=== PATIENT | male | born 1955 | race Two or more races ===

== ENCOUNTER 2022-11-01 14:21 | Inpatient (IN) | payer MEDICARE, MEDICAID ==
[~2022-11-01] VITALS: Ht 172.7 cm; Wt 54.5 kg
[2022-11-02 00:37] LABS: Basophils # (auto) 0.1 10 ^3/uL (0-0.2); Basophils % (auto) 0.5 % (0.0-2.0); Eosinophils # (auto) 0.1 10 ^3/uL (0-0.8); Hematocrit 38.7 % (41.0-53.0); Hemoglobin 13.3 g/dL (13.5-17.5); Lymphocytes # (auto) 3.8 10 ^3/uL (0.4-5.4); Mean Corpuscular Hgb Conc. 34.3 g/dL (32.0-36.0); Mean Corpuscular Volume 87.6 fL (80.0-100.0); Monocytes # (auto) 0.9 10 ^3/uL (0-1.3); Monocytes % (auto) 7.9 % (0.0-12.0); Neutrophils # (auto) 6.6 10 ^3/uL (1.6-8.6); Neutrophils % (auto) 57.6 % (37.0-80.0); Red Blood Cells 4.41 10^6/uL (4.5-5.90); Red Cell Distribution Width 14.1 % (11.8-14.3); White Blood Cell 11.5 10^3/uL (4.4-10.8)
[2022-11-02 00:44] LABS: Calcium 8.7 mg/dL (8.5-10.1); Potassium 3.9 mmol/L (3.5-5.1)
[2022-11-02 00:47] LABS: Bilirubin, Total 0.3 mg/dL (0.2-1.0); Total Protein 7.2 g/dL (6.4-8.2)
[2022-11-02 01:23] LABS: CRP High Sensitivity 14.1 mg/dL (< 0.3)
[2022-11-02] MEDS ORDERED: PIPERACILLIN-TAZOB 3.375GM 100 ML IV ONE (05:00)
[2022-11-02] MEDS ORDERED: ACETAMINOPHEN 325 MG TAB PO PRN (06:30)
[2022-11-02] MEDS ORDERED: HYDROcodone-ACET 5/325MG TAB PO PRN (06:30)
[2022-11-02] MEDS ORDERED: DEXTROSE (50%) 50ML SYRG IV PRN (06:30)
[2022-11-02] MEDS ORDERED: ONDANSETRON HCL 4 MG/2 ML VIAL IV PRN (06:30)
[2022-11-02 07:14] LABS: INR 1.07 (0.9-1.15); Partial Thromboplastin Time 31.6 sec (24.6-33.4)
[2022-11-02] MEDS: cefTRIAXone 1GM/50ML D5W 50 ML IV SCH (09:38)
[2022-11-02] MEDS: LISINOPRIL 10 MG TAB PO SCH (10:05)
[2022-11-02] MEDS: PANTOPRAZOLE 40 MG TAB PO SCH (10:06)
[2022-11-02] MEDS: ACCU-CHEK COMFORT CURVE STRIP VI SCH ×2 (12:17→17:56)
[2022-11-02] MEDS: InsuLIN REG 1unit/0.01ml Soln (100units/ml) SC SCH ×2 (12:17→17:56)
[2022-11-02] MEDS ORDERED: metroNIDAZOLE 500MG/100ML 100 ML IV ONE (14:00)
[2022-11-02] MEDS ORDERED: CLINDAMYCIN 600MG IV 50 ML IV SCH (14:00)
[2022-11-02] MEDS ORDERED: IOHEXOL 350 MG/ML 100ML IJ ONE ×2 (14:10→15:26)
[2022-11-02] MEDS: metroNIDAZOLE 500MG/100ML 100 ML IV SCH ×2 (16:25→22:19)
[2022-11-02 22:00] VITALS: BP 118/54
[2022-11-02] MEDS ORDERED: INSULIN LANTUS (GLARGINE) 1 /0.01ml (100units/ml) SC SCH (22:00)
[2022-11-02 22:34] VITALS: BP 118/54
[2022-11-03] MEDS: ACCU-CHEK COMFORT CURVE STRIP VI SCH ×5 (00:26→22:49)
[2022-11-03] MEDS: InsuLIN REG 1unit/0.01ml Soln (100units/ml) SC SCH ×5 (01:12→22:39)
[2022-11-03 05:00] VITALS: BP 107/50
[2022-11-03] MEDS: metroNIDAZOLE 500MG/100ML 100 ML IV SCH ×3 (06:26→22:48)
[2022-11-03 06:36] LABS: Basophils # (auto) 0.1 10 ^3/uL (0-0.2); Basophils % (auto) 0.7 % (0.0-2.0); Eosinophils # (auto) 0.1 10 ^3/uL (0-0.8); Eosinophils % (auto) 1.1 % (0.0-7.0); Hemoglobin 12.1 g/dL (13.5-17.5); Lymphocytes # (auto) 3.1 10 ^3/uL (0.4-5.4); Lymphocytes % (auto) 35.1 % (10.0-50.0); Mean Corpuscular Hemoglobin 30.1 pg (28.0-32.0); Mean Corpuscular Hgb Conc. 34.4 g/dL (32.0-36.0); Mean Corpuscular Volume 87.4 fL (80.0-100.0); Monocytes # (auto) 0.8 10 ^3/uL (0-1.3); Monocytes % (auto) 9.6 % (0.0-12.0); Neutrophils # (auto) 4.7 10 ^3/uL (1.6-8.6); Neutrophils % (auto) 53.5 % (37.0-80.0); Nucleated Red Blood Cells % 0.1 %; Red Blood Cells 4.01 10^6/uL (4.5-5.90); Red Cell Distribution Width 13.9 % (11.8-14.3); White Blood Cell 8.8 10^3/uL (4.4-10.8)
[2022-11-03 07:00] LABS: Potassium 4.3 mmol/L (3.5-5.1)
[2022-11-03 07:05] LABS: Albumin 2.4 g/dL (3.4-5.0); BUN/Creatinine Ratio 16.9; Calcium 8.4 mg/dL (8.5-10.1)
[2022-11-03 07:08] LABS: Bilirubin, Total 0.4 mg/dL (0.2-1.0); Total Protein 5.9 g/dL (6.4-8.2)
[2022-11-03] MEDS: LISINOPRIL 10 MG TAB PO SCH (08:51)
[2022-11-03] MEDS: PANTOPRAZOLE 40 MG TAB PO SCH (08:52)
[2022-11-03] MEDS: cefTRIAXone 1GM/50ML D5W 50 ML IV SCH (08:52)
[2022-11-03 09:00] VITALS: BP 98/48
[2022-11-03 13:00] VITALS: BP 123/57
[2022-11-03 16:57] VITALS: BP 135/69
[2022-11-03] MEDS: INSULIN LANTUS (GLARGINE) 1 /0.01ml (100units/ml) SC SCH ×2 (18:56→22:39)
[2022-11-03 22:00] VITALS: BP 116/54
[2022-11-04 04:51] VITALS: BP 132/69
[2022-11-04 05:47] LABS: Basophils # (auto) 0.1 10 ^3/uL (0-0.2); Basophils % (auto) 0.7 % (0.0-2.0); Eosinophils # (auto) 0.1 10 ^3/uL (0-0.8); Eosinophils % (auto) 1.4 % (0.0-7.0); Hematocrit 33.2 % (41.0-53.0); Hemoglobin 11.3 g/dL (13.5-17.5); Lymphocytes # (auto) 3.5 10 ^3/uL (0.4-5.4); Lymphocytes % (auto) 37.9 % (10.0-50.0); Mean Corpuscular Hemoglobin 29.8 pg (28.0-32.0); Mean Corpuscular Hgb Conc. 33.9 g/dL (32.0-36.0); Mean Corpuscular Volume 87.8 fL (80.0-100.0); Monocytes # (auto) 0.8 10 ^3/uL (0-1.3); Monocytes % (auto) 8.9 % (0.0-12.0); Neutrophils # (auto) 4.7 10 ^3/uL (1.6-8.6); Neutrophils % (auto) 51.1 % (37.0-80.0); Red Blood Cells 3.78 10^6/uL (4.5-5.90); Red Cell Distribution Width 13.7 % (11.8-14.3); White Blood Cell 9.1 10^3/uL (4.4-10.8)
[2022-11-04] MEDS: ACCU-CHEK COMFORT CURVE STRIP VI SCH ×3 (06:00→18:11)
[2022-11-04] MEDS: InsuLIN REG 1unit/0.01ml Soln (100units/ml) SC SCH ×3 (06:00→18:14)
[2022-11-04 06:06] LABS: Potassium 4.1 mmol/L (3.5-5.1)
[2022-11-04 06:13] LABS: Albumin 2.4 g/dL (3.4-5.0); Calcium 8.4 mg/dL (8.5-10.1)
[2022-11-04 06:16] LABS: Bilirubin, Total 0.3 mg/dL (0.2-1.0); Total Protein 5.7 g/dL (6.4-8.2)
[2022-11-04] MEDS: metroNIDAZOLE 500MG/100ML 100 ML IV SCH ×3 (06:55→21:20)
[2022-11-04 09:00] VITALS: BP 126/62
[2022-11-04] MEDS: cefTRIAXone 1GM/50ML D5W 50 ML IV SCH (09:11)
[2022-11-04] MEDS: PANTOPRAZOLE 40 MG TAB PO SCH (09:12)
[2022-11-04] MEDS: LISINOPRIL 10 MG TAB PO SCH ×2 (09:12→17:00)
[2022-11-04 13:00] VITALS: BP 134/63
[2022-11-04] MEDS ORDERED: POLYETHYLENE GLYCOL 17 GM PWDR PO ONE (13:15)
[2022-11-04] MEDS ORDERED: POLYETHYLENE GLYCOL 17 GM PWDR PO PRN (13:15)
[2022-11-04 16:44] VITALS: BP 151/84
[2022-11-04] MEDS: Glucerna Carbsteady SHAKE Vanilla 8oz PO SCH (18:11)
[2022-11-04] MEDS: MELATONIN 5 MG TAB PO SCH (21:20)
[2022-11-04] MEDS: TEMAZEPAM 15 MG CAP PO PRN (21:20)
[2022-11-04 22:00] VITALS: BP 115/52
[2022-11-05] MEDS: INSULIN LANTUS (GLARGINE) 1 /0.01ml (100units/ml) SC SCH ×2 (00:13→22:15)
[2022-11-05 05:20] VITALS: BP 122/60
[2022-11-05 05:33] LABS: Basophils # (auto) 0.1 10 ^3/uL (0-0.2); Basophils % (auto) 0.7 % (0.0-2.0); Eosinophils # (auto) 0.2 10 ^3/uL (0-0.8); Hematocrit 33.3 % (41.0-53.0); Lymphocytes % (auto) 36.8 % (10.0-50.0); Mean Corpuscular Hemoglobin 28.8 pg (28.0-32.0); Mean Corpuscular Hgb Conc. 32.9 g/dL (32.0-36.0); Mean Corpuscular Volume 87.5 fL (80.0-100.0); Monocytes # (auto) 0.8 10 ^3/uL (0-1.3); Monocytes % (auto) 9.5 % (0.0-12.0); Nucleated Red Blood Cells % 0.1 %; Red Blood Cells 3.81 10^6/uL (4.5-5.90); Red Cell Distribution Width 14.5 % (11.8-14.3); White Blood Cell 8.1 10^3/uL (4.4-10.8)
[2022-11-05] MEDS: metroNIDAZOLE 500MG/100ML 100 ML IV SCH ×3 (05:39→22:28)
[2022-11-05] MEDS: InsuLIN REG 1unit/0.01ml Soln (100units/ml) SC SCH ×5 (05:41→22:13)
[2022-11-05] MEDS: ACCU-CHEK COMFORT CURVE STRIP VI SCH ×4 (05:41→18:28)
[2022-11-05 05:47] LABS: Albumin 2.4 g/dL (3.4-5.0); Anion Gap 4 (5-15); Carbon Dioxide 28 mmol/L (21-32); Chloride 110 mmol/L (98-107); Potassium 3.9 mmol/L (3.5-5.1); Sodium 142 mmol/L (136-145)
[2022-11-05 05:51] LABS: Alanine Aminotransferase < 6 U/L (16-61); Alkaline Phosphatase 113 U/L (45-117); Aspartate Aminotransferase 5 U/L (15-37); Bilirubin, Total 0.3 mg/dL (0.2-1.0); Blood Urea Nitrogen 10 mg/dL (7-18); GFR African American 215 mL/min; GFR Non-African American 177 mL/min; Total Protein 5.4 g/dL (6.4-8.2)
[2022-11-05 06:46] LABS: Glucose 78 mg/dL (74-106)
[2022-11-05 08:00] VITALS: BP 112/57
[2022-11-05] MEDS: Glucerna Carbsteady SHAKE Vanilla 8oz PO SCH ×2 (09:02→18:28)
[2022-11-05] MEDS: cefTRIAXone 1GM/50ML D5W 50 ML IV SCH (09:02)
[2022-11-05] MEDS: PANTOPRAZOLE 40 MG TAB PO SCH (09:02)
[2022-11-05] MEDS: LISINOPRIL 10 MG TAB PO SCH (10:00)
[2022-11-05 13:00] VITALS: BP 114/50
[2022-11-05] MEDS ORDERED: PANT40TA2 PO (16:19)
[2022-11-05] MEDS ORDERED: METF-370 PO (16:19)
[2022-11-05] MEDS ORDERED: INSU1INJ19 SC (16:19)
[2022-11-05] MEDS ORDERED: ATOR40TA52 PO (16:19)
[2022-11-05] MEDS ORDERED: INSU100I4 SC (16:19)
[2022-11-05 16:43] VITALS: BP 114/63
[2022-11-05 21:49] VITALS: BP 133/59
[2022-11-05 22:12] LABS: Urine Bacteria NONE SEEN /hpf (None Seen); Urine Blood Negative /uL (Negative); Urine Mucus FEW (None Seen); Urine Specific Gravity 1.023 (1.001-1.035); Urine WBC 7 /hpf (0 - 3)
[2022-11-05] MEDS: MELATONIN 5 MG TAB PO SCH (22:25)
[2022-11-05] MEDS: TEMAZEPAM 15 MG CAP PO PRN (22:25)
[2022-11-05] MEDS: ATORVASTATIN 20 MG TAB PO SCH (22:25)
[2022-11-05] MEDS: ASPirin-EC 81 mg tab PO SCH (22:26)
[2022-11-06 04:46] VITALS: BP 151/70
[2022-11-06] MEDS: metroNIDAZOLE 500MG/100ML 100 ML IV SCH ×3 (05:16→22:24)
[2022-11-06] MEDS: ACCU-CHEK COMFORT CURVE STRIP VI SCH ×4 (05:22→17:49)
[2022-11-06] MEDS: InsuLIN REG 1unit/0.01ml Soln (100units/ml) SC SCH ×3 (05:22→17:49)
[2022-11-06 07:29] LABS: Basophils # (auto) 0 10 ^3/uL (0-0.2); Basophils % (auto) 0.6 % (0.0-2.0); Eosinophils # (auto) 0.2 10 ^3/uL (0-0.8); Eosinophils % (auto) 2.7 % (0.0-7.0); Hemoglobin 11.3 g/dL (13.5-17.5); Lymphocytes # (auto) 2.7 10 ^3/uL (0.4-5.4); Lymphocytes % (auto) 36.1 % (10.0-50.0); Mean Corpuscular Hemoglobin 28.7 pg (28.0-32.0); Mean Corpuscular Hgb Conc. 32.5 g/dL (32.0-36.0); Mean Corpuscular Volume 88.3 fL (80.0-100.0); Monocytes # (auto) 0.7 10 ^3/uL (0-1.3); Neutrophils # (auto) 3.9 10 ^3/uL (1.6-8.6); Neutrophils % (auto) 51.6 % (37.0-80.0); Nucleated Red Blood Cells % 0.1 %; Red Blood Cells 3.96 10^6/uL (4.5-5.90); Red Cell Distribution Width 14.4 % (11.8-14.3); White Blood Cell 7.5 10^3/uL (4.4-10.8)
[2022-11-06 07:43] LABS: INR 1.28 (0.9-1.15); Partial Thromboplastin Time 33.8 sec (24.6-33.4)
[2022-11-06 07:44] LABS: Potassium 3.8 mmol/L (3.5-5.1)
[2022-11-06 07:48] LABS: Albumin 2.2 g/dL (3.4-5.0); BUN/Creatinine Ratio 18.3; Calcium 8.4 mg/dL (8.5-10.1)
[2022-11-06 07:50] LABS: Bilirubin, Total 0.2 mg/dL (0.2-1.0); Total Protein 6.1 g/dL (6.4-8.2)
[2022-11-06] MEDS: Glucerna Carbsteady SHAKE Vanilla 8oz PO SCH ×2 (08:00→19:10)
[2022-11-06 08:05] VITALS: BP 156/72
[2022-11-06 08:25] VITALS: BP 156/72
[2022-11-06] MEDS: cefTRIAXone 1GM/50ML D5W 50 ML IV SCH (09:15)
[2022-11-06] MEDS: PANTOPRAZOLE 40 MG TAB PO SCH (09:50)
[2022-11-06] MEDS: ASPirin-EC 81 mg tab PO SCH (09:50)
[2022-11-06] MEDS: LISINOPRIL 10 MG TAB PO SCH (09:51)
[2022-11-06] MEDS ORDERED: MIDAZOLAM HCL 2MG/2ML 2ml VIAL (1mg/ml) ONE (12:33)
[2022-11-06] MEDS ORDERED: ANGIOMAX 250 MG VIAL IV ONE (12:33)
[2022-11-06] MEDS ORDERED: fentaNYL CITRATE 100 MCG/2 ML VL ONE (12:33)
[2022-11-06] MEDS ORDERED: SODIUM CHL 0.9% 0 ML ONE (12:33)
[2022-11-06] MEDS ORDERED: IODIXANOL 320MG/ML 100ML BTL IV ONE (12:33)
[2022-11-06] MEDS ORDERED: LIDOCAINE 2%HCL (LOCAL ANESTH.) INJ 10ml MDV ONE (12:34)
[2022-11-06 16:55] VITALS: BP 145/70
[2022-11-06] MEDS: ATORVASTATIN 20 MG TAB PO SCH (17:50)
[2022-11-06 20:05] VITALS: BP 134/79
[2022-11-06 21:42] VITALS: BP 134/79
[2022-11-06] MEDS: INSULIN LANTUS (GLARGINE) 1 /0.01ml (100units/ml) SC SCH (22:24)
[2022-11-06] MEDS: MELATONIN 5 MG TAB PO SCH (22:24)
[2022-11-07] MEDS: ACCU-CHEK COMFORT CURVE STRIP VI SCH ×4 (00:11→17:56)
[2022-11-07] MEDS: InsuLIN REG 1unit/0.01ml Soln (100units/ml) SC SCH ×4 (00:12→17:57)
[2022-11-07 05:00] VITALS: BP 138/65
[2022-11-07 05:11] LABS: Basophils # (auto) 0.1 10 ^3/uL (0-0.2); Basophils % (auto) 0.7 % (0.0-2.0); Eosinophils # (auto) 0.2 10 ^3/uL (0-0.8); Eosinophils % (auto) 2.7 % (0.0-7.0); Hematocrit 33.6 % (41.0-53.0); Hemoglobin 11.2 g/dL (13.5-17.5); Lymphocytes # (auto) 3.1 10 ^3/uL (0.4-5.4); Lymphocytes % (auto) 37.7 % (10.0-50.0); Mean Corpuscular Hemoglobin 29.2 pg (28.0-32.0); Mean Corpuscular Hgb Conc. 33.3 g/dL (32.0-36.0); Mean Corpuscular Volume 87.7 fL (80.0-100.0); Monocytes # (auto) 0.8 10 ^3/uL (0-1.3); Monocytes % (auto) 9.4 % (0.0-12.0); Neutrophils # (auto) 4.1 10 ^3/uL (1.6-8.6); Neutrophils % (auto) 49.5 % (37.0-80.0); Red Blood Cells 3.83 10^6/uL (4.5-5.90); Red Cell Distribution Width 14.5 % (11.8-14.3); White Blood Cell 8.2 10^3/uL (4.4-10.8)
[2022-11-07] MEDS: metroNIDAZOLE 500MG/100ML 100 ML IV SCH ×3 (05:25→22:47)
[2022-11-07 05:31] LABS: Albumin 2.2 g/dL (3.4-5.0); Potassium 3.9 mmol/L (3.5-5.1)
[2022-11-07 05:33] LABS: BUN/Creatinine Ratio 20.8
[2022-11-07 05:36] LABS: Bilirubin, Total 0.2 mg/dL (0.2-1.0); Total Protein 5.4 g/dL (6.4-8.2)
[2022-11-07] MEDS: cefTRIAXone 1GM/50ML D5W 50 ML IV SCH (08:49)
[2022-11-07] MEDS: ASPirin-EC 81 mg tab PO SCH (08:49)
[2022-11-07] MEDS: Glucerna Carbsteady SHAKE Vanilla 8oz PO SCH ×2 (08:49→17:58)
[2022-11-07] MEDS: PANTOPRAZOLE 40 MG TAB PO SCH (08:50)
[2022-11-07] MEDS: LISINOPRIL 10 MG TAB PO SCH (08:51)
[2022-11-07 09:09] VITALS: BP 133/67
[2022-11-07 12:56] VITALS: BP 140/56
[2022-11-07 17:09] VITALS: BP 146/65
[2022-11-07] MEDS: ATORVASTATIN 20 MG TAB PO SCH (17:57)
[2022-11-07 22:00] VITALS: BP 149/67
[2022-11-07] MEDS: MELATONIN 5 MG TAB PO SCH (22:47)
[2022-11-07] MEDS: INSULIN LANTUS (GLARGINE) 1 /0.01ml (100units/ml) SC SCH (22:47)
[2022-11-08] VITALS (10 sets, daily range): BP systolic 96–141; BP diastolic 54–92
[2022-11-08] MEDS: ACCU-CHEK COMFORT CURVE STRIP VI SCH ×5 (00:12→23:49)
[2022-11-08] MEDS: InsuLIN REG 1unit/0.01ml Soln (100units/ml) SC SCH ×5 (00:14→23:56)
[2022-11-08] MEDS: metroNIDAZOLE 500MG/100ML 100 ML IV SCH ×3 (06:22→21:34)
[2022-11-08 06:27] LABS: INR 1.34 (0.9-1.15); Partial Thromboplastin Time 34.3 sec (24.6-33.4)
[2022-11-08 06:33] LABS: Potassium 4.3 mmol/L (3.5-5.1)
[2022-11-08 06:38] LABS: Albumin 2.3 g/dL (3.4-5.0); BUN/Creatinine Ratio 13.2; Calcium 8.2 mg/dL (8.5-10.1)
[2022-11-08 06:40] LABS: Bilirubin, Total 0.2 mg/dL (0.2-1.0); Total Protein 5.6 g/dL (6.4-8.2)
[2022-11-08 07:44] LABS: Basophils # (auto) 0.1 10 ^3/uL (0-0.2); Basophils % (auto) 0.8 % (0.0-2.0); Eosinophils # (auto) 0.2 10 ^3/uL (0-0.8); Eosinophils % (auto) 2.4 % (0.0-7.0); Hematocrit 34.4 % (41.0-53.0); Hemoglobin 11.2 g/dL (13.5-17.5); Lymphocytes # (auto) 2.9 10 ^3/uL (0.4-5.4); Lymphocytes % (auto) 32.4 % (10.0-50.0); Mean Corpuscular Hemoglobin 28.6 pg (28.0-32.0); Mean Corpuscular Hgb Conc. 32.6 g/dL (32.0-36.0); Mean Corpuscular Volume 87.8 fL (80.0-100.0); Monocytes # (auto) 0.8 10 ^3/uL (0-1.3); Monocytes % (auto) 9.1 % (0.0-12.0); Neutrophils # (auto) 4.9 10 ^3/uL (1.6-8.6); Neutrophils % (auto) 55.3 % (37.0-80.0); Nucleated Red Blood Cells % 0.1 %; Red Blood Cells 3.92 10^6/uL (4.5-5.90); Red Cell Distribution Width 14.3 % (11.8-14.3); White Blood Cell 8.8 10^3/uL (4.4-10.8)
[2022-11-08] MEDS: Glucerna Carbsteady SHAKE Vanilla 8oz PO SCH ×2 (08:00→18:15)
[2022-11-08] MEDS: ASPirin-EC 81 mg tab PO SCH (09:03)
[2022-11-08] MEDS: cefTRIAXone 1GM/50ML D5W 50 ML IV SCH (09:03)
[2022-11-08] MEDS: PANTOPRAZOLE 40 MG TAB PO SCH (09:04)
[2022-11-08] MEDS: LISINOPRIL 10 MG TAB PO SCH (09:04)
[2022-11-08] MEDS ORDERED: ANGIOMAX 250 MG VIAL IV ONE (15:07)
[2022-11-08] MEDS ORDERED: fentaNYL CITRATE 100 MCG/2 ML VL ONE (15:07)
[2022-11-08] MEDS ORDERED: MIDAZOLAM HCL 2MG/2ML 2ml VIAL (1mg/ml) ONE (15:07)
[2022-11-08] MEDS ORDERED: SODIUM CHL 0.9% 50 ML ONE (15:08)
[2022-11-08] MEDS ORDERED: IOHEXOL 350 MG/ML 100ML IJ ONE (15:08)
[2022-11-08] MEDS ORDERED: LIDOCAINE 2%HCL (LOCAL ANESTH.) INJ 20ML MDV ONE (15:08)
[2022-11-08] MEDS ORDERED: IODIXANOL 320MG/ML 100ML BTL IV ONE (15:50)
[2022-11-08] MEDS ORDERED: CLOPIDOGREL 300 MG TAB ONE (16:15)
[2022-11-08] MEDS ORDERED: hydrALAZINE HCL 20 MG/ML VL ONE (16:37)
[2022-11-08] MEDS: ATORVASTATIN 20 MG TAB PO SCH (18:15)
[2022-11-08] MEDS: MELATONIN 5 MG TAB PO SCH (21:34)
[2022-11-08] MEDS: INSULIN LANTUS (GLARGINE) 1 /0.01ml (100units/ml) SC SCH (21:35)
[2022-11-09 05:00] VITALS: BP 96/54
[2022-11-09 05:26] LABS: Basophils # (auto) 0.1 10 ^3/uL (0-0.2); Basophils % (auto) 0.8 % (0.0-2.0); Eosinophils # (auto) 0.1 10 ^3/uL (0-0.8); Eosinophils % (auto) 1.8 % (0.0-7.0); Hemoglobin 11.3 g/dL (13.5-17.5); Lymphocytes # (auto) 2.6 10 ^3/uL (0.4-5.4); Mean Corpuscular Hemoglobin 29.4 pg (28.0-32.0); Mean Corpuscular Hgb Conc. 33.2 g/dL (32.0-36.0); Mean Corpuscular Volume 88.8 fL (80.0-100.0); Monocytes # (auto) 0.9 10 ^3/uL (0-1.3); Monocytes % (auto) 11.4 % (0.0-12.0); Nucleated Red Blood Cells % 0.1 %; Red Blood Cells 3.84 10^6/uL (4.5-5.90); Red Cell Distribution Width 14.6 % (11.8-14.3); White Blood Cell 7.6 10^3/uL (4.4-10.8)
[2022-11-09 05:45] LABS: Albumin 2.2 g/dL (3.4-5.0); BUN/Creatinine Ratio 17.2; Calcium 8.1 mg/dL (8.5-10.1)
[2022-11-09 05:48] LABS: Bilirubin, Total 0.2 mg/dL (0.2-1.0); Total Protein 5.5 g/dL (6.4-8.2)
[2022-11-09] MEDS: metroNIDAZOLE 500MG/100ML 100 ML IV SCH ×3 (05:51→21:58)
[2022-11-09] MEDS: InsuLIN REG 1unit/0.01ml Soln (100units/ml) SC SCH ×3 (06:00→17:38)
[2022-11-09] MEDS: ACCU-CHEK COMFORT CURVE STRIP VI SCH ×3 (06:06→17:37)
[2022-11-09 08:00] VITALS: BP 111/69
[2022-11-09 08:15] VITALS: BP 111/69
[2022-11-09] MEDS: Glucerna Carbsteady SHAKE Vanilla 8oz PO SCH ×2 (10:12→17:37)
[2022-11-09] MEDS: CLOPIDOGREL BISULFATE 75 MG TAB PO SCH (10:13)
[2022-11-09] MEDS: cefTRIAXone 1GM/50ML D5W 50 ML IV SCH (10:13)
[2022-11-09] MEDS: PANTOPRAZOLE 40 MG TAB PO SCH (10:13)
[2022-11-09] MEDS: ASPirin-EC 81 mg tab PO SCH (10:13)
[2022-11-09] MEDS: LISINOPRIL 10 MG TAB PO SCH (10:14)
[2022-11-09 12:10] VITALS: BP 144/68
[2022-11-09 16:10] VITALS: BP 145/67
[2022-11-09 17:29] LABS: Cholesterol 86 mg/dL (< 200); HDL Cholesterol 22 mg/dL (40-59); LDL Cholesterol 48 mg/dL (< 100); Triglycerides 83 mg/dL (< 150)
[2022-11-09] MEDS: ATORVASTATIN 20 MG TAB PO SCH (17:37)
[2022-11-09] MEDS: MELATONIN 5 MG TAB PO SCH (21:59)
[2022-11-09 22:00] VITALS: BP 115/59
[2022-11-09] MEDS: INSULIN LANTUS (GLARGINE) 1 /0.01ml (100units/ml) SC SCH (22:33)
[2022-11-10] MEDS: ACCU-CHEK COMFORT CURVE STRIP VI SCH ×4 (00:02→17:43)
[2022-11-10] MEDS: InsuLIN REG 1unit/0.01ml Soln (100units/ml) SC SCH ×4 (00:03→18:15)
[2022-11-10 05:00] VITALS: BP 143/77
[2022-11-10] MEDS: metroNIDAZOLE 500MG/100ML 100 ML IV SCH ×3 (05:29→21:51)
[2022-11-10] MEDS: Glucerna Carbsteady SHAKE Vanilla 8oz PO SCH ×2 (08:00→18:09)
[2022-11-10 08:54] VITALS: BP 143/71
[2022-11-10] MEDS: cefTRIAXone 1GM/50ML D5W 50 ML IV SCH (09:09)
[2022-11-10] MEDS: LISINOPRIL 10 MG TAB PO SCH (09:09)
[2022-11-10] MEDS: PANTOPRAZOLE 40 MG TAB PO SCH (09:09)
[2022-11-10] MEDS: CLOPIDOGREL BISULFATE 75 MG TAB PO SCH (09:10)
[2022-11-10] MEDS: ASPirin-EC 81 mg tab PO SCH (09:13)
[2022-11-10 12:49] VITALS: BP 143/71
[2022-11-10 17:00] VITALS: BP 142/67
[2022-11-10] MEDS: ATORVASTATIN 20 MG TAB PO SCH (18:09)
[2022-11-10] MEDS: MELATONIN 5 MG TAB PO SCH (21:50)
[2022-11-10 22:00] VITALS: BP 134/64
[2022-11-10] MEDS: INSULIN LANTUS (GLARGINE) 1 /0.01ml (100units/ml) SC SCH (22:05)
[2022-11-11] MEDS: ACCU-CHEK COMFORT CURVE STRIP VI SCH ×5 (00:04→23:56)
[2022-11-11] MEDS: InsuLIN REG 1unit/0.01ml Soln (100units/ml) SC SCH ×5 (00:05→23:57)
[2022-11-11 05:00] VITALS: BP 150/53
[2022-11-11] MEDS: metroNIDAZOLE 500MG/100ML 100 ML IV SCH ×3 (05:19→22:25)
[2022-11-11] MEDS: Glucerna Carbsteady SHAKE Vanilla 8oz PO SCH ×2 (08:00→18:18)
[2022-11-11 08:51] VITALS: BP 136/71
[2022-11-11] MEDS: PANTOPRAZOLE 40 MG TAB PO SCH (09:35)
[2022-11-11] MEDS: ASPirin-EC 81 mg tab PO SCH (09:35)
[2022-11-11] MEDS: CLOPIDOGREL BISULFATE 75 MG TAB PO SCH (09:35)
[2022-11-11] MEDS: cefTRIAXone 1GM/50ML D5W 50 ML IV SCH ×2 (09:35→10:16)
[2022-11-11] MEDS: LISINOPRIL 10 MG TAB PO SCH (09:36)
[2022-11-11 12:59] VITALS: BP 142/61
[2022-11-11 16:49] VITALS: BP 109/50
[2022-11-11] MEDS: ATORVASTATIN 20 MG TAB PO SCH (18:27)
[2022-11-11 22:00] VITALS: BP 146/75
[2022-11-11] MEDS: MELATONIN 5 MG TAB PO SCH (22:27)
[2022-11-11] MEDS: INSULIN LANTUS (GLARGINE) 1 /0.01ml (100units/ml) SC SCH (22:36)
[2022-11-12 04:46] VITALS: BP 104/68
[2022-11-12] MEDS: InsuLIN REG 1unit/0.01ml Soln (100units/ml) SC SCH ×3 (06:00→17:58)
[2022-11-12] MEDS: ACCU-CHEK COMFORT CURVE STRIP VI SCH ×3 (06:00→17:58)
[2022-11-12] MEDS: metroNIDAZOLE 500MG/100ML 100 ML IV SCH ×3 (06:28→22:32)
[2022-11-12] MEDS: Glucerna Carbsteady SHAKE Vanilla 8oz PO SCH ×2 (08:00→17:50)
[2022-11-12 09:00] VITALS: BP 119/60
[2022-11-12] MEDS: LISINOPRIL 10 MG TAB PO SCH (09:22)
[2022-11-12] MEDS: CLOPIDOGREL BISULFATE 75 MG TAB PO SCH (09:22)
[2022-11-12] MEDS: PANTOPRAZOLE 40 MG TAB PO SCH (09:22)
[2022-11-12] MEDS: ASPirin-EC 81 mg tab PO SCH (09:22)
[2022-11-12] MEDS: cefTRIAXone 1GM/50ML D5W 50 ML IV SCH (09:22)
[2022-11-12 12:51] VITALS: BP 142/68
[2022-11-12 17:00] VITALS: BP 134/63
[2022-11-12] MEDS: ATORVASTATIN 20 MG TAB PO SCH (17:54)
[2022-11-12 22:00] VITALS: BP 112/64
[2022-11-12] MEDS: INSULIN LANTUS (GLARGINE) 1 /0.01ml (100units/ml) SC SCH (22:00)
[2022-11-12] MEDS: MELATONIN 5 MG TAB PO SCH (22:00)
[2022-11-13] MEDS: ACCU-CHEK COMFORT CURVE STRIP VI SCH ×4 (00:08→18:00)
[2022-11-13] MEDS: InsuLIN REG 1unit/0.01ml Soln (100units/ml) SC SCH ×4 (00:12→18:00)
[2022-11-13 05:00] VITALS: BP 121/60
[2022-11-13] MEDS: metroNIDAZOLE 500MG/100ML 100 ML IV SCH (05:52)
[2022-11-13] MEDS: Glucerna Carbsteady SHAKE Vanilla 8oz PO SCH ×2 (08:00→18:00)
[2022-11-13 08:41] VITALS: BP_SYST 108; BP_SYST 18; BP_DIAS 55
[2022-11-13] MEDS: cefTRIAXone 1GM/50ML D5W 50 ML IV SCH (09:59)
[2022-11-13] MEDS: ASPirin-EC 81 mg tab PO SCH (09:59)
[2022-11-13] MEDS: CLOPIDOGREL BISULFATE 75 MG TAB PO SCH (09:59)
[2022-11-13] MEDS: PANTOPRAZOLE 40 MG TAB PO SCH (09:59)
[2022-11-13] MEDS: LISINOPRIL 10 MG TAB PO SCH (09:59)
[2022-11-13 13:00] VITALS: BP 142/73
[2022-11-13 16:59] VITALS: BP 139/57
[2022-11-13] MEDS: ATORVASTATIN 20 MG TAB PO SCH (18:00)
== END 2022-11-13 18:38 | disposition home health service (06) | DRG 182 ==
LOC: EDBD 14:21 → ER 14:21 → OVERFLOW 11-02 06:28 → EAST 11-02 19:45
PROVIDERS: ADMIT Nurse Practitioner; ATTEND Student in an Organized Health Care Education/Training Program
PROC: 047K3DZ Dilation of Right Femoral Artery with Intraluminal Device, Percutaneous Approach (ICD-10-PCS; principal; 2022-11-08)
PROC: 047M3ZZ Dilation of Right Popliteal Artery, Percutaneous Approach (ICD-10-PCS; 2022-11-08)
PROC: 047C3ZZ Dilation of Right Common Iliac Artery, Percutaneous Approach (ICD-10-PCS; 2022-11-08)
PROC: B41FYZZ Fluoroscopy of Right Lower Extremity Arteries using Other Contrast (ICD-10-PCS; 2022-11-08)
DX: E11.52 Type 2 diabetes mellitus with diabetic peripheral angiopathy with gangrene (principal); I96 Gangrene, not elsewhere classified; E44.1 Mild protein-calorie malnutrition; E11.621 Type 2 diabetes mellitus with foot ulcer; D63.8 Anemia in other chronic diseases classified elsewhere; L97.509 Non-pressure chronic ulcer of other part of unspecified foot with unspecified severity; L03.031 Cellulitis of right toe; E11.628 Type 2 diabetes mellitus with other skin complications; K59.00 Constipation, unspecified; E78.5 Hyperlipidemia, unspecified; Z20.822 Contact with and (suspected) exposure to COVID-19; I10 Essential (primary) hypertension; Z89.512 Acquired absence of left leg below knee; Z98.61 Coronary angioplasty status; Z99.3 Dependence on wheelchair; Z68.1 Body mass index [BMI] 19.9 or less, adult
CPT/HCPCS: 36415; 37226; 71045; 73630; 73700; 73706; 75710; 80053; 80061; 81001; 82962; 83036; 83605; 85025; 85610; 85652; 85730; 86141; 86850; 86900; 86901; 87040; 87426; 93005; 93306; 96365; 99152; 99153; G0378; J0696; J1815; J2001; J2250; J2543; J3490; Q9967

== ENCOUNTER → 2023-01-01 | Outpatient (CLI) | payer MEDICARE, MEDICAID ==
[~2023-01-01] MED LIST: ATOR40TA52 PO; INSU100I4 SC; INSU1INJ19 SC; METF-370 PO; PANT40TA2 PO
== END | disposition home or self-care (01) ==
LOC: LAB 14:31
PROVIDERS: ATTEND Internal Medicine
DX: E11.52 Type 2 diabetes mellitus with diabetic peripheral angiopathy with gangrene (principal)
CPT/HCPCS: 36415; 83036

== ENCOUNTER → 2023-04-30 | Outpatient (CLI) | payer MEDICARE, MEDICAID ==
[~2023-04-30] MED LIST changes: +AUG875T PO; +GABA-1250 PO; +HYDR-4902 PO; -INSU100I4 SC; -INSU1INJ19 SC; +MELA3TAB27 PO; +RIVA10TA PO
[2023-04-30 10:21] LABS: Basophils # (auto) 0.1 10 ^3/uL (0-0.2); Basophils % (auto) 0.6 % (0.0-2.0); Eosinophils # (auto) 0.2 10 ^3/uL (0-0.8); Eosinophils % (auto) 2.5 % (0.0-7.0); Hematocrit 33.5 % (41.0-53.0); Hemoglobin 11.2 g/dL (13.5-17.5); Lymphocytes # (auto) 3.1 10 ^3/uL (0.4-5.4); Lymphocytes % (auto) 34.3 % (10.0-50.0); Mean Corpuscular Hemoglobin 29.9 pg (28.0-32.0); Mean Corpuscular Hgb Conc. 33.5 g/dL (32.0-36.0); Mean Corpuscular Volume 89.2 fL (80.0-100.0); Monocytes # (auto) 0.5 10 ^3/uL (0-1.3); Monocytes % (auto) 5.9 % (0.0-12.0); Neutrophils # (auto) 5.2 10 ^3/uL (1.6-8.6); Neutrophils % (auto) 56.7 % (37.0-80.0); Red Blood Cells 3.75 10^6/uL (4.5-5.90); Red Cell Distribution Width 14.9 % (11.8-14.3); White Blood Cell 9.1 10^3/uL (4.4-10.8)
[2023-04-30 10:49] LABS: Urine Bacteria NONE SEEN /hpf (None Seen); Urine Blood Negative /uL (Negative); Urine Mucus FEW (None Seen); Urine Specific Gravity 1.013 (1.001-1.035); Urine WBC 1 /hpf (0 - 3)
[2023-04-30 11:16] LABS: Potassium 4.3 mmol/L (3.5-5.1)
[2023-04-30 11:26] LABS: Albumin 2.7 g/dL (3.4-5.0); BUN/Creatinine Ratio 17.5 (10.0-20.0); Bilirubin, Total 0.2 mg/dL (0.2-1.0); Calcium 9.2 mg/dL (8.5-10.1); Total Protein 7.2 g/dL (6.4-8.2)
== END | disposition home or self-care (01) ==
LOC: LAB 09:57
PROVIDERS: ATTEND Internal Medicine
DX: I10 Essential (primary) hypertension (principal); E11.9 Type 2 diabetes mellitus without complications; E78.00 Pure hypercholesterolemia, unspecified; Z00.01 Encounter for general adult medical examination with abnormal findings
CPT/HCPCS: 36415; 80053; 80061; 81001; 82043; 82570; 83036; 84439; 84443; 85025

== ENCOUNTER → 2023-10-08 | Outpatient (CLI) | payer MEDICARE, MEDICAID ==
[2023-10-08 12:10] LABS: Chloride 106 mmol/L (98-107); Potassium 4.3 mmol/L (3.5-5.1); Sodium 138 mmol/L (136-145)
[2023-10-08 12:11] LABS: Anion Gap 4 (5-15); Calcium 9.2 mg/dL (8.5-10.1); Carbon Dioxide 28 mmol/L (20-30)
[2023-10-08 12:16] LABS: BUN/Creatinine Ratio 16.7 (10.0-20.0); Blood Urea Nitrogen 11 mg/dL (9-23); Glucose 234 mg/dL (74-106); Triglycerides 83 mg/dL (< 150)
[2023-10-08 12:17] LABS: LDL Cholesterol 104 mg/dL (< 100)
[2023-10-08 12:18] LABS: % Iron Saturation 12.2 % (20-55)
[2023-10-08 12:19] LABS: Cholesterol 140 mg/dL (< 200); HDL Cholesterol 28 mg/dL (40-59)
[2023-10-08 12:38] LABS: Ferritin 167.3 ng/mL (22-322)
[2023-10-08 13:17] LABS: Folate (Folic Acid) 8.96 ng/mL (>5.38)
[2023-10-08 13:51] LABS: Prostate Specific Antigen 1.56 ng/mL (0.0-4.0)
== END | disposition home or self-care (01) ==
LOC: LAB 11:01
PROVIDERS: ATTEND Internal Medicine
DX: Z12.5 Encounter for screening for malignant neoplasm of prostate (principal); E11.29 Type 2 diabetes mellitus with other diabetic kidney complication; E78.5 Hyperlipidemia, unspecified; E11.69 Type 2 diabetes mellitus with other specified complication; E11.8 Type 2 diabetes mellitus with unspecified complications; I10 Essential (primary) hypertension; D50.9 Iron deficiency anemia, unspecified
CPT/HCPCS: 36415; 80048; 80061; 82607; 82728; 82746; 83036; 83540; 83550; 83615; 84153

== ENCOUNTER 2023-11-08 18:44 | Inpatient (IN) | payer MEDICARE, MEDICAID ==
[~2023-11-08] VITALS: Ht 170.2 cm; Wt 55.2 kg
[2023-11-08 19:30] VITALS: PULSE 88; RESP 29; O2SAT 91
[2023-11-08] MEDS ORDERED: ONDANSETRON HCL 4 MG/2 ML VIAL IV ONE (19:45)
[2023-11-08] MEDS ORDERED: LORazepam 2MG/ML-1ML VIAL IV ONE ×2 (19:45→23:30)
[2023-11-08] MEDS ORDERED: SODIUM CHLORIDE 0.9% 1,550 ML IV ONE (19:45)
[2023-11-08] MEDS ORDERED: ACETAMINOPHEN 325 MG TAB PO PRN (19:45)
[2023-11-08 20:07] LABS: Base Excess 1.9 mmol/L (-2.0-2.0)
[2023-11-08 20:12] LABS: Eosinophils # (auto) 0 10 ^3/uL (0-0.8); Lymphocytes # (auto) 1.1 10 ^3/uL (0.4-5.4); Monocytes # (auto) 0.8 10 ^3/uL (0-1.3); Neutrophils # (auto) 11.9 10 ^3/uL (1.6-8.6); Red Cell Distribution Width 16.9 % (11.8-14.3)
[2023-11-08 20:14] LABS: Basophils # (auto) 0 10 ^3/uL (0-0.2); Basophils % (auto) 0.3 % (0.0-2.0); Eosinophils % (auto) 0.1 % (0.0-7.0); Hematocrit 25.7 % (41.0-53.0); Hemoglobin 8.1 g/dL (13.5-17.5); Lymphocytes % (auto) 7.7 % (10.0-50.0); Mean Corpuscular Hemoglobin 25.3 pg (28.0-32.0); Mean Corpuscular Hgb Conc. 31.6 g/dL (32.0-36.0); Mean Corpuscular Volume 79.9 fL (80.0-100.0); Monocytes % (auto) 6.1 % (0.0-12.0); Neutrophils % (auto) 85.8 % (37.0-80.0); Red Blood Cells 3.22 10^6/uL (4.5-5.90); White Blood Cell 13.8 10^3/uL (4.4-10.8)
[2023-11-08 20:26] LABS: Alkaline Phosphatase 190 U/L (46-116); Anion Gap 6 (5-15); Aspartate Aminotransferase 19 U/L (13-40); BUN/Creatinine Ratio 13.6 (10.0-20.0); Blood Urea Nitrogen 12 mg/dL (9-23); Calcium 8.5 mg/dL (8.5-10.1); Carbon Dioxide 26 mmol/L (20-30); Chloride 104 mmol/L (98-107); Glucose 181 mg/dL (74-106); Potassium 3.7 mmol/L (3.5-5.1); Sodium 136 mmol/L (136-145)
[2023-11-08 20:27] LABS: Bilirubin, Total 0.9 mg/dL (0.2-1.0); Total Protein 6.6 g/dL (5.7-8.2)
[2023-11-08 20:34] LABS: INR 1.39 (0.9-1.15); Partial Thromboplastin Time 34.2 SEC (24.5-34.5); Prothrombin Time 14.3 sec (9.3-11.8)
[2023-11-08 20:43] LABS: Alanine Aminotransferase < 9 U/L (7-40)
[2023-11-08 21:13] LABS: Blood Alcohol < 3.0 mg/dL (<10)
[2023-11-08 21:27] LABS: Magnesium 1.7 mg/dL (1.6-2.6)
[2023-11-09] MEDS ORDERED: ASPirin 81 mg TAB PO ONE (02:00)
[2023-11-09] MEDS: cefTRIAXone 1GM/50ML D5W 50 ML IV SCH ×2 (02:52→21:16)
[2023-11-09] MEDS ORDERED: IOHEXOL 350 MG/ML 100ML IJ ONE (02:52)
[2023-11-09] MEDS ORDERED: ACETAMINOPHEN 325 MG TAB PO PRN (03:30)
[2023-11-09] MEDS ORDERED: DOCUSATE SOD 100 MG CAP PO PRN (03:30)
[2023-11-09] MEDS ORDERED: ONDANSETRON HCL 4 MG/2 ML VIAL IV PRN (03:30)
[2023-11-09] MEDS ORDERED: LACTATED RINGER'S 1,000 ML IV ONE (03:45)
[2023-11-09] MEDS: AZITHROMYCIN 500MG/ 250ML 250 ML IV SCH ×2 (04:19→21:33)
[2023-11-09] MEDS: SODIUM CHLOR 0.9% PF (SALINE LOCK) 10ML VIAL/SYR IV SCH ×3 (05:49→21:47)
[2023-11-09 08:02] VITALS: PULSE 74; RESP 14; O2SAT 99
[2023-11-09] MEDS: ENOXAPARIN SOD 40 MG/0.4 ML SYRINGE SC SCH (11:11)
[2023-11-09] MEDS: PANTOPRAZOLE 40 MG TAB PO SCH (11:11)
[2023-11-09 11:54] LABS: Rapid Influenza A Negative (Negative); Rapid Influenza B Negative (Negative)
[2023-11-09 11:55] LABS: COVID19 ANTIGEN SOFIA FIA NEGATIVE (NEGATIVE)
[2023-11-09 16:54] LABS: Urine Epithelial Cast None Seen /hpf (<5)
[2023-11-09 17:13] LABS: Urine Bacteria NONE SEEN /hpf (None Seen); Urine Blood 2+ /uL (Negative); Urine Clarity Clear (Clear); Urine Color PINK (Yellow); Urine Mucus FEW (None Seen); Urine Protein, UAD 3+ (Negative); Urine WBC 7 /hpf (0 - 3)
[2023-11-09 17:20] LABS: Amphetamine Screen, Urine Neg (NEGATIVE); Barbiturate Scree,Urine Neg (NEGATIVE); Benzodiazephine Screen, Urine Neg (NEGATIVE); Cocaine Screen, Urine Neg (NEGATIVE)
[2023-11-09 17:21] LABS: Cannabinoid Screen, Urine Neg (NEGATIVE); Opiate Scree,Urine Neg (NEGATIVE); Phencyclidine Screen, Urine Neg (NEGATIVE)
[2023-11-09] MEDS: ATORVASTATIN 20 MG TAB PO SCH (17:36)
[2023-11-09 18:19] LABS: Urine Specific Gravity > 1.050 (1.001-1.035)
[2023-11-09 19:30] VITALS: PULSE 81; RESP 14; O2SAT 100
[2023-11-09] MEDS: MELATONIN 5 MG TAB PO SCH (21:33)
[2023-11-09] MEDS: GABAPENTIN 300 MG CAP PO SCH (21:33)
[2023-11-10] MEDS: SODIUM CHLOR 0.9% PF (SALINE LOCK) 10ML VIAL/SYR IV SCH ×3 (06:25→22:28)
[2023-11-10 08:27] VITALS: PULSE 78; RESP 17; O2SAT 97
[2023-11-10] MEDS: PANTOPRAZOLE 40 MG TAB PO SCH (10:00)
[2023-11-10] MEDS: ENOXAPARIN SOD 40 MG/0.4 ML SYRINGE SC SCH (10:00)
[2023-11-10] MEDS: IRON SUCROSE COMPLEX 100 ML IV SCH (12:55)
[2023-11-10] MEDS: ATORVASTATIN 20 MG TAB PO SCH (18:05)
[2023-11-10 20:00] VITALS: PULSE 73; RESP 23; O2SAT 95
[2023-11-10] MEDS: cefTRIAXone 1GM/50ML D5W 50 ML IV SCH (21:12)
[2023-11-10] MEDS: MELATONIN 5 MG TAB PO SCH (22:29)
[2023-11-10] MEDS: AZITHROMYCIN 500MG/ 250ML 250 ML IV SCH (22:29)
[2023-11-10] MEDS: GABAPENTIN 300 MG CAP PO SCH (22:29)
[2023-11-10] MEDS: HYDROcodone-ACET 5/325MG TAB PO PRN (23:02)
[2023-11-11] VITALS (7 sets, daily range): BP systolic 140–175; BP diastolic 65–79; PULSE 70–85; RESP 13–94; TEMP 37; O2SAT 94–97
[2023-11-11] MEDS: SODIUM CHLOR 0.9% PF (SALINE LOCK) 10ML VIAL/SYR IV SCH ×3 (05:23→22:00)
[2023-11-11 05:36] LABS: Basophils # (auto) 0 10 ^3/uL (0-0.2); Eosinophils # (auto) 0.2 10 ^3/uL (0-0.8); Lymphocytes # (auto) 1.9 10 ^3/uL (0.4-5.4); Monocytes # (auto) 0.6 10 ^3/uL (0-1.3); Neutrophils # (auto) 3.8 10 ^3/uL (1.6-8.6); Red Blood Cells 2.74 10^6/uL (4.5-5.90)
[2023-11-11 05:39] LABS: Basophils % (auto) 0.6 % (0.0-2.0); Eosinophils % (auto) 2.8 % (0.0-7.0); Hematocrit 21.7 % (41.0-53.0); Lymphocytes % (auto) 29.5 % (10.0-50.0); Mean Corpuscular Hemoglobin 25.3 pg (28.0-32.0); Mean Corpuscular Hgb Conc. 31.9 g/dL (32.0-36.0); Mean Corpuscular Volume 79.3 fL (80.0-100.0); Neutrophils % (auto) 58.1 % (37.0-80.0); Nucleated Red Blood Cells % 0.1 %; Red Cell Distribution Width 16.9 % (11.8-14.3); White Blood Cell 6.5 10^3/uL (4.4-10.8)
[2023-11-11 05:42] LABS: Anion Gap 5 (5-15); Carbon Dioxide 27 mmol/L (20-30); Chloride 109 mmol/L (98-107); Potassium 3.9 mmol/L (3.5-5.1); Sodium 141 mmol/L (136-145)
[2023-11-11 05:43] LABS: Hemoglobin 6.9 g/dL (13.5-17.5)
[2023-11-11 05:48] LABS: BUN/Creatinine Ratio 14.5 (10.0-20.0); Blood Urea Nitrogen 10 mg/dL (9-23); Glucose 145 mg/dL (74-106)
[2023-11-11] MEDS: PANTOPRAZOLE 40 MG TAB PO SCH (10:38)
[2023-11-11] MEDS: IRON SUCROSE COMPLEX 100 ML IV SCH (13:03)
[2023-11-11] MEDS: ATORVASTATIN 20 MG TAB PO SCH (18:18)
[2023-11-11] MEDS: cefTRIAXone 1GM/50ML D5W 50 ML IV SCH (21:18)
[2023-11-11] MEDS: GABAPENTIN 300 MG CAP PO SCH (22:17)
[2023-11-11] MEDS: MELATONIN 5 MG TAB PO SCH (22:17)
[2023-11-11] MEDS: AZITHROMYCIN 500MG/ 250ML 250 ML IV SCH (22:17)
[2023-11-11 23:01] LABS: Hematocrit 26.8 % (41.0-53.0); Hemoglobin 8.4 g/dL (13.5-17.5)
[2023-11-12] VITALS (8 sets, daily range): BP systolic 139–187; BP diastolic 60–76; PULSE 65–78; RESP 16–19; TEMP 97.8–98.2; O2SAT 98
[2023-11-12] MEDS: SODIUM CHLOR 0.9% PF (SALINE LOCK) 10ML VIAL/SYR IV SCH ×3 (06:00→20:32)
[2023-11-12 06:29] LABS: Basophils # (auto) 0 10 ^3/uL (0-0.2); Eosinophils # (auto) 0.2 10 ^3/uL (0-0.8); Hemoglobin 8.7 g/dL (13.5-17.5); Monocytes # (auto) 0.7 10 ^3/uL (0-1.3); Monocytes % (auto) 9.6 % (0.0-12.0)
[2023-11-12 06:31] LABS: Basophils % (auto) 0.5 % (0.0-2.0); Hematocrit 26.7 % (41.0-53.0); Lymphocytes # (auto) 2.4 10 ^3/uL (0.4-5.4); Lymphocytes % (auto) 34.5 % (10.0-50.0); Mean Corpuscular Hemoglobin 26.8 pg (28.0-32.0); Mean Corpuscular Hgb Conc. 32.5 g/dL (32.0-36.0); Mean Corpuscular Volume 82.5 fL (80.0-100.0); Neutrophils # (auto) 3.7 10 ^3/uL (1.6-8.6); Neutrophils % (auto) 52.4 % (37.0-80.0); Nucleated Red Blood Cells % 0.1 %; Red Blood Cells 3.24 10^6/uL (4.5-5.90)
[2023-11-12 06:41] LABS: Calcium 8.2 mg/dL (8.5-10.1); Chloride 110 mmol/L (98-107); Potassium 3.9 mmol/L (3.5-5.1); Sodium 141 mmol/L (136-145)
[2023-11-12 06:42] LABS: Anion Gap 4 (5-15); Carbon Dioxide 27 mmol/L (20-30)
[2023-11-12 06:47] LABS: BUN/Creatinine Ratio 11.8 (10.0-20.0); Blood Urea Nitrogen 8 mg/dL (9-23); Glucose 167 mg/dL (74-106)
[2023-11-12] MEDS: PANTOPRAZOLE 40 MG TAB PO SCH (09:32)
[2023-11-12] MEDS: AZITHROMYCIN 250 MG TAB PO SCH (09:32)
[2023-11-12] MEDS: HYDROcodone-ACET 5/325MG TAB PO PRN (09:48)
[2023-11-12] MEDS: IRON SUCROSE COMPLEX 100 ML IV SCH (12:41)
[2023-11-12] MEDS ORDERED: LISI20TA56 PO (13:37)
[2023-11-12] MEDS: cloNIDine HCL 0.1 MG TAB PO PRN (13:40)
[2023-11-12] MEDS: ATORVASTATIN 20 MG TAB PO SCH (17:12)
[2023-11-12] MEDS: GABAPENTIN 300 MG CAP PO SCH (20:31)
[2023-11-12] MEDS: cefTRIAXone 1GM/50ML D5W 50 ML IV SCH (20:32)
[2023-11-12] MEDS: MELATONIN 5 MG TAB PO SCH (20:32)
[2023-11-13 04:52] VITALS: BP 150/74; PULSE 66; RESP 19; TEMP 98; O2SAT 99
[2023-11-13] MEDS: SODIUM CHLOR 0.9% PF (SALINE LOCK) 10ML VIAL/SYR IV SCH ×3 (05:59→21:12)
[2023-11-13 06:51] LABS: Anion Gap 3 (5-15); Carbon Dioxide 28 mmol/L (20-30); Chloride 109 mmol/L (98-107); Sodium 140 mmol/L (136-145)
[2023-11-13 06:53] LABS: Calcium 8.3 mg/dL (8.5-10.1)
[2023-11-13 06:57] LABS: Glucose 221 mg/dL (74-106)
[2023-11-13 06:58] LABS: BUN/Creatinine Ratio 8.5 (10.0-20.0); Blood Urea Nitrogen 6 mg/dL (9-23)
[2023-11-13 07:05] LABS: Basophils # (auto) 0 10 ^3/uL (0-0.2); Basophils % (auto) 0.4 % (0.0-2.0); Eosinophils # (auto) 0.2 10 ^3/uL (0-0.8); Eosinophils % (auto) 3.1 % (0.0-7.0); Hematocrit 26.6 % (41.0-53.0); Hemoglobin 8.6 g/dL (13.5-17.5); Lymphocytes # (auto) 2.3 10 ^3/uL (0.4-5.4); Lymphocytes % (auto) 32.9 % (10.0-50.0); Mean Corpuscular Hemoglobin 27.3 pg (28.0-32.0); Mean Corpuscular Hgb Conc. 32.3 g/dL (32.0-36.0); Mean Corpuscular Volume 84.5 fL (80.0-100.0); Monocytes # (auto) 0.7 10 ^3/uL (0-1.3); Monocytes % (auto) 10.4 % (0.0-12.0); Neutrophils # (auto) 3.8 10 ^3/uL (1.6-8.6); Neutrophils % (auto) 53.2 % (37.0-80.0); Nucleated Red Blood Cells % 0.1 %; Red Blood Cells 3.15 10^6/uL (4.5-5.90); Red Cell Distribution Width 18.2 % (11.8-14.3); White Blood Cell 7.1 10^3/uL (4.4-10.8)
[2023-11-13 08:36] VITALS: BP 143/70; PULSE 64; RESP 18; TEMP 96.9; O2SAT 96
[2023-11-13] MEDS ORDERED: SODIUM CHLORIDE LOCK 10 ML ONE (09:16)
[2023-11-13] MEDS ORDERED: MIDAZOLAM HCL 5 MG/ML-1ML VIAL ONE (09:16)
[2023-11-13] MEDS ORDERED: LIDOCAINE VISCOUS 2% 15ML UD ONE (09:16)
[2023-11-13] MEDS ORDERED: fentaNYL CITRATE 100 MCG/2 ML VL ONE (09:17)
[2023-11-13] MEDS ORDERED: diphenhdrAMINE HCL 50 MG/1 ML VL ONE (09:17)
[2023-11-13] MEDS: AZITHROMYCIN 250 MG TAB PO SCH (09:50)
[2023-11-13] MEDS: PANTOPRAZOLE 40 MG TAB PO SCH (09:50)
[2023-11-13 12:52] VITALS: BP 157/68; PULSE 68; RESP 18; O2SAT 98
[2023-11-13] MEDS: IRON SUCROSE COMPLEX 100 ML IV SCH (14:15)
[2023-11-13 16:01] VITALS: BP 148/65; PULSE 72; O2SAT 96
[2023-11-13] MEDS: ATORVASTATIN 20 MG TAB PO SCH (17:30)
[2023-11-13] MEDS: MELATONIN 5 MG TAB PO SCH (21:11)
[2023-11-13] MEDS: GABAPENTIN 300 MG CAP PO SCH (21:11)
[2023-11-13] MEDS: cefTRIAXone 1GM/50ML D5W 50 ML IV SCH (21:12)
[2023-11-13] MEDS: cloNIDine HCL 0.1 MG TAB PO PRN (21:18)
[2023-11-13 22:00] VITALS: BP 169/65; PULSE 79; RESP 20; TEMP 97.9; O2SAT 98
[2023-11-14 04:52] VITALS: BP 157/72; PULSE 65; RESP 18; TEMP 98; O2SAT 98
[2023-11-14] MEDS: SODIUM CHLOR 0.9% PF (SALINE LOCK) 10ML VIAL/SYR IV SCH ×3 (05:10→22:04)
[2023-11-14 05:20] LABS: Basophils # (auto) 0.1 10 ^3/uL (0-0.2); Basophils % (auto) 0.9 % (0.0-2.0); Eosinophils # (auto) 0.3 10 ^3/uL (0-0.8); Eosinophils % (auto) 3.4 % (0.0-7.0); Hematocrit 27.8 % (41.0-53.0); Lymphocytes # (auto) 2.4 10 ^3/uL (0.4-5.4); Lymphocytes % (auto) 29.8 % (10.0-50.0); Mean Corpuscular Hgb Conc. 32.4 g/dL (32.0-36.0); Mean Corpuscular Volume 83.4 fL (80.0-100.0); Monocytes # (auto) 0.9 10 ^3/uL (0-1.3); Monocytes % (auto) 10.6 % (0.0-12.0); Neutrophils # (auto) 4.5 10 ^3/uL (1.6-8.6); Neutrophils % (auto) 55.3 % (37.0-80.0); Red Blood Cells 3.33 10^6/uL (4.5-5.90); Red Cell Distribution Width 18.8 % (11.8-14.3); White Blood Cell 8.1 10^3/uL (4.4-10.8)
[2023-11-14 05:32] LABS: Alanine Aminotransferase < 9 U/L (7-40); Albumin 2.5 g/dL (3.2-4.8); Alkaline Phosphatase 147 U/L (46-116); Anion Gap 2 (5-15); Aspartate Aminotransferase 19 U/L (13-40); BUN/Creatinine Ratio 7.2 (10.0-20.0); Bilirubin, Total 0.3 mg/dL (0.2-1.0); Blood Urea Nitrogen 5 mg/dL (9-23); Calcium 8.2 mg/dL (8.5-10.1); Carbon Dioxide 29 mmol/L (20-30); Chloride 109 mmol/L (98-107); Glucose 222 mg/dL (74-106); Sodium 140 mmol/L (136-145); Total Protein 5.7 g/dL (5.7-8.2)
[2023-11-14 09:00] VITALS: BP 150/71; PULSE 61; RESP 20; TEMP 97.9; O2SAT 96
[2023-11-14] MEDS: AZITHROMYCIN 250 MG TAB PO SCH (09:07)
[2023-11-14] MEDS: PANTOPRAZOLE 40 MG TAB PO SCH (09:08)
[2023-11-14] MEDS ORDERED: ASPirin 81 mg TAB PO SCH (10:00)
[2023-11-14 12:22] LABS: Basophils # (auto) 0.1 10 ^3/uL (0-0.2); Eosinophils # (auto) 0.2 10 ^3/uL (0-0.8); Monocytes # (auto) 0.7 10 ^3/uL (0-1.3); Red Cell Distribution Width 18.1 % (11.8-14.3); White Blood Cell 8.3 10^3/uL (4.4-10.8)
[2023-11-14 12:24] LABS: Basophils % (auto) 0.8 % (0.0-2.0); Eosinophils % (auto) 2.3 % (0.0-7.0); Hematocrit 28.7 % (41.0-53.0); Lymphocytes # (auto) 2.2 10 ^3/uL (0.4-5.4); Lymphocytes % (auto) 26.4 % (10.0-50.0); Mean Corpuscular Hemoglobin 26.5 pg (28.0-32.0); Mean Corpuscular Hgb Conc. 31.4 g/dL (32.0-36.0); Mean Corpuscular Volume 84.2 fL (80.0-100.0); Monocytes % (auto) 8.2 % (0.0-12.0); Neutrophils # (auto) 5.2 10 ^3/uL (1.6-8.6); Neutrophils % (auto) 62.3 % (37.0-80.0); Red Blood Cells 3.41 10^6/uL (4.5-5.90)
[2023-11-14 13:00] VITALS: BP 149/70; PULSE 68; RESP 18; TEMP 98; O2SAT 96
[2023-11-14] MEDS: IRON SUCROSE COMPLEX 100 ML IV SCH (15:35)
[2023-11-14 17:00] VITALS: BP 158/75; PULSE 64; RESP 18; TEMP 98.1; O2SAT 96
[2023-11-14] MEDS: ATORVASTATIN 20 MG TAB PO SCH (18:56)
[2023-11-14 20:00] VITALS: BP 162/74; PULSE 68; RESP 18; TEMP 98.7; O2SAT 94
[2023-11-14] MEDS: cefTRIAXone 1GM/50ML D5W 50 ML IV SCH (21:00)
[2023-11-14] MEDS: MELATONIN 5 MG TAB PO SCH (22:03)
[2023-11-14] MEDS: GABAPENTIN 300 MG CAP PO SCH (22:04)
[2023-11-14] MEDS: cloNIDine HCL 0.1 MG TAB PO PRN (22:06)
[2023-11-14 22:15] VITALS: BP 162/71; PULSE 68; RESP 18; TEMP 98; O2SAT 94
[2023-11-15] MEDS ORDERED: hydrALAZINE HCL 20 MG/ML VL IV ONE (00:45)
[2023-11-15 04:51] VITALS: BP 120/60; PULSE 64; RESP 20; TEMP 98; O2SAT 94
[2023-11-15 05:28] LABS: Basophils # (auto) 0.1 10 ^3/uL (0-0.2); Basophils % (auto) 0.9 % (0.0-2.0); Eosinophils # (auto) 0.3 10 ^3/uL (0-0.8); Eosinophils % (auto) 3.6 % (0.0-7.0); Hematocrit 28.5 % (41.0-53.0); Hemoglobin 9.2 g/dL (13.5-17.5); Lymphocytes # (auto) 2.3 10 ^3/uL (0.4-5.4); Lymphocytes % (auto) 26.3 % (10.0-50.0); Mean Corpuscular Hemoglobin 27.2 pg (28.0-32.0); Mean Corpuscular Hgb Conc. 32.4 g/dL (32.0-36.0); Mean Corpuscular Volume 83.8 fL (80.0-100.0); Monocytes # (auto) 0.8 10 ^3/uL (0-1.3); Monocytes % (auto) 9.4 % (0.0-12.0); Neutrophils # (auto) 5.2 10 ^3/uL (1.6-8.6); Neutrophils % (auto) 59.8 % (37.0-80.0); Nucleated Red Blood Cells % 0.2 %; Red Cell Distribution Width 18.2 % (11.8-14.3); White Blood Cell 8.8 10^3/uL (4.4-10.8)
[2023-11-15 05:49] LABS: Albumin 2.5 g/dL (3.2-4.8); Alkaline Phosphatase 138 U/L (46-116); Anion Gap 3 (5-15); Aspartate Aminotransferase 16 U/L (13-40); BUN/Creatinine Ratio 8.1 (10.0-20.0); Bilirubin, Total 0.3 mg/dL (0.2-1.0); Blood Urea Nitrogen 5 mg/dL (9-23); Calcium 8.4 mg/dL (8.5-10.1); Carbon Dioxide 28 mmol/L (20-30); Chloride 108 mmol/L (98-107); Glucose 198 mg/dL (74-106); Potassium 4.1 mmol/L (3.5-5.1); Sodium 139 mmol/L (136-145); Total Protein 5.6 g/dL (5.7-8.2)
[2023-11-15] MEDS: SODIUM CHLOR 0.9% PF (SALINE LOCK) 10ML VIAL/SYR IV SCH ×3 (06:00→21:59)
[2023-11-15 06:02] LABS: Alanine Aminotransferase < 9 U/L (7-40)
[2023-11-15 08:00] VITALS: PULSE 62; RESP 18
[2023-11-15 09:20] VITALS: BP 136/66; PULSE 62; RESP 18; TEMP 96.9; O2SAT 95
[2023-11-15] MEDS: PANTOPRAZOLE 40 MG TAB PO SCH (10:14)
[2023-11-15] MEDS: AZITHROMYCIN 250 MG TAB PO SCH (10:15)
[2023-11-15] MEDS: HYDROcodone-ACET 5/325MG TAB PO PRN (11:31)
[2023-11-15] MEDS: IRON SUCROSE COMPLEX 100 ML IV SCH (11:32)
[2023-11-15 12:38] VITALS: BP 148/72; PULSE 74; PULSE 84; RESP 18; TEMP 97.1; TEMP 97.4
[2023-11-15] MEDS ORDERED: CEFTRIAXONE SODIUM 2 GM in D5W 5% 100 ML IV ONE (14:30)
[2023-11-15 15:53] VITALS: BP 149/74; PULSE 61; RESP 19; TEMP 96.9; O2SAT 95
[2023-11-15] MEDS: ATORVASTATIN 20 MG TAB PO SCH (18:00)
[2023-11-15] MEDS: GABAPENTIN 300 MG CAP PO SCH (21:59)
[2023-11-15] MEDS: MELATONIN 5 MG TAB PO SCH (21:59)
[2023-11-15 22:00] VITALS: BP 152/74; PULSE 62; RESP 16; TEMP 97.4; O2SAT 98
[2023-11-16] VITALS (7 sets, daily range): BP systolic 132–191; BP diastolic 64–80; PULSE 63–80; RESP 14–17; TEMP 97.4–98.4; O2SAT 95–100
[2023-11-16] MEDS: SODIUM CHLOR 0.9% PF (SALINE LOCK) 10ML VIAL/SYR IV SCH ×3 (05:30→20:57)
[2023-11-16 06:10] LABS: Basophils # (auto) 0.1 10 ^3/uL (0-0.2); Basophils % (auto) 0.9 % (0.0-2.0); Eosinophils # (auto) 0.3 10 ^3/uL (0-0.8); Eosinophils % (auto) 3.7 % (0.0-7.0); Hematocrit 27.9 % (41.0-53.0); Lymphocytes # (auto) 2.6 10 ^3/uL (0.4-5.4); Lymphocytes % (auto) 30.9 % (10.0-50.0); Mean Corpuscular Hemoglobin 27.5 pg (28.0-32.0); Mean Corpuscular Hgb Conc. 32.4 g/dL (32.0-36.0); Monocytes # (auto) 0.7 10 ^3/uL (0-1.3); Monocytes % (auto) 8.4 % (0.0-12.0); Neutrophils # (auto) 4.7 10 ^3/uL (1.6-8.6); Neutrophils % (auto) 56.1 % (37.0-80.0); Red Blood Cells 3.28 10^6/uL (4.5-5.90); Red Cell Distribution Width 18.5 % (11.8-14.3); White Blood Cell 8.4 10^3/uL (4.4-10.8)
[2023-11-16 06:22] LABS: Albumin 2.5 g/dL (3.2-4.8); Alkaline Phosphatase 131 U/L (46-116); Anion Gap 4 (5-15); Aspartate Aminotransferase 14 U/L (13-40); BUN/Creatinine Ratio 8.2 (10.0-20.0); Bilirubin, Total 0.3 mg/dL (0.2-1.0); Blood Urea Nitrogen 5 mg/dL (9-23); Calcium 8.3 mg/dL (8.5-10.1); Carbon Dioxide 27 mmol/L (20-30); Chloride 109 mmol/L (98-107); Glucose 147 mg/dL (74-106); Sodium 140 mmol/L (136-145); Total Protein 5.6 g/dL (5.7-8.2)
[2023-11-16 06:40] LABS: Alanine Aminotransferase < 9 U/L (7-40)
[2023-11-16] MEDS: PANTOPRAZOLE 40 MG TAB PO SCH (09:24)
[2023-11-16] MEDS: CEFTRIAXONE SODIUM 2 GM in D5W 5% 100 ML IV SCH (09:25)
[2023-11-16] MEDS: IRON SUCROSE COMPLEX 100 ML IV SCH (12:01)
[2023-11-16] MEDS: ATORVASTATIN 20 MG TAB PO SCH (17:28)
[2023-11-16] MEDS: cloNIDine HCL 0.1 MG TAB PO PRN (17:29)
[2023-11-16] MEDS: GABAPENTIN 300 MG CAP PO SCH (20:57)
[2023-11-16] MEDS: MELATONIN 5 MG TAB PO SCH (20:57)
[2023-11-17] MEDS: SODIUM CHLOR 0.9% PF (SALINE LOCK) 10ML VIAL/SYR IV SCH ×3 (05:49→21:02)
[2023-11-17 08:51] VITALS: BP 149/62; PULSE 66; RESP 18; TEMP 97.8; O2SAT 98
[2023-11-17] MEDS: CEFTRIAXONE SODIUM 2 GM in D5W 5% 100 ML IV SCH (09:09)
[2023-11-17] MEDS: PANTOPRAZOLE 40 MG TAB PO SCH (09:09)
[2023-11-17] MEDS: IRON SUCROSE COMPLEX 100 ML IV SCH (12:03)
[2023-11-17] MEDS: Ensure HIGH Protein Chocolate 8oz Bottle PO SCH ×2 (12:03→18:12)
[2023-11-17] MEDS: HYDROcodone-ACET 5/325MG TAB PO PRN (12:05)
[2023-11-17 13:21] VITALS: BP 132/67; PULSE 74; RESP 18; TEMP 98.4; O2SAT 98
[2023-11-17 17:00] VITALS: BP 183/88; PULSE 65; RESP 22; TEMP 97.7; O2SAT 95
[2023-11-17] MEDS: cloNIDine HCL 0.1 MG TAB PO PRN (17:27)
[2023-11-17] MEDS: ATORVASTATIN 20 MG TAB PO SCH (17:27)
[2023-11-17 19:30] VITALS: PULSE 81; RESP 19; O2SAT 96
[2023-11-17] MEDS: GABAPENTIN 300 MG CAP PO SCH (21:03)
[2023-11-17] MEDS: MELATONIN 5 MG TAB PO SCH (21:03)
[2023-11-17 22:00] VITALS: BP 142/62; PULSE 63; RESP 18; TEMP 98; O2SAT 97
[2023-11-18] VITALS (7 sets, daily range): BP systolic 122–183; BP diastolic 62–91; PULSE 62–71; RESP 14–18; TEMP 97.1–98.2; O2SAT 96–100
[2023-11-18] MEDS: SODIUM CHLOR 0.9% PF (SALINE LOCK) 10ML VIAL/SYR IV SCH ×3 (05:52→20:52)
[2023-11-18] MEDS ORDERED: SIMETHICONE 40 MG/0.6 ML ORAL DROP ONE (07:41)
[2023-11-18] MEDS ORDERED: MIDAZOLAM HCL 2MG/2ML 2ml VIAL (1mg/ml) ONE (07:58)
[2023-11-18] MEDS ORDERED: KETAMINE 50mg/ML 1ml syringe ONE (07:58)
[2023-11-18] MEDS ORDERED: SODIUM CHLORIDE LOCK 10 ML ONE (07:58)
[2023-11-18] MEDS ORDERED: ONDANSETRON HCL 4 MG/2 ML VIAL ONE (07:58)
[2023-11-18] MEDS ORDERED: PROPOFOL 10 MG/ML 20 ML IV ONE (07:58)
[2023-11-18] MEDS ORDERED: fentaNYL CITRATE 100 MCG/2 ML VL ONE (07:58)
[2023-11-18] MEDS: Ensure HIGH Protein Chocolate 8oz Bottle PO SCH ×3 (08:00→17:52)
[2023-11-18] MEDS: PANTOPRAZOLE 40 MG TAB PO SCH (09:50)
[2023-11-18] MEDS: CEFTRIAXONE SODIUM 2 GM in D5W 5% 100 ML IV SCH (09:50)
[2023-11-18] MEDS: IRON SUCROSE COMPLEX 100 ML IV SCH (12:05)
[2023-11-18] MEDS: cloNIDine HCL 0.1 MG TAB PO PRN ×2 (15:07→23:11)
[2023-11-18] MEDS: ATORVASTATIN 20 MG TAB PO SCH (17:51)
[2023-11-18] MEDS: MELATONIN 5 MG TAB PO SCH (20:51)
[2023-11-18] MEDS: GABAPENTIN 300 MG CAP PO SCH (20:51)
[2023-11-19 05:00] VITALS: BP 134/79; PULSE 62; RESP 16; TEMP 97.8; O2SAT 97
[2023-11-19] MEDS: SODIUM CHLOR 0.9% PF (SALINE LOCK) 10ML VIAL/SYR IV SCH ×2 (06:00→14:36)
[2023-11-19] MEDS: Ensure HIGH Protein Chocolate 8oz Bottle PO SCH ×3 (08:29→17:58)
[2023-11-19 08:36] VITALS: BP 158/76; PULSE 68; RESP 16; TEMP 97.8; O2SAT 97
[2023-11-19] MEDS: PANTOPRAZOLE 40 MG TAB PO SCH (10:11)
[2023-11-19] MEDS ORDERED: LORazepam 2MG/ML-1ML VIAL IV PRN (10:30)
[2023-11-19] MEDS: CEFTRIAXONE SODIUM 2 GM in D5W 5% 100 ML IV SCH (11:01)
[2023-11-19 13:00] VITALS: BP 145/68; PULSE 65; RESP 16; TEMP 98.6; O2SAT 98
[2023-11-19] MEDS: IRON SUCROSE COMPLEX 100 ML IV SCH (14:32)
[2023-11-19 15:46] LABS: COVID19 ANTIGEN SOFIA FIA NEGATIVE (NEGATIVE)
[2023-11-19 17:20] VITALS: BP 175/87; PULSE 67; RESP 16; TEMP 97; O2SAT 95
[2023-11-19] MEDS: ATORVASTATIN 20 MG TAB PO SCH (17:58)
[2023-11-19] MEDS: cloNIDine HCL 0.1 MG TAB PO PRN (18:05)
[2023-11-19 18:45] VITALS: BP 152/78; PULSE 88; RESP 18; TEMP 98.1; O2SAT 96
== END 2023-11-19 19:10 | DRG 871 ==
LOC: ER 18:44 → OVERFLOW 11-09 03:29 → WEST WING 11-09 03:31
PROVIDERS: ADMIT Internal Medicine; ATTEND Family Medicine
PROC: 0NB Head and Facial Bones, Excision (ICD-10-PCS; 2023-11-15)
PROC: 30233N1 Transfusion of Nonautologous Red Blood Cells into Peripheral Vein, Percutaneous Approach (ICD-10-PCS; 2023-11-15)
PROC: 0DB78ZX Excision of Stomach, Pylorus, Via Natural or Artificial Opening Endoscopic, Diagnostic (ICD-10-PCS; principal; 2023-11-18 08:12)
DX: A41.9 Sepsis, unspecified organism (principal); E43 Unspecified severe protein-calorie malnutrition; G93.41 Metabolic encephalopathy; J18.9 Pneumonia, unspecified organism; N39.0 Urinary tract infection, site not specified; Z68.1 Body mass index [BMI] 19.9 or less, adult; D50.9 Iron deficiency anemia, unspecified; E11.51 Type 2 diabetes mellitus with diabetic peripheral angiopathy without gangrene; I10 Essential (primary) hypertension; E11.65 Type 2 diabetes mellitus with hyperglycemia; E86.0 Dehydration; E11.40 Type 2 diabetes mellitus with diabetic neuropathy, unspecified; E11.21 Type 2 diabetes mellitus with diabetic nephropathy; I48.91 Unspecified atrial fibrillation; E88.09 Other disorders of plasma-protein metabolism, not elsewhere classified; Z20.822 Contact with and (suspected) exposure to COVID-19; E11.628 Type 2 diabetes mellitus with other skin complications; L03.039 Cellulitis of unspecified toe; R09.89 Other specified symptoms and signs involving the circulatory and respiratory systems; Z89.421 Acquired absence of other right toe(s); Z89.512 Acquired absence of left leg below knee; Z86.73 Personal history of transient ischemic attack (TIA), and cerebral infarction without residual deficits; Z83.3 Family history of diabetes mellitus; Z79.82 Long term (current) use of aspirin; Z79.899 Other long term (current) drug therapy; Z79.891 Long term (current) use of opiate analgesic
CPT/HCPCS: 36415; 36600; 43239; 70450; 70486; 70496; 70551; 71045; 76536; 76942; 80048; 80053; 80307; 80320; 81001; 82010; 82140; 82550; 82728; 82805; 82962; 83540; 83550; 83605; 83735; 83880; 84443; 84484; 85014; 85018; 85025; 85610; 85730; 86850; 86900; 86901; 86920; 87040; 87077; 87086; 87186; 87426; 87804; 93005; 93306; 95819; 96361; 96374; 97110; 97116; 97163; 97530; G0378; J0696; J1756; J2250; J2405; J2704; J7042; J7060

== ENCOUNTER → 2024-01-11 | Outpatient (CLI) | payer MEDICARE, MEDICAID ==
[~2024-01-11] MED LIST changes: -AUG875T PO; +CLOP75TA70 PO; -GABA-1250 PO; +GABA-339 PO; +LISI20TA56 PO
[2024-01-11 13:50] LABS: Albumin 2.6 g/dL (3.2-4.8); Alkaline Phosphatase 152 U/L (46-116); Anion Gap 5 (5-15); Aspartate Aminotransferase 10 U/L (13-40); BUN/Creatinine Ratio 10.4 (10.0-20.0); Bilirubin, Total 0.5 mg/dL (0.2-1.0); Blood Urea Nitrogen 8 mg/dL (9-23); Calcium 8.5 mg/dL (8.5-10.1); Carbon Dioxide 27 mmol/L (20-30); Chloride 105 mmol/L (98-107); Glucose 264 mg/dL (74-106); Potassium 3.5 mmol/L (3.5-5.1); Sodium 137 mmol/L (136-145)
[2024-01-11 13:52] LABS: Alanine Aminotransferase < 9 U/L (7-40)
[2024-01-11 13:53] LABS: Basophils # (auto) 0 10 ^3/uL (0-0.2); Basophils % (auto) 0.5 % (0.0-2.0); Eosinophils # (auto) 0.1 10 ^3/uL (0-0.8); Eosinophils % (auto) 1.2 % (0.0-7.0); Hemoglobin 8.6 g/dL (13.5-17.5); Lymphocytes # (auto) 2.4 10 ^3/uL (0.4-5.4); Lymphocytes % (auto) 26.9 % (10.0-50.0); Mean Corpuscular Hemoglobin 30.4 pg (28.0-32.0); Mean Corpuscular Hgb Conc. 32.9 g/dL (32.0-36.0); Mean Corpuscular Volume 92.3 fL (80.0-100.0); Monocytes # (auto) 0.8 10 ^3/uL (0-1.3); Monocytes % (auto) 9.4 % (0.0-12.0); Neutrophils # (auto) 5.4 10 ^3/uL (1.6-8.6); Red Blood Cells 2.82 10^6/uL (4.5-5.90); Red Cell Distribution Width 15.5 % (11.8-14.3); White Blood Cell 8.7 10^3/uL (4.4-10.8)
[2024-01-11 14:01] LABS: % Iron Saturation 14.2 % (20-55)
[2024-01-11 14:04] LABS: Ferritin > 1650.0 ng/mL (22-322)
[2024-01-11 14:05] LABS: Folate (Folic Acid) 8.71 ng/mL (>5.38)
== END | disposition home or self-care (01) ==
LOC: LAB 13:19
PROVIDERS: ATTEND Internal Medicine
DX: C31.9 Malignant neoplasm of accessory sinus, unspecified (principal); D64.9 Anemia, unspecified
CPT/HCPCS: 36415; 80053; 82607; 82728; 82746; 83540; 83550; 83615; 85025

== ENCOUNTER → 2024-02-22 | Outpatient (CLI) | payer MEDICARE, MEDICAID ==
[2024-02-22 12:26] LABS: Basophils # (auto) 0.1 10 ^3/uL (0-0.2); Basophils % (auto) 1.8 % (0.0-2.0); Eosinophils # (auto) 0.1 10 ^3/uL (0-0.8); Eosinophils % (auto) 1.9 % (0.0-7.0); Hematocrit 25.7 % (41.0-53.0); Hemoglobin 8.4 g/dL (13.5-17.5); Lymphocytes # (auto) 1.1 10 ^3/uL (0.4-5.4); Lymphocytes % (auto) 34.7 % (10.0-50.0); Mean Corpuscular Hemoglobin 30.2 pg (28.0-32.0); Mean Corpuscular Hgb Conc. 32.6 g/dL (32.0-36.0); Mean Corpuscular Volume 92.7 fL (80.0-100.0); Monocytes # (auto) 0.3 10 ^3/uL (0-1.3); Monocytes % (auto) 8.6 % (0.0-12.0); Neutrophils # (auto) 1.7 10 ^3/uL (1.6-8.6); Nucleated Red Blood Cells % 0.1 %; Red Blood Cells 2.77 10^6/uL (4.5-5.90); Red Cell Distribution Width 17.3 % (11.8-14.3); White Blood Cell 3.3 10^3/uL (4.4-10.8)
[2024-02-22 13:22] LABS: Albumin 2.8 g/dL (3.2-4.8); Alkaline Phosphatase 146 U/L (46-116); Anion Gap 5 (5-15); Aspartate Aminotransferase 11 U/L (13-40); BUN/Creatinine Ratio 21.3 (10.0-20.0); Blood Urea Nitrogen 19 mg/dL (9-23); Calcium 7.9 mg/dL (8.7-10.4); Carbon Dioxide 28 mmol/L (20-30); Chloride 110 mmol/L (98-107); Glucose 177 mg/dL (74-106); Potassium 3.2 mmol/L (3.5-5.1); Sodium 143 mmol/L (136-145)
[2024-02-22 13:23] LABS: Alanine Aminotransferase < 9 U/L (7-40); Bilirubin, Total 0.3 mg/dL (0.2-1.0); Total Protein 5.5 g/dL (5.7-8.2)
== END | disposition home or self-care (01) ==
LOC: LAB 12:08
PROVIDERS: ATTEND Internal Medicine
DX: C31.9 Malignant neoplasm of accessory sinus, unspecified (principal); D64.9 Anemia, unspecified
CPT/HCPCS: 36415; 80053; 83615; 85025

== ENCOUNTER → 2024-03-03 | Outpatient (CLI) | payer MEDICARE, MEDICAID ==
[2024-03-03 15:27] LABS: Basophils # (auto) 0 10 ^3/uL (0-0.2); Basophils % (auto) 1.3 % (0.0-2.0); Eosinophils # (auto) 0.1 10 ^3/uL (0-0.8); Eosinophils % (auto) 3.8 % (0.0-7.0); Hematocrit 25.7 % (41.0-53.0); Hemoglobin 8.5 g/dL (13.5-17.5); Lymphocytes # (auto) 1.1 10 ^3/uL (0.4-5.4); Lymphocytes % (auto) 39.9 % (10.0-50.0); Mean Corpuscular Hemoglobin 30.7 pg (28.0-32.0); Mean Corpuscular Hgb Conc. 33.1 g/dL (32.0-36.0); Mean Corpuscular Volume 92.8 fL (80.0-100.0); Monocytes # (auto) 0.3 10 ^3/uL (0-1.3); Monocytes % (auto) 12.1 % (0.0-12.0); Neutrophils # (auto) 1.2 10 ^3/uL (1.6-8.6); Neutrophils % (auto) 42.9 % (37.0-80.0); Nucleated Red Blood Cells % 0.3 %; Red Blood Cells 2.77 10^6/uL (4.5-5.90); Red Cell Distribution Width 19.9 % (11.8-14.3); White Blood Cell 2.8 10^3/uL (4.4-10.8)
[2024-03-03 16:45] LABS: Albumin 2.9 g/dL (3.2-4.8); Alkaline Phosphatase 116 U/L (46-116); Anion Gap 3 (5-15); Aspartate Aminotransferase < 8 U/L (13-40); BUN/Creatinine Ratio 12.2 (10.0-20.0); Bilirubin, Total 0.4 mg/dL (0.2-1.0); Blood Urea Nitrogen 11 mg/dL (9-23); Calcium 8.3 mg/dL (8.5-10.1); Carbon Dioxide 33 mmol/L (20-30); Chloride 107 mmol/L (98-107); Glucose 123 mg/dL (74-106); Potassium 3.4 mmol/L (3.5-5.1); Sodium 143 mmol/L (136-145); Total Protein 5.4 g/dL (5.7-8.2)
[2024-03-03 17:03] LABS: Alanine Aminotransferase < 9 U/L (7-40)
== END | disposition home or self-care (01) ==
LOC: LAB 15:03
PROVIDERS: ATTEND Student in an Organized Health Care Education/Training Program
DX: C31.9 Malignant neoplasm of accessory sinus, unspecified (principal); D64.9 Anemia, unspecified
CPT/HCPCS: 36415; 80053; 83615; 85025

== ENCOUNTER 2024-03-05 12:14 | Emergency (ER) | payer MEDICARE, MEDICAID ==
[~2024-03-05] VITALS: Ht 165.1 cm; Wt 55.0 kg
[2024-03-05 13:50] VITALS: PULSE 89; RESP 16; O2SAT 97
[2024-03-05] MEDS: cloNIDine HCL 0.1 MG TAB PO ONE ×2 (13:53→15:49)
[2024-03-05 14:00] VITALS: TEMP 98.2
[2024-03-05 16:58] VITALS: BP 148/73; PULSE 68; RESP 12; O2SAT 97
== END 2024-03-05 17:11 | disposition home or self-care (01) ==
LOC: EDBD 12:14 → ER 12:14
DX: I16.0 Hypertensive urgency (principal); E11.9 Type 2 diabetes mellitus without complications; E78.5 Hyperlipidemia, unspecified; K21.9 Gastro-esophageal reflux disease without esophagitis; Z86.2 Personal history of diseases of the blood and blood-forming organs and certain disorders involving the immune mechanism; Z85.9 Personal history of malignant neoplasm, unspecified; Z98.890 Other specified postprocedural states; Z79.899 Other long term (current) drug therapy
CPT/HCPCS: 93005

== ENCOUNTER → 2024-03-11 | Outpatient (CLI) | payer MEDICARE, MEDICAID ==
[2024-03-11 15:13] LABS: Basophils # (auto) 0 10 ^3/uL (0-0.2); Basophils % (auto) 1.3 % (0.0-2.0); Eosinophils # (auto) 0.2 10 ^3/uL (0-0.8); Eosinophils % (auto) 4.9 % (0.0-7.0); Hemoglobin 9.1 g/dL (13.5-17.5); Lymphocytes # (auto) 0.8 10 ^3/uL (0.4-5.4); Lymphocytes % (auto) 23.4 % (10.0-50.0); Mean Corpuscular Hemoglobin 31.8 pg (28.0-32.0); Mean Corpuscular Hgb Conc. 33.6 g/dL (32.0-36.0); Mean Corpuscular Volume 94.6 fL (80.0-100.0); Monocytes # (auto) 0.3 10 ^3/uL (0-1.3); Neutrophils # (auto) 2.1 10 ^3/uL (1.6-8.6); Neutrophils % (auto) 60.4 % (37.0-80.0); Nucleated Red Blood Cells % 0.1 %; Red Blood Cells 2.86 10^6/uL (4.5-5.90); Red Cell Distribution Width 19.6 % (11.8-14.3); White Blood Cell 3.4 10^3/uL (4.4-10.8)
[2024-03-11 15:58] LABS: Albumin 3.3 g/dL (3.2-4.8); Alkaline Phosphatase 111 U/L (46-116); Anion Gap 3 (5-15); Aspartate Aminotransferase 13 U/L (13-40); BUN/Creatinine Ratio 19.6 (10.0-20.0); Bilirubin, Total 0.6 mg/dL (0.2-1.0); Blood Urea Nitrogen 19 mg/dL (9-23); Calcium 8.6 mg/dL (8.5-10.1); Carbon Dioxide 31 mmol/L (20-30); Chloride 107 mmol/L (98-107); Glucose 145 mg/dL (74-106); Potassium 3.2 mmol/L (3.5-5.1); Sodium 141 mmol/L (136-145); Total Protein 5.8 g/dL (5.7-8.2)
[2024-03-11 15:59] LABS: Alanine Aminotransferase < 9 U/L (7-40)
== END | disposition home or self-care (01) ==
LOC: LAB 14:54
PROVIDERS: ATTEND Student in an Organized Health Care Education/Training Program
DX: C31.9 Malignant neoplasm of accessory sinus, unspecified (principal); D64.9 Anemia, unspecified
CPT/HCPCS: 36415; 80053; 83615; 85025

== ENCOUNTER → 2025-01-01 | Outpatient (CLI) | payer MEDICARE, MEDICAID ==
[2025-01-01 12:30] LABS: Basophils # (auto) 0 10 ^3/uL (0-0.2); Basophils % (auto) 0.4 % (0.0-2.0); Eosinophils # (auto) 0.1 10 ^3/uL (0-0.8); Eosinophils % (auto) 1.9 % (0.0-7.0); Hematocrit 25.9 % (41.0-53.0); Hemoglobin 8.6 g/dL (13.5-17.5); Lymphocytes # (auto) 1.3 10 ^3/uL (0.4-5.4); Lymphocytes % (auto) 17.4 % (10.0-50.0); Mean Corpuscular Hemoglobin 30.9 pg (28.0-32.0); Mean Corpuscular Hgb Conc. 33.2 g/dL (32.0-36.0); Mean Corpuscular Volume 93.3 fL (80.0-100.0); Monocytes # (auto) 0.5 10 ^3/uL (0-1.3); Monocytes % (auto) 6.5 % (0.0-12.0); Neutrophils # (auto) 5.4 10 ^3/uL (1.6-8.6); Neutrophils % (auto) 73.8 % (37.0-80.0); Platelet Count (auto) 353 10^3/uL (140-450); Red Blood Cells 2.78 10^6/uL (4.5-5.90); Red Cell Distribution Width 16.3 % (11.8-14.3); White Blood Cell 7.3 10^3/uL (4.4-10.8)
[2025-01-01 13:47] LABS: Sodium 139 mmol/L (136-145)
[2025-01-01 13:48] LABS: Anion Gap 9 (5-15); Carbon Dioxide 20 mmol/L (20-31)
[2025-01-01 13:49] LABS: Calcium 9.4 mg/dL (8.7-10.4)
[2025-01-01 13:53] LABS: BUN/Creatinine Ratio 16.8 (10.0-20.0); Chloride 110 mmol/L (98-107); Glucose 100 mg/dL (74-106); Potassium 5.3 mmol/L (3.5-5.1); Triglycerides 99 mg/dL (< 150)
[2025-01-01 13:54] LABS: Blood Urea Nitrogen 31 mg/dL (9-23)
[2025-01-01 13:55] LABS: Cholesterol 172 mg/dL (< 200); HDL Cholesterol 48 mg/dL (40-59); LDL Cholesterol 106 mg/dL (< 100)
== END | disposition home or self-care (01) ==
LOC: LAB 12:06
PROVIDERS: ATTEND Internal Medicine
DX: E11.21 Type 2 diabetes mellitus with diabetic nephropathy (principal); E11.22 Type 2 diabetes mellitus with diabetic chronic kidney disease; D64.9 Anemia, unspecified; N18.9 Chronic kidney disease, unspecified
CPT/HCPCS: 36415; 80048; 80061; 83036; 84439; 84443; 85025

== ENCOUNTER 2025-01-05 14:04 | Inpatient (IN) | payer MEDICARE, MEDICAID ==
[~2025-01-05] VITALS: Ht 170.2 cm; Wt 52.5 kg
--- NOTE | 2025-01-05 14:52 | ED.PDOC ---
History of Present Illness HPI Comments 69 y.o male accompanied by daughter, presents to the ED for an evaluation of abnormal labs. Daughter reports taking patient to a general PCP appointment today and was told to bring patient in to the ED d/t elevated potassium levels at 5.3. Patient is asymptomatic a this time and states he has had routine blood work with no history of Kidney disease. Patient has a medical history of anemia, blood transfusions, HTN, hyperlipidemia, DM, cancer in [facility] (in remission). Chief Complaint: Abdominal Pain Time Seen by MD: 14:41 Primary Care Provider: ? Reviewed Notes: Nurses Notes, Medications, Allergies Allergies: Coded Allergies: NO KNOWN ALLERGIES (Unverified , 11/02/22) Home Meds Active Scripts Hydrocodone-Acetaminophen (Hydrocodone Bitartrate/AC 5-325 mg) 1 Tab Tab, 1 TAB PO Q8HR for 7 Days, #21 TAB Prov:VALERIE RODRIGES Lizet DPM 01/12/23 Reported Medications Clopidogrel Bisulfate (CLOPIDOGREL) 75 Mg Tab, PO 12/21/23 Gabapentin (Gabapentin) 600 Mg Tab, 1 TAB PO 12/21/23 Lisinopril (Lisinopril) 20 Mg Tab, 20 MG PO DAILY for 30 Days, MG 11/12/23 Melatonin (KP MELATONIN) 3 Mg Tab, 10 MG PO HS, TAB 01/09/23 Rivaroxaban (XARELTO) 10 Mg Tab, 2.5 MG PO BID, TAB 01/09/23 Atorvastatin Calcium (ATORVASTATIN CALCIUM) 40 Mg Tab, 1 TAB PO QPM, #90 TAB 3 Refills 11/05/22 Metformin Hydrochloride (Metformin Hcl) 500 Mg Tab, 1000 MG PO IBID for 30 Days, MG 11/05/22 Pantoprazole Sodium Sesquihydr (Protonix) 40 Mg Tab, 40 MG PO DAILY, #30 TAB 11/05/22 Information Source: Patient, Relative (Daughter ) Mode of Arrival: Wheelchair Severity: None Timing: Hours Duration: Since onset Past Medical History PAST MEDICAL HISTORY: Anemia, Cancer, DM, GERD, High Lipids, HTN Past Medical History (Other): Blood transfusions Surgical History: BKA (left side ) Surgical History (Other): right greater toe amputation Family History Family History: Reviewed,noncontributory to illness Social History Smoker: Cigarettes Alcohol: Denies ETOH Use Drugs: Denies Drug Use Lives In: Assisted Care Constitutional: denies: chills, diaphoresis, fatigue, fever, malaise, sweats, weakness, others EENTM: denies: blurred vision, double vision, ear bleeding, ear discharge, ear drainage, ear pain, ear ringing, eye pain, eye redness, hearing loss, mouth pain, mouth swelling, nasal discharge, nose bleeding, nose congestion, nose p ain, photophobia, tearing, throat pain, throat swelling, voice changes, others Respiratory: denies: cough, hemoptysis, orthopnea, SOB at rest, shortness of breath, SOB with excertion, stridor, wheezing, others Cardiovascular: denies: chest pain, dizzy spells, diaphoresis, Dyspnea on exertion, edema, irregular heart beat, left arm pain, lightheadedness, palpitations, PND, syncope, others Gastrointestinal: denies: abdomen distended, abdominal pain, blood streaked bowels, constipated, diarrhea, dysphagia, difficulty swallowing, hematemesis, melena, nausea, poor appetite, poor fluid intake, rectal bleeding, rectal pain, vomiting, others Genitourinary: denies: burning, dysuria, flank pain, frequency, hematuria, incontinence, penile discharge, penile sore, pain, testicle pain, testicle swelling, urgency, others Neurological: denies: dizziness, fainting, headache, left sided numbness, left sided weakness, numbness, paresthesia, pre-existing deficit, right sided numbness, right sided weakness, seizure, speech problems, tingling, tremors, weakness, others Musculoskeletal: denies: back pain, gout, joint pain, joint swelling, muscle pain, muscle stiffness, neck pain, others Integumetry: denies: bruises, change in color, change in hair/nails, dryness, laceration, lesions, lumps, rash, wounds, others Allergic/Immunocompromised: denies: Difficulty Healing, Frequent Infections, Hives, Itching, others Hematologic/Lymphatic: denies: anemia, blood clots, easy bleeding, easy bruising, swollen glands, others Endocrine: denies: excessive hunger, excessive sweating, excessive thirst, excessive urination, flushing, intolerance to cold, intolerance to heat, unexplained weight gain, unexplained weight loss, others Psychiatric: denies: anxiety, bipolar disorder, depression, hopeless, panic disorder, schizophrenia, sleepless, suicidal, others All Other Systems: Reviewed and Negative Physical Exam General Appearance: Moderate Distress HEENT: Pale Conjuntivae (L), Pale Conjuntivae (R), Pharynx Normal, TMs Normal Neck: Full Range of Motion, Non-Tender, Normal, Normal Inspection Respiratory: Chest Non-Tender, Lungs Clear, No Accessory Muscle Use, No Respiratory Distress, Normal Breath Sounds Cardiovascular: No Edema, No JVD, No Murmur, No Gallop, Normal Peripheral Pulses, Regular Rate/Rhythm Breast Exam: Deferred Gastrointestinal: No Organomegaly, Non Tender, No Pulsatile Mass, Normal Bowel Sounds, Soft Genitalia: Deferred Pelvic: Deferred Rectal: Deferred Extremities: No calf tenderness, Normal capillary refill, No pedal edema, Other (The patient has a left BKA and right foot has a great toe amputation) Musculoskeletal : Apperance: Normal 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 Was a procedure done?: No Differential Dx Considerations may include: Hyperkalemia, Renal failure, Anemia X-Ray, Labs, Meds, VS Vital Signs Date Time Temp Pulse Resp B/P (MAP) Pulse Ox O2 Delivery O2 Flow Rate FiO2 01/05/25 14:23 97.8 82 17 164/71 (102) 98 97.8 Lab Test 01/05/25 15:15 Range/Units White Blood Count 8.0 4.4-10.8 10^3/uL Red Blood Count 2.36 L 4.5-5.90 10^6/uL Hemoglobin 7.4 L 13.5-17.5 g/dL Hematocrit 21.9 #L 41.0-53.0 % Mean Corpuscular Volume 92.7 80.0-100.0 fL Mean Corpuscular Hemoglobin 31.3 28.0-32.0 pg Mean Corpuscular Hemoglobin Concent 33.8 32.0-36.0 g/dL Red Cell Distribution Width 16.2 H 11.8-14.3 % Platelet Count 311 140-450 10^3/uL Mean Platelet Volume 7.5 6.9-10.8 fL Neutrophils (%) (Auto) 81.5 H 37.0-80.0 % Lymphocytes (%) (Auto) 11.2 10.0-50.0 % Monocytes (%) (Auto) 5.5 0.0-12.0 % Eosinophils (%) (Auto) 1.4 0.0-7.0 % Basophils (%) (Auto) 0.4 0.0-2.0 % Neutrophils # (Auto) 6.5 1.6-8.6 10 ^3/uL Lymphocytes # (Auto) 0.9 0.4-5.4 10 ^3/uL Monocytes # (Auto) 0.4 0-1.3 10 ^3/uL Eosinophils # (Auto) 0.1 0-0.8 10 ^3/uL Basophils # (Auto) 0 0-0.2 10 ^3/uL Nucleated Red Blood Cells 0.0 % Sodium Level 145 # 136-145 mmol/L Potassium Level 5.1 3.5-5.1 mmol/L Chloride Level 116 H 98-107 mmol/L Carbon Dioxide Level 22 20-31 mmol/L Anion Gap 7 5-15 Blood Urea Nitrogen 45 H 9-23 mg/dL Creatinine 1.79 H 0.700-1.30 mg/dL Glomerular Filtration Rate Calc 41 >90 mL/min BUN/Creatinine Ratio 25.1 H 10.0-20.0 Serum Glucose 150 H 74-106 mg/dL Calcium Level 8.9 8.7-10.4 mg/dL IV Hep-Lock was established The patient was typed and screened. The patient's CBC shows significant anemia with a hemoglobin of 7.4 and hematocrit of 21.9 The patient's chemistry panel shows a BUN of 45 and a creatinine of 1.79 At this time, the patient was being admitted to the hospitalist The patient understands and agrees with the management. We spoke to the patient's primary care doctor and we are concerned about failure to thrive Time of 1ST Reevaluation: 14:48 Reevaluation 1ST: Unchanged Patient Education/Counseling: Diagnosis, Treatment, Prognosis Family Education/Counseling: Diagnosis, Treatment, Prognosis Departure 1 Departure Time of Disposition: 16:18 Impression: Primary Impression: Failure to thrive Qualified Codes: R62.7 - Adult failure to thrive Additional Impressions: Generalized weakness Severe anemia Disposition: ADMITTED INPATIENT Admit to: [facility] Condition: Fair Critical Care Note Critical Care Time?: Yes (35 min-critical care time only) Stability Stability form required: Yes Unstable for transfer: Telemetry monitoring (Telemetry monitoring required), ED Physician Assesment (Clinical assesment) I personally scribed for ZAIRE MEDINA MD ([email or web address]) on 01/05/25 at 14:52. Electronically submitted by Annmarie Hercules ([facility]). ZAIRE MEDINA MD Jan 05, 2025 14:52
[2025-01-05 15:45] LABS: Basophils # (auto) 0 10 ^3/uL (0-0.2); Basophils % (auto) 0.4 % (0.0-2.0); Eosinophils # (auto) 0.1 10 ^3/uL (0-0.8); Eosinophils % (auto) 1.4 % (0.0-7.0); Hematocrit 21.9 % (41.0-53.0); Hemoglobin 7.4 g/dL (13.5-17.5); Lymphocytes # (auto) 0.9 10 ^3/uL (0.4-5.4); Lymphocytes % (auto) 11.2 % (10.0-50.0); Mean Corpuscular Hemoglobin 31.3 pg (28.0-32.0); Mean Corpuscular Hgb Conc. 33.8 g/dL (32.0-36.0); Mean Corpuscular Volume 92.7 fL (80.0-100.0); Monocytes # (auto) 0.4 10 ^3/uL (0-1.3); Monocytes % (auto) 5.5 % (0.0-12.0); Neutrophils # (auto) 6.5 10 ^3/uL (1.6-8.6); Neutrophils % (auto) 81.5 % (37.0-80.0); Platelet Count (auto) 311 10^3/uL (140-450); Red Blood Cells 2.36 10^6/uL (4.5-5.90); Red Cell Distribution Width 16.2 % (11.8-14.3)
[2025-01-05 15:54] LABS: Potassium 5.1 mmol/L (3.5-5.1); Sodium 145 mmol/L (136-145)
[2025-01-05 15:55] LABS: Anion Gap 7 (5-15); Calcium 8.9 mg/dL (8.7-10.4); Carbon Dioxide 22 mmol/L (20-31)
[2025-01-05 15:59] LABS: Chloride 116 mmol/L (98-107)
[2025-01-05 16:00] LABS: BUN/Creatinine Ratio 25.1 (10.0-20.0)
[2025-01-05 16:03] LABS: Blood Urea Nitrogen 45 mg/dL (9-23); Glucose 150 mg/dL (74-106)
[2025-01-05] MEDS ORDERED: ONDANSETRON HCL 4 MG/2 ML VIAL IV PRN (21:00)
[2025-01-05] MEDS ORDERED: DOCUSATE SOD 100 MG CAP PO PRN (21:00)
[2025-01-05] MEDS: SOD CHL 0.45% 1,000 ML IV ONE (21:00)
[2025-01-05] MEDS ORDERED: HYDROcodone-ACET 5/325MG TAB PO PRN (21:00)
[2025-01-05] MEDS ORDERED: ACETAMINOPHEN 325 MG TAB PO PRN (21:00)
--- NOTE | 2025-01-05 21:39 | DVHHP2 ---
Admitting Diagnosis: abdominal pain History of Present Illness 69 y.o male accompanied by daughter, presents to the ED for an evaluation of abnormal labs. Daughter reports taking patient to a general PCP appointment today and was told to bring patient in to the ED d/t elevated potassium levels at 5.3. Patient is asymptomatic a this time and states he has had routine blood work with no history of Kidney disease. 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 PAST MEDICAL HISTORY: Anemia, Cancer, DM, GERD, High Lipids, HTN Past Medical History (Other): Blood transfusions Surgical History: BKA (left side ) Surgical History (Other): right greater toe amputation Family History: Reviewed,noncontributory to illness Social History Smoker: Cigarettes Alcohol: Denies ETOH Use Drugs: Denies Drug Use Lives In: Assisted Care Patient Family History: Diabetes mellitus G8 MOTHER G8 FATHER Allergies: Coded Allergies: NO KNOWN ALLERGIES (Unverified , 11/02/22) Home Meds Active Scripts Hydrocodone-Acetaminophen (Hydrocodone Bitartrate/AC 5-325 mg) 1 Tab Tab, 1 TAB PO Q8HR for 7 Days, #21 TAB Prov:VALERIE RODRIGES Lizet DPM 01/12/23 Reported Medications Clopidogrel Bisulfate (CLOPIDOGREL) 75 Mg Tab, PO 12/21/23 Gabapentin (Gabapentin) 600 Mg Tab, 1 TAB PO 12/21/23 Lisinopril (Lisinopril) 20 Mg Tab, 20 MG PO DAILY for 30 Days, MG 11/12/23 Melatonin (KP MELATONIN) 3 Mg Tab, 10 MG PO HS, TAB 01/09/23 Rivaroxaban (XARELTO) 10 Mg Tab, 2.5 MG PO BID, TAB 01/09/23 Atorvastatin Calcium (ATORVASTATIN CALCIUM) 40 Mg Tab, 1 TAB PO QPM, #90 TAB 3 Refills 11/05/22 Metformin Hydrochloride (Metformin Hcl) 500 Mg Tab, 1000 MG PO IBID for 30 Days, MG 11/05/22 Pantoprazole Sodium Sesquihydr (Protonix) 40 Mg Tab, 40 MG PO DAILY, #30 TAB 11/05/22 Current Medications Current Medications Medications (Trade) Dose Ordered Sig/Donaldo Route PRN Reason Start Time Stop Time Status Last Admin Sodium Chloride (Saline Lock Ns) 10 ml Q8HR IV 01/05/25 22:00 Docusate Sodium (Colace Capsule) 100 mg BIDPRN PRN PO FOR CONSTIPATION 01/05/25 21:00 Acetaminophen (Tylenol Tablet) 650 mg Q6HP PRN PO PAIN SCALE 1-3 OR TEMP>100.4 01/05/25 21:00 Acetaminophen/ Hydrocodone Bitart ([place] 5/325MG Tab) 1 tab Q4HP PRN PO MODERATE PAIN (4-6 PAIN SCALE) 01/05/25 21:00 Ondansetron HCl (Zofran) 4 mg Q4HP PRN IV NAUSEA / VOMITING 01/05/25 21:00 Clopidogrel Bisulfate (Plavix) 75 mg DAILY PO 01/06/25 10:00 UNV Pantoprazole Sodium (Protonix Tablet) 40 mg DAILY PO 01/06/25 10:00 UNV Rivaroxaban (Xarelto Tablet) 2.5 mg BID PO 01/05/25 22:00 UNV Patient Own Medication 1 tab QPM PO 01/06/25 18:00 UNV Patient Own Medication 10 mg HS PO 01/05/25 22:00 UNV Vital Signs Vital Signs Date Time Temp Pulse Resp B/P (MAP) Pulse Ox O2 Delivery O2 Flow Rate FiO2 01/05/25 14:23 97.8 82 17 164/71 (102) 98 97.8 Physical Exam Gen: 69 y.o. man, lying in bed. NAD. HEENT: AT/NC Heart: RRR Lung: CTA b/l Abd: soft, non-tender, non-distended Msk: + edema on right, left leg amputate Neuro: AO x3, no focal deficit Results Labs Test 01/05/25 15:15 Range/Units White Blood Count 8.0 4.4-10.8 10^3/uL Red Blood Count 2.36 L 4.5-5.90 10^6/uL Hemoglobin 7.4 L 13.5-17.5 g/dL Hematocrit 21.9 #L 41.0-53.0 % Mean Corpuscular Volume 92.7 80.0-100.0 fL Mean Corpuscular Hemoglobin 31.3 28.0-32.0 pg Mean Corpuscular Hemoglobin Concent 33.8 32.0-36.0 g/dL Red Cell Distribution Width 16.2 H 11.8-14.3 % Platelet Count 311 140-450 10^3/uL Mean Platelet Volume 7.5 6.9-10.8 fL Neutrophils (%) (Auto) 81.5 H 37.0-80.0 % Lymphocytes (%) (Auto) 11.2 10.0-50.0 % Monocytes (%) (Auto) 5.5 0.0-12.0 % Eosinophils (%) (Auto) 1.4 0.0-7.0 % Basophils (%) (Auto) 0.4 0.0-2.0 % Neutrophils # (Auto) 6.5 1.6-8.6 10 ^3/uL Lymphocytes # (Auto) 0.9 0.4-5.4 10 ^3/uL Monocytes # (Auto) 0.4 0-1.3 10 ^3/uL Eosinophils # (Auto) 0.1 0-0.8 10 ^3/uL Basophils # (Auto) 0 0-0.2 10 ^3/uL Nucleated Red Blood Cells 0.0 % Sodium Level 145 # 136-145 mmol/L Potassium Level 5.1 3.5-5.1 mmol/L Chloride Level 116 H 98-107 mmol/L Carbon Dioxide Level 22 20-31 mmol/L Anion Gap 7 5-15 Blood Urea Nitrogen 45 H 9-23 mg/dL Creatinine 1.79 H 0.700-1.30 mg/dL Glomerular Filtration Rate Calc 41 >90 mL/min BUN/Creatinine Ratio 25.1 H 10.0-20.0 Serum Glucose 150 H 74-106 mg/dL Calcium Level 8.9 8.7-10.4 mg/dL Primary Diagnosis JEWELS failure to thrive Plan check UA elevated cr check urine sodium, urine creatine kidney us ivf monitor hgb for bleeding monitor renal function full code renal diet ppi for gi ppx heparin for dvt ppx Plan discussed with: Patient Problems List: (1) JEWELS (acute kidney injury) (2) Severe anemia Status: Acute Date of Service: Jan 05, 2025 Billing Provider: JAYLIN LINN MD Common Visit Codes: [id number] INP/OBS CARE (MOD) JAYLIN LINN MD Jan 05, 2025 21:39
[2025-01-05] MEDS: MELATONIN 5 MG TAB PO SCH (22:00)
[2025-01-05] MEDS: SODIUM CHLOR 0.9% PF (SALINE LOCK) 10ML VIAL/SYR IV SCH (22:00)
--- NOTE | 2025-01-05 22:57 | DVH ---
INDICATION: JEWELS TECHNIQUE: Multiple real-time sonographic images of the kidneys and bladder were obtained. COMPARISON: None FINDINGS: The right kidney measures 11.4 cm in length. The right renal echogenicity, contour and cortical thick ness are within normal limits. No hydronephrosis or large masses/calculi are seen. The left kidney measures left 11.2 cm in length. The left renal echogenicity, contour, and cortical t hickness are within normal limits. No hydronephrosis or large masses/calculi are seen. No large intraluminal masses are seen in the bladder. Bladder is contracted. IMPRESSION: 1. No hydronephrosis. No acute findings identified.
[2025-01-05 23:12] VITALS: RESP 14; O2SAT 96
[2025-01-06] VITALS (7 sets, daily range): BP systolic 98–220; BP diastolic 56–95; PULSE 76–85; RESP 14–18; TEMP 98–98.6; O2SAT 93–100
[2025-01-06] MEDS: hydrALAZINE HCL 20 MG/ML VL IV PRN (05:08)
[2025-01-06 06:32] LABS: Alkaline Phosphatase 102 U/L (46-116); Anion Gap 9 (5-15); Aspartate Aminotransferase 14 U/L (13-40); BUN/Creatinine Ratio 26.3 (10.0-20.0); Sodium 143 mmol/L (136-145)
[2025-01-06 06:33] LABS: Alanine Aminotransferase < 9 U/L (7-40); Bilirubin, Total < 0.2 mg/dL (0.2-1.0); Blood Urea Nitrogen 45 mg/dL (9-23); Calcium 8.3 mg/dL (8.7-10.4); Carbon Dioxide 19 mmol/L (20-31); Chloride 115 mmol/L (98-107); Eosinophils # (auto) 0.2 10 ^3/uL (0-0.8); Glucose 118 mg/dL (74-106); Lymphocytes # (auto) 1.1 10 ^3/uL (0.4-5.4); Neutrophils # (auto) 5.7 10 ^3/uL (1.6-8.6); Potassium 5.2 mmol/L (3.5-5.1); Total Protein 5.1 g/dL (5.7-8.2); White Blood Cell 7.6 10^3/uL (4.4-10.8)
[2025-01-06 06:36] LABS: Basophils # (auto) 0 10 ^3/uL (0-0.2); Basophils % (auto) 0.6 % (0.0-2.0); Eosinophils % (auto) 2.2 % (0.0-7.0); Hematocrit 21.8 % (41.0-53.0); Hemoglobin 7.4 g/dL (13.5-17.5); Lymphocytes % (auto) 14.7 % (10.0-50.0); Mean Corpuscular Hemoglobin 31.2 pg (28.0-32.0); Mean Corpuscular Hgb Conc. 33.8 g/dL (32.0-36.0); Mean Corpuscular Volume 92.5 fL (80.0-100.0); Monocytes # (auto) 0.6 10 ^3/uL (0-1.3); Monocytes % (auto) 8.1 % (0.0-12.0); Neutrophils % (auto) 74.4 % (37.0-80.0); Platelet Count (auto) 274 10^3/uL (140-450); Red Blood Cells 2.35 10^6/uL (4.5-5.90); Red Cell Distribution Width 16.1 % (11.8-14.3)
[2025-01-06] MEDS ORDERED: RIVAROXABAN 2.5 MG TAB PO SCH (10:00)
[2025-01-06 10:11] LABS: Urine Bacteria None Seen /hpf (None Seen)
[2025-01-06 10:25] LABS: Sodium Urine 55 mmol/L (40-220)
[2025-01-06 10:33] LABS: Creatinine, Urine 92.66 mg/dL (30.0-125.0)
[2025-01-06 10:41] LABS: Urine Blood Negative /uL (Negative); Urine Clarity Turbid (Clear); Urine Color Yellow (Yellow); Urine Hyaline Cast FEW /lpf (0 - 2); Urine Protein, UAD 3+ (Negative); Urine Specific Gravity 1.019 (1.001-1.035); Urine Squamous Epithelial Cell FEW /hpf (<5); Urine Urobilinogen Normal (Negative); Urine WBC 1 /HPF (0-3)
[2025-01-06 10:56] LABS: Protein, Urine 678.4 mg/dL (1-14)
[2025-01-06 10:57] LABS: Amphetamine Screen, Urine Neg (NEGATIVE); Barbiturate Scree,Urine Neg (NEGATIVE); Benzodiazephine Screen, Urine Neg (NEGATIVE); Cannabinoid Screen, Urine Neg (NEGATIVE); Cocaine Screen, Urine Neg (NEGATIVE); Opiate Scree,Urine Neg (NEGATIVE); Phencyclidine Screen, Urine Neg (NEGATIVE)
[2025-01-06] MEDS: CLOPIDOGREL BISULFATE 75 MG TAB PO SCH (11:17)
[2025-01-06] MEDS: ATORVASTATIN 20 MG TAB PO SCH (11:17)
[2025-01-06] MEDS: PANTOPRAZOLE 40 MG TAB PO SCH (11:18)
[2025-01-06] MEDS: NIFEdipine ER 30 MG TAB PO SCH (11:18)
[2025-01-06] MEDS: SODIUM CHLORIDE 0.9% 500 ML IV ONE (11:19)
--- NOTE | 2025-01-06 13:07 | DVHPNRES ---
Progress Note Date Seen: Jan 06, 2025 Resident Creating Document: MICHELLE GALLEGO RESIDENT Medical Necessity Reason Pt with a Central, PICC or Fol: No Subjective Review of Systems This is a 69 y.o male who presents to the ED for an evaluation of abnormal labs. PAST MEDICAL HISTORY: Anemia, Cancer, DM, GERD, High Lipids, HTN, Blood transfusions Surgical History: BKA (left side), right greater toe amputation Family History: Reviewed,noncontributory to illness Social history: Smoker: Cigarettes Alcohol: Denies ETOH Use Drugs: Denies Drug Use Daughter reports taking patient to a general PCP appointment today and was told to bring patient in to the ED d/t elevated potassium levels at 5.3. Patient is asymptomatic a this time and states he has had routine blood work with no history of Kidney disease. Patient has a medical history of anemia, blood transfusions, HTN, hyperlipidemia, DM, cancer in [facility] (in remission). Patient's blood work also revealed acute kidney injury, previous creatinine levels were within normal limits and now it has rising to 1.8. Patient has had a renal ultrasound which was unremarkable. A chest x-ray continued demonstrated transplant [id number] vascular congestion. Patient's vital signs were unremarkable, he was on room air, he denied any shortness of breath, chest pain, dizziness, lightheadedness, abdominal pain, nausea, vomiting. He is currently tolerating diet, ambulatory. Patient's hemoglobin was also low at 7.2, presently is currently taking Plavix and Xarelto due to stents in on his legs due to peripheral arterial disease. Patient is a poor historian, with the most of this history from daughter. Patient currently denies any melena, hematochezia. Patient has had an upper endoscopy in 2023, it is just show gastritis, however he did not get a colonoscopy, and has never had one. Objective vital signs Vital Sign Date Time Temp Pulse Resp B/P (MAP) Pulse Ox O2 Delivery O2 Flow Rate FiO2 01/06/25 12:57 98.0 85 17 148/86 (106) 96 98.0 01/06/25 08:00 Room Air* 0 21 Total Intake and Output 01/05/25 01/05/25 01/06/25 15:00 23:00 07:00 Intake Total 0 ml Balance 0 ml medications Current Medications Medications Dose Ordered Sig/Donaldo Route Start Time Stop Time Status Last Admin Dose Admin Sodium Chloride 10 ml Q8HR IV 01/05/25 22:00 01/06/25 06:00 10 ML Docusate Sodium 100 mg BIDPRN PRN PO 01/05/25 21:00 Acetaminophen 650 mg Q6HP PRN PO 01/05/25 21:00 Acetaminophen/ Hydrocodone Bitart 1 tab Q4HP PRN PO 01/05/25 21:00 Ondansetron HCl 4 mg Q4HP PRN IV 01/05/25 21:00 Clopidogrel Bisulfate 75 mg DAILY PO 01/06/25 10:00 01/06/25 11:17 75 MG Pantoprazole Sodium 40 mg DAILY PO 01/06/25 10:00 01/06/25 11:18 40 MG Rivaroxaban 2.5 mg BID PO 01/06/25 10:00 Atorvastatin Calcium 40 mg DAILY PO 01/06/25 10:00 01/06/25 11:17 40 MG Melatonin 10 mg HS PO 01/05/25 22:00 Hydralazine HCl 10 mg Q6H PRN IV 01/05/25 21:30 01/06/25 05:08 10 MG Nifedipine 60 mg DAILY PO 01/06/25 10:00 01/06/25 11:18 60 MG Examination General: Awake, alert, comfortable appearing, in no acute distress. HEENT: Head is normocephalic and atraumatic. Pupils are equal, round, and reactive to light. Extraocular muscles are intact. No nasal discharge. No facial trauma. Intraoral exam shows moist mucous membranes with no tonsillar enlargement or exudate. Neck: Supple with no cervical lymphadenopathy No meningismus. No goiter. Heart: Regular rate without murmur, rub, or gallop. Lungs: Scattered crackles Abdomen: No external sign of injury. Bowel sounds are present. Abdomen is soft, nontender. No rebound, no guarding, no rigidity. There are no palpable masses. There is no flank pain on exam. Extremities: Faint peripheral pulses. There is no clubbing, no cyanosis, and no edema. Below-knee amputation of left side Skin: No rash. Neurologic: Cranial nerves II-XII intact without motor, sensory, or cerebellar deficit, no asterixis. laboratory and microbiology Laboratory Tests 01/06/25 05:57 Test 01/06/25 05:57 Range/Units Serum Glucose 118 H 74-106 mg/dL Labs and/or images reviewed: Labs reviewed by me, Image(s) reviewed by me Problem List/Assessment/Plan Problem List/Assessment/Plan JEWELS, likely prerenal Lower GI bleeding Hyperkalemia Metabolic acidosis Pulmonary Edema, mild-mod Anemia normocytic, severe T2DM GERD Dyslipidemia Hypertension, uncontrolled Plan: IV NS 500ml once pending echo ordered urine studies Lokelma p.o. once Renal ultrasound was unremarkable Monitor potassium Consulted GI for possible colonoscopy Hold Xarelto Order bladder scan At nifedipine 60 mg p.o. q.d. Goals of care were discussed for over 30 mins. FULL CODE Case was discussed with Dr. Aguayo Plan discussed with: Patient, Other (RN) My Orders My Orders Orders - MICHELLE GALLEGO RESIDENT Procedure Category Date Status Time Iron Panel LAB 01/06/25 Logged 08:16 Ferritin LAB 01/06/25 Logged 08:16 Vitamin B12 LAB 01/06/25 Logged 08:16 Folate (Folic Acid) LAB 01/06/25 Logged 08:16 Stool Occult Blood LAB 01/06/25 Logged 08:16 Nifedipine Er PHA 01/06/25 In Process (Procardia Xl 10:00 Chest Portable XY 01/06/25 Logged 10:14 Date of Service: Jan 06, 2025 Billing Provider: ARIANNE AGUAYO MD Common Visit Codes: [id number] INP/OBS CARE(HIGH) Secondary Visit Codes: [id number] CARE PLAN 30 MINUTES MICHELLE GALLEGO RESIDENT Jan 06, 2025 13:07 ARIANNE AGUAYO MD Jan 06, 2025 17:48
[2025-01-06 13:56] LABS: % Iron Saturation 23.4 % (20-55)
[2025-01-06 14:13] LABS: Ferritin 620.1 ng/mL (22-322)
[2025-01-06 14:19] LABS: Folate (Folic Acid) 10.81 ng/mL (>5.38)
--- NOTE | 2025-01-06 14:40 | DVH ---
CHEST RADIOGRAPH Indication: sob Technique: Single frontal view of the chest was obtained COMPARISON: XY CHEST PORTABLE on DOS: 11/09/23, CXR1 on DOS: 11/06/22, CHEST XRAY 1 VIEW on DOS: 3 FINDINGS: Lines and Tubes: None Lungs: Multifocal airspace disease. Pleura: No effusion. No pneumothorax. Cardiomediastinal contours: Cardiomegaly Bones: Unremarkable IMPRESSION: Multifocal airspace disease and/or pulmonary vascular congestion
--- NOTE | 2025-01-06 14:58 | DVHCONRES ---
Date Seen: Jan 06, 2025 Resident Creating Document: ROGERIO RIOS RESIDENT Referring Physician Dr. Wilkinson Reason for Consultation Lower GI bleed History of Present Illness 68-year-old male with primary medical history of HTN, DM2, Nasopharyngeal mass, iron deficiency anemia who presents to the ED with chief complaint of abnormal labs.Patient's hemoglobin was low at 7.2, presently is currently taking Plavix and Xarelto due to stents in on his legs due to peripheral arterial disease. Patient is a poor historian, with the most of this history from daughter. Patient currently denies any melena, hematochezia. Patient has had an upper endoscopy in 2023, it is just show gastritis, however he did not get a colonoscopy, and has never had done. The patient remains asymptomatic and denies feeling weak, short of breath, no dizziness, or other associated symptoms. Patient was hospitalized in October with similar symptoms and underwent an endoscopy by Dr. Kathy Kelley which had shown mild antral gastritis. Patient seen and examined at bedside, denies abdominal pain, any blood in his stool. Patient is scheduled for colonoscopy tomorrow. Past Medical History HTN, DM2, Nasopharyngeal mass, iron deficiency anemia. Family History: Diabetes mellitus G8 MOTHER G8 FATHER Allergies: Coded Allergies: NO KNOWN ALLERGIES (Unverified , 11/02/22) Home Meds Active Scripts Hydrocodone-Acetaminophen (Hydrocodone Bitartrate/AC 5-325 mg) 1 Tab Tab, 1 TAB PO Q8HR for 7 Days, #21 TAB Prov:VALERIE RODRIGES DPM 01/12/23 Reported Medications Clopidogrel Bisulfate (CLOPIDOGREL) 75 Mg Tab, PO 12/21/23 Gabapentin (Gabapentin) 600 Mg Tab, 1 TAB PO 12/21/23 Lisinopril (Lisinopril) 20 Mg Tab, 20 MG PO DAILY for 30 Days, MG 11/12/23 Melatonin (KP MELATONIN) 3 Mg Tab, 10 MG PO HS, TAB 01/09/23 Rivaroxaban (XARELTO) 10 Mg Tab, 2.5 MG PO BID, TAB 01/09/23 Atorvastatin Calcium (ATORVASTATIN CALCIUM) 40 Mg Tab, 1 TAB PO QPM, #90 TAB 3 Refills 11/05/22 Metformin Hydrochloride (Metformin Hcl) 500 Mg Tab, 1000 MG PO IBID for 30 Days, MG 11/05/22 Pantoprazole Sodium Sesquihydr (Protonix) 40 Mg Tab, 40 MG PO DAILY, #30 TAB 11/05/22 Current Medications Current Medications Medications (Trade) Dose Ordered Sig/Donaldo Route PRN Reason Start Time Stop Time Status Last Admin Sodium Chloride (Saline Lock Ns) 10 ml Q8HR IV 01/05/25 22:00 01/06/25 06:00 Docusate Sodium (Colace Capsule) 100 mg BIDPRN PRN PO FOR CONSTIPATION 01/05/25 21:00 Acetaminophen (Tylenol Tablet) 650 mg Q6HP PRN PO PAIN SCALE 1-3 OR TEMP>100.4 01/05/25 21:00 Acetaminophen/ Hydrocodone Bitart ([place] 5/325MG Tab) 1 tab Q4HP PRN PO MODERATE PAIN (4-6 PAIN SCALE) 01/05/25 21:00 Ondansetron HCl (Zofran) 4 mg Q4HP PRN IV NAUSEA / VOMITING 01/05/25 21:00 Clopidogrel Bisulfate (Plavix) 75 mg DAILY PO 01/06/25 10:00 01/06/25 11:17 Pantoprazole Sodium (Protonix Tablet) 40 mg DAILY PO 01/06/25 10:00 01/06/25 11:18 Rivaroxaban (Xarelto) 2.5 mg BID PO 01/06/25 10:00 01/06/25 13:04 DC Atorvastatin Calcium (Lipitor) 40 mg DAILY PO 01/06/25 10:00 01/06/25 11:17 Melatonin (Melatonin) 10 mg HS PO 01/05/25 22:00 Hydralazine HCl (Apresoline Injection) 10 mg Q6H PRN IV SBP > 165 01/05/25 21:30 01/06/25 05:08 Nifedipine (Procardia Xl (Time-Release)) 60 mg DAILY PO 01/06/25 10:00 01/06/25 11:18 Review of Systems CONSTITUTIONAL: Denies weight loss, fever and chills. HEENT: Denies changes in vision and hearing. RESPIRATORY: Denies SOB and cough. CV: Denies palpitations and chest pain. GI: Denies abdominal pain, nausea, vomiting and diarrhea. : Denies dysuria and urinary frequency. MSK: Denies myalgia and joint pain. SKIN: Denies rash and pruritus. NEUROLOGICAL: Denies headache Vital Signs Vital Signs Date Time Temp Pulse Resp B/P (MAP) Pulse Ox O2 Delivery O2 Flow Rate FiO2 01/06/25 12:57 98.0 85 17 148/86 (106) 96 98.0 01/06/25 08:00 Room Air* 0 21 Physical Exam General: Alert and Oriented x3. No acute distress. Eyes: EOMI, PERRLA. Anicteric. Eyelids are normal in appearance without swelling or lesions. HENT: The head is normocephalic and atraumatic without tenderness, swelling on the right side of the face Lungs: Clear to auscultation bilaterally. No accessory muscle use. The chest wall is symmetric and without deformity. No signs of trauma. Chest wall is non-tender. Cardiovascular: Regular rate and rhythm. No murmur. No JVD. Abdomen: Soft, non-tender and non-distended. Bowel sounds are present and normoactive in all four quadrants. Extremities: Left BKA. No edema. Pulses palpable. Skin: Skin is warm, dry and intact. Neurologic: No focal neurological deficits. CN II-XII grossly intact, but not individually tested. Labs/Diagnostic Data Labs Test 01/06/25 13:20 01/06/25 11:52 01/06/25 10:00 01/06/25 05:57 Range/Units Iron Level 40 L 65-175 ug/dL Total Iron Binding Capacity 171 L 250-425 ug/dL Percent Iron Saturation 23.4 20-55 % Ferritin 620.1 H 22-322 ng/mL Vitamin B12 Level 542 211-911 pg/mL Folic Acid 10.81 >5.38 ng/mL POC Glucose 97 70-106 mg/dl Urine Color Yellow Yellow Urine Clarity Turbid H Clear Urine pH 6.0 5.0-9.0 Urine Specific [place] 1.019 1.001-1.035 Urine Protein 3+ H Negative Urine Ketones Negative Negative Urine Blood Negative Negative /uL Urine Nitrite Negative Negative Urine Bilirubin Negative Negative Urine Urobilinogen Normal Negative mg/dL Urine Leukocyte Esterase Negative Negative /uL Urine RBC 5 0 - 3 /hpf Urine Microscopic WBC 1 0-3 /HPF Urine Squamous Epithelial Cells Few <5 /hpf Urine Bacteria None seen None Seen /hpf Urine Hyaline Casts Few 0 - 2 /lpf Urine Osmolality 489 mOsm/kg Urine Creatinine 92.66 30.0-125.0 mg/dL Urine Sodium 55 40-220 mmol/L Urine Glucose 2+ H Normal mg/dL Urine Total Protein 678.4 H 1-14 mg/dL Urine Opiates Screen Neg NEGATIVE Urine Fentanyl Screen Neg NEGATIVE Urine Barbiturates Screen Neg NEGATIVE Urine Phencyclidine Screen Neg NEGATIVE Urine Amphetamines Screen Neg NEGATIVE Urine Benzodiazepines Screen Neg NEGATIVE Urine Cocaine Screen Neg NEGATIVE Urine Cannabinoids Screen Neg NEGATIVE White Blood Count 7.6 4.4-10.8 10^3/uL Red Blood Count 2.35 L 4.5-5.90 10^6/uL Hemoglobin 7.4 L 13.5-17.5 g/dL Hematocrit 21.8 L 41.0-53.0 % Mean Corpuscular Volume 92.5 80.0-100.0 fL Mean Corpuscular Hemoglobin 31.2 28.0-32.0 pg Mean Corpuscular Hemoglobin Concent 33.8 32.0-36.0 g/dL Red Cell Distribution Width 16.1 H 11.8-14.3 % Platelet Count 274 140-450 10^3/uL Mean Platelet Volume 7.8 6.9-10.8 fL Neutrophils (%) (Auto) 74.4 37.0-80.0 % Lymphocytes (%) (Auto) 14.7 10.0-50.0 % Monocytes (%) (Auto) 8.1 0.0-12.0 % Eosinophils (%) (Auto) 2.2 0.0-7.0 % Basophils (%) (Auto) 0.6 0.0-2.0 % Neutrophils # (Auto) 5.7 1.6-8.6 10 ^3/uL Lymphocytes # (Auto) 1.1 0.4-5.4 10 ^3/uL Monocytes # (Auto) 0.6 0-1.3 10 ^3/uL Eosinophils # (Auto) 0.2 0-0.8 10 ^3/uL Basophils # (Auto) 0 0-0.2 10 ^3/uL Nucleated Red Blood Cells 0.0 % Sodium Level 143 136-145 mmol/L Potassium Level 5.2 H 3.5-5.1 mmol/L Chloride Level 115 H 98-107 mmol/L Carbon Dioxide Level 19 L 20-31 mmol/L Anion Gap 9 5-15 Blood Urea Nitrogen 45 H 9-23 mg/dL Creatinine 1.71 H 0.700-1.30 mg/dL Glomerular Filtration Rate Calc 43 >90 mL/min BUN/Creatinine Ratio 26.3 H 10.0-20.0 Serum Glucose 118 H 74-106 mg/dL Calcium Level 8.3 L 8.7-10.4 mg/dL Total Bilirubin < 0.2 L 0.2-1.0 mg/dL Aspartate Amino Transferase (AST) 14 13-40 U/L Alanine Aminotransferase (ALT) < 9 7-40 U/L Alkaline Phosphatase 102 46-116 U/L Creatine Kinase 74 46-171 U/L Total Protein 5.1 L 5.7-8.2 g/dL Albumin 3.0 L 3.2-4.8 g/dL Thyroid Stimulating Hormone (TSH) 1.04 0.55-4.78 uIU/mL Assessment # Microcytic anemia # History of anticoagulant use # Right sinonasal mass Plan/Recommendation Hemoglobin is stable, today hemoglobin is 7.4 -- possible colonoscopy tomorrow to rule out lower GI bleed - bowel preparation - hold anticoagulation - NPO after midnight - avoid NSAIDs - ordered CT abdomen without contrast Thank you so much for the opportunity to consult on your patient. GI team will follow the patient. In case of any questions or concerns please feel free to reach out. Case discussed with Dr. Jose Angel Shankar. The patient and caregiver team agreed to the plan. Plan discussed with: Patient, Daughter ROGERIO RIOS RESIDENT Jan 06, 2025 14:58
[2025-01-06] MEDS: SODIUM ZIRCONIUM CYCL 10 GM PAK PO ONE (16:18)
--- NOTE | 2025-01-06 18:20 | DVH ---
INDICATION: urinary straining TECHNIQUE: Multiple real-time grayscale transabdominal sonographic images along with color and duplex Doppler of the uterus and ovaries were obtained. COMPARISON: None FINDINGS: Bladder volume 192.61 ML Post void bladder volume is 50.61 mL. Prostate measures 5.6 x 3.85 x 4.5 cm. Prostate volume 50.91 mL IMPRESSION: 1. Postvoid bladder volume 54.16 mL 2. Prostate volume 50.91 mL
[2025-01-06] MEDS: GOLYTELY 4L KIT PO ONE (19:54)
[2025-01-07] VITALS (10 sets, daily range): BP systolic 99–162; BP diastolic 49–70; PULSE 61–93; RESP 16–18; TEMP 97.4–98.2; O2SAT 97–99
[2025-01-07] MEDS: MAGNESIUM CITRATE SOLUTION 300 ML BTL PO ONE (05:52)
[2025-01-07] MEDS: GOLYTELY 4L KIT PO ONE (05:52)
[2025-01-07 06:24] LABS: Basophils # (auto) 0 10 ^3/uL (0-0.2); Eosinophils # (auto) 0.1 10 ^3/uL (0-0.8); Lymphocytes # (auto) 1.1 10 ^3/uL (0.4-5.4); Monocytes # (auto) 0.4 10 ^3/uL (0-1.3)
[2025-01-07 06:26] LABS: Basophils % (auto) 0.4 % (0.0-2.0); Eosinophils % (auto) 1.5 % (0.0-7.0); Hematocrit 20.5 % (41.0-53.0); Lymphocytes % (auto) 14.7 % (10.0-50.0); Mean Corpuscular Hemoglobin 31.7 pg (28.0-32.0); Mean Corpuscular Hgb Conc. 34.3 g/dL (32.0-36.0); Mean Corpuscular Volume 92.6 fL (80.0-100.0); Monocytes % (auto) 5.7 % (0.0-12.0); Neutrophils % (auto) 77.7 % (37.0-80.0); Platelet Count (auto) 265 10^3/uL (140-450); Red Blood Cells 2.21 10^6/uL (4.5-5.90); Red Cell Distribution Width 15.9 % (11.8-14.3); White Blood Cell 7.7 10^3/uL (4.4-10.8)
[2025-01-07 06:44] LABS: Albumin 3.2 g/dL (3.2-4.8); Alkaline Phosphatase 88 U/L (46-116); Anion Gap 9 (5-15); BUN/Creatinine Ratio 24.7 (10.0-20.0); Glucose 105 mg/dL (74-106); Sodium 144 mmol/L (136-145); Total Protein 5.7 g/dL (5.7-8.2)
[2025-01-07 06:49] LABS: Alanine Aminotransferase < 9 U/L (7-40); Aspartate Aminotransferase 11 U/L (13-40); Bilirubin, Total 0.3 mg/dL (0.2-1.0); Blood Urea Nitrogen 45 mg/dL (9-23); Carbon Dioxide 18 mmol/L (20-31); Chloride 117 mmol/L (98-107)
[2025-01-07] MEDS: FUROSEMIDE 100 MG/10ML VIAL IV ONE (09:37)
--- NOTE | 2025-01-07 11:07 | DVH ---
EXAM: CT HEAD WITHOUT CONTRAST INDICATION: ALOC TECHNIQUE: CT of the head without intravenous contrast. Coronal and sagittal reformatted images are s ubmitted. Radiation Dose : 1. Head: CT Dose: CTDI volume is 54.12 mGy. Dose-length product is 958.45 mGy*cm The dose indicators for CT are the volume Computed Tomography (CT) Dose Index (CTDIvol) and the Dose Length Product (DLP), and are measured in units of mGy and mGy-cm, respectively. These indicators are not patient dose, but values generated from the CT scanner acquisition factors. The report includes radiation exposure data for exposures received during this examination. All CT scans at this medical facility are performed using dose modulation techniques as appropriate to a performed exam including the following: Automated exposure control was utilized; adjustment of the MA and/or KV according to patient size; and use of iterative reconstruction technique. COMPARISON: CT HEAD WITHOUT CONTRAST on DOS: 11/08/23 FINDINGS: There is no evidence of acute intracranial hemorrhage, extra-axial collection, mass effect, midline s hift, herniation or hydrocephalus. There are periventricular and subcortical hypodensities, nonspecific, but likely reflecting sequelae of chronic microvascular ischemic changes. Scattered calcifications for example in the right frontal lobe and left occipital lobe. The ventricles, sulci and cisterns are age appropriate. The gutierrez-white differentiation is intact. Infiltrative right sinonasal mass again noted. No depressed calvarial fracture. The surrounding soft tissues are unremarkable. IMPRESSION: 1. No evidence of acute intracranial abnormality.
--- NOTE | 2025-01-07 11:36 | DVHPNRES ---
Progress Note Date Seen: Jan 07, 2025 Resident Creating Document: MICHELLE GALLEGO RESIDENT Medical Necessity Reason Pt with a Central, PICC or Fol: No Subjective Review of Systems On my assessment, patient states feeling well, denies any symptoms such as shortness of breath, chest pain, dizziness, lightheadedness, abdominal pain, nausea, vomiting. Patient refused obtaining CT of the abdomen, blood work in the morning, he did not drink the laxatives for his colonoscopy. We counseled the patient on medical compliance, he verbalized understanding and agree to be more compliant. Objective vital signs Vital Sign Date Time Temp Pulse Resp B/P (MAP) Pulse Ox O2 Delivery O2 Flow Rate FiO2 01/07/25 09:37 124/49 01/07/25 09:34 97.9 86 18 99 97.9 01/07/25 08:10 Room Air* 0 21 Total Intake and Output 01/06/25 01/06/25 01/07/25 15:00 23:00 07:00 Intake Total 1480 ml 400 ml Balance 1480 ml 400 ml medications Current Medications Medications Dose Ordered Sig/Donaldo Route Start Time Stop Time Status Last Admin Dose Admin Sodium Chloride 10 ml Q8HR IV 01/05/25 22:00 01/07/25 05:52 10 ML Docusate Sodium 100 mg BIDPRN PRN PO 01/05/25 21:00 Acetaminophen 650 mg Q6HP PRN PO 01/05/25 21:00 Acetaminophen/ Hydrocodone Bitart 1 tab Q4HP PRN PO 01/05/25 21:00 Ondansetron HCl 4 mg Q4HP PRN IV 01/05/25 21:00 Clopidogrel Bisulfate 75 mg DAILY PO 01/06/25 10:00 01/07/25 09:36 75 MG Pantoprazole Sodium 40 mg DAILY PO 01/06/25 10:00 01/07/25 09:36 40 MG Atorvastatin Calcium 40 mg DAILY PO 01/06/25 10:00 01/07/25 09:36 40 MG Melatonin 10 mg HS PO 01/05/25 22:00 Hydralazine HCl 10 mg Q6H PRN IV 01/05/25 21:30 01/06/25 16:21 10 MG Nifedipine 60 mg DAILY PO 01/06/25 10:00 01/07/25 09:36 60 MG Examination General: Awake, alert, comfortable appearing, in no acute distress. HEENT: Head is normocephalic and atraumatic. Pupils are equal, round, and reactive to light. Extraocular muscles are intact. No nasal discharge. No facial trauma. Intraoral exam shows moist mucous membranes with no tonsillar enlargement or exudate. Neck: Supple with no cervical lymphadenopathy No meningismus. No goiter. Heart: Regular rate without murmur, rub, or gallop. Lungs: Scattered crackles Abdomen: No external sign of injury. Bowel sounds are present. Abdomen is soft, nontender. No rebound, no guarding, no rigidity. There are no palpable masses. There is no flank pain on exam. Extremities: Faint peripheral pulses. There is no clubbing, no cyanosis, and no edema. Below-knee amputation of left side Skin: No rash. Neurologic: Cranial nerves II-XII intact without motor, sensory, or cerebellar deficit, no asterixis. laboratory and microbiology Laboratory Tests 01/07/25 06:00 Test 01/07/25 06:00 Range/Units Serum Glucose 105 74-106 mg/dL Labs and/or images reviewed: Labs reviewed by me, Image(s) reviewed by me Problem List/Assessment/Plan Problem List/Assessment/Plan JEWELS, likely prerenal Proteinuria Lower GI bleeding Hyperkalemia Metabolic acidosis Pulmonary Edema, mild-mod Anemia normocytic, severe T2DM GERD Dyslipidemia Hypertension, uncontrolled Plan: Lasix 60 mg IV once Strict I&Os pending echo ordered urine studies, shows significant proteinuria, and likely prerenal JEWELS Lokelma p.o. once Renal ultrasound was unremarkable Monitor potassium Consulted GI for possible colonoscopy, patient refused drinking laxatives, counseled on medical compliance Hold Xarelto Head CT was unremarkable CT of the abdomen is pending Order bladder scan, came back unremarkable Continue nifedipine 60 mg p.o. q.d. Ordered one pack of RBC due to hemoglobin 7.0 Patient was refusing care this morning, we counseled again extensively on medical compliance, he agreed to be compliant. Goals of care were discussed for over 30 mins. FULL CODE Case was discussed with Dr. Aguayo Plan discussed with: Patient, Other (RN) My Orders My Orders Orders - MICHELLE GALLEGO RESIDENT Procedure Category Date Status Time * Gi [facility] [employer] Technician CONS 01/06/25 Transmitted 13:55 Clear Liq Diet DIET 01/06/25 Transmitted Dinner Bladder US 01/06/25 Resulted 15:[address] 01/07/25 Resulted 10:16 Ct Ab Pel Wo Con-No CT 01/07/25 Logged Oral Or Iv 11:16 Dietary Evaluation Review Comments: 1. Recommend timely diet advancement to Regular diet as tolerated; may consider 2 gm K restriction if needed though hyperkalemia is improving 2. Recommend Ensure Clear TID in the interim until diet advances (provides 240 kcal, 8 gm pro per carton) 3. Will obtain more detailed nutrition history on follow-up Expected Outcomes/Goals: Improved PO intake, weight maintenance. Date of Service: Jan 07, 2025 Billing Provider: ARIANNE AGUAYO MD Common Visit Codes: [id number] INP/OBS CARE(HIGH) MICHELLE GALLEGO RESIDENT Jan 07, 2025 11:36 ARIANNE AGUAYO MD Jan 07, 2025 17:30
[2025-01-07] MEDS: DEXTROSE (50%) 50ML SYRG IV ONE (12:20)
[2025-01-07] MEDS: InsuLIN REG 1unit/0.01ml Soln (100units/ml) IV ONE (12:25)
--- NOTE | 2025-01-07 13:19 | DVHPN2 ---
Progress Note Date Seen: Jan 07, 2025 Resident Creating Document: ROGERIO RIOS RESIDENT Medical Necessity Reason Pt with a Central, PICC or Fol: No Subjective Review of Systems 68-year-old male with primary medical history of HTN, DM2, Nasopharyngeal mass, iron deficiency anemia who presents to the ED with chief complaint of abnormal labs.Patient's hemoglobin was low at 7.2, presently is currently taking Plavix and Xarelto due to stents in on his legs due to peripheral arterial disease. Patient is a poor historian, with the most of this history from daughter. Patient currently denies any melena, hematochezia. Patient has had an upper endoscopy in 2023, it is just show gastritis, however he did not get a colonoscopy, and has never had done. The patient remains asymptomatic and denies feeling weak, short of breath, no dizziness, or other associated symptoms. Patient was hospitalized in October with similar symptoms and underwent an endoscopy by Dr. Kathy Kelley which had shown mild antral gastritis. Patient seen and examined at bedside, denies abdominal pain, any blood in his stool. Patient refused bowel preparation for colonoscopy which was scheduled for today. Discussed with to patient and his daughter, they want colonoscopy as outpatient. Objective vital signs Vital Sign Date Time Temp Pulse Resp B/P (MAP) Pulse Ox O2 Delivery O2 Flow Rate FiO2 01/07/25 09:37 124/49 01/07/25 09:34 97.9 86 18 99 97.9 01/07/25 08:10 Room Air* 0 21 Total Intake and Output 01/06/25 01/06/25 01/07/25 15:00 23:00 07:00 Intake Total 1480 ml 400 ml Balance 1480 ml 400 ml medications Current Medications Medications Dose Ordered Sig/Donaldo Route Start Time Stop Time Status Last Admin Dose Admin Sodium Chloride 10 ml Q8HR IV 01/05/25 22:00 01/07/25 05:52 10 ML Docusate Sodium 100 mg BIDPRN PRN PO 01/05/25 21:00 Acetaminophen 650 mg Q6HP PRN PO 01/05/25 21:00 Acetaminophen/ Hydrocodone Bitart 1 tab Q4HP PRN PO 01/05/25 21:00 Ondansetron HCl 4 mg Q4HP PRN IV 01/05/25 21:00 Clopidogrel Bisulfate 75 mg DAILY PO 01/06/25 10:00 01/07/25 09:36 75 MG Pantoprazole Sodium 40 mg DAILY PO 01/06/25 10:00 01/07/25 09:36 40 MG Atorvastatin Calcium 40 mg DAILY PO 01/06/25 10:00 01/07/25 09:36 40 MG Melatonin 10 mg HS PO 01/05/25 22:00 Hydralazine HCl 10 mg Q6H PRN IV 01/05/25 21:30 01/06/25 16:21 10 MG Nifedipine 60 mg DAILY PO 01/06/25 10:00 01/07/25 09:36 60 MG Examination General: Alert and Oriented x3. No acute distress. Eyes: EOMI, PERRLA. Anicteric. Eyelids are normal in appearance without swelling or lesions. HENT: The head is normocephalic and atraumatic without tenderness, swelling on the right side of the face Lungs: Clear to auscultation bilaterally. No accessory muscle use. The chest wall is symmetric and without deformity. No signs of trauma. Chest wall is non- tender. Cardiovascular: Regular rate and rhythm. No murmur. No JVD. Abdomen: Soft, non-tender and non-distended. Bowel sounds are present and normoactive in all four quadrants. Extremities: Left BKA. No edema. Pulses palpable. Skin: Skin is warm, dry and intact. Neurologic: No focal neurological deficits. CN II-XII grossly intact, but not individually tested. laboratory and microbiology Laboratory Tests 01/07/25 06:00 Test 01/07/25 06:00 Range/Units Serum Glucose 105 74-106 mg/dL Problem List/Assessment/Plan Problem List/Assessment/Plan # Microcytic anemia # History of anticoagulant use # Right sinonasal mass Plan/Recommendation Hemoglobin is decreased, today hemoglobin is 7.0 -Ordered 1 unit PRBC -Patient refused bowel preparation for colonoscopy which was scheduled for today. Discussed with to patient and his daughter, they want colonoscopy as outpatient. - bowel preparation - hold anticoagulation - NPO after midnight - avoid NSAIDs - ordered CT abdomen without contrast -Patient refused obtaining CT of the abdomen Thank you so much for the opportunity to consult on your patient. GI team will follow the patient. In case of any questions or concerns please feel free to reach out. Case discussed with Dr. Jose Angel Shankar. The patient and caregiver team agreed to the plan. Plan discussed with: Patient, Daughter Dietary Evaluation Review Comments: 1. Recommend timely diet advancement to Regular diet as tolerated; may consider 2 gm K restriction if needed though hyperkalemia is improving 2. Recommend Ensure Clear TID in the interim until diet advances (provides 240 kcal, 8 gm pro per carton) 3. Will obtain more detailed nutrition history on follow-up Expected Outcomes/Goals: Improved PO intake, weight maintenance. ROGERIO RIOS RESIDENT Jan 07, 2025 13:19
--- NOTE | 2025-01-07 13:22 | DVH ---
CT abdomen and pelvis without contrast INDICATION: abdominal pain TECHNIQUE: Serial axial images were performed through the abdomen and pelvis and then reformatted in the sagittal and coronal plane. All CT scans at this medical facility are performed using dose modula tion techniques as appropriate to a performed exam including the following: Automated exposure contro l was utilized; adjustment of the MA and/or KvP according to patient size; and use of iterative recon struction technique. FINDINGS: Left pleural effusion. Liver and spleen are normal in size without focal mass. No renal masses, stones or hydronephrosis. No masses or enlargement of the adrenal glands or pancreas. No biliary dilatation. No gallstones. No di stention of bowel loops to suggest mechanical obstruction of bowel. The appendix is normal in appeara nce. No free fluid. Within the pelvis, the prostate gland is enlarged. Mild circumferential thickenin g of the arita of the urinary bladder. There is dense calcification of the arita of the iliac arteries. IMPRESSION: 1. No acute pathology in the abdomen or pelvis. 2. Small left pleural effusion. 3. Enlarged prostate gland. Mild thickening of the bladder arita may be due to bladder outlet obstru ction Computed Tomographic Radiation Dosimetry Report: Total CTDI vol = 5.07mGy Total DLP = 285.06mGy-cm Lo w dose protocols were performed.
[2025-01-07 15:33] LABS: INR 1.15 (0.9-1.15); Partial Thromboplastin Time 31.3 SEC (24.5-34.5)
[2025-01-07] MEDS: TAMSULOSIN HYDROCHLORIDE 0.4 MG CAP PO SCH (17:29)
[2025-01-07 19:20] LABS: Basophils # (auto) 0 10 ^3/uL (0-0.2); Basophils % (auto) 0.4 % (0.0-2.0); Eosinophils # (auto) 0.1 10 ^3/uL (0-0.8); Eosinophils % (auto) 0.8 % (0.0-7.0); Hematocrit 27.2 % (41.0-53.0); Hemoglobin 9.1 g/dL (13.5-17.5); Lymphocytes # (auto) 0.7 10 ^3/uL (0.4-5.4); Mean Corpuscular Hemoglobin 30.4 pg (28.0-32.0); Mean Corpuscular Hgb Conc. 33.6 g/dL (32.0-36.0); Mean Corpuscular Volume 90.6 fL (80.0-100.0); Monocytes # (auto) 0.5 10 ^3/uL (0-1.3); Monocytes % (auto) 6.3 % (0.0-12.0); Neutrophils # (auto) 6.2 10 ^3/uL (1.6-8.6); Neutrophils % (auto) 83.5 % (37.0-80.0); Nucleated Red Blood Cells % 0.1 %; Platelet Count (auto) 250 10^3/uL (140-450); Red Cell Distribution Width 16.9 % (11.8-14.3); White Blood Cell 7.4 10^3/uL (4.4-10.8)
[2025-01-08 05:00] VITALS: BP 103/71; PULSE 82; RESP 18; TEMP 98.7; O2SAT 99
[2025-01-08 06:48] LABS: Basophils # (auto) 0 10 ^3/uL (0-0.2); Eosinophils # (auto) 0.1 10 ^3/uL (0-0.8); Lymphocytes # (auto) 0.9 10 ^3/uL (0.4-5.4); Monocytes # (auto) 0.5 10 ^3/uL (0-1.3); Neutrophils % (auto) 74.8 % (37.0-80.0); Nucleated Red Blood Cells % 0.1 %
[2025-01-08 06:51] LABS: Basophils % (auto) 0.5 % (0.0-2.0); Eosinophils % (auto) 2.1 % (0.0-7.0); Hematocrit 22.7 % (41.0-53.0); Lymphocytes % (auto) 14.5 % (10.0-50.0); Mean Corpuscular Hemoglobin 31.8 pg (28.0-32.0); Mean Corpuscular Hgb Conc. 35.1 g/dL (32.0-36.0); Mean Corpuscular Volume 90.6 fL (80.0-100.0); Monocytes % (auto) 8.1 % (0.0-12.0); Neutrophils # (auto) 4.5 10 ^3/uL (1.6-8.6); Platelet Count (auto) 227 10^3/uL (140-450); Red Cell Distribution Width 16.4 % (11.8-14.3)
[2025-01-08 07:11] LABS: Anion Gap 7 (5-15); Carbon Dioxide 21 mmol/L (20-31); Potassium 4.8 mmol/L (3.5-5.1); Sodium 144 mmol/L (136-145)
[2025-01-08 07:17] LABS: BUN/Creatinine Ratio 23.9 (10.0-20.0); Glucose 98 mg/dL (74-106)
[2025-01-08 07:22] LABS: Blood Urea Nitrogen 43 mg/dL (9-23); Calcium 8.5 mg/dL (8.7-10.4); Chloride 116 mmol/L (98-107)
[2025-01-08] MEDS: FUROSEMIDE 40 MG/4 ML VIAL IV ONE (07:30)
[2025-01-08 10:07] LABS: PSA Free 0.45 ng/mL; Prostate Specific Antigen 1.3 ng/mL (0.0-4.0)
--- NOTE | 2025-01-08 10:49 | DVHPN2 ---
Progress Note Date Seen: Jan 08, 2025 Resident Creating Document: DESIRE STEWART RESIDENT Medical Necessity Reason Pt with a Central, PICC or Fol: No Subjective Review of Systems 68-year-old male with past medical history of HTN, DM2, Nasopharyngeal mass, iron deficiency anemia who presents to the ED with chief complaint of abnormal labs.Patient's hemoglobin was low at 7.2, presently is taking Plavix and Xarelto due to stents in his legs secondary to peripheral arterial disease. Patient is a poor historian, with the most of this history obtained from daughter. Patient currently denies any melena, hematochezia. Patient has had an upper endoscopy in 2023, it is just show gastritis, however he did not get a colonoscopy, and has never had done. The patient remains asymptomatic and denies feeling weak, short of breath, no dizziness, or other associated symptoms. Patient was hospitalized in October with similar symptoms and underwent an endoscopy by Dr. Kathy Kelley which had shown mild antral gastritis. Patient seen and examined at bedside, denies abdominal pain, any blood in his stool. Patient refused bowel preparation for colonoscopy. Discussed with patient and his daughter, they want colonoscopy as outpatient. At the time of my assessment, patient denies any active ongoing abdominal pain, nausea or vomiting. Last bowel movement was last night, no diarrhea no blood. Reports good appetite. Per patient he has never had a colonoscopy, recommended to have outpatient elective colonoscopy at his earliest convenience. Objective vital signs Vital Sign Date Time Temp Pulse Resp B/P (MAP) Pulse Ox O2 Delivery O2 Flow Rate FiO2 01/08/25 08:00 Room Air* 0 21 01/08/25 05:00 98.7 82 18 103/71 (82) 99 98.7 Total Intake and Output 01/07/25 01/07/25 01/08/25 15:00 23:00 07:00 Intake Total 500 ml 520 ml Output Total 400 ml Balance 500 ml 120 ml medications Current Medications Medications Dose Ordered Sig/Donaldo Route Start Time Stop Time Status Last Admin Dose Admin Sodium Chloride 10 ml Q8HR IV 01/05/25 22:00 01/08/25 05:38 10 ML Docusate Sodium 100 mg BIDPRN PRN PO 01/05/25 21:00 Acetaminophen 650 mg Q6HP PRN PO 01/05/25 21:00 Acetaminophen/ Hydrocodone Bitart 1 tab Q4HP PRN PO 01/05/25 21:00 Ondansetron HCl 4 mg Q4HP PRN IV 01/05/25 21:00 Clopidogrel Bisulfate 75 mg DAILY PO 01/06/25 10:00 01/07/25 09:36 75 MG Pantoprazole Sodium 40 mg DAILY PO 01/06/25 10:00 01/07/25 09:36 40 MG Atorvastatin Calcium 40 mg DAILY PO 01/06/25 10:00 01/07/25 09:36 40 MG Melatonin 10 mg HS PO 01/05/25 22:00 01/07/25 22:09 10 MG Hydralazine HCl 10 mg Q6H PRN IV 01/05/25 21:30 01/06/25 16:21 10 MG Nifedipine 60 mg DAILY PO 01/06/25 10:00 01/07/25 09:36 60 MG Iron Sucrose 110 ml @ 110 mls/hr DAILY@1200 IV 01/08/25 12:00 01/12/25 12:59 Tamsulosin HCl 0.4 mg QPM PO 01/07/25 18:00 01/07/25 17:29 0.4 MG Examination General: Alert and Oriented x3. No acute distress. Eyes: EOMI, PERRLA. Anicteric. Eyelids are normal in appearance without swelling or lesions. HENT: The head is normocephalic and atraumatic without tenderness, swelling on the right side of the face Lungs: Clear to auscultation bilaterally. No accessory muscle use. The chest wall is symmetric and without deformity. No signs of trauma. Chest wall is non- tender. Cardiovascular: Regular rate and rhythm. No murmur. No JVD. Abdomen: Soft, non-tender and non-distended. Bowel sounds are present and normoactive in all four quadrants. Extremities: Left BKA. No edema. Pulses palpable. Skin: Skin is warm, dry and intact. Neurologic: No focal neurological deficits. CN II-XII grossly intact, but not individually tested. laboratory and microbiology Laboratory Tests 01/08/25 06:02 Test 01/08/25 06:02 Range/Units Serum Glucose 98 74-106 mg/dL Problem List/Assessment/Plan Problem List/Assessment/Plan Microcytic anemia On anticoagulant Right sinonasal mass Plan/Recommendation Hemoglobin is decreased, today hemoglobin is 8 (9.1 yesterday) - s/p pRBC transfusion -Patient refused bowel preparation for colonoscopy. Discussed with to patient and his daughter, they want colonoscopy as outpatient. - bowel preparation - hold anticoagulation - avoid NSAIDs - ordered CT abdomen without contrast -Patient refused obtaining CT of the abdomen Thank you so much for the opportunity to consult on your patient. GI team will follow the patient. In case of any questions or concerns please feel free to reach out. Plan discussed with Dr. Jose Angel Shankar Plan discussed with: Patient, Other (RN) Dietary Evaluation Review Comments: 1. Recommend timely diet advancement to Regular diet as tolerated; may consider 2 gm K restriction if needed though hyperkalemia is improving 2. Recommend Ensure Clear TID in the interim until diet advances (provides 240 kcal, 8 gm pro per carton) 3. Will obtain more detailed nutrition history on follow-up Expected Outcomes/Goals: Improved PO intake, weight maintenance. DESIRE STEWART RESIDENT Jan 08, 2025 10:49
[2025-01-08] MEDS ORDERED: TAMS-35 PO (11:16)
[2025-01-08] MEDS ORDERED: NIFE1TAB31 PO (11:16)
--- NOTE | 2025-01-08 11:19 | DVHDSRES ---
Discharge Summary Date of Admission Resident Creating Document: DESIRE STEWART RESIDENT Jan 05, 2025 at 20:48 Date of Discharge: Jan 08, 2025 Admitting Diagnosis Severe anemia Labs/Diagnostic Data: Laboratory Results Test 01/08/25 06:02 01/07/25 14:26 01/07/25 12:19 01/07/25 06:00 White Blood Count 6.0 10^3/uL (4.4-10.8) Red Blood Count 2.50 10^6/uL (4.5-5.90) Hemoglobin 8.0 g/dL (13.5-17.5) Hematocrit 22.7 % (41.0-53.0) Mean Corpuscular Volume 90.6 fL (80.0-100.0) Mean Corpuscular Hemoglobin 31.8 pg (28.0-32.0) Mean Corpuscular Hemoglobin Concent 35.1 g/dL (32.0-36.0) Red Cell Distribution Width 16.4 % (11.8-14.3) Platelet Count 227 10^3/uL (140-450) Mean Platelet Volume 7.5 fL (6.9-10.8) Neutrophils (%) (Auto) 74.8 % (37.0-80.0) Lymphocytes (%) (Auto) 14.5 % (10.0-50.0) Monocytes (%) (Auto) 8.1 % (0.0-12.0) Eosinophils (%) (Auto) 2.1 % (0.0-7.0) Basophils (%) (Auto) 0.5 % (0.0-2.0) Neutrophils # (Auto) 4.5 10 ^3/uL (1.6-8.6) Lymphocytes # (Auto) 0.9 10 ^3/uL (0.4-5.4) Monocytes # (Auto) 0.5 10 ^3/uL (0-1.3) Eosinophils # (Auto) 0.1 10 ^3/uL (0-0.8) Basophils # (Auto) 0 10 ^3/uL (0-0.2) Nucleated Red Blood Cells 0.1 % Sodium Level 144 mmol/L (136-145) Potassium Level 4.8 mmol/L (3.5-5.1) Chloride Level 116 mmol/L (98-107) Carbon Dioxide Level 21 mmol/L (20-31) Anion Gap 7 (5-15) Blood Urea Nitrogen 43 mg/dL (9-23) Creatinine 1.80 mg/dL (0.700-1.30) Glomerular Filtration Rate Calc 40 mL/min (>90) BUN/Creatinine Ratio 23.9 (10.0-20.0) Serum Glucose 98 mg/dL (74-106) Calcium Level 8.5 mg/dL (8.7-10.4) Prothrombin Time 12.0 sec (9.3-11.8) Prothrombin Time INR 1.15 (0.9-1.15) Activated Partial Thromboplast Time 31.3 SEC (24.5-34.5) Fibrinogen 682 mg/dL (177-375) Carcinoembryonic Antigen 3.45 ng/mL (<=5.0) Free Prostate Specific Antigen 0.45 ng/mL (N/A) Percent Free Prostate Specific Ag 34.6 % (.) Prostate Specific Antigen Total 1.3 ng/mL (0.0-4.0) Vitamin D 25-Hydroxy 8.3 ng/mL (30.0-100) POC Glucose 93 mg/dl (70-106) Total Bilirubin 0.3 mg/dL (0.2-1.0) Aspartate Amino Transferase (AST) 11 U/L (13-40) Alanine Aminotransferase (ALT) < 9 U/L (7-40) Alkaline Phosphatase 88 U/L (46-116) Total Protein 5.7 g/dL (5.7-8.2) Albumin 3.2 g/dL (3.2-4.8) Test 01/06/25 13:20 01/06/25 10:00 01/06/25 05:57 Iron Level 40 ug/dL (65-175) Total Iron Binding Capacity 171 ug/dL (250-425) Percent Iron Saturation 23.4 % (20-55) Ferritin 620.1 ng/mL (22-322) Vitamin B12 Level 542 pg/mL (211-911) Folic Acid 10.81 ng/mL (>5.38) Urine Color Yellow (Yellow) Urine Clarity Turbid (Clear) Urine pH 6.0 (5.0-9.0) Urine Specific [place] 1.019 (1.001-1.035) Urine Protein 3+ (Negative) Urine Ketones Negative (Negative) Urine Blood Negative /uL (Negative) Urine Nitrite Negative (Negative) Urine Bilirubin Negative (Negative) Urine Urobilinogen Normal mg/dL (Negative) Urine Leukocyte Esterase Negative /uL (Negative) Urine RBC 5 /hpf (0 - 3) Urine Microscopic WBC 1 /HPF (0-3) Urine Squamous Epithelial Cells Few /hpf (<5) Urine Bacteria None seen /hpf (None Seen) Urine Hyaline Casts Few /lpf (0 - 2) Urine Osmolality 489 mOsm/kg Urine Creatinine 92.66 mg/dL (30.0-125.0) Urine Sodium 55 mmol/L (40-220) Urine Glucose 2+ mg/dL (Normal) Urine Total Protein 678.4 mg/dL (1-14) Urine Opiates Screen Neg (NEGATIVE) Urine Fentanyl Screen Neg (NEGATIVE) Urine Barbiturates Screen Neg (NEGATIVE) Urine Phencyclidine Screen Neg (NEGATIVE) Urine Amphetamines Screen Neg (NEGATIVE) Urine Benzodiazepines Screen Neg (NEGATIVE) Urine Cocaine Screen Neg (NEGATIVE) Urine Cannabinoids Screen Neg (NEGATIVE) Creatine Kinase 74 U/L (46-171) C-Reactive Protein High Sensitivity 6.14 mg/dL (<1.0) B-Type Natriuretic Peptide 783.59 pg/mL (0-100) Thyroid Stimulating Hormone (TSH) 1.04 uIU/mL (0.55-4.78) Other Laboratory Tests 01/08/25 06:02 Brief Hx & Hospital Course: This is a 69 y.o male who presents to the ED for an evaluation of abnormal labs. PAST MEDICAL HISTORY: Anemia, Cancer, DM, GERD, High Lipids, HTN, Blood transfusions Surgical History: BKA (left side), right greater toe amputation Family History: Reviewed,noncontributory to illness Social history: Smoker: Cigarettes Alcohol: Denies ETOH Use Drugs: Denies Drug Use Daughter reports taking patient to a general PCP appointment today and was told to bring patient in to the ED d/t elevated potassium levels at 5.3. Patient is asymptomatic a this time and states he has had routine blood work with no history of Kidney disease. 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 Patient's blood work also revealed acute kidney injury, previous creatinine levels were within normal limits and now it has rising to 1.8. Patient has had a renal ultrasound which was unremarkable. A chest x-ray continued demonstrated transplant [id number] vascular congestion. Patient's vital signs were unremarkable, he was on room air, he denied any shortness of breath, chest pain, dizziness, lightheadedness, abdominal pain, nausea, vomiting. He is currently tolerating diet, ambulatory. Patient's hemoglobin was also low at 7.2, he was taking Plavix and Xarelto due to stents in on his legs due to peripheral arterial disease. Patient is a poor historian, with the most of this history from daughter. Patient currently denies any melena, hematochezia. Patient has had an upper endoscopy in 2023, it is just show gastritis, however he did not get a colonoscopy, and has never had one. Patient was initially given a fluid challenge without improvement in his kidney function, flow with chest x-ray demonstrating with mild pulmonary medical history, patient was on room air, we provided Lasix afterwards. it was also noted on the patient was straining when urinating, we started him on Flomax. Primary map between the He also has a history of GI bleeding, he denied any signs of active bleeding however he had severe anemia, he was transfused 1 unit of RBC pack, and we will also consulted GI doctor for possible colonoscopy, however, patient still refused to undergo colonoscopy, we spoke this with the family members we will also try to convince the patient however he still refused. He also refused care in many instances throughout his hospitalization. Patient states feeling better than on admission, denied any symptoms such as chest pain, lightheadedness, dizziness, shortness for breath, he was tolerating diet. Physical examination as below: General: Awake, alert, comfortable appearing, in no acute distress. HEENT: Head is normocephalic and atraumatic. Pupils are equal, round, and reactive to light. Extraocular muscles are intact. No nasal discharge. No facial trauma. Intraoral exam shows moist mucous membranes with no tonsillar enlargement or exudate. Neck: Supple with no cervical lymphadenopathy No meningismus. No goiter. Heart: Regular rate without murmur, rub, or gallop. Lungs: Scattered crackles Abdomen: No external sign of injury. Bowel sounds are present. Abdomen is soft, nontender. No rebound, no guarding, no rigidity. There are no palpable masses. There is no flank pain on exam. Extremities: Faint peripheral pulses. There is no clubbing, no cyanosis, and no edema. Below-knee amputation of left side Skin: No rash. Neurologic: Cranial nerves II-XII intact without motor, sensory, or cerebellar deficit, no asterixis. Patient will be discharged home on continue medications as prescribed, we will recommended to hold Xarelto, patient will be follow up in the adhesions clinic next Sunday afternoon with Dr. Wilkinson. We explained extensively the current patient's situation to the family members, he needs a colonoscopy however he keeps a refusing care. Both patient and family members verbalized understanding and decided to pursue colonoscopy in the outpatient setting. We spoke to the family members about possible signs of alarm such as bright red blood in his stools, dark stools, severe fatigue, fevers, chills. We spent over 30 minute explaining the plan. Case was discussed with Dr. Aguayo Consults/Reason for consult Enterprise Application Architect was consulted due to GI bleeding Operations or Procedures [place] [id number] Ph: [phone] DIAGNOSTIC IMAGING Diagnostic Imaging Report : [id number] Signed PATIENT: DAMARI WADSWORTH ACCT: [id number] UNIT: [id number] : 1955 LOC: OVERFLOW ROOM / BED: [address] [place] [address] / AGE / SEX: 69 / M ADM STATUS: ADM IN SERVICE 47 ORDERING PHYSICIAN: JAYLIN LINN MD PROCEDURE(s): KIDUS - KIDNEY REASON: JEWELS ORDER NUMBER(s): [id number], ACCESSION NUMBER(s): [id number] INDICATION: JEWELS TECHNIQUE: Multiple real-time sonographic images of the kidneys and bladder were obtained. COMPARISON: None FINDINGS: The right kidney measures 11.4 cm in length. The right renal echogenicity, contour and cortical thickness are within normal limits. No hydronephrosis or large masses/calculi are seen. The left kidney measures left 11.2 cm in length. The left renal echogenicity, contour, and cortical thickness are within normal limits. No hydronephrosis or large masses/calculi are seen. No large intraluminal masses are seen in the bladder. Bladder is contracted. IMPRESSION: 1. No hydronephrosis. No acute findings identified. ATED BY: JANELL STRAUSS MD DICTATED DATE/TIME: 01/05/252253 SIGNED BY: JANELL STRAUSS MD SIGNED DATE/TIME: 01/05/252253 CC: [place] [id number] Ph: [phone] DIAGNOSTIC IMAGING Diagnostic Imaging Report : [id number] Signed PATIENT: DAMARI WADSWORTH ACCT: [id number] UNIT: [id number] : 1955 LOC: EAST ROOM / BED: [address] [place] [address] AGE / SEX: 69 / M ADM STATUS: ADM IN SERVICE 1014 ORDERING PHYSICIAN: MICHELLE GALLEGO PROCEDURE(s): CXRP - CHEST PORTABLE REASON: sob ORDER NUMBER(s): [id number], ACCESSION NUMBER(s): [id number] CHEST RADIOGRAPH Indication: sob Technique: Single frontal view of the chest was obtained COMPARISON: XY CHEST PORTABLE on DOS: 11/09/23, CXR1 on DOS: 11/06/22, CHEST XRAY 1 VIEW on DOS: 11/06/22 FINDINGS: Lines and Tubes: None Lungs: Multifocal airspace disease. Pleura: No effusion. No pneumothorax. Cardiomediastinal contours: Cardiomegaly Bones: Unremarkable IMPRESSION: Multifocal airspace disease and/or pulmonary vascular congestion ATED BY: LONNIE BROOKS MD DICTATED DATE/TIME: 01/06/251436 SIGNED BY: LONNIE BROOKS MD SIGNED DATE/TIME: 01/06/251436 CC: [place] [id number] Ph: [phone] DIAGNOSTIC IMAGING Diagnostic Imaging Report : [id number] Signed PATIENT: DAMARI WADSWORTH ACCT: [id number] UNIT: [id number] : 1955 LOC: [facility] ROOM / BED: [address] [place] [address] AGE / SEX: 69 / M ADM STATUS: ADM IN SERVICE 1505 ORDERING PHYSICIAN: MICHELLE GALLEGO PROCEDURE(s): BLDR - BLADDER REASON: urinary straining ORDER NUMBER(s): [id number], ACCESSION NUMBER(s): [id number] INDICATION: urinary straining TECHNIQUE: Multiple real-time grayscale transabdominal sonographic images along with color and duplex Doppler of the uterus and ovaries were obtained. COMPARISON: None FINDINGS: Bladder volume 192.61 ML Post void bladder volume is 50.61 mL. Prostate measures 5.6 x 3.85 x 4.5 cm. Prostate volume 50.91 mL IMPRESSION: 1. Postvoid bladder volume 54.16 mL 2. Prostate volume 50.91 mL ATED BY: MELISSA DELGADO Jr., DO DICTATED DATE/TIME: 01/06/251816 SIGNED BY: MELISSA DELGADO Jr., SIGNED DATE/TIME: 01/06/251816 CC: [place] [id number] Ph: [phone] DIAGNOSTIC IMAGING Diagnostic Imaging Report : [id number] Signed PATIENT: DAMARI WADSWORTH ACCT: [id number] UNIT: [id number] : 1955 LOC: [facility] ROOM / BED: [address] [place] [address] AGE / SEX: 69 / M ADM STATUS: ADM IN SERVICE 1016 ORDERING PHYSICIAN: MICHELLE GALLEGO PROCEDURE(s): HWOCT - HEAD WITHOUT CONTRAST REASON: ALOC ORDER NUMBER(s): [id number], ACCESSION NUMBER(s): [id number] EXAM: CT HEAD WITHOUT CONTRAST INDICATION: ALOC TECHNIQUE: CT of the head without intravenous contrast. Coronal and sagittal reformatted images are submitted. Radiation Dose : 1. Head: CT Dose: CTDI volume is 54.12 mGy. Dose-length product is 958.45 mGy*cm The dose indicators for CT are the volume Computed Tomography (CT) Dose Index (CTDIvol) and the Dose Length Product (DLP), and are measured in units of mGy and mGy-cm, respectively. These indicators are not patient dose, but values generated from the CT scanner acquisition factors. The report includes radiation exposure data for exposures received during this examination. All CT scans at this medical facility are performed using dose modulation techniques as appropriate to a performed exam including the following: Automated exposure control was utilized; adjustment of the MA and/or KV according to patient size; and use of iterative reconstruction technique. COMPARISON: CT HEAD WITHOUT CONTRAST on DOS: 11/08/23 FINDINGS: There is no evidence of acute intracranial hemorrhage, extra-axial collection, mass effect, midline shift, herniation or hydrocephalus. There are periventricular and subcortical hypodensities, nonspecific, but likely reflecting sequelae of chronic microvascular ischemic changes. Scattered calcifications for example in the right frontal lobe and left occipital lobe. The ventricles, sulci and cisterns are age appropriate. The gutierrez-white differentiation is intact. Infiltrative right sinonasal mass again noted. No depressed calvarial fracture. The surrounding soft tissues are unremarkable. IMPRESSION: 1. No evidence of acute intracranial abnormality. ATED BY: GRICELDA COSBY MD DICTATED DATE/TIME: 01/07/25 110 SIGNED BY: GRICELDA COSBY MD SIGNED DATE/TIME: 01/07/25 110 CC: [place] [id number] Ph: [phone] DIAGNOSTIC IMAGING Diagnostic Imaging Report : [id number] Signed PATIENT: DAMARI WADSWORTH ACCT: [id number] UNIT: [id number] : 1955 LOC: [facility] ROOM / BED: [facility] / B AGE / SEX: 69 / M ADM STATUS: ADM IN SERVICE 1116 ORDERING PHYSICIAN: MICHELLE GALLEGO RESIDENT PROCEDURE(s): ABPL - CT AB PEL WO CON-NO ORAL OR IV REASON: abdominal pain ORDER NUMBER(s): [id number], ACCESSION NUMBER(s): [id number] CT abdomen and pelvis without contrast INDICATION: abdominal pain TECHNIQUE: Serial axial images were performed through the abdomen and pelvis and then reformatted in the sagittal and coronal plane. All CT scans at this medical facility are performed using dose modulation techniques as appropriate to a performed exam including the following: Automated exposure control was utilized; adjustment of the MA and/or KvP according to patient size; and use of iterative reconstruction technique. FINDINGS: Left pleural effusion. Liver and spleen are normal in size without focal mass. No renal masses, stones or hydronephrosis. No masses or enlargement of the adrenal glands or pancreas. No biliary dilatation. No gallstones. No distention of bowel loops to suggest mechanical obstruction of bowel. The appendix is normal in appearance. No free fluid. Within the pelvis, the prostate gland is enlarged. Mild circumferential thickening of the arita of the urinary bladder. There is dense calcification of the arita of the iliac arteries. IMPRESSION: 1. No acute pathology in the abdomen or pelvis. 2. Small left pleural effusion. 3. Enlarged prostate gland. Mild thickening of the bladder arita may be due to bladder outlet obstruction Computed Tomographic Radiation Dosimetry Report: Total CTDI vol = 5.07mGy Total DLP = 285.06mGy-cm Low dose protocols were performed. ATED BY: MELISSA SANCHEZ MD DICTATED DATE/TIME: 01/07/25 1320 SIGNED BY: MELISSA SANCHEZ MD SIGNED DATE/TIME: 01/07/25 1320 CC: Condition at Discharge: Guarded Final Diagnosis/Problems List Lower GI bleeding Hyperkalemia Metabolic acidosis Pulmonary Edema JEWELS on CKD Proteinuria Anemia normocytic, severe T2DM GERD Dyslipidemia Hypertension, uncontrolled Discharge Disposition: Home Discharge Instruct/Medications Diet: Renal Activity: No Restrictions, As Tolerated Follow Up/Referral: FU with dr. wilkinson in [place] clinic next sunday afternoon Medications: continie meds as prescribed Discharge Statement: "Patient was advised to return to the ER or call 911 if any headaches, dizziness, shortness of breath, chest pain, abdominal pain, bleeding, fevers, or worsening of medical condition. Patient was counseled about treatment plan, medications, possible side effects, patientverbalized understanding. All questions were answered to the best of my ability. This discharge took greater then 30 minutes in planning, reviewing documentation, counseling the patient, and discussing with other team members." ASSESSMENT ASSESSMENT Assessment GI bleed Date of Service: Jan 08, 2025 Billing Provider: ARIANNE AGUAYO MD Common Visit Codes: 73387-OPF/OBS DISCH DAY >30min MICHELLE GALLEGO RESIDENT Jan 08, 2025 11:19 ARIANNE AGUAYO MD Jan 09, 2025 12:41
[2025-01-08] MEDS: IRON SUCROSE COMPLEX 110 ML IV SCH (12:00)
[2025-01-08] MEDS ORDERED: ERGO1CAP23 PO (12:12)
[2025-01-08] MEDS: ERGOCALCIFEROL 50,000 UNIT(1.25MG) CAP PO SCH (12:15)
[2025-01-08 13:00] VITALS: BP 162/78; PULSE 80; RESP 19; TEMP 98.8; O2SAT 99
== END 2025-01-08 15:35 | disposition home or self-care (01) | DRG 377 ==
LOC: ER 14:04 → OVERFLOW 20:48 → EAST 01-06 04:40
PROVIDERS: ADMIT Internal Medicine; ATTEND Emergency Medicine
PROC: 30233N1 Transfusion of Nonautologous Red Blood Cells into Peripheral Vein, Percutaneous Approach (ICD-10-PCS; principal; 2025-01-07)
DX: K55.21 Angiodysplasia of colon with hemorrhage (principal); I50.31 Acute diastolic (congestive) heart failure; R53.2 Functional quadriplegia; N13.8 Other obstructive and reflux uropathy; I13.0 Hypertensive heart and chronic kidney disease with heart failure and stage 1 through stage 4 chronic kidney disease, or unspecified chronic kidney disease; E44.0 Moderate protein-calorie malnutrition; N17.9 Acute kidney failure, unspecified; E87.20 Acidosis, unspecified; J81.1 Chronic pulmonary edema; Z68.1 Body mass index [BMI] 19.9 or less, adult; E11.22 Type 2 diabetes mellitus with diabetic chronic kidney disease; N18.9 Chronic kidney disease, unspecified; D63.1 Anemia in chronic kidney disease; K57.90 Diverticulosis of intestine, part unspecified, without perforation or abscess without bleeding; K63.5 Polyp of colon; N40.1 Benign prostatic hyperplasia with lower urinary tract symptoms; D50.9 Iron deficiency anemia, unspecified; R62.7 Adult failure to thrive; E11.51 Type 2 diabetes mellitus with diabetic peripheral angiopathy without gangrene; E78.5 Hyperlipidemia, unspecified; K21.9 Gastro-esophageal reflux disease without esophagitis; E87.5 Hyperkalemia; F17.210 Nicotine dependence, cigarettes, uncomplicated; Z83.3 Family history of diabetes mellitus; Z89.512 Acquired absence of left leg below knee
CPT/HCPCS: 36415; 70450; 71045; 74176; 76775; 76857; 80048; 80053; 80307; 81001; 82306; 82378; 82550; 82570; 82607; 82728; 82746; 82962; 83540; 83550; 83880; 83935; 84132; 84154; 84156; 84300; 84443; 85025; 85384; 85610; 85730; 86141; 86850; 86900; 86901; 86920; 99291; G0378; J1815

== ENCOUNTER → 2025-03-17 | Outpatient (CLI) | payer MEDICARE, MEDICAID ==
[~2025-03-17] MED LIST changes: +ERGO1CAP23 PO; -LISI20TA56 PO; +NIFE1TAB31 PO; -RIVA10TA PO; +TAMS-35 PO
[2025-03-17 13:17] LABS: Basophils # (auto) 0.1 10 ^3/uL (0-0.2); Eosinophils # (auto) 0.1 10 ^3/uL (0-0.8); Lymphocytes # (auto) 0.9 10 ^3/uL (0.4-5.4); Monocytes # (auto) 0.4 10 ^3/uL (0-1.3)
[2025-03-17 13:20] LABS: Basophils % (auto) 0.9 % (0.0-2.0); Eosinophils % (auto) 1.1 % (0.0-7.0); Hematocrit 22.8 % (41.0-53.0); Hemoglobin 7.9 g/dL (13.5-17.5); Lymphocytes % (auto) 14.1 % (10.0-50.0); Mean Corpuscular Hemoglobin 31.1 pg (28.0-32.0); Mean Corpuscular Hgb Conc. 34.6 g/dL (32.0-36.0); Mean Corpuscular Volume 89.9 fL (80.0-100.0); Monocytes % (auto) 6.6 % (0.0-12.0); Neutrophils # (auto) 4.9 10 ^3/uL (1.6-8.6); Neutrophils % (auto) 77.3 % (37.0-80.0); Nucleated Red Blood Cells % 0.1 %; Platelet Count (auto) 288 10^3/uL (140-450); Red Blood Cells 2.54 10^6/uL (4.5-5.90); Red Cell Distribution Width 18.1 % (11.8-14.3); White Blood Cell 6.4 10^3/uL (4.4-10.8)
[2025-03-17 13:38] LABS: Anion Gap 7 (5-15); Bilirubin, Total 0.4 mg/dL (0.2-1.0); Calcium 9.1 mg/dL (8.7-10.4); Carbon Dioxide 26 mmol/L (20-31); Chloride 106 mmol/L (98-107); Potassium 4.5 mmol/L (3.5-5.1); Sodium 139 mmol/L (136-145)
[2025-03-17 13:40] LABS: Alkaline Phosphatase 118 U/L (46-116); Blood Urea Nitrogen 25 mg/dL (9-23); Glucose 120 mg/dL (74-106)
[2025-03-17 13:41] LABS: Alanine Aminotransferase < 9 U/L (7-40); Albumin 3.1 g/dL (3.2-4.8); Aspartate Aminotransferase < 8 U/L (13-40); Cholesterol 229 mg/dL (< 200); HDL Cholesterol 31 mg/dL (40-59); LDL Cholesterol 162 mg/dL (< 100); Total Protein 5.6 g/dL (5.7-8.2); Triglycerides 160 mg/dL (< 150)
== END | disposition home or self-care (01) ==
LOC: LAB 12:56
PROVIDERS: ATTEND Internal Medicine
DX: I12.9 Hypertensive chronic kidney disease with stage 1 through stage 4 chronic kidney disease, or unspecified chronic kidney disease (principal); E11.22 Type 2 diabetes mellitus with diabetic chronic kidney disease; N18.2 Chronic kidney disease, stage 2 (mild); I16.0 Hypertensive urgency; E87.5 Hyperkalemia; N17.9 Acute kidney failure, unspecified; D72.819 Decreased white blood cell count, unspecified; D63.1 Anemia in chronic kidney disease
CPT/HCPCS: 36415; 80053; 80061; 83036; 84439; 84443; 85025

== ENCOUNTER 2025-06-12 18:58 | Inpatient (IN) | payer MEDICARE, MEDICAID ==
[~2025-06-12] VITALS: Ht 177.8 cm; Wt 46.7 kg
--- NOTE | 2025-06-12 19:29 | ED.PDOC ---
History of Present Illness HPI Comments HPI: 69-year-old male brought in by his daughter for evaluation of generalized weakness for the last two days and decreased p.o. intake and no urination for the last two days. Patient has not been have any bowel movements. Patient denies any actual pain. No other acute complaints. Denies any nausea or vom iting or diarrhea Initial Vitals BP: 103/52 HR: 80 RR: 18 O2: 99% Temp: 98.1 Past Medical History: Diabetes, prostate enlargement, wheelchair-bound Past Surgical History: Left BKA Social History: Denies ETOH, smoking, and drug use. Medications: Allergies: Flomax WADSWORTH: GEN WEAK. HPI: Poor Historian. 69-year-old male brought in by his daughter for evaluation of generalized weakness for the last two days and decreased p.o. intake and no urination for the last two days. Patient has not been have any bowel movements. Patient denies any actual pain. No other acute complaints. Denies any nausea or vomiting or diarrhea. REVIEW OF SYSTEMS: CONSTITUTIONAL: Denies acute: fever, diaphoresis, chills, HEAD: Denies acute: headache, photophobia Eyes: Denies acute: Double vision, vision loss, eye pain, eye discharge. EARS: Denies acute: tinnitus, hearing loss, ear discharge, ear pain, THROAT: Denies acute: sore throat, swelling, difficulty swallowing , pain with swallowing, change in voice. NECK: Denies acute: neck pain, neck swelling, stiff neck. HEART: Denies acute : chest pain, palpitations, LUNGS: Denies acute: SOB, wheezing, cough, hemoptysis ABDOMEN: Denies acute: abdominal pain, Nausea, Vomiting, diarrhea, melena , hematemesis, hematochezia SKIN: Denies acute: rash, redness, lesions, itchiness. EXTREMITIES: Denies acute: calf pain, numbness, tingling, weakness, denies pain in extremity. Denies acute: Low back pain. Neuro: Denies acute: focal neurological deficit, motor or sensory focal neurological deficit, tremors, seizure like activity, confusion, dizziness, change in mental status, loss of bowel or bladder function, cauda equina like symptoms. : Denies acute: dysuria, hematuria, flank pain, increase in urinary frequency. PSYCH: Denies acute: hallucination, suicidal ideation, homicidal ideation. PHYSICAL EXAM: General: -----[id number]---acute distress, awake and alert. Head: normocephalic, atraumatic. Neck: supple, trachea is midline, no swelling. Throat: Normal phonation. Eyes:, no erythema, no purulent discharge, no proptosis, no icterus. Heart: regular rate, regular rhythm, no significant murmur appreciated. Lungs: no apparent respiratory distress, No wheezing, no rhonchi, no crackles. No stridors Clear to auscultation bilaterally. Abdomen: Lower generalized tender to palpation, non distended, soft, no guarding, no rebound, + bowel sounds. Neuro: Awake, Alert, oriented to name, self, situation, follows commands GCS=15. Skin: no petechia, no purpura, no cyanosis, non-pale, not jaundice. Lower extremities: --no - Pitting edema no deformity, no focal swelling, no calf TTP. Left [id number] amputation Makes eye contact. moves all four extremities. Face: no apparent facial droop. ED COURSE: DISCLAIMER: This medical document was created using an electronic medical record system with voice recognition software and computerized dictation system. Although this document has been carefully reviewed, there might still be some phonetic and typographical errors. Occasional wrong-word or "sound-alike" substitutions may have occurred due to the inherent limitations of voice recognition software. These areas are purely typographical due to imperfections of the software programs and do not reflect any compromise in the patient's medical care. Please read the chart carefully and recognize, using context, where these substitutions have occurred. Chief Complaint: General Weakness Time Seen by MD: 19:08 Primary Care Provider: ? Reviewed Notes: Allergies Allergies: Coded Allergies: NO KNOWN ALLERGIES (Unverified , 11/02/22) Home Meds Active Scripts Ergocalciferol (VITAMIN D 05687 UNIT) 50,[address] [place], [address] UNIT PO QWEEKLY for 90 Days, #12 CAP Prov:MICHELLE GALLEGO RESIDENT 01/08/25 Tamsulosin Hcl (Flomax) 0.4 Mg Cap, 0.4 MG PO QPM for 30 Days, #30 CAP 2 Refills Prov:MICHELLE GALLEGO RESIDENT 01/08/25 Nifedipine (Nifedipine Er) 30 Mg Tab, 60 MG PO DAILY for 30 Days, #60 TAB 2 Refills Prov:MICHELLE GALLEGO RESIDENT 01/08/25 Hydrocodone-Acetaminophen (Hydrocodone Bitartrate/AC 5-325 mg) 1 Tab Tab, 1 TAB PO Q8HR for 7 Days, #21 TAB Prov:VALERIE RODRIGES Lizet DPM 01/12/23 Reported Medications Clopidogrel Bisulfate (CLOPIDOGREL) 75 Mg Tab, PO 12/21/23 Gabapentin (Gabapentin) 600 Mg Tab, 1 TAB PO 12/21/23 Melatonin (KP MELATONIN) 3 Mg Tab, 10 MG PO HS, TAB 01/09/23 Atorvastatin Calcium (ATORVASTATIN CALCIUM) 40 Mg Tab, 1 TAB PO QPM, #90 TAB 3 Refills 11/05/22 Metformin Hydrochloride (Metformin Hcl) 500 Mg Tab, 1000 MG PO IBID for 30 Days, MG 11/05/22 Pantoprazole Sodium Sesquihydr (Protonix) 40 Mg Tab, 40 MG PO DAILY, #30 TAB 11/05/22 Information Source: Relative Mode of Arrival: Wheelchair Past Medical History PAST MEDICAL HISTORY: Anemia, Cancer, DM Past Medical History (Other): Prostate enlargement Surgical History: BKA Family History Family History: Reviewed,noncontributory to illness Social History Smoker: Cigarettes Alcohol: Denies ETOH Use Drugs: Denies Drug Use Lives In: Home Was a procedure done? Was a procedure done?: No Differential Dx Considerations may include: Includes but not limited to thyroid disease, encephalopathy, electrolyte abnormality, sepsis, infection, intracranial pathology, drug adverse effects, arrhythmia, kidney insufficiency, ACS, CVA, malignancy, anemia X-Ray, Labs, Meds, VS Vital Signs Date Time Temp Pulse Resp B/P (MAP) Pulse Ox O2 Delivery O2 Flow Rate FiO2 06/12/25 21:30 16 96 Room Air* 0 21 06/12/25 19:04 98.1 80 18 103/52 99 98.1 Lab Test 06/12/25 20:01 Range/Units White Blood Count 9.6 4.4-10.8 10^3/uL Red Blood Count 3.17 L 4.5-5.90 10^6/uL Hemoglobin 9.7 L 13.5-17.5 g/dL Hematocrit 29.7 L 41.0-53.0 % Mean Corpuscular Volume 93.6 80.0-100.0 fL Mean Corpuscular Hemoglobin 30.5 28.0-32.0 pg Mean Corpuscular Hemoglobin Concent 32.7 32.0-36.0 g/dL Red Cell Distribution Width 15.5 H 11.8-14.3 % Platelet Count 261 140-450 10^3/uL Mean Platelet Volume 8.0 6.9-10.8 fL Neutrophils (%) (Auto) 72.5 37.0-80.0 % Lymphocytes (%) (Auto) 22.0 10.0-50.0 % Monocytes (%) (Auto) 4.9 0.0-12.0 % Eosinophils (%) (Auto) 0.1 0.0-7.0 % Basophils (%) (Auto) 0.5 0.0-2.0 % Neutrophils # (Auto) 7.0 1.6-8.6 10 ^3/uL Lymphocytes # (Auto) 2.1 0.4-5.4 10 ^3/uL Monocytes # (Auto) 0.5 0-1.3 10 ^3/uL Eosinophils # (Auto) 0 0-0.8 10 ^3/uL Basophils # (Auto) 0.1 0-0.2 10 ^3/uL Nucleated Red Blood Cells 0.0 % Sodium Level 144 136-145 mmol/L Potassium Level 5.7 *H 3.5-5.1 mmol/L Chloride Level 113 H 98-107 mmol/L Carbon Dioxide Level 24 20-31 mmol/L Anion Gap 7 5-15 Blood Urea Nitrogen 43 H 9-23 mg/dL Creatinine 2.22 H 0.700-1.30 mg/dL Glomerular Filtration Rate Calc 31 >90 mL/min BUN/Creatinine Ratio 19.4 10.0-20.0 Serum Glucose 87 74-106 mg/dL Lactic Acid Level 1.6 0.4-2.0 mmol/L Calcium Level 8.2 L 8.7-10.4 mg/dL Magnesium Level 2.2 1.6-2.6 mg/dL Total Bilirubin 0.2 0.2-1.0 mg/dL Aspartate Amino Transferase (AST) 13 13-40 U/L Alanine Aminotransferase (ALT) < 9 7-40 U/L Alkaline Phosphatase 106 46-116 U/L Troponin I High Sensitivity 79 *H </=54 ng/L Total Protein 5.4 L 5.7-8.2 g/dL Albumin 2.6 L 3.2-4.8 g/dL Lipase 13 12-53 U/L Microbiology Date/Time Source Procedure Growth Status 06/12/25 20:00 Blood Blood Culture - Preliminary NO GROWTH AFTER 72 HOURS OF INCUBATION. Resulted 06/12/25 20:00 Blood Blood Culture - Preliminary NO GROWTH AFTER 72 HOURS OF INCUBATION. Resulted [facility] [id number] [address] Ph: [phone] DIAGNOSTIC IMAGING Diagnostic Imaging Report : [id number] Signed PATIENT: DAMARI WADSWORTH ACCT: [id number] UNIT: [id number] : 1955 LOC: ER ROOM / BED: / AGE / SEX: 69 / M ADM STATUS: REG ER SERVICE 22 ORDERING PHYSICIAN: ALFA COONEY DO PROCEDURE(s): ABPL - CT AB PEL WO CON-NO ORAL OR IV REASON: gen weak, dec urine output ORDER NUMBER(s): [id number], ACCESSION NUMBER(s): [id number] Exam: CT CT AB PEL WO CON-NO ORAL OR IV History: gen weak, dec urine output Comparison Study: CT CT AB PEL WO CON-NO ORAL OR IV on DOS: 01/07/25, CT HEAD WITHOUT CONTRAST on DOS: 01/07/25, US BLADDER on DOS: 01/06/25, US KIDNEY on DOS: 01/05/25, CT HEAD WITHOUT CONTRAST on DOS: 11/08/23 TECHNIQUE: Multidetector CT of the abdomen and pelvis was performed from lung bases to pubic symphysis. Imaging was performed without IV contrast. Axial, coronal, and sagittal multiplanar reformats were obtained from the axial data set by the technologist. RADIATION DOSE: CTDI vol 5.07 mGy. DLP 257.18 mGy.cm Findings: Limited evaluation of the solid organs in the absence of IV contrast. Evaluation is also degraded by motion artifact. Liver: Unremarkable. Spleen: Unremarkable. Pancreas: Unremarkable. Gallbladder: Cholelithiasis versus biliary sludge. Adrenals: Unremarkable Kidneys: Punctate nonobstructing right renal calculus versus renal vascular calcification. No hydronephrosis. Bilateral perinephric stranding, possibly senescent in etiology. Pelvic Viscera: Prostatomegaly. Circumferential wall thickening about the urinary bladder. Vasculature: Moderate aortoiliac atherosclerosis. Bilateral iliac stents are seen. Retroperitoneum: Hazy appearance throughout the mesentery. Bowel: No bowel obstruction. Musculoskeletal: Unremarkable. Soft tissues: Diffuse subcutaneous edema. Lungs: Incompletely assessed ground-glass opacities within the left lower lobe. Impression: 1. Findings as above raising the possibility of cystitis in the appropriate clinical setting. 2. Incompletely assessed ground-glass opacities within the left lower lobe, infectious/ inflammatory process cannot be excluded in the appropriate clinical setting. 3. Additional findings as detailed. ATED BY: MADAI RIDLEY MD DICTATED DATE/TIME: 06/12/252005 SIGNED BY: MADAI RIDLEY MD SIGNED DATE/TIME: 06/12/252005 CC: [place] [address] Ph: [phone] DIAGNOSTIC IMAGING Diagnostic Imaging Report : [id number] Signed PATIENT: DAMARI WADSWORTH ACCT: [id number] UNIT: [id number] : 1955 LOC: ER ROOM / BED: / AGE / SEX: 69 / M ADM STATUS: REG ER SERVICE 22 ORDERING PHYSICIAN: ALFA COONEY DO PROCEDURE(s): CXRP - CHEST PORTABLE REASON: gen weak, dec urine output ORDER NUMBER(s): [id number], ACCESSION NUMBER(s): [id number] CHEST RADIOGRAPH Indication: gen weak, dec urine output Technique: Single frontal view of the chest was obtained Comparison: XY CHEST PORTABLE on DOS: 01/06/25, XY CHEST PORTABLE on DOS: 11/09/23, CXR1 on DOS: 11/06/22 FINDINGS: Lines and Tubes: None Lungs: No focal consolidation. Pleura: No effusion. No pneumothorax. Cardiomediastinal contours: Unremarkable Bones: No acute osseous abnormality. IMPRESSION: 1. No acute cardiopulmonary disease. ATED BY: MELISSA DELGADO Jr., DO DICTATED DATE/TIME: 06/12/251952 SIGNED BY: MELISSA DELGADO Jr., SIGNED DATE/TIME: 06/12/251952 CC: Time of 1ST Reevaluation: 19:32 Reevaluation 1ST: Unchanged Patient Education/Counseling: Diagnosis, Treatment Family Education/Counseling: Diagnosis, Treatment Comments MDM: patient presented with the above HPI.--generalized weakness---workup was initiated. patient was found with the above mentioned diagnosis. the following medications were ordered: please refer to order lists of meds and tests obtained by myself Dr. Cooney. Patient ED course and VS have been stabilized. Patient has been reassessed in the ED and remained in a stable condition. Pertinent incidental findings were discussed with the patient and/or family. Patient/family voices understanding and is agreeable with plan. Patient has been observed in the ED adequate length of time to insure improvement/stability. Escalation of care considered: Consideration of escalation to observation or admission Patient was ADMITTED to the medicine team for further evaluation and treatment of their presentation. All the reports of any imaging studies that were ordered by myself were reviewed by myself. SEPSIS Sepsis Screen Date sepsis recognized/suspect: Jun 12, 2025 Time Sepsis recognized/suspect: 1907 Recent Procedure: No On Antibiotic Therapy: No Respiratory Rate >20: No Heart Rate >90: No Temp<36 C (96.8 F) or >38.3 C: No SBP <90 or MAP <65 mmHG: No New Acute Mental Status Change: No Is the patient on CPAP, BIPAP,: No Physician Orders Pattern Ruler (06/12/25 ) Electrocardigram (06/12/25 19:23) Ct Ab Pel Wo Con-No Oral Or Iv (06/12/25 19:23) Blood Culture (06/12/25 19:23) Chest Portable (06/12/25 19:23) Vital Signs Date Time Temp Pulse Resp B/P (MAP) Pulse Ox O2 Delivery O2 Flow Rate FiO2 06/12/25 21:30 16 96 Room Air* 0 21 06/12/25 19:04 98.1 80 18 103/52 99 98.1 Laboratory Tests Test 06/12/25 20:01 Lactic Acid Level 1.6 mmol/L (0.4-2.0) White Blood Count 9.6 10^3/uL (4.4-10.8) Departure 1 Departure Time of Disposition: 20:57 Impression: Primary Impression: Generalized weakness Additional Impressions: Acute renal failure Hypokalemia Elevated troponin level Hypoalbuminemia Anemia Disposition: ADMITTED INPATIENT Admit to: Tele Condition: Guarded Discharged With: Self Critical Care Note Critical Care Time?: Yes (35 min-critical care time only) Heart Score Heart Score: Heart Score Response (Comments) Value History N/A 0 EKG N/A 0 Age N/A 0 Risk Factors N/A 0 Troponin N/A 0 Total 0 I personally scribed for ALFA COONEY DO ([email or web address]) on 06/12/25 at 19:29. Electronically submitted by Galdino Melchor ([email or web address]). I personally scribed for ALFA COONEY DO ([email or web address]) on 06/12/25 at 19:32. Electronically submitted by Galdino Melchor ([email or web address]). I personally scribed for ALFA COONEY DO ([email or web address]) on 06/12/25 at 20:48. Electronically submitted by Galdino Melchor ([email or web address]). I personally scribed for ALFA COONEY DO ([email or web address]) on 06/12/25 at 20:59. Electronically submitted by Galdino Melchor ([email or web address]). I personally scribed for ALFA COONEY DO ([email or web address]) on 06/13/25 at 05:35. Electronically submitted by Galdino Melchor ([email or web address]). ALFA COONEY DO Jun 12, 2025 19:29
--- NOTE | 2025-06-12 19:55 | DVH ---
CHEST RADIOGRAPH Indication: gen weak, dec urine output Technique: Single frontal view of the chest was obtained Comparison: XY CHEST PORTABLE on DOS: 01/06/25, XY CHEST PORTABLE on DOS: 11/09/23, CXR1 on DOS: 3 FINDINGS: Lines and Tubes: None Lungs: No focal consolidation. Pleura: No effusion. No pneumothorax. Cardiomediastinal contours: Unremarkable Bones: No acute osseous abnormality. IMPRESSION: 1. No acute cardiopulmonary disease.
--- NOTE | 2025-06-12 20:09 | DVH ---
Exam: CT CT AB PEL WO CON-NO ORAL OR IV History: gen weak, dec urine output Comparison Study: CT CT AB PEL WO CON-NO ORAL OR IV on DOS: 01/07/25, CT HEAD WITHOUT CONTRAST on DOS: 01/07/25, US BLADDER on DOS: 01/06/25, US KIDNEY on DOS: 01/05/25, CT HEAD WITHOUT CONTRAST on DOS: 10/22 06/14 TECHNIQUE: Multidetector CT of the abdomen and pelvis was performed from lung bases to pubic symphysi s. Imaging was performed without IV contrast. Axial, coronal, and sagittal multiplanar reformats were obtained from the axial data set by the technologist. RADIATION DOSE: CTDI vol 5.07 mGy. DLP 257.18 mGy.cm Findings: Limited evaluation of the solid organs in the absence of IV contrast. Evaluation is also degraded by motion artifact. Liver: Unremarkable. Spleen: Unremarkable. Pancreas: Unremarkable. Gallbladder: Cholelithiasis versus biliary sludge. Adrenals: Unremarkable Kidneys: Punctate nonobstructing right renal calculus versus renal vascular calcification. No hydron ephrosis. Bilateral perinephric stranding, possibly senescent in etiology. Pelvic Viscera: Prostatomegaly. Circumferential wall thickening about the urinary bladder. Vasculature: Moderate aortoiliac atherosclerosis. Bilateral iliac stents are seen. Retroperitoneum: Hazy appearance throughout the mesentery. Bowel: No bowel obstruction. Musculoskeletal: Unremarkable. Soft tissues: Diffuse subcutaneous edema. Lungs: Incompletely assessed ground-glass opacities within the left lower lobe. Impression: 1. Findings as above raising the possibility of cystitis in the appropriate clinical setting. 2. Incompletely assessed ground-glass opacities within the left lower lobe, infectious/ inflammatory process cannot be excluded in the appropriate clinical setting. 3. Additional findings as detailed.
[2025-06-12 20:21] LABS: Hematocrit 29.7 % (41.0-53.0); Hemoglobin 9.7 g/dL (13.5-17.5); Mean Corpuscular Hemoglobin 30.5 pg (28.0-32.0); Mean Corpuscular Volume 93.6 fL (80.0-100.0); Nucleated Red Blood Cells % 0.0 %
[2025-06-12 20:32] LABS: Alkaline Phosphatase 106 U/L (46-116); Anion Gap 7 (5-15); BUN/Creatinine Ratio 19.4 (10.0-20.0); Carbon Dioxide 24 mmol/L (20-31); Glucose 87 mg/dL (74-106); Lipase 13 U/L (12-53); Magnesium 2.2 mg/dL (1.6-2.6); Sodium 144 mmol/L (136-145)
[2025-06-12 20:39] LABS: Alanine Aminotransferase < 9 U/L (7-40); Albumin 2.6 g/dL (3.2-4.8); Bilirubin, Total 0.2 mg/dL (0.2-1.0); Blood Urea Nitrogen 43 mg/dL (9-23); Calcium 8.2 mg/dL (8.7-10.4); Chloride 113 mmol/L (98-107); Total Protein 5.4 g/dL (5.7-8.2)
[2025-06-12 20:47] LABS: Potassium 5.7 mmol/L (3.5-5.1)
[2025-06-12] MEDS: ALBUTEROL SULF 2.5 MG/0.5ML(0.5%) NEB SOLN ONE (21:22)
[2025-06-13] VITALS (7 sets, daily range): BP systolic 103; BP diastolic 52; PULSE 80–97; RESP 10–18; TEMP 98.1; O2SAT 96–100
[2025-06-13] MEDS ORDERED: NITROGLYCERIN 0.4 MG SL TAB SL PRN
[2025-06-13] MEDS ORDERED: ALBUTEROL SULF 2.5 MG/0.5ML(0.5%) NEB SOLN NEB PRN
[2025-06-13] MEDS ORDERED: MORPHINE SULFATE INJ 2 MG/ml SYRG IV PRN
[2025-06-13] MEDS ORDERED: IPRATROPIUM BROM 0.5 MG/2.5ML INH SOL NEB PRN
--- NOTE | 2025-06-13 00:01 | DVHHP2 ---
History of Present Illness Reason for Visit: Generalized weakness Review of Systems Allergies: Coded Allergies: NO KNOWN ALLERGIES (Unverified , 11/02/22) Exam Vital Signs Vital Signs Date Time Temp Pulse Resp B/P (MAP) Pulse Ox O2 Delivery O2 Flow Rate FiO2 06/12/25 21:30 16 96 Room Air* 0 21 06/12/25 19:04 98.1 80 103/52 98.1 Labs/Xrays Labs Test 06/12/25 20:01 Range/Units White Blood Count 9.6 4.4-10.8 10^3/uL Red Blood Count 3.17 L 4.5-5.90 10^6/uL Hemoglobin 9.7 L 13.5-17.5 g/dL Hematocrit 29.7 L 41.0-53.0 % Mean Corpuscular Volume 93.6 80.0-100.0 fL Mean Corpuscular Hemoglobin 30.5 28.0-32.0 pg Mean Corpuscular Hemoglobin Concent 32.7 32.0-36.0 g/dL Red Cell Distribution Width 15.5 H 11.8-14.3 % Platelet Count 261 140-450 10^3/uL Mean Platelet Volume 8.0 6.9-10.8 fL Neutrophils (%) (Auto) 72.5 37.0-80.0 % Lymphocytes (%) (Auto) 22.0 10.0-50.0 % Monocytes (%) (Auto) 4.9 0.0-12.0 % Eosinophils (%) (Auto) 0.1 0.0-7.0 % Basophils (%) (Auto) 0.5 0.0-2.0 % Neutrophils # (Auto) 7.0 1.6-8.6 10 ^3/uL Lymphocytes # (Auto) 2.1 0.4-5.4 10 ^3/uL Monocytes # (Auto) 0.5 0-1.3 10 ^3/uL Eosinophils # (Auto) 0 0-0.8 10 ^3/uL Basophils # (Auto) 0.1 0-0.2 10 ^3/uL Nucleated Red Blood Cells 0.0 % Sodium Level 144 136-145 mmol/L Potassium Level 5.7 *H 3.5-5.1 mmol/L Chloride Level 113 H 98-107 mmol/L Carbon Dioxide Level 24 20-31 mmol/L Anion Gap 7 5-15 Blood Urea Nitrogen 43 H 9-23 mg/dL Creatinine 2.22 H 0.700-1.30 mg/dL Glomerular Filtration Rate Calc 31 >90 mL/min BUN/Creatinine Ratio 19.4 10.0-20.0 Serum Glucose 87 74-106 mg/dL Lactic Acid Level 1.6 0.4-2.0 mmol/L Calcium Level 8.2 L 8.7-10.4 mg/dL Magnesium Level 2.2 1.6-2.6 mg/dL Total Bilirubin 0.2 0.2-1.0 mg/dL Aspartate Amino Transferase (AST) 13 13-40 U/L Alanine Aminotransferase (ALT) < 9 7-40 U/L Alkaline Phosphatase 106 46-116 U/L Troponin I High Sensitivity 79 *H </=54 ng/L Total Protein 5.4 L 5.7-8.2 g/dL Albumin 2.6 L 3.2-4.8 g/dL Lipase 13 12-53 U/L SEPSIS Sepsis Screen Date sepsis recognized/suspect: Jun 12, 2025 Time Sepsis recognized/suspect: 1907 Recent Procedure: No On Antibiotic Therapy: No Respiratory Rate >20: No Heart Rate >90: No Temp<36 C (96.8 F) or >38.3 C: No SBP <90 or MAP <65 mmHG: No New Acute Mental Status Change: No Is the patient on CPAP, BIPAP,: No Physician Orders Wrestling Coach (06/12/25 ) Urinalysis (06/12/25 19:23) Electrocardigram (06/12/25 19:23) Ct Ab Pel Wo Con-No Oral Or Iv (06/12/25 19:23) Blood Culture (06/12/25 19:23) Chest Portable (06/12/25 19:23) Potassium (06/13/25 00:56) Albuterol Medneb (Ventolin Medneb) (06/13/25 00:00) Ipratropium Medneb (Atrovent Medneb) (06/13/25 00:00) Clopidogrel Bisulfate (Plavix) (06/13/25 10:00) Atorvastatin (Lipitor) (06/13/25 22:00) Vital Signs Date Time Temp Pulse Resp B/P (MAP) Pulse Ox O2 Delivery O2 Flow Rate FiO2 06/12/25 21:30 16 96 Room Air* 0 21 06/12/25 19:04 98.1 80 18 103/52 99 98.1 Laboratory Tests Test 06/12/25 20:01 Lactic Acid Level 1.6 mmol/L (0.4-2.0) White Blood Count 9.6 10^3/uL (4.4-10.8) Medications Medications Dose Ordered Sig/Donaldo Route Start Time Stop Time Status Last Admin Dose Admin Albuterol 20 mg STK-MED ONCE .ROUTE 06/12/25 21:18 06/12/25 21:15 DC 06/12/25 21:22 20 MG Assessment/Plan My Orders Orders - HEMANTH PILLAI DNP Procedure Category Date Status Time Albuterol Medneb PHA 06/13/25 Verified (Ventolin Medneb) 00:00 Ipratropium Medneb PHA 06/13/25 Verified (Atrovent Medneb) 00:00 Clopidogrel Bisulfate PHA 06/13/25 Verified (Plavix) 10:00 Atorvastatin (Lipitor) PHA 06/13/25 Verified 22:00 HEMANTH PILLAI DNP Jun 13, 2025 00:01
[2025-06-13] MEDS ORDERED: DOCUSATE SOD 100 MG CAP PO PRN (00:15)
[2025-06-13] MEDS ORDERED: ONDANSETRON HCL 4 MG/2 ML VIAL IV PRN (00:15)
[2025-06-13] MEDS ORDERED: HYDROcodone-ACET 5/325MG TAB PO PRN (00:15)
[2025-06-13] MEDS ORDERED: ACETAMINOPHEN 325 MG TAB PO PRN (00:15)
[2025-06-13] MEDS ORDERED: DEXTROSE (50%) 50ML SYRG IV PRN (00:15)
[2025-06-13] MEDS: FUROSEMIDE 20 MG/2 ML VIAL IV ONE (02:53)
[2025-06-13] MEDS: SODIUM CHLORIDE 0.9% 1,000 ML IV ONE (03:13)
[2025-06-13] MEDS: cefTRIAXone 1GM/50ML D5W 50 ML IV ONE (03:47)
[2025-06-13] MEDS: SODIUM CHLORIDE 0.9% 1,000 ML IV SCH (03:55)
[2025-06-13] MEDS: SODIUM ZIRCONIUM CYCL 10 GM PAK PO ONE (03:55)
[2025-06-13] MEDS: CALCIUM GLUC 1,000mg/50ml-NS 50 ML IV ONE (04:13)
[2025-06-13] MEDS: InsuLIN REG 1unit/0.01ml Soln (100units/ml) SC SCH (06:53)
[2025-06-13] MEDS: ACCU-CHEK COMFORT CURVE STRIP VI SCH (07:50)
[2025-06-13] MEDS: ALBUTEROL SULF 2.5 MG/0.5ML(0.5%) NEB SOLN NEB ONE (07:51)
[2025-06-13] MEDS ORDERED: SODIUM ZIRCONIUM CYCL 10 GM PAK PO ONE (09:30)
--- NOTE | 2025-06-13 09:35 | DVHINCON2 ---
Date of service: Jun 13, 2025 Referring Physician Demetri Barillas, nurse practitioner Reason for Consultation Acute kidney injury History of Present Illness Patient is a 69-year-old male with past medical history significant Diabetes mellitus type 2, hypertension, peripheral arterial disease, prostate enlargement, who is wheelchair-bound is brought in by his daughter due to poor intake generalized weakness unable to urinate. On admission patient found to have elevated BUN creatinine nephrology is consulted for acute kidney injury Past Medical History Past Medical History: Diabetes, prostate enlargement, hypertension, peripheral arterial disease wheelchair-bound Past Surgical History Past Surgical History: Left BKA Allergies: Coded Allergies: NO KNOWN ALLERGIES (Unverified , 11/02/22) Home Meds Active Scripts Ergocalciferol (VITAMIN D 85629 UNIT) 50,000 [place], [address] UNIT PO QWEEKLY for 90 Days, #12 CAP Prov:MICHELLE GALLEGO RESIDENT 01/08/25 Tamsulosin Hcl (Flomax) 0.4 Mg Cap, 0.4 MG PO QPM for 30 Days, #30 CAP 2 Refills Prov:MICHELLE GALLEGO RESIDENT 01/08/25 Nifedipine (Nifedipine Er) 30 Mg Tab, 60 MG PO DAILY for 30 Days, #60 TAB 2 Re fills Prov:MICHELLE GALLEGO RESIDENT 01/08/25 Hydrocodone-Acetaminophen (Hydrocodone Bitartrate/AC 5-325 mg) 1 Tab Tab, 1 TAB PO Q8HR for 7 Days, #21 TAB Prov:VALERIE RODRIGES DPM 01/12/23 Reported Medications Clopidogrel Bisulfate (CLOPIDOGREL) 75 Mg Tab, PO 12/21/23 Gabapentin (Gabapentin) 600 Mg Tab, 1 TAB PO 12/21/23 Melatonin (KP MELATONIN) 3 Mg Tab, 10 MG PO HS, TAB 01/09/23 Atorvastatin Calcium (ATORVASTATIN CALCIUM) 40 Mg Tab, 1 TAB PO QPM, #90 TAB 3 Refills 11/05/22 Metformin Hydrochloride (Metformin Hcl) 500 Mg Tab, 1000 MG PO IBID for 30 Days, MG 11/05/22 Pantoprazole Sodium Sesquihydr (Protonix) 40 Mg Tab, 40 MG PO DAILY, #30 TAB 11/05/22 Current Medications Current Medications Medications (Trade) Dose Ordered Sig/Donaldo Route PRN Reason Start Time Stop Time Status Last Admin Albuterol (Ventolin Medneb) 2.5 mg Q4HPRN PRN NEB SHORTNESS OF BREATH 06/13/25 00:00 Ipratropium [place] (Atrovent Medneb) 0.5 mg Q4HPRN PRN NEB SHORTNESS OF BREATH 06/13/25 00:00 Clopidogrel Bisulfate (Plavix) 75 mg DAILY PO 06/13/25 10:00 Atorvastatin Calcium (Lipitor) 20 mg HS PO 06/13/25 22:00 Famotidine (Pepcid Injection) 20 mg DAILY IV 06/13/25 10:00 Nitroglycerin (Ntrostat Sublingual) 0.4 mg Q5MINP PRN SL FOR CHEST PAIN 06/13/25 00:00 Morphine Sulfate 2 mg Q30M PRN IV FOR CHEST PAIN 06/13/25 00:00 Diagnostic Test (Pha) (Accu-Chek Comfort Curve T) 1 strip ACHS 06/13/25 07:00 Insulin Human Regular (InsuLIN R) ACHS SC 06/13/25 07:00 06/13/25 06:53 Dextrose 50 ml UD PRN IV Blood Sugar LESS THAN 60 06/13/25 00:15 Sodium Chloride 1,000 ml @ 60 mls/hr [id number] IV 06/13/25 00:15 06/13/25 03:55 Acetaminophen/ Hydrocodone Bitart ([place] 5/325MG Tab) 1 tab Q4HP PRN PO MODERATE PAIN (4-6 PAIN SCALE) 06/13/25 00:15 Ondansetron HCl (Zofran) 4 mg Q4HP PRN IV NAUSEA / VOMITING 06/13/25 00:15 Docusate Sodium (Colace Capsule) 100 mg BIDPRN PRN PO FOR CONSTIPATION 06/13/25 00:15 Multivitamins (Mvi Tab) 1 tab DAILY PO 06/13/25 10:00 Acetaminophen (Tylenol Tablet) 650 mg Q6HP PRN PO PAIN SCALE 1-3 OR TEMP>100.4 06/13/25 00:15 Family History: Diabetes mellitus G8 MOTHER G8 FATHER Review of Systems All 12 item review of systems reviewed with the patient nonsignificant except what is mentioned in the history of present illness H&P Exam Vital Signs/I&O Vital Sign Date Time Temp Pulse Resp B/P (MAP) Pulse Ox O2 Delivery O2 Flow Rate FiO2 06/13/25 08:10 100 Room Air* 0 21 06/13/25 08:00 90 16 06/13/25 08:00 97.5 140/70 (93) 97.5 Intake and Output 06/12/25 06/13/25 19:00 07:00 Intake Total 1170 ml Balance 1170 ml Intake IV Total 1170 ml Physical Exam Thin cachectic patient appear ill Lungs clear to auscultation bilaterally Cardiac exam regular rate and rhythm GI soft nontender enlarged prostate Extremities left below-knee amputation Neuro nonfocal Labs/Diagnostic Data Labs/Diagnostic Data Laboratory Tests Test 06/13/25 09:55 06/13/25 06:46 06/13/25 00:42 06/12/25 20:01 Range/Units POC Glucose 138 H 70-106 mg/dl Potassium Level 4.6 5.7 *H 3.5-5.1 mmol/L Uric Acid 9.2 3.7-9.2 mg/dL Phosphorus Level 4.0 2.4-5.1 mg/dL Magnesium Level 2.3 2.2 1.6-2.6 mg/dL White Blood Count 9.6 4.4-10.8 10^3/uL Red Blood Count 3.17 L 4.5-5.90 10^6/uL Hemoglobin 9.7 L 13.5-17.5 g/dL Hematocrit 29.7 L 41.0-53.0 % Mean Corpuscular Volume 93.6 80.0-100.0 fL Mean Corpuscular Hemoglobin 30.5 28.0-32.0 pg Mean Corpuscular Hemoglobin Concent 32.7 32.0-36.0 g/dL Red Cell Distribution Width 15.5 H 11.8-14.3 % Platelet Count 261 140-450 10^3/uL Mean Platelet Volume 8.0 6.9-10.8 fL Neutrophils (%) (Auto) 72.5 37.0-80.0 % Lymphocytes (%) (Auto) 22.0 10.0-50.0 % Monocytes (%) (Auto) 4.9 0.0-12.0 % Eosinophils (%) (Auto) 0.1 0.0-7.0 % Basophils (%) (Auto) 0.5 0.0-2.0 % Neutrophils # (Auto) 7.0 1.6-8.6 10 ^3/uL Lymphocytes # (Auto) 2.1 0.4-5.4 10 ^3/uL Monocytes # (Auto) 0.5 0-1.3 10 ^3/uL Eosinophils # (Auto) 0 0-0.8 10 ^3/uL Basophils # (Auto) 0.1 0-0.2 10 ^3/uL Nucleated Red Blood Cells 0.0 % Sodium Level 144 136-145 mmol/L Chloride Level 113 H 98-107 mmol/L Carbon Dioxide Level 24 20-31 mmol/L Anion Gap 7 5-15 Blood Urea Nitrogen 43 H 9-23 mg/dL Creatinine 2.22 H 0.700-1.30 mg/dL Glomerular Filtration Rate Calc 31 >90 mL/min BUN/Creatinine Ratio 19.4 10.0-20.0 Serum Glucose 87 74-106 mg/dL Lactic Acid Level 1.6 0.4-2.0 mmol/L Calcium Level 8.2 L 8.7-10.4 mg/dL Total Bilirubin 0.2 0.2-1.0 mg/dL Aspartate Amino Transferase (AST) 13 13-40 U/L Alanine Aminotransferase (ALT) < 9 7-40 U/L Alkaline Phosphatase 106 46-116 U/L Troponin I High Sensitivity 79 *H </=54 ng/L Total Protein 5.4 L 5.7-8.2 g/dL Albumin 2.6 L 3.2-4.8 g/dL Lipase 13 12-53 U/L Assessment Acute kidney injury superimposed Chronic Kidney Disease secondary hemodynamic mediated Hyperkalemia due to dietary indiscretion Acute urinary retention Diabetes mellitus type 2 Peripheral arterial disease Left below-knee amputation Enlarged prostate Nephrolithiasis Urinary tract infection NSTEMI Anemia of chronic kidney disease Recommendations Closely monitor fluid and electrolytes Avoid nephrotoxic medications Abarca catheter Strict I&Os Emergent medical treatment for hyperkalemia Insulin sliding scale IV antibiotics Check urinalysis urine lytes and protein excretion No hydronephrosis reported on CT of the abdomen Cardiology consult Urology consult We will continue to follow Patient seen and examined by myself in the ER. I discussed my plan of care with the patient and primary nurse at the bedside I would like to thank Demetri for the consult, will follow up Plan discussed with: Patient KRISHNA LYMAN MD Jun 13, 2025 09:35
[2025-06-13 10:20] LABS: Magnesium 2.3 mg/dL (1.6-2.6)
[2025-06-13] MEDS: FAMOTIDINE (10MG/ML) 2ML VL IV SCH (11:20)
[2025-06-13] MEDS: MULTIPLE VITAMIN TAB PO SCH (11:20)
[2025-06-13] MEDS: CLOPIDOGREL BISULFATE 75 MG TAB PO SCH (11:20)
[2025-06-13] MEDS: BUMETANIDE 2.5mg/10ml (0.25 mg/ml) INJ IV ONE (11:21)
[2025-06-13 12:45] LABS: Urine Protein, UAD 1+ (Negative)
--- NOTE | 2025-06-13 13:09 | DVHHP2 ---
History of Present Illness Reason for Visit: Generalized Weakness History of Present Illness Patient is a 69 year-old M with a PMHx of HTN, Anemia, PVD, DM2 in remission who came to the hospital with his daughter for generalized weakness for the past 1 week with loss of appetite. Patient is Turkmen speaking, history obtained th rough to the daughter Megan. Patient denies any fevers, chills, SOB, chest pain, GI/ complaints. Review of Systems Constitutional: No: Fever, Chills, Sweats, Weakness, Malaise, Other Eyes: No: Pain, Vision change, Conjunctivae inflammation, Eyelid inflammation, Other, Redness ENT: No: Ear pain, Ear discharge, Nose pain, Nose discharge, Nose congestion, Mouth pain, Mouth swelling, Throat pain, Throat swelling, Other Respiratory: No: Cough, Dry, Shortness of breath, SOB with excertion, Wheezing, Hemoptysis, Pleuritic Pain, Sputum, Wheezing, Other Cardiovascular: No: Chest Pain, Palpitations, Orthopnea, Paroxysmal Noc. Dyspnea, Edema, Lt Headedness, Other Gastrointestinal: No: Nausea, Vomiting, Abdominal Pain, Diarrhea, Constipation, Melena, Hematochezia, Other Genitourinary: No Dysuria, No Frequency, No Incontinence, No Hematuria, No Retention, No Other Musculoskeletal: No: other, neck pain, shoulder pain, arm pain, back pain, hand pain, leg pain, foot pain Skin: No: Rash, Lesions, Jaundice, Bruising, Other Neurological: No: Weakness, Numbness, Incoordination, Change in speech, Confusion, Seizures, Other Allergies: Coded Allergies: NO KNOWN ALLERGIES (Unverified , 11/02/22) Medications Current Medications Medications Dose Ordered Sig/Donaldo Route Start Time Stop Time Status Last Admin Dose Admin Albuterol 2.5 mg Q4HPRN PRN NEB 06/13/25 00:00 Ipratropium [place] 0.5 mg Q4HPRN PRN NEB 06/13/25 00:00 Clopidogrel Bisulfate 75 mg DAILY PO 06/13/25 10:00 06/13/25 11:20 75 MG Atorvastatin Calcium 20 mg HS PO 06/13/25 22:00 Famotidine 20 mg DAILY IV 06/13/25 10:00 06/13/25 11:20 20 MG Nitroglycerin 0.4 mg Q5MINP PRN SL 06/13/25 00:00 Morphine Sulfate 2 mg Q30M PRN IV 06/13/25 00:00 Diagnostic Test (Pha) 1 strip ACHS 06/13/25 07:00 06/13/25 12:14 1 STRIP Insulin Human Regular ACHS SC 06/13/25 07:00 06/13/25 06:53 2 UNITS Dextrose 50 ml UD PRN IV 06/13/25 00:15 Sodium Chloride 1,000 ml @ 60 mls/hr [id number] IV 06/13/25 00:15 06/13/25 03:55 60 MLS/HR Acetaminophen/ Hydrocodone Bitart 1 tab Q4HP PRN PO 06/13/25 00:15 Ondansetron HCl 4 mg Q4HP PRN IV 06/13/25 00:15 Docusate Sodium 100 mg BIDPRN PRN PO 06/13/25 00:15 Multivitamins 1 tab DAILY PO 06/13/25 10:00 06/13/25 11:20 1 TAB Acetaminophen 650 mg Q6HP PRN PO 06/13/25 00:15 Exam Vital Signs Vital Signs Date Time Temp Pulse Resp B/P (MAP) Pulse Ox O2 Delivery O2 Flow Rate FiO2 06/13/25 11:21 149/72 06/13/25 10:44 136 06/13/25 08:10 100 Room Air* 0 21 06/13/25 08:00 16 06/13/25 08:00 97.5 97.5 General Appearance: Alert, Oriented X3, Cooperative, No acute distress HEENT: Atraumatic Respiratory: Clear to auscultation Cardiovascular: Regular rate, Normal S1, Normal S2 Abdominal: Normal bowel sounds, Soft Extremities: Other (LBKA) Labs/Xrays Labs Test 06/13/25 12:13 06/13/25 12:08 06/13/25 12:00 06/13/25 09:55 Range/Units POC Glucose 88 70-106 mg/dl Urine Color Yellow Yellow Urine Clarity Turbid H Clear Urine pH 5.0 5.0-9.0 Urine Specific [place] 1.014 1.001-1.035 Urine Protein 1+ H Negative Urine Ketones Negative Negative Urine Blood 3+ H Negative /uL Urine Nitrite Negative Negative Urine Bilirubin Negative Negative Urine Urobilinogen Normal Negative mg/dL Urine Leukocyte Esterase Negative Negative /uL Urine RBC 902 0 - 3 /hpf Urine Microscopic WBC 30 H 0-3 /HPF Urine Squamous Epithelial Cells Few <5 /hpf Urine Bacteria Few H None Seen /hpf Urine Hyaline Casts Many 0 - 2 /lpf Urine Mucus Few None Seen Urine Glucose Normal Normal mg/dL B-Type Natriuretic Peptide 495.07 0-100 pg/mL Test 06/13/25 00:42 06/12/25 20:01 Range/Units Potassium Level 4.6 3.5-5.1 mmol/L Uric Acid 9.2 3.7-9.2 mg/dL Phosphorus Level 4.0 2.4-5.1 mg/dL Magnesium Level 2.3 1.6-2.6 mg/dL White Blood Count 9.6 4.4-10.8 10^3/uL Red Blood Count 3.17 L 4.5-5.90 10^6/uL Hemoglobin 9.7 L 13.5-17.5 g/dL Hematocrit 29.7 L 41.0-53.0 % Mean Corpuscular Volume 93.6 80.0-100.0 fL Mean Corpuscular Hemoglobin 30.5 28.0-32.0 pg Mean Corpuscular Hemoglobin Concent 32.7 32.0-36.0 g/dL Red Cell Distribution Width 15.5 H 11.8-14.3 % Platelet Count 261 140-450 10^3/uL Mean Platelet Volume 8.0 6.9-10.8 fL Neutrophils (%) (Auto) 72.5 37.0-80.0 % Lymphocytes (%) (Auto) 22.0 10.0-50.0 % Monocytes (%) (Auto) 4.9 0.0-12.0 % Eosinophils (%) (Auto) 0.1 0.0-7.0 % Basophils (%) (Auto) 0.5 0.0-2.0 % Neutrophils # (Auto) 7.0 1.6-8.6 10 ^3/uL Lymphocytes # (Auto) 2.1 0.4-5.4 10 ^3/uL Monocytes # (Auto) 0.5 0-1.3 10 ^3/uL Eosinophils # (Auto) 0 0-0.8 10 ^3/uL Basophils # (Auto) 0.1 0-0.2 10 ^3/uL Nucleated Red Blood Cells 0.0 % Sodium Level 144 136-145 mmol/L Chloride Level 113 H 98-107 mmol/L Carbon Dioxide Level 24 20-31 mmol/L Anion Gap 7 5-15 Blood Urea Nitrogen 43 H 9-23 mg/dL Creatinine 2.22 H 0.700-1.30 mg/dL Glomerular Filtration Rate Calc 31 >90 mL/min BUN/Creatinine Ratio 19.4 10.0-20.0 Serum Glucose 87 74-106 mg/dL Lactic Acid Level 1.6 0.4-2.0 mmol/L Calcium Level 8.2 L 8.7-10.4 mg/dL Total Bilirubin 0.2 0.2-1.0 mg/dL Aspartate Amino Transferase (AST) 13 13-40 U/L Alanine Aminotransferase (ALT) < 9 7-40 U/L Alkaline Phosphatase 106 46-116 U/L Troponin I High Sensitivity 79 *H </=54 ng/L Total Protein 5.4 L 5.7-8.2 g/dL Albumin 2.6 L 3.2-4.8 g/dL Lipase 13 12-53 U/L SEPSIS Sepsis Screen Date sepsis recognized/suspect: Jun 13, 2025 Time Sepsis recognized/suspect: 08 Recent Procedure: No On Antibiotic Therapy: No Respiratory Rate >20: No Heart Rate >90: No Temp<36 C (96.8 F) or >38.3 C: No SBP <90 or MAP <65 mmHG: No New Acute Mental Status Change: No Is the patient on CPAP, BIPAP,: No Physician Orders Vitamin D, 25-Hydroxy (06/13/25 09:28) Urine Sodium (06/13/25 09:28) Urine Protein/Creatinine Ratio (06/13/25 ) Urine Creatinine (06/13/25 09:28) Abarca Catheters (06/13/25 ) Parathyroid Hormone Intact (06/13/25 10:15) Complete Blood Count (06/13/25 12:52) Basic Metabolic Panel (06/13/25 12:52) Dietary Cons For Malnutrition (06/13/25 12:53) Vital Signs Date Time Temp Pulse Resp B/P (MAP) Pulse Ox O2 Delivery O2 Flow Rate FiO2 06/13/25 11:21 149/72 06/13/25 10:44 136 06/13/25 08:10 100 Room Air* 0 21 06/13/25 08:10 100 Room Air 0.0 06/13/25 08:00 90 16 100 Room Air* 0 21 06/13/25 08:00 91 06/13/25 08:00 97.5 90 16 140/70 (93) 100 97.5 06/13/25 06:00 96 10 144/79 (100) 100 06/13/25 05:07 97 10 100 Room Air* 0 21 Medications Medications Dose Ordered Sig/Donaldo Route Start Time Stop Time Status Last Admin Dose Admin Bumetanide 2 mg ONCE ONCE IV 06/13/25 09:30 06/13/25 09:32 DC 06/13/25 11:21 2 MG Clopidogrel Bisulfate 75 mg DAILY PO 06/13/25 10:00 06/13/25 11:20 75 MG Diagnostic Test (Pha) 1 strip ACHS 06/13/25 07:00 06/13/25 12:14 1 STRIP Famotidine 20 mg DAILY IV 06/13/25 10:00 06/13/25 11:20 20 MG Insulin Human Regular ACHS SC 06/13/25 07:00 06/13/25 06:53 2 UNITS Multivitamins 1 tab DAILY PO 06/13/25 10:00 06/13/25 11:20 1 TAB Assessment/Plan Assessment/Plan # NSTEMI-II - Monitor # JEWELS due to ATN - Monitor - Renal Consult # Acute Cystitis - Rocephin # L BKA # DM2 - Check A1c # Severe protein malnutrition - Dietary Consult # Goals of care discussion >17 mins FULL CODE d/w Megan Plan discussed with: Patient, Daughter My Orders Orders - ARIANNE KHANNA MD Procedure Category Date Status Time Complete Blood Count LAB 06/13/25 Logged 12:52 Basic Metabolic Panel LAB 06/13/25 Logged 12:52 Dietary Cons For NOURISH 06/13/25 Transmitted Malnutrition 12:53 Date of Service: Jun 13, 2025 Billing Provider: ARIANNE KHANNA MD Common Visit Codes: [id number] INP/OBS CARE (HIGH) Secondary Visit Codes: [id number] CARE PLAN 30 MINUTES ARIANNE KHANNA MD Jun 13, 2025 13:09
[2025-06-13 13:11] LABS: Protein, Urine 133.8 mg/dL (1-14)
[2025-06-13 13:38] LABS: Nucleated Red Blood Cells % 0.1 %
[2025-06-13] MEDS: cefTRIAXone 2GM/50ML D5W 50 ML IV ONE (13:39)
[2025-06-13 13:41] LABS: Hematocrit 25.7 % (41.0-53.0); Hemoglobin 8.4 g/dL (13.5-17.5); Mean Corpuscular Hemoglobin 30.3 pg (28.0-32.0); Mean Corpuscular Volume 93.1 fL (80.0-100.0)
[2025-06-13 13:49] LABS: Potassium 5.0 mmol/L (3.5-5.1)
[2025-06-13 13:50] LABS: Anion Gap 8 (5-15); Carbon Dioxide 25 mmol/L (20-31)
[2025-06-13 13:52] LABS: Calcium 8.5 mg/dL (8.7-10.4); Chloride 113 mmol/L (98-107); Sodium 146 mmol/L (136-145)
[2025-06-13 13:56] LABS: BUN/Creatinine Ratio 16.3 (10.0-20.0); Glucose 93 mg/dL (74-106)
[2025-06-13 13:58] LABS: Blood Urea Nitrogen 35 mg/dL (9-23)
[2025-06-13] MEDS: ATORVASTATIN 20 MG TAB PO SCH (22:45)
[2025-06-14 01:33] LABS: COVID19 ANTIGEN SOFIA FIA NEGATIVE (NEGATIVE)
[2025-06-14] MEDS: hydrALAZINE HCL 20 MG/ML VL IV PRN (05:38)
[2025-06-14 06:44] VITALS: O2SAT 98
[2025-06-14 08:25] LABS: Hematocrit 31.0 % (41.0-53.0); Hemoglobin 10.2 g/dL (13.5-17.5); Mean Corpuscular Hemoglobin 30.1 pg (28.0-32.0); Mean Corpuscular Volume 91.1 fL (80.0-100.0); Nucleated Red Blood Cells % 0.1 %
[2025-06-14 08:29] LABS: Alkaline Phosphatase 101 U/L (46-116); Anion Gap 11 (5-15); BUN/Creatinine Ratio 17.8 (10.0-20.0); Carbon Dioxide 21 mmol/L (20-31); Glucose 86 mg/dL (74-106); Potassium 4.1 mmol/L (3.5-5.1)
[2025-06-14 08:30] LABS: Alanine Aminotransferase < 9 U/L (7-40); Albumin 2.6 g/dL (3.2-4.8); Bilirubin, Total 0.2 mg/dL (0.2-1.0); Blood Urea Nitrogen 32 mg/dL (9-23); Calcium 8.0 mg/dL (8.7-10.4); Chloride 113 mmol/L (98-107); Sodium 145 mmol/L (136-145); Total Protein 5.2 g/dL (5.7-8.2)
[2025-06-14] MEDS: cefTRIAXone 1GM/50ML D5W 50 ML IV SCH (08:41)
[2025-06-14 09:10] LABS: Anisocytosis Slight; Ovalocytes FEW
--- NOTE | 2025-06-14 10:25 | DVHPN2 ---
Progress Note Date Seen: Jun 14, 2025 Medical Necessity Reason Pt with a Central, PICC or Fol: No Subjective Patient reports: No new complaints Other Systems: Patient seen and examined by myself today in follow-up Objective vital signs Vital Sign Date Time Temp Pulse Resp B/P (MAP) Pulse Ox O2 Delivery O2 Flow Rate FiO2 06/14/25 10:00 94 12 131/53 (79) 100 06/14/25 08:00 98.3 98.3 06/14/25 07:33 Room Air* 0 21 Total Intake and Output 06/13/25 06/13/25 06/14/25 15:00 23:00 07:00 Intake Total 470 ml 300 ml Output Total 1400 ml Balance 470 ml -1100 ml medications Current Medications Medications Dose Ordered Sig/Donaldo Route Start Time Stop Time Status Last Admin Dose Admin Albuterol 2.5 mg Q4HPRN PRN NEB 06/13/25 00:00 Ipratropium [place] 0.5 mg Q4HPRN PRN NEB 06/13/25 00:00 Clopidogrel Bisulfate 75 mg DAILY PO 06/13/25 10:00 06/14/25 08:41 75 MG Atorvastatin Calcium 20 mg HS PO 06/13/25 22:00 06/13/25 22:45 20 MG Famotidine 20 mg DAILY IV 06/13/25 10:00 06/14/25 08:40 20 MG Nitroglycerin 0.4 mg Q5MINP PRN SL 06/13/25 00:00 Morphine Sulfate 2 mg Q30M PRN IV 06/13/25 00:00 Diagnostic Test (Pha) 1 strip ACHS 06/13/25 07:00 06/14/25 06:40 1 STRIP Insulin Human Regular ACHS SC 06/13/25 07:00 06/13/25 06:53 2 UNITS Dextrose 50 ml UD PRN IV 06/13/25 00:15 Sodium Chloride 1,000 ml @ 60 mls/hr [id number] IV 06/13/25 00:15 06/13/25 19:31 60 MLS/HR Acetaminophen/ Hydrocodone Bitart 1 tab Q4HP PRN PO 06/13/25 00:15 Ondansetron HCl 4 mg Q4HP PRN IV 06/13/25 00:15 Docusate Sodium 100 mg BIDPRN PRN PO 06/13/25 00:15 Multivitamins 1 tab DAILY PO 06/13/25 10:00 06/14/25 08:41 1 TAB Acetaminophen 650 mg Q6HP PRN PO 06/13/25 00:15 Ceftriaxone Sodium 50 ml @ 100 mls/hr DAILY@09 IV 06/14/25 09:00 06/14/25 08:41 100 MLS/HR Hydralazine HCl 10 mg Q6HP PRN IV 06/14/25 05:30 06/14/25 05:38 10 MG Examination: LUNGS:Normal, CVS:Normal, MSK:Normal laboratory and microbiology Laboratory Tests 06/14/25 08:02 Test 06/14/25 08:02 Range/Units Serum Glucose 86 74-106 mg/dL Microbiology Date/Time Source Procedure Growth Status 06/12/25 20:00 Blood Blood Culture - Preliminary NO GROWTH AFTER 24 HOURS OF INCUBATION. Resulted Problem List/Assessment/Plan Problem List/Assessment/Plan Acute kidney injury superimposed Chronic Kidney Disease secondary hemodynamic mediated ATN, FeNa > 2% Hyperkalemia due to dietary indiscretion, resolved Acute urinary retention Diabetes mellitus type 2 Peripheral arterial disease Left below-knee amputation Enlarged prostate Nephrolithiasis Urinary tract infection NSTEMI Anemia of chronic kidney disease Mild proteinuria due to underlying diabetic nephropathy Recommendations Kidney function slightly improving today Increased urine output Abarca catheter Strict I&Os Insulin sliding scale IV antibiotics No hydronephrosis reported on CT of the abdomen Cardiology consult Urology consult We will continue to follow Plan discussed with: Patient KRISHNA LYMAN MD Jun 14, 2025 10:25
--- NOTE | 2025-06-14 13:57 | DVHPN2 ---
Subjective Seen and examined at bedside, renal function improving. Cont Abx Changes from previous H/P or p: No Changes Eyes: No Pain, No Vision change, No Conjunctivae inflammation, No Eyelid inflammation, No Other, No Redness ENT: No Ear pain, No Ear discharge, No Nose pain, No Nose discharge, No Nose congestion, No Mouth pain, No Mouth swelling, No Throat pain, No Throat swelling, No Other Cardiovascular: No Chest Pain, No Palpitations, No Orthopnea, No Paroxysmal Noc. Dyspnea, No Edema, No Lt Headedness, No Other Respiratory: No Cough, No Dry, No Shortness of breath, No SOB with excertion, No Wheezing, No Hemoptysis, No Pleuritic Pain, No Sputum, No Other Gastrointestinal: No Nausea, No Vomiting, No Abdominal Pain, No Diarrhea, No Constipation, No Melena, No Hematochezia, No Other Genitourinary: No Dysuria, No Frequency, No Incontinence, No Hematuria, No Retention, No Other Musculoskeletal: No other, No neck pain, No shoulder pain, No arm pain, No back pain, No hand pain, No leg pain, No foot pain Skin: No Rash, No Lesions, No Jaundice, No Bruising, No Other Objective Vitals Vital Signs Date Time Temp Pulse Resp B/P (MAP) Pulse Ox O2 Delivery O2 Flow Rate FiO2 06/14/25 12:00 84 06/14/25 12:00 98.0 12 138/71 (93) 100 98.0 06/14/25 07:33 Room Air* 0 21 Intake/Output Intake and Output 06/14/25 07:00 Intake Total 770 ml Output Total 1400 ml Balance -630 ml Intake IV Total 770 ml Output Urine Total 1400 ml General Appearance: Alert, Oriented X3, Cooperative, No acute distress HEENT: Atraumatic Lungs: Clear to auscultation Cardiovascular: Regular rate, Normal S1, Normal S2 Abdomen: Normal bowel sounds, Soft Extremities: Other (Left BKA) Psych/Mental Status: Mental status NL Medications Current Medications Medications Dose Ordered Sig/Donaldo Route Start Time Stop Time Status Last Admin Dose Admin Albuterol 2.5 mg Q4HPRN PRN NEB 06/13/25 00:00 Ipratropium [place] 0.5 mg Q4HPRN PRN NEB 06/13/25 00:00 Clopidogrel Bisulfate 75 mg DAILY PO 06/13/25 10:00 06/14/25 08:41 75 MG Atorvastatin Calcium 20 mg HS PO 06/13/25 22:00 06/13/25 22:45 20 MG Famotidine 20 mg DAILY IV 06/13/25 10:00 06/14/25 08:40 20 MG Nitroglycerin 0.4 mg Q5MINP PRN SL 06/13/25 00:00 Morphine Sulfate 2 mg Q30M PRN IV 06/13/25 00:00 Diagnostic Test (Pha) 1 strip ACHS 06/13/25 07:00 06/14/25 10:46 1 STRIP Insulin Human Regular ACHS SC 06/13/25 07:00 06/13/25 06:53 2 UNITS Dextrose 50 ml UD PRN IV 06/13/25 00:15 Sodium Chloride 1,000 ml @ 60 mls/hr [id number] IV 06/13/25 00:15 06/13/25 19:31 60 MLS/HR Acetaminophen/ Hydrocodone Bitart 1 tab Q4HP PRN PO 06/13/25 00:15 Ondansetron HCl 4 mg Q4HP PRN IV 06/13/25 00:15 Docusate Sodium 100 mg BIDPRN PRN PO 06/13/25 00:15 Multivitamins 1 tab DAILY PO 06/13/25 10:00 06/14/25 08:41 1 TAB Acetaminophen 650 mg Q6HP PRN PO 06/13/25 00:15 Ceftriaxone Sodium 50 ml @ 100 mls/hr DAILY@09 IV 06/14/25 09:00 06/14/25 08:41 100 MLS/HR Hydralazine HCl 10 mg Q6HP PRN IV 06/14/25 05:30 06/14/25 05:38 10 MG Laboratory Results Laboratory Tests 06/14/25 08:02 Chemistry Test 06/14/25 08:02 Albumin 2.6 g/dL (3.2-4.8) L Calcium Level 8.0 mg/dL (8.7-10.4) L Total Protein 5.2 g/dL (5.7-8.2) L LFT Test 06/14/25 08:02 Alanine Aminotransferase (ALT) < 9 U/L (7-40) Alkaline Phosphatase 101 U/L (46-116) Aspartate Amino Transferase (AST) 26 U/L (13-40) Total Bilirubin 0.2 mg/dL (0.2-1.0) Urinalysis Test 06/13/25 12:00 06/13/25 12:08 Urine Color Yellow (Yellow) Urine Clarity Turbid (Clear) H Urine pH 5.0 (5.0-9.0) Urine Specific [place] 1.014 (1.001-1.035) Urine Protein 1+ (Negative) H Urine Ketones Negative (Negative) Urine Blood 3+ /uL (Negative) H Urine Nitrite Negative (Negative) Urine Bilirubin Negative (Negative) Urine Urobilinogen Normal mg/dL (Negative) Urine Leukocyte Esterase Negative /uL (Negative) Urine RBC 902 /hpf (0 - 3) Urine Microscopic WBC 30 /HPF (0-3) H Urine Squamous Epithelial Cells Few /hpf (<5) Urine Bacteria Few /hpf (None Seen) H Urine Hyaline Casts Many /lpf (0 - 2) Urine Mucus Few (None Seen) Urine Sodium 81 mmol/L (40-220) Urine Glucose Normal mg/dL (Normal) Urine Creatinine 106.86 mg/dL (30.0-125.0) Urine Protein/Creatinine Ratio 1.25 Urine Total Protein 133.8 mg/dL (1-14) H Microbiology Microbiology Date/Time Source Procedure Growth Status 06/12/25 20:00 Blood Blood Culture - Preliminary NO GROWTH AFTER 24 HOURS OF INCUBATION. Resulted Assessment/Plan Assessment/Plan # NSTEMI-II - Monitor - Unlikely cardiac related - Get ECHO # JEWELS due to ATN- improving - Monitor - Renal Consult # Acute Cystitis - Rocephin # L BKA # DM2 - Check A1c # Severe protein malnutrition - Dietary Consult # Goals of care discussion >17 mins FULL CODE Plan discussed with: Patient My Orders Orders - ARIANNE KHANNA MD Procedure Category Date Status Time Basic Metabolic Panel LAB 06/15/25 Verified 04:00 Complete Blood Count LAB 06/15/25 Verified 04:00 Troponin-I Hs LAB 06/14/25 Transmitted 13:55 Troponin-I Hs LAB 06/14/25 Transmitted 14:55 Date of Service: Jun 14, 2025 Billing Provider: ARIANNE KHANNA MD Common Visit Codes: [id number] INP/OBS CARE(HIGH) ARIANNE KHANNA MD Jun 14, 2025 13:57
[2025-06-14 20:08] VITALS: O2SAT 99
[2025-06-14 22:47] VITALS: BP 152/114; PULSE 87; RESP 16; TEMP 97.6; O2SAT 97
[2025-06-14 22:53] VITALS: BP 152/114; PULSE 87; RESP 16; TEMP 97.6; O2SAT 97
[2025-06-15] VITALS (11 sets, daily range): BP systolic 105–150; BP diastolic 48–91; PULSE 73–91; RESP 16–17; TEMP 97.6–99.1; O2SAT 96–100
[2025-06-15 01:49] LABS: INR 1.11 (0.9-1.15); Partial Thromboplastin Time 33.9 SEC (24.5-34.5); Prothrombin Time 11.6 sec (9.3-11.8)
[2025-06-15] MEDS: HEPARIN DRIP/D5W 100UNITS/ML 250 ML IV SCH (02:50)
[2025-06-15] MEDS: HEPARIN SODIUM (PORCINE) 5000 UNITS/ML 1ML VIAL IV ONE (02:50)
--- NOTE | 2025-06-15 02:57 | ECG ---
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
[2025-06-15] MEDS: ATORVASTATIN 20 MG TAB PO SCH (03:50)
--- NOTE | 2025-06-15 08:22 | ECG ---
[facility] Test Date: 2025-06-15 Test Time: 03:24:54 Pat Name: DAMARI WADSWORTH Department: Room: 0292T A Gender: M Equipment Coordinator: BRONSON : 1955 Requested By: JAYLIN LINN Order Number: [id number] Reading MD: Graham Hernandez Measurements Intervals [place] Rate: 87 P: 82 [place]: 126 QRS: 57 QRSD: 106 T: -58 QT: 383 QTc: 461 Interpretive Statements Sinus rhythm Atrial premature complexes Inferior infarct, old Baseline wander in lead(s) V6 Electronically Signed On 06-16-2025 13:23:08 PDT by Graham Hernandez Please click the below link to view image of tracing.
--- NOTE | 2025-06-15 08:39 | DVHSR ---
APPROVED REPORT EXAM: Two-dimensional and M-mode echocardiogram with Doppler and color Doppler. Blood Pressure: 138/71 mmHg INDICATION CHF RISK FACTORS Height: 5' 10", Weight: 87 DIMENSIONS LVDd4.3 (3.8-5.7cm)LA (2D)3.6 (1.9-4.0cm)Aortic Root3.7 (2.0-3.7cm) LVDs3.2 (2.5-4.0cm)LA (MM) (1.9-4.0cm)Aortic Cusp Exc1.5 (1.5-2.0cm) EF (%) 50.0 (55-70%)Rt. Atrium3.2 (1.9-4.0cm)Asc. Aorta cm IVSd1.0 (0.7-1.1cm)RV (D) (1.8-2.4cm) PWd0.8 (0.7-1.1cm) Mitral Valve MitralMitral Stenosis E wave0.60m/sMV Mean GR.mmHg A wave0.70m/sMV Peak GR.mmHg E/A ratio0.92D MVAcm2 Aortic Valve Aortic ValveAortic Stenosis V10.60m/Ganesh Mean GR.1mmHg V20.80m/Ganesh Peak GR.3mmHg LVOT Diameter2.2 (1.8-2.4cm)Doppler AVA2.85cm2 Tricuspid Valve TR Velocity2.50m/s [id number] Conclusion moderate lv dysfucntion lvef 40% normal rv function small circumferential pericardial effusin noted, no tamponade dysrhythmia noted during study left atrum enlarged
[2025-06-15 09:26] LABS: Hematocrit 28.8 % (41.0-53.0); Hemoglobin 9.7 g/dL (13.5-17.5); Mean Corpuscular Hemoglobin 30.9 pg (28.0-32.0); Mean Corpuscular Volume 92.2 fL (80.0-100.0); Nucleated Red Blood Cells % 0.0 %
[2025-06-15 09:33] LABS: Potassium 4.2 mmol/L (3.5-5.1)
[2025-06-15 09:34] LABS: Anion Gap 9 (5-15); Carbon Dioxide 25 mmol/L (20-31)
[2025-06-15 09:37] LABS: INR 1.12 (0.9-1.15); Partial Thromboplastin Time 50.2 SEC (24.5-34.5); Prothrombin Time 11.7 sec (9.3-11.8)
[2025-06-15 09:39] LABS: Glucose 81 mg/dL (74-106)
[2025-06-15 09:40] LABS: BUN/Creatinine Ratio 19.1 (10.0-20.0); Magnesium 2.0 mg/dL (1.6-2.6)
[2025-06-15 09:47] LABS: Calcium 8.1 mg/dL (8.7-10.4); Chloride 113 mmol/L (98-107); Sodium 147 mmol/L (136-145)
[2025-06-15 09:48] LABS: Blood Urea Nitrogen 30 mg/dL (9-23)
--- NOTE | 2025-06-15 10:24 | DVHINCON2 ---
Date Seen: Jun 15, 2025 Referring Physician MD Elliot Reason for Consultation Elevated trops History of Present Illness This is a French-speaking 69-year-old man who presented to the emergency room with a chief complaint of generalized weakness for two days. At time of assessment, the patient was found A&O x 3 but he is a very poor historian. Information obtained from records which indicate the patient presented with generalized weakness associated with decreased appetite and complains of anuria. Denies chest pain, palpitations, diaphoresis, SOB, dizziness, or syncopal events. He has undergone multiple 12 lead electrocardiograms including on 06/15/2025 x 2 revealing a sinus rhythm with multiple PACs and no evidence of acute ST-T changes. Troponin levels peaked at 1043 ng/L with current heparin drip. Significant medical history includes peripheral arterial disease status post HOSIERY KNITTER and stenting of the RLE on 11/08/2022, hypertension, dyslipidemia, wir-zbrxdbd-sfabvlqom diabetes mellitus, status post left jfook-ozr-hhakvfpxlw, right toe amputation, peripheral neuropathy, benign prostatic hyperplasia, nasopharyngeal carcinoma, microcytic anemia, and history of lower GI bleed status post blood transfusions with latest on 01/07/2025. Past Medical History Past medical history reviewed. No other significant than mentioned above. Past Surgical History Left BKA Right toe amputation Family History: Diabetes mellitus G8 MOTHER G8 FATHER Family History Family history reviewed. Social History Denies the use of illicit drugs, alcohol, or tobacco use. States he lives alone. Allergies: Coded Allergies: NO KNOWN ALLERGIES (Unverified , 11/02/22) Home Meds Active Scripts Ergocalciferol (VITAMIN D 21516 UNIT) 50,[address] [place], [address] UNIT PO QWEEKLY for 90 Days, #12 CAP Prov:MICHELLE GALLEGO RESIDENT 01/08/25 Tamsulosin Hcl (Flomax) 0.4 Mg Cap, 0.4 MG PO QPM for 30 Days, #30 CAP 2 Refills Prov:MICHELLE GALLEGO RESIDENT 01/08/25 Nifedipine (Nifedipine Er) 30 Mg Tab, 60 MG PO DAILY for 30 Days, #60 TAB 2 Refills Prov:MICHELLE GALLEGO RESIDENT 01/08/25 Hydrocodone-Acetaminophen (Hydrocodone Bitartrate/AC 5-325 mg) 1 Tab Tab, 1 TAB PO Q8HR for 7 Days, #21 TAB Prov:VALERIE RODRIGES DPM 01/12/23 Reported Medications Clopidogrel Bisulfate (CLOPIDOGREL) 75 Mg Tab, PO 12/21/23 Gabapentin (Gabapentin) 600 Mg Tab, 1 TAB PO 12/21/23 Melatonin (KP MELATONIN) 3 Mg Tab, 10 MG PO HS, TAB 01/09/23 Atorvastatin Calcium (ATORVASTATIN CALCIUM) 40 Mg Tab, 1 TAB PO QPM, #90 TAB 3 Refills 11/05/22 Metformin Hydrochloride (Metformin Hcl) 500 Mg Tab, 1000 MG PO IBID for 30 Days, MG 11/05/22 Pantoprazole Sodium Sesquihydr (Protonix) 40 Mg Tab, 40 MG PO DAILY, #30 TAB 11/05/22 Home Meds Home medications reviewed. Current Medications Current Medications Medications (Trade) Dose Ordered Sig/Donaldo Route PRN Reason Start Time Stop Time Status Last Admin Heparin Sodium/ Dextrose 250 ml @ 5 mls/hr Q24H IV 06/15/25 02:30 06/15/25 02:50 Atorvastatin Calcium (Lipitor) 80 mg HS PO 06/15/25 03:15 06/15/25 03:50 Review of Systems Constitutional: Generalized weakness, decreased appetite Ears, Nose, & Throat: No symptom reported Eyes: No symptom reported Neurological: No symptoms reported Pulmonary/Respiratory: No symptom reported Cardiovascular: No symptom reported Gastrointestinal: No symptom reported Genitourinary: Anuria Musculoskeletal: No symptom reported Skin: No symptom reported Psychiatric: No symptom reported Endocrine: No symptom reported Hemotologic/Lymphatic: No symptom reported Vital Signs Vital Signs Date Time Temp Pulse Resp B/P (MAP) Pulse Ox O2 Delivery O2 Flow Rate FiO2 06/15/25 06:38 99 Room Air* 0 21 06/15/25 05:00 97.6 91 16 129/65 (86) 97.6 Physical Exam General Appearance: Cooperative. Chronically ill. Cachectic. In no acute distress Head Exam: Normal inspection Neck Exam: Normal inspection. Non-tender. Normal alignment Pulmonary/Respiratory: Chest non-tender. Diminished bilateral breath sounds Cardiovascular/Chest: Regular rate and rhythm. S1, S2. Sinus rhythm with multiple PACs. No murmurs. No JVD. Peripheral Pulses: 2+ Radial (R). 2+ Radial (L). 2+ Pedal (R). 2+ Pedal (L) Abdominal Exam: Normal bowel sounds. Soft. Ankle Exam: Negative right ankle edema Lower extremities: Positive right lower extremity edema, 1+ Neuro/Mental Status: A&O x3. Coherent but very poor historian Thoughts/Psych: Normal thought pattern. Apathetic Appearance: In no acute distress Skin Exam: Normal inspection. Pale color. Warm. Dry Labs/Diagnostic Data Labs Test 06/15/25 09:03 06/15/25 05:51 06/14/25 08:02 06/14/25 01:00 Range/Units White Blood Count 9.1 4.4-10.8 10^3/uL Red Blood Count 3.13 L 4.5-5.90 10^6/uL Hemoglobin 9.7 L 13.5-17.5 g/dL Hematocrit 28.8 L 41.0-53.0 % Mean Corpuscular Volume 92.2 80.0-100.0 fL Mean Corpuscular Hemoglobin 30.9 28.0-32.0 pg Mean Corpuscular Hemoglobin Concent 33.5 32.0-36.0 g/dL Red Cell Distribution Width 15.6 H 11.8-14.3 % Platelet Count 302 140-450 10^3/uL Mean Platelet Volume 7.7 6.9-10.8 fL Neutrophils (%) (Auto) 72.4 37.0-80.0 % Lymphocytes (%) (Auto) 21.4 10.0-50.0 % Monocytes (%) (Auto) 5.5 0.0-12.0 % Eosinophils (%) (Auto) 0.4 0.0-7.0 % Basophils (%) (Auto) 0.3 0.0-2.0 % Neutrophils # (Auto) 6.6 1.6-8.6 10 ^3/uL Lymphocytes # (Auto) 2.0 0.4-5.4 10 ^3/uL Monocytes # (Auto) 0.5 0-1.3 10 ^3/uL Eosinophils # (Auto) 0 0-0.8 10 ^3/uL Basophils # (Auto) 0 0-0.2 10 ^3/uL Nucleated Red Blood Cells 0.0 % Prothrombin Time 11.7 9.3-11.8 sec Prothrombin Time INR 1.12 0.9-1.15 Activated Partial Thromboplast Time 50.2 H 24.5-34.5 SEC Sodium Level 147 H 136-145 mmol/L Potassium Level 4.2 3.5-5.1 mmol/L Chloride Level 113 H 98-107 mmol/L Carbon Dioxide Level 25 20-31 mmol/L Anion Gap 9 5-15 Blood Urea Nitrogen 30 H 9-23 mg/dL Creatinine 1.57 H 0.700-1.30 mg/dL Glomerular Filtration Rate Calc 48 >90 mL/min BUN/Creatinine Ratio 19.1 10.0-20.0 Serum Glucose 81 74-106 mg/dL Calcium Level 8.1 L 8.7-10.4 mg/dL Magnesium Level 2.0 1.6-2.6 mg/dL Troponin I High Sensitivity 729 *H </=54 ng/L B-Type Natriuretic Peptide 525.82 0-100 pg/mL POC Glucose 89 70-106 mg/dl Platelet Estimate Adequate Clumped Platelets Few Anisocytosis (manual) Slight Ovalocytes Few [place] Cells Few Total Bilirubin 0.2 0.2-1.0 mg/dL Aspartate Amino Transferase (AST) 26 13-40 U/L Alanine Aminotransferase (ALT) < 9 7-40 U/L Alkaline Phosphatase 101 46-116 U/L Total Protein 5.2 L 5.7-8.2 g/dL Albumin 2.6 L 3.2-4.8 g/dL Influenza Type A Antigen Negative Negative Influenza Type B Antigen Negative Negative SARS-CoV-2 Antigen (Rapid) Negative NEGATIVE Test 06/13/25 12:08 06/13/25 12:00 06/13/25 09:55 06/13/25 00:42 Range/Units Urine Creatinine 106.86 30.0-125.0 mg/dL Urine Protein/Creatinine Ratio 1.25 Urine Total Protein 133.8 H 1-14 mg/dL Urine Color Yellow Yellow Urine Clarity Turbid H Clear Urine pH 5.0 5.0-9.0 Urine Specific [place] 1.014 1.001-1.035 Urine Protein 1+ H Negative Urine Ketones Negative Negative Urine Blood 3+ H Negative /uL Urine Nitrite Negative Negative Urine Bilirubin Negative Negative Urine Urobilinogen Normal Negative mg/dL Urine Leukocyte Esterase Negative Negative /uL Urine RBC 902 0 - 3 /hpf Urine Microscopic WBC 30 H 0-3 /HPF Urine Squamous Epithelial Cells Few <5 /hpf Urine Bacteria Few H None Seen /hpf Urine Hyaline Casts Many 0 - 2 /lpf Urine Mucus Few None Seen Urine Sodium 81 40-220 mmol/L Urine Glucose Normal Normal mg/dL Hemoglobin A1c < 3.8 <5.7 % A1C Parathyroid Hormone (Intact) 25.0 18.4-80.1 pg/mL Uric Acid 9.2 3.7-9.2 mg/dL Phosphorus Level 4.0 2.4-5.1 mg/dL Test 06/12/25 20:01 Range/Units Lactic Acid Level 1.6 0.4-2.0 mmol/L Lipase 13 12-53 U/L Microbiology Date/Time Source Procedure Growth Status 06/12/25 20:00 Blood Blood Culture - Preliminary NO GROWTH AFTER 48 HOURS OF INCUBATION. Resulted Assessment NSTEMI, likely type 1 [place] decompensated HFrEF, NYHA Class III Circumferential pericardial effusion, small Frequent premature atrial contractions PAD status HOSIERY KNITTER and stenting of the RLE (11/08/2022) Nasopharyngeal carcinoma History of anemia with blood transfusions Left wijld-tfh-ehle amputation Hypertension Dyslipidemia Gom-fzlfxra-gxjjvjxra diabetes mellitus Cachexia/?Failure to thrive Plan/Recommendation (Dr. Way) Case discussed with Dr. Odell for possible cardiac intervention. High likelihood of NSTEMI Type I given troponin levels and diminished LV function. Given the patient's overall frailty and recent history of GI bleed with blood transfusions, we will continue medical management only and defer any invasive cardiac work-up. Transition to therapeutic Lovenox, single-antiplatelet therapy, and lipid lowering agent. Monitor ECG changes closely and notify. A transthoracic echocardiogram revealed an LVEF of 40% (LVEF of 60% on 11/06/2022) for which patient will be initiated on GDMT for CHF including beta-sawyer, SGLT2i, and low-dose ARNI. Introduce mineralocorticoid with optimal renal function. Monitor PAC burden on BB, consider an outpatient event monitor. Monitor H&H closely. Follow-up with a primary returns processor within 1-2 weeks post discharge. Thank you for allowing us to participate in this patient's care. Please call if you have any questions or concerns. This medical document was created using an electronic medical record system with voice recognition software and computerized dictation system. Although this document has been carefully reviewed, there might still be some phonetic and typographical errors. Occasional wrong-word or ``sound-alike substitutions may have occurred due to the inherent limitations of voice recognition software. These areas are purely typographical due to imperfections of the software programs and do not reflect any compromise in the patient's medical care. Please read the chart carefully and recognize, using context, where these substitutions have occurred. Plan discussed with: Patient, Other NYHA Physical activity limitations: Class3(Marked) ordinary (activity causes symtoms) Date of Service: Jun 15, 2025 Billing Provider: CARLEEN EDWARD Cardiology Common Codes: [id number] INP/OBS CARE (High) CARLEEN EDWARD Jun 15, 2025 10:24
[2025-06-15] MEDS: ENOXAPARIN SOD 40 MG/0.4 ML SYRINGE SC SCH (11:19)
[2025-06-15] MEDS: METOPROLOL SUCCINATE XL 50 MG TAB PO ONE (11:20)
--- NOTE | 2025-06-15 11:57 | DVHPN2 ---
Progress Note Date Seen: Jun 15, 2025 Medical Necessity Reason Pt with a Central, PICC or Fol: No Subjective Patient reports: No new complaints Review of Systems: HEENT:Normal, CVS:Normal, RESPIRATORY:Normal, GI:Normal, :Normal, MSK:Normal, NEURO:Normal Objective vital signs Vital Sign Date Time Temp Pulse Resp B/P (MAP) Pulse Ox O2 Delivery O2 Flow Rate FiO2 06/15/25 11:20 73 107/48 06/15/25 09:00 97.6 16 99 97.6 06/15/25 06:38 Room Air* 0 21 Total Intake and Output 06/14/25 06/14/25 06/15/25 15:00 23:00 07:00 Intake Total 100 ml Output Total 300 ml Balance -200 ml medications Current Medications Medications Dose Ordered Sig/Donaldo Route Start Time Stop Time Status Last Admin Dose Admin Albuterol 2.5 mg Q4HPRN PRN NEB 06/13/25 00:00 Ipratropium [place] 0.5 mg Q4HPRN PRN NEB 06/13/25 00:00 Clopidogrel Bisulfate 75 mg DAILY PO 06/13/25 10:00 06/15/25 08:49 75 MG Famotidine 20 mg DAILY IV 06/13/25 10:00 06/15/25 11:19 20 MG Nitroglycerin 0.4 mg Q5MINP PRN SL 06/13/25 00:00 Morphine Sulfate 2 mg Q30M PRN IV 06/13/25 00:00 Diagnostic Test (Pha) 1 strip ACHS 06/13/25 07:00 06/15/25 11:24 1 STRIP Insulin Human Regular ACHS SC 06/13/25 07:00 06/13/25 06:53 2 UNITS Dextrose 50 ml UD PRN IV 06/13/25 00:15 Sodium Chloride 1,000 ml @ 60 mls/hr [id number] IV 06/13/25 00:15 06/13/25 19:31 60 MLS/HR Acetaminophen/ Hydrocodone Bitart 1 tab Q4HP PRN PO 06/13/25 00:15 Ondansetron HCl 4 mg Q4HP PRN IV 06/13/25 00:15 Docusate Sodium 100 mg BIDPRN PRN PO 06/13/25 00:15 Multivitamins 1 tab DAILY PO 06/13/25 10:00 06/15/25 08:49 1 TAB Acetaminophen 650 mg Q6HP PRN PO 06/13/25 00:15 Ceftriaxone Sodium 50 ml @ 100 mls/hr DAILY@09 IV 06/14/25 09:00 06/15/25 08:49 100 MLS/HR Hydralazine HCl 10 mg Q6HP PRN IV 06/14/25 05:30 06/14/25 23:48 10 MG Atorvastatin Calcium 80 mg HS PO 06/15/25 03:15 06/15/25 03:50 80 MG Enoxaparin Sodium 40 mg DAILY SC 06/15/25 10:15 06/15/25 11:19 40 MG Enoxaparin Sodium 40 mg Q12HR SC 06/15/25 22:00 UNV Metoprolol Succinate 25 mg DAILY PO 06/16/25 10:00 Empaglifozin 10 mg DAILY PO 06/16/25 10:00 Sacubitril/ Valsartan 0.5 tab BID PO 06/15/25 22:00 Examination: GENERAL:Normal, HEENT:Normal, NECK:Normal, LUNGS:Normal, CVS:Normal, ABDOMEN:Normal, MSK:Normal, MSK:Abnormal (left bka), SKIN:Normal, NEURO:Normal, :Normal laboratory and microbiology Laboratory Tests 06/15/25 09:03 Test 06/15/25 09:03 Range/Units Serum Glucose 81 74-106 mg/dL Microbiology Date/Time Source Procedure Growth Status 06/12/25 20:00 Blood Blood Culture - Preliminary NO GROWTH AFTER 48 HOURS OF INCUBATION. Resulted Problem List/Assessment/Plan Problem List/Assessment/Plan #1 acute mi/nstemi: cont meds #2 dm: ssi #3 pvd #4 s/p left bka #5 anemia #6 acute on chronic renal failure ?vasomotor nephropathy #7 uti: iv rocephin #8 bph #9 mod protein malnutrition #10 acute diastolic heart failure advance care planning- full code- time spent 19 mins Plan discussed with: Patient Date of Service: Jun 15, 2025 Billing Provider: ALMA CRAIG MD Common Visit Codes: [id number] INP/OBS CARE(HIGH) Secondary Visit Codes: [id number] CARE PLAN 30 MINUTES ALMA CRAIG MD Jun 15, 2025 11:57
--- NOTE | 2025-06-15 14:51 | DVHPN2 ---
Progress Note Date Seen: Jun 15, 2025 Medical Necessity Reason Pt with a Central, PICC or Fol: No Subjective Patient reports: No new complaints Review of Systems: Deferred Objective vital signs Vital Sign Date Time Temp Pulse Resp B/P (MAP) Pulse Ox O2 Delivery O2 Flow Rate FiO2 06/15/25 11:20 73 107/48 06/15/25 09:00 97.6 16 99 97.6 06/15/25 06:38 Room Air* 0 21 Total Intake and Output 06/14/25 06/14/25 06/15/25 15:00 23:00 07:00 Intake Total 100 ml Output Total 300 ml Balance -200 ml medications Current Medications Medications Dose Ordered Sig/Donaldo Route Start Time Stop Time Status Last Admin Dose Admin Albuterol 2.5 mg Q4HPRN PRN NEB 06/13/25 00:00 Ipratropium Bruce 0.5 mg Q4HPRN PRN NEB 06/13/25 00:00 Clopidogrel Bisulfate 75 mg DAILY PO 06/13/25 10:00 06/15/25 08:49 75 MG Nitroglycerin 0.4 mg Q5MINP PRN SL 06/13/25 00:00 Morphine Sulfate 2 mg Q30M PRN IV 06/13/25 00:00 Diagnostic Test (Pha) 1 strip ACHS 06/13/25 07:00 06/15/25 11:24 1 STRIP Insulin Human Regular ACHS SC 06/13/25 07:00 06/13/25 06:53 2 UNITS Dextrose 50 ml UD PRN IV 06/13/25 00:15 Acetaminophen/ Hydrocodone Bitart 1 tab Q4HP PRN PO 06/13/25 00:15 Ondansetron HCl 4 mg Q4HP PRN IV 06/13/25 00:15 Docusate Sodium 100 mg BIDPRN PRN PO 06/13/25 00:15 Multivitamins 1 tab DAILY PO 06/13/25 10:00 06/15/25 08:49 1 TAB Acetaminophen 650 mg Q6HP PRN PO 06/13/25 00:15 Ceftriaxone Sodium 50 ml @ 100 mls/hr DAILY@09 IV 06/14/25 09:00 06/15/25 08:49 100 MLS/HR Hydralazine HCl 10 mg Q6HP PRN IV 06/14/25 05:30 06/14/25 23:48 10 MG Atorvastatin Calcium 80 mg HS PO 06/15/25 03:15 06/15/25 03:50 80 MG Enoxaparin Sodium 40 mg DAILY SC 06/15/25 10:15 06/15/25 11:19 40 MG Enoxaparin Sodium 40 mg Q12HR SC 06/15/25 22:00 UNV Metoprolol Succinate 25 mg DAILY PO 06/16/25 10:00 Empaglifozin 10 mg DAILY PO 06/16/25 10:00 Sacubitril/ Valsartan 0.5 tab BID PO 06/15/25 22:00 Pantoprazole Sodium 40 mg DAILY@0600 PO 06/16/25 06:00 Tamsulosin HCl 0.4 mg QPM PO 06/15/25 18:00 laboratory and microbiology Laboratory Tests 06/15/25 09:03 Test 06/15/25 09:03 Range/Units Serum Glucose 81 74-106 mg/dL Microbiology Date/Time Source Procedure Growth Status 06/12/25 20:00 Blood Blood Culture - Preliminary NO GROWTH AFTER 48 HOURS OF INCUBATION. Resulted Problem List/Assessment/Plan Problem List/Assessment/Plan Acute kidney injury superimposed Chronic Kidney Disease secondary hemodynamic mediated ATN, FeNa > 2% Hyperkalemia due to dietary indiscretion, resolved Acute urinary retention Diabetes mellitus type 2 Peripheral arterial disease Left below-knee amputation Enlarged prostate Nephrolithiasis Urinary tract infection NSTEMI Anemia of chronic kidney disease Mild proteinuria due to underlying diabetic nephropathy Recommendations Kidney function slightly improving today Increased urine output/ vicente No hydronephrosis reported on CT of the abdomen Cardiology consult Urology consult We will continue to follow Plan discussed with: Patient MACKENZIE FRIEND MD Jun 15, 2025 14:51
[2025-06-15] MEDS: TAMSULOSIN HYDROCHLORIDE 0.4 MG CAP PO SCH (18:47)
[2025-06-15] MEDS: SACUBITRIL-VALSARTAN 24mg/26mg TAB PO SCH (21:41)
[2025-06-15] MEDS ORDERED: ENOXAPARIN SOD 100 MG/1 ML SYRINGE SC SCH (22:00)
--- NOTE | 2025-06-15 22:50 | DVHINCON2 ---
Date Seen: Jun 15, 2025 Referring Physician MD Elliot Reason for Consultation Elevated trops History of Present Illness This is a Albanian-speaking 69-year-old male with a PMH of peripheral arterial disease status post RFID ENGINEER and stenting of the RLE on 11/08/2022, hypertension, dyslipidemia, [id number]-kemvobtif diabetes mellitus, status post left ecsqr-ebg-wkmznfggzy, right toe amputation, peripheral neuropathy, benign prosta tic hyperplasia, nasopharyngeal carcinoma, microcytic anemia, and history of lower GI bleed status post blood transfusions with latest on 01/07/2025 who presented to the ED with complaint of generalized weakness for two days. At time of assessment, the patient was found A&O x 3 but he is a very poor historian. Information obtained from records which indicate the patient presented with generalized weakness associated with decreased appetite and complains of anuria. Denies chest pain, palpitations, diaphoresis, SOB, dizziness, or syncopal events. He has undergone multiple 12 lead electrocardiograms including on 06/15/2025 x 2 revealing a sinus rhythm with multiple PACs and no evidence of acute ST-T changes. Troponin levels peaked at 1043 ng/L with current heparin drip. Patient was admitted to the hospital. I am asked to consult on this patient. Past Medical History Past medical history reviewed. No other significant than mentioned above. Past Surgical History Left BKA Right toe amputation Family History: Diabetes mellitus G8 MOTHER G8 FATHER Allergies: Coded Allergies: NO KNOWN ALLERGIES (Unverified , 11/02/22) Home Meds Active Scripts Ergocalciferol (VITAMIN D 24580 UNIT) 50,000 [place], [address] UNIT PO QWEEKLY for 90 Days, #12 CAP Prov:MICHELLE GALLEGO RESIDENT 01/08/25 Tamsulosin Hcl (Flomax) 0.4 Mg Cap, 0.4 MG PO QPM for 30 Days, #30 CAP 2 Refills Prov:MICHELLE GALLEGO RESIDENT 01/08/25 Nifedipine (Nifedipine Er) 30 Mg Tab, 60 MG PO DAILY for 30 Days, #60 TAB 2 Refills Prov:MICHELLE GALLEGO RESIDENT 01/08/25 Hydrocodone-Acetaminophen (Hydrocodone Bitartrate/AC 5-325 mg) 1 Tab Tab, 1 TAB PO Q8HR for 7 Days, #21 TAB Prov:VALERIE RODRIGES DPM 01/12/23 Reported Medications Clopidogrel Bisulfate (CLOPIDOGREL) 75 Mg Tab, PO 12/21/23 Gabapentin (Gabapentin) 600 Mg Tab, 1 TAB PO 12/21/23 Melatonin (KP MELATONIN) 3 Mg Tab, 10 MG PO HS, TAB 01/09/23 Atorvastatin Calcium (ATORVASTATIN CALCIUM) 40 Mg Tab, 1 TAB PO QPM, #90 TAB 3 Refills 11/05/22 Metformin Hydrochloride (Metformin Hcl) 500 Mg Tab, 1000 MG PO IBID for 30 Days, MG 11/05/22 Pantoprazole Sodium Sesquihydr (Protonix) 40 Mg Tab, 40 MG PO DAILY, #30 TAB 11/05/22 Current Medications Current Medications Medications (Trade) Dose Ordered Sig/Donaldo Route PRN Reason Start Time Stop Time Status Last Admin Heparin Sodium/ Dextrose 250 ml @ 5 mls/hr Q24H IV 06/15/25 02:30 06/15/25 10:16 DC 06/15/25 02:50 Atorvastatin Calcium (Lipitor) 80 mg HS PO 06/15/25 03:15 06/15/25 21:42 Enoxaparin Sodium (Lovenox) 40 mg DAILY SC 06/15/25 10:15 06/15/25 11:19 Enoxaparin Sodium (Lovenox) 40 mg Q12HR SC 06/15/25 22:00 UNV Metoprolol Succinate (Toprol Xl) 25 mg DAILY PO 06/16/25 10:00 Empaglifozin (Jardiance) 10 mg DAILY PO 06/16/25 10:00 Sacubitril/ Valsartan (Entresto 24-26 Mg tab) 0.5 tab BID PO 06/15/25 22:00 06/15/25 21:41 Pantoprazole Sodium (Protonix Tablet) 40 mg DAILY@0600 PO 06/16/25 06:00 Tamsulosin HCl (Flomax) 0.4 mg QPM PO 06/15/25 18:00 06/15/25 18:47 Review of Systems Constitutional: Generalized weakness, decreased appetite Ears, Nose, & Throat: No symptom reported Eyes: No symptom reported Neurological: No symptoms reported Pulmonary/Respiratory: No symptom reported Cardiovascular: No symptom reported Gastrointestinal: No symptom reported Genitourinary: Anuria Musculoskeletal: No symptom reported Skin: No symptom reported Psychiatric: No symptom reported Endocrine: No symptom reported Hemotologic/Lymphatic: No symptom reported Vital Signs Vital Signs Date Time Temp Pulse Resp B/P (MAP) Pulse Ox O2 Delivery O2 Flow Rate FiO2 06/15/25 22:19 98.1 98.1 06/15/25 21:00 80 16 133/78 (96) 98 06/15/25 15:07 0.0 21 06/15/25 06:38 Room Air* Physical Exam GENERAL: Alert and oriented x 3. No acute distress. Chronically ill. Cachectic. EYES: PERRL, EOMI. Anicteric. HENT: Moist mucous membranes. LUNGS: Clear to auscultation bilaterally. CARDIOVASCULAR: Regular rate and rhythm. ABDOMEN: Soft, non-tender and non-distended. EXTREMITIES: No edema. NEUROLOGIC: No focal neurological deficits. SKIN: Warm, dry. Labs/Diagnostic Data Labs Test 06/15/25 21:40 06/15/25 09:03 06/14/25 08:02 06/14/25 01:00 Range/Units POC Glucose 131 H 70-106 mg/dl White Blood Count 9.1 4.4-10.8 10^3/uL Red Blood Count 3.13 L 4.5-5.90 10^6/uL Hemoglobin 9.7 L 13.5-17.5 g/dL Hematocrit 28.8 L 41.0-53.0 % Mean Corpuscular Volume 92.2 80.0-100.0 fL Mean Corpuscular Hemoglobin 30.9 28.0-32.0 pg Mean Corpuscular Hemoglobin Concent 33.5 32.0-36.0 g/dL Red Cell Distribution Width 15.6 H 11.8-14.3 % Platelet Count 302 140-450 10^3/uL Mean Platelet Volume 7.7 6.9-10.8 fL Neutrophils (%) (Auto) 72.4 37.0-80.0 % Lymphocytes (%) (Auto) 21.4 10.0-50.0 % Monocytes (%) (Auto) 5.5 0.0-12.0 % Eosinophils (%) (Auto) 0.4 0.0-7.0 % Basophils (%) (Auto) 0.3 0.0-2.0 % Neutrophils # (Auto) 6.6 1.6-8.6 10 ^3/uL Lymphocytes # (Auto) 2.0 0.4-5.4 10 ^3/uL Monocytes # (Auto) 0.5 0-1.3 10 ^3/uL Eosinophils # (Auto) 0 0-0.8 10 ^3/uL Basophils # (Auto) 0 0-0.2 10 ^3/uL Nucleated Red Blood Cells 0.0 % Prothrombin Time 11.7 9.3-11.8 sec Prothrombin Time INR 1.12 0.9-1.15 Activated Partial Thromboplast Time 50.2 H 24.5-34.5 SEC Sodium Level 147 H 136-145 mmol/L Potassium Level 4.2 3.5-5.1 mmol/L Chloride Level 113 H 98-107 mmol/L Carbon Dioxide Level 25 20-31 mmol/L Anion Gap 9 5-15 Blood Urea Nitrogen 30 H 9-23 mg/dL Creatinine 1.57 H 0.700-1.30 mg/dL Glomerular Filtration Rate Calc 48 >90 mL/min BUN/Creatinine Ratio 19.1 10.0-20.0 Serum Glucose 81 74-106 mg/dL Calcium Level 8.1 L 8.7-10.4 mg/dL Magnesium Level 2.0 1.6-2.6 mg/dL Troponin I High Sensitivity 729 *H </=54 ng/L B-Type Natriuretic Peptide 525.82 0-100 pg/mL Platelet Estimate Adequate Clumped Platelets Few Anisocytosis (manual) Slight Ovalocytes Few Noemi Cells Few Total Bilirubin 0.2 0.2-1.0 mg/dL Aspartate Amino Transferase (AST) 26 13-40 U/L Alanine Aminotransferase (ALT) < 9 7-40 U/L Alkaline Phosphatase 101 46-116 U/L Total Protein 5.2 L 5.7-8.2 g/dL Albumin 2.6 L 3.2-4.8 g/dL Influenza Type A Antigen Negative Negative Influenza Type B Antigen Negative Negative SARS-CoV-2 Antigen (Rapid) Negative NEGATIVE Test 06/13/25 12:08 06/13/25 12:00 06/13/25 09:55 06/13/25 00:42 Range/Units Urine Creatinine 106.86 30.0-125.0 mg/dL Urine Protein/Creatinine Ratio 1.25 Urine Total Protein 133.8 H 1-14 mg/dL Urine Color Yellow Yellow Urine Clarity Turbid H Clear Urine pH 5.0 5.0-9.0 Urine Specific [place] 1.014 1.001-1.035 Urine Protein 1+ H Negative Urine Ketones Negative Negative Urine Blood 3+ H Negative /uL Urine Nitrite Negative Negative Urine Bilirubin Negative Negative Urine Urobilinogen Normal Negative mg/dL Urine Leukocyte Esterase Negative Negative /uL Urine RBC 902 0 - 3 /hpf Urine Microscopic WBC 30 H 0-3 /HPF Urine Squamous Epithelial Cells Few <5 /hpf Urine Bacteria Few H None Seen /hpf Urine Hyaline Casts Many 0 - 2 /lpf Urine Mucus Few None Seen Urine Sodium 81 40-220 mmol/L Urine Glucose Normal Normal mg/dL Hemoglobin A1c < 3.8 <5.7 % A1C Parathyroid Hormone (Intact) 25.0 18.4-80.1 pg/mL Uric Acid 9.2 3.7-9.2 mg/dL Phosphorus Level 4.0 2.4-5.1 mg/dL Test 06/12/25 20:01 Range/Units Lactic Acid Level 1.6 0.4-2.0 mmol/L Lipase 13 12-53 U/L Microbiology Date/Time Source Procedure Growth Status 06/12/25 20:00 Blood Blood Culture - Preliminary NO GROWTH AFTER 72 HOURS OF INCUBATION. Resulted Assessment NSTEMI, likely type 1. De Godfrey decompensated HFrEF, NYHA Class III. Circumferential pericardial effusion, small. Frequent premature atrial contractions. PAD status RFID ENGINEER and stenting of the RLE (11/08/2022). Nasopharyngeal carcinoma. History of anemia with blood transfusions. Left buxdb-oci-wgap amputation. Hypertension. Dyslipidemia. Zom-izwsams-ugtpasyca diabetes mellitus. Cachexia/?Failure to thrive. Plan/Recommendation I agree with your ongoing assessment and care of plan. Patient has been seen by Karen Roberto NP on my behalf. We have discussed the plan with the patient. Case discussed with Dr. Odell for possible cardiac intervention. High likelihood of NSTEMI Type I given troponin levels and diminished LV function. Given the patient's overall frailty and recent history of GI bleed with blood transfusions, we will continue medical management only and defer any invasive cardiac work-up. Transition to therapeutic Lovenox, single-antiplatelet therapy, and lipid lowering agent. Monitor ECG changes closely and notify. A transthoracic echocardiogram revealed an LVEF of 40% (LVEF of 60% on 11/06/2022) for which patient will be initiated on GDMT for CHF including beta- sawyer, SGLT2i, and low-dose ARNI. Introduce mineralocorticoid with optimal renal function. Monitor PAC burden on BB, consider an outpatient event monitor. Monitor H&H closely. Follow-up with a primary emanations analysis technician within 1-2 weeks post discharge. Additional plan as per the hospital course. Plan discussed with: Patient NYHA Physical activity limitations: Class3(Marked) ordinary Date of Service: Jun 15, 2025 Billing Provider: SEBASTIÁN PLUNKETT MD Cardiology Common Codes: 99378-[id number] INP/OBS CARE (High) Cardiology Consultation Codes: 58838-[id number] CONSULT <45MIN SEBASTIÁN PLUNKETT MD Jun 15, 2025 22:50
[2025-06-16] VITALS (9 sets, daily range): BP systolic 94–152; BP diastolic 50–89; PULSE 65–80; RESP 16–18; TEMP 96.9–98.8; O2SAT 96–99
[2025-06-16] MEDS: PANTOPRAZOLE 40 MG TAB PO SCH (06:05)
[2025-06-16] MEDS: EMPAGLIFLOZIN 10 MG TAB PO SCH (09:56)
[2025-06-16] MEDS: METOPROLOL SUCCINATE XL 50 MG TAB PO SCH (09:56)
[2025-06-16 10:55] LABS: Hematocrit 27.1 % (41.0-53.0); Hemoglobin 9.1 g/dL (13.5-17.5); Mean Corpuscular Hemoglobin 31.1 pg (28.0-32.0); Mean Corpuscular Volume 92.8 fL (80.0-100.0); Nucleated Red Blood Cells % 0.0 %
[2025-06-16 11:08] LABS: Anion Gap 9 (5-15); Carbon Dioxide 25 mmol/L (20-31); Potassium 4.2 mmol/L (3.5-5.1)
[2025-06-16 11:11] LABS: Calcium 7.8 mg/dL (8.7-10.4); Chloride 113 mmol/L (98-107); Sodium 147 mmol/L (136-145)
[2025-06-16 11:14] LABS: BUN/Creatinine Ratio 23.7 (10.0-20.0); Glucose 92 mg/dL (74-106)
[2025-06-16 11:16] LABS: Blood Urea Nitrogen 37 mg/dL (9-23)
--- NOTE | 2025-06-16 13:44 | DVHPN2 ---
Progress Note Date Seen: Jun 16, 2025 Medical Necessity Reason Pt with a Central, PICC or Fol: No Subjective Patient reports: No new complaints Review of Systems: HEENT:Normal, CVS:Normal, RESPIRATORY:Normal, GI:Normal, :Normal, MSK:Normal, NEURO:Normal Objective vital signs Vital Sign Date Time Temp Pulse Resp B/P (MAP) Pulse Ox O2 Delivery O2 Flow Rate FiO2 06/16/25 09:56 104 144/94 06/16/25 09:00 97.7 16 96 97.7 06/16/25 08:05 Room Air* 0 21 Total Intake and Output 06/15/25 06/15/25 06/16/25 15:00 23:00 07:00 Intake Total 287 ml 237 ml 80 ml Output Total 150 ml 40 ml Balance 287 ml 87 ml 40 ml medications Current Medications Medications Dose Ordered Sig/Donaldo Route Start Time Stop Time Status Last Admin Dose Admin Albuterol 2.5 mg Q4HPRN PRN NEB 06/13/25 00:00 Ipratropium [place] 0.5 mg Q4HPRN PRN NEB 06/13/25 00:00 Clopidogrel Bisulfate 75 mg DAILY PO 06/13/25 10:00 06/16/25 09:57 75 MG Nitroglycerin 0.4 mg Q5MINP PRN SL 06/13/25 00:00 Morphine Sulfate 2 mg Q30M PRN IV 06/13/25 00:00 Diagnostic Test (Pha) 1 strip ACHS 06/13/25 07:00 06/16/25 11:30 1 STRIP Insulin Human Regular ACHS SC 06/13/25 07:00 06/15/25 21:47 2 UNITS Dextrose 50 ml UD PRN IV 06/13/25 00:15 Acetaminophen/ Hydrocodone Bitart 1 tab Q4HP PRN PO 06/13/25 00:15 Ondansetron HCl 4 mg Q4HP PRN IV 06/13/25 00:15 Docusate Sodium 100 mg BIDPRN PRN PO 06/13/25 00:15 Multivitamins 1 tab DAILY PO 06/13/25 10:00 06/16/25 09:56 1 TAB Acetaminophen 650 mg Q6HP PRN PO 06/13/25 00:15 Ceftriaxone Sodium 50 ml @ 100 mls/hr DAILY@09 IV 06/14/25 09:00 06/16/25 09:55 100 MLS/HR Hydralazine HCl 10 mg Q6HP PRN IV 06/14/25 05:30 06/14/25 23:48 10 MG Atorvastatin Calcium 80 mg HS PO 06/15/25 03:15 06/15/25 21:42 80 MG Enoxaparin Sodium 40 mg DAILY SC 06/15/25 10:15 06/16/25 09:56 40 MG Enoxaparin Sodium 40 mg Q12HR SC 06/15/25 22:00 UNV Metoprolol Succinate 25 mg DAILY PO 06/16/25 10:00 06/16/25 09:56 25 MG Empaglifozin 10 mg DAILY PO 06/16/25 10:00 06/16/25 09:56 10 MG Sacubitril/ Valsartan 0.5 tab BID PO 06/15/25 22:00 06/16/25 09:56 0.5 TAB Pantoprazole Sodium 40 mg DAILY@0600 PO 06/16/25 06:00 06/16/25 06:05 40 MG Tamsulosin HCl 0.4 mg QPM PO 06/15/25 18:00 06/15/25 18:47 0.4 MG Examination: GENERAL:Normal, HEENT:Normal, NECK:Normal, LUNGS:Normal, CVS:Normal, ABDOMEN:Normal, MSK:Normal, MSK:Abnormal (left bka), SKIN:Normal, NEURO:Normal, :Normal laboratory and microbiology Laboratory Tests 06/16/25 09:52 Test 06/16/25 09:52 Range/Units Serum Glucose 92 74-106 mg/dL Microbiology Date/Time Source Procedure Growth Status 06/12/25 20:00 Blood Blood Culture - Preliminary NO GROWTH AFTER 72 HOURS OF INCUBATION. Resulted Problem List/Assessment/Plan Problem List/Assessment/Plan #1 acute mi/nstemi: conservative treatment, h/o recent gi bleed #2 dm: ssi #3 pvd #4 s/p left bka #5 anemia #6 acute on chronic renal failure ?vasomotor nephropathy #7 uti: iv rocephin #8 bph #9 mod protein malnutrition #10 acute diastolic heart failure #11 h/o nasopharyngeal cancer advance care planning- full code- time spent 19 mins Plan discussed with: Patient My Orders My Orders Orders - ALMA CRAIG MD Procedure Category Date Status Time * Method Consultant CONS 06/16/25 Verified Consult Date of Service: Jun 16, 2025 Billing Provider: ALMA CRAIG MD Common Visit Codes: [id number] INP/OBS CARE(HIGH) ALMA CRAIG MD Jun 16, 2025 13:44
--- NOTE | 2025-06-16 17:03 | DVHPN2 ---
Progress Note Date Seen: Jun 16, 2025 Medical Necessity Reason Pt with a Central, PICC or Fol: No Subjective Patient reports: No new complaints Review of Systems: Deferred Objective vital signs Vital Sign Date Time Temp Pulse Resp B/P (MAP) Pulse Ox O2 Delivery O2 Flow Rate FiO2 06/16/25 16:53 98.0 73 16 119/89 (99) 98 98.0 06/16/25 08:05 Room Air* 0 21 Total Intake and Output 06/15/25 06/15/25 06/16/25 15:00 23:00 07:00 Intake Total 287 ml 237 ml 80 ml Output Total 150 ml 40 ml Balance 287 ml 87 ml 40 ml medications Current Medications Medications Dose Ordered Sig/Donaldo Route Start Time Stop Time Status Last Admin Dose Admin Albuterol 2.5 mg Q4HPRN PRN NEB 06/13/25 00:00 Ipratropium [place] 0.5 mg Q4HPRN PRN NEB 06/13/25 00:00 Clopidogrel Bisulfate 75 mg DAILY PO 06/13/25 10:00 06/16/25 09:57 75 MG Nitroglycerin 0.4 mg Q5MINP PRN SL 06/13/25 00:00 Morphine Sulfate 2 mg Q30M PRN IV 06/13/25 00:00 Diagnostic Test (Pha) 1 strip ACHS 06/13/25 07:00 06/16/25 11:30 1 STRIP Insulin Human Regular ACHS SC 06/13/25 07:00 06/15/25 21:47 2 UNITS Dextrose 50 ml UD PRN IV 06/13/25 00:15 Acetaminophen/ Hydrocodone Bitart 1 tab Q4HP PRN PO 06/13/25 00:15 Ondansetron HCl 4 mg Q4HP PRN IV 06/13/25 00:15 Docusate Sodium 100 mg BIDPRN PRN PO 06/13/25 00:15 Multivitamins 1 tab DAILY PO 06/13/25 10:00 06/16/25 09:56 1 TAB Acetaminophen 650 mg Q6HP PRN PO 06/13/25 00:15 Ceftriaxone Sodium 50 ml @ 100 mls/hr DAILY@09 IV 06/14/25 09:00 06/16/25 09:55 100 MLS/HR Hydralazine HCl 10 mg Q6HP PRN IV 06/14/25 05:30 06/14/25 23:48 10 MG Atorvastatin Calcium 80 mg HS PO 06/15/25 03:15 06/15/25 21:42 80 MG Enoxaparin Sodium 40 mg Q12HR SC 06/15/25 22:00 UNV Metoprolol Succinate 25 mg DAILY PO 06/16/25 10:00 06/16/25 09:56 25 MG Empaglifozin 10 mg DAILY PO 06/16/25 10:00 06/16/25 09:56 10 MG Sacubitril/ Valsartan 0.5 tab BID PO 06/15/25 22:00 06/16/25 09:56 0.5 TAB Pantoprazole Sodium 40 mg DAILY@0600 PO 06/16/25 06:00 06/16/25 06:05 40 MG Tamsulosin HCl 0.4 mg QPM PO 06/15/25 18:00 06/15/25 18:47 0.4 MG laboratory and microbiology Laboratory Tests 06/16/25 09:52 Test 06/16/25 09:52 Range/Units Serum Glucose 92 74-106 mg/dL Microbiology Date/Time Source Procedure Growth Status 06/12/25 20:00 Blood Blood Culture - Preliminary NO GROWTH AFTER 72 HOURS OF INCUBATION. Resulted Problem List/Assessment/Plan Problem List/Assessment/Plan Acute kidney injury superimposed Chronic Kidney Disease secondary hemodynamic mediated ATN, FeNa > 2% Hyperkalemia due to dietary indiscretion, resolved Acute urinary retention Diabetes mellitus type 2 Peripheral arterial disease Left below-knee amputation Enlarged prostate Nephrolithiasis Urinary tract infection NSTEMI Anemia of chronic kidney disease Mild proteinuria due to underlying diabetic nephropathy Recommendations Kidney function slightly improving today Increased urine output/ vicente No hydronephrosis reported on CT of the abdomen Cardiology consult Urology consult We will continue to follow Plan discussed with: Patient Dietary Evaluation Review Recommendations by RD: Increase Calorie Intake, Protein Supplementation Comments: Pt meets criteria for Severe Protein-Calorie Malnutrition in the setting of chronic illness based on PO intake < 75% EER >7 days and severe wt loss 7kg/13% in 5 months Nutrition Recommendation 1) Glucerna 240ml TID 2) Monitor PO intake, lab values, weight trend, and I/O Expected Outcomes/Goals: To maintain/gain weight To meet >75% estimated needs Lab values to improve Fu 3-5 days Food and Nutrition Intake (Mod: <75% est energy req 7days Interpretation of weight loss: >10% in 6 months Protein Calorie Malnutrition: Severe Is there a minimum of two crit: Yes MACKENZIE FRIEND MD Jun 16, 2025 17:03
[2025-06-17] VITALS (8 sets, daily range): BP systolic 110–129; BP diastolic 47–71; PULSE 56–72; RESP 16–17; TEMP 97.6–98; O2SAT 94–97
--- NOTE | 2025-06-17 00:01 | DVHPN2 ---
Progress Note - Dictate Date Seen: Jun 16, 2025 Medical Necessity Reason Pt with a Central, PICC or Fol: No Subjective Patient was seen and evaluated in follow up. No overnight events. No new complaints. HGB 9.1, HCT 27.1, BA 147, BUN 37, Lap Machine Operator 1.56. Echocardiogram shows an EF of 40%. Telemetry reviewed. vital signs Vital Sign Date Time Temp Pulse Resp B/P (MAP) Pulse Ox O2 Delivery O2 Flow Rate FiO2 06/16/25 21:00 97.9 67 17 152/84 (106) 96 97.9 06/16/25 19:08 Room Air 06/16/25 19:08 0 21 21 Total Intake and Output 06/15/25 06/15/25 06/16/25 15:00 23:00 07:00 Intake Total 287 ml 237 ml 80 ml Output Total 150 ml 40 ml Balance 287 ml 87 ml 40 ml medications Current Medications Medications Dose Ordered Sig/Donaldo Route Start Time Stop Time Status Last Admin Dose Admin Albuterol 2.5 mg Q4HPRN PRN NEB 06/13/25 00:00 Ipratropium [place] 0.5 mg Q4HPRN PRN NEB 06/13/25 00:00 Clopidogrel Bisulfate 75 mg DAILY PO 06/13/25 10:00 06/16/25 09:57 75 MG Nitroglycerin 0.4 mg Q5MINP PRN SL 06/13/25 00:00 Morphine Sulfate 2 mg Q30M PRN IV 06/13/25 00:00 Diagnostic Test (Pha) 1 strip ACHS 06/13/25 07:00 06/16/25 21:21 1 STRIP Insulin Human Regular ACHS SC 06/13/25 07:00 06/15/25 21:47 2 UNITS Dextrose 50 ml UD PRN IV 06/13/25 00:15 Acetaminophen/ Hydrocodone Bitart 1 tab Q4HP PRN PO 06/13/25 00:15 Ondansetron HCl 4 mg Q4HP PRN IV 06/13/25 00:15 Docusate Sodium 100 mg BIDPRN PRN PO 06/13/25 00:15 Multivitamins 1 tab DAILY PO 06/13/25 10:00 06/16/25 09:56 1 TAB Acetaminophen 650 mg Q6HP PRN PO 06/13/25 00:15 Ceftriaxone Sodium 50 ml @ 100 mls/hr DAILY@09 IV 06/14/25 09:00 06/16/25 09:55 100 MLS/HR Hydralazine HCl 10 mg Q6HP PRN IV 06/14/25 05:30 06/14/25 23:48 10 MG Atorvastatin Calcium 80 mg HS PO 06/15/25 03:15 06/16/25 21:20 80 MG Enoxaparin Sodium 40 mg Q12HR SC 06/15/25 22:00 UNV Metoprolol Succinate 25 mg DAILY PO 06/16/25 10:00 06/16/25 09:56 25 MG Empaglifozin 10 mg DAILY PO 06/16/25 10:00 06/16/25 09:56 10 MG Sacubitril/ Valsartan 0.5 tab BID PO 06/15/25 22:00 06/16/25 21:20 0.5 TAB Pantoprazole Sodium 40 mg DAILY@0600 PO 06/16/25 06:00 06/16/25 06:05 40 MG Tamsulosin HCl 0.4 mg QPM PO 06/15/25 18:00 06/16/25 17:47 0.4 MG objective GENERAL: Alert and oriented x 3. No acute distress. Chronically ill. Cachectic. EYES: PERRL, EOMI. Anicteric. HENT: Moist mucous membranes. LUNGS: Clear to auscultation bilaterally. CARDIOVASCULAR: Regular rate and rhythm. ABDOMEN: Soft, non-tender and non-distended. EXTREMITIES: No edema. NEUROLOGIC: No focal neurological deficits. SKIN: Warm, dry. laboratory and microbiology Laboratory Tests 06/16/25 09:52 Test 06/16/25 09:52 Range/Units Serum Glucose 92 74-106 mg/dL Problem List NSTEMI, likely type 1. De Godfrey decompensated HFrEF, NYHA Class III. Circumferential pericardial effusion, small. Frequent premature atrial contractions. 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 Nasopharyngeal carcinoma. History of anemia with blood transfusions. Left oxctc-nwf-uzpp amputation. Hypertension. Dyslipidemia. Oss-tuniwkn-jjvosamat diabetes mellitus. Cachexia/?Failure to thrive. Assessment/Plan Continued all current supportive medical care. Morphine and [place] for pain management. Lipitor, Plavix, Metoprolol. IV antibiotics as ordered. IV Hydralazine for SBP > 150. Nitro SL. GI prophylactics. Entresto. Continue medical management only and defer any invasive cardiac work up. Additional plan as per the hospital course. Dietary Evaluation Review Recommendations by RD: Increase Calorie Intake, Protein Supplementation Comments: Pt meets criteria for Severe Protein-Calorie Malnutrition in the setting of chronic illness based on PO intake < 75% EER >7 days and severe wt loss 7kg/13% in 5 months Nutrition Recommendation 1) Glucerna 240ml TID 2) Monitor PO intake, lab values, weight trend, and I/O Expected Outcomes/Goals: To maintain/gain weight To meet >75% estimated needs Lab values to improve Fu 3-5 days Food and Nutrition Intake (Mod: <75% est energy req 7days Interpretation of weight loss: >10% in 6 months Protein Calorie Malnutrition: Severe Is there a minimum of two crit: Yes Plan discussed with: Patient SEBASTIÁN PLUNKETT MD Jun 17, 2025 00:01
--- NOTE | 2025-06-17 12:53 | DVHDS2 ---
Discharge Summary Date of Admission Jun 12, 2025 at 23:54 Date of Discharge: Jun 17, 2025 Labs/Diagnostic Data: Laboratory Results Test 06/17/25 10:52 06/16/25 09:52 06/15/25 09:03 06/14/25 08:02 POC Glucose 119 mg/dl (70-106) White Blood Count 8.8 10^3/uL (4.4-10.8) Red Blood Count 2.92 10^6/uL (4.5-5.90) Hemoglobin 9.1 g/dL (13.5-17.5) Hematocrit 27.1 % (41.0-53.0) Mean Corpuscular Volume 92.8 fL (80.0-100.0) Mean Corpuscular Hemoglobin 31.1 pg (28.0-32.0) Mean Corpuscular Hemoglobin Concent 33.5 g/dL (32.0-36.0) Red Cell Distribution Width 16.3 % (11.8-14.3) Platelet Count 269 10^3/uL (140-450) Mean Platelet Volume 7.8 fL (6.9-10.8) Neutrophils (%) (Auto) 83.5 % (37.0-80.0) Lymphocytes (%) (Auto) 10.7 % (10.0-50.0) Monocytes (%) (Auto) 5.3 % (0.0-12.0) Eosinophils (%) (Auto) 0.3 % (0.0-7.0) Basophils (%) (Auto) 0.2 % (0.0-2.0) Neutrophils # (Auto) 7.3 10 ^3/uL (1.6-8.6) Lymphocytes # (Auto) 0.9 10 ^3/uL (0.4-5.4) Monocytes # (Auto) 0.5 10 ^3/uL (0-1.3) Eosinophils # (Auto) 0 10 ^3/uL (0-0.8) Basophils # (Auto) 0 10 ^3/uL (0-0.2) Nucleated Red Blood Cells 0.0 % Sodium Level 147 mmol/L (136-145) Potassium Level 4.2 mmol/L (3.5-5.1) Chloride Level 113 mmol/L (98-107) Carbon Dioxide Level 25 mmol/L (20-31) Anion Gap 9 (5-15) Blood Urea Nitrogen 37 mg/dL (9-23) Creatinine 1.56 mg/dL (0.700-1.30) Glomerular Filtration Rate Calc 48 mL/min (>90) BUN/Creatinine Ratio 23.7 (10.0-20.0) Serum Glucose 92 mg/dL (74-106) Calcium Level 7.8 mg/dL (8.7-10.4) Prothrombin Time 11.7 sec (9.3-11.8) Prothrombin Time INR 1.12 (0.9-1.15) Activated Partial Thromboplast Time 50.2 SEC (24.5-34.5) Magnesium Level 2.0 mg/dL (1.6-2.6) Troponin I High Sensitivity 729 ng/L (</=54) B-Type Natriuretic Peptide 525.82 pg/mL (0-100) Platelet Estimate Adequate Clumped Platelets Few Anisocytosis (manual) Slight Ovalocytes Few [place] Cells Few Total Bilirubin 0.2 mg/dL (0.2-1.0) Aspartate Amino Transferase (AST) 26 U/L (13-40) Alanine Aminotransferase (ALT) < 9 U/L (7-40) Alkaline Phosphatase 101 U/L (46-116) Total Protein 5.2 g/dL (5.7-8.2) Albumin 2.6 g/dL (3.2-4.8) Test 06/14/25 01:00 06/13/25 12:08 06/13/25 12:00 06/13/25 09:55 Influenza Type A Antigen Negative (Negative) Influenza Type B Antigen Negative (Negative) SARS-CoV-2 Antigen (Rapid) Negative (NEGATIVE) Urine Creatinine 106.86 mg/dL (30.0-125.0) Urine Protein/Creatinine Ratio 1.25 Urine Total Protein 133.8 mg/dL (1-14) Urine Color Yellow (Yellow) Urine Clarity Turbid (Clear) Urine pH 5.0 (5.0-9.0) Urine Specific [place] 1.014 (1.001-1.035) Urine Protein 1+ (Negative) Urine Ketones Negative (Negative) Urine Blood 3+ /uL (Negative) Urine Nitrite Negative (Negative) Urine Bilirubin Negative (Negative) Urine Urobilinogen Normal mg/dL (Negative) Urine Leukocyte Esterase Negative /uL (Negative) Urine RBC 902 /hpf (0 - 3) Urine Microscopic WBC 30 /HPF (0-3) Urine Squamous Epithelial Cells Few /hpf (<5) Urine Bacteria Few /hpf (None Seen) Urine Hyaline Casts Many /lpf (0 - 2) Urine Mucus Few (None Seen) Urine Sodium 81 mmol/L (40-220) Urine Glucose Normal mg/dL (Normal) Hemoglobin A1c < 3.8 % A1C (<5.7) Parathyroid Hormone (Intact) 25.0 pg/mL (18.4-80.1) Test 06/13/25 00:42 06/12/25 20:01 Uric Acid 9.2 mg/dL (3.7-9.2) Phosphorus Level 4.0 mg/dL (2.4-5.1) Lactic Acid Level 1.6 mmol/L (0.4-2.0) Lipase 13 U/L (12-53) Other Laboratory Tests 06/16/25 09:52 Brief Hx & Hospital Course: see dictated note Condition at Discharge: Fair Final Diagnosis/Problems List cad Discharge Disposition: Home Discharge Instruct/Medications Diet: Cardiac 2g Na,low cholest Activity: No Restrictions, As Tolerated Follow Up/Referral: [facility] pcp/cardiology Medications: resume home meds Scheduled Atorvastatin Calcium (Atorvastatin Calcium), 1 TAB PO QPM, (Reported) Ergocalciferol (Vitamin D 00365 Unit), 50,000 UNIT PO QWEEKLY Hydrocodone-Acetaminophen (Hydrocodone Bitartrate/AC 5-325 mg), 1 TAB PO Q8HR Melatonin (Kp Melatonin), 10 MG PO HS, (Reported) Metformin Hydrochloride (Metformin Hcl), 1,000 MG PO IBID, (Reported) Nifedipine (Nifedipine Er), 60 MG PO DAILY Pantoprazole Sodium Sesquihydr (Protonix), 40 MG PO DAILY, (Reported) Tamsulosin Hcl (Flomax), 0.4 MG PO QPM Miscellaneous Medications Clopidogrel Bisulfate (Clopidogrel), PO, (Reported) Gabapentin (Gabapentin), 1 TAB PO, (Reported) Discharge Statement: "Patient was advised to return to the ER or call 911 if any headaches, dizziness, shortness of breath, chest pain, abdominal pain, bleeding, fevers, or worsening of medical condition. Patient was counseled about treatment plan, medications, possible side effects, patientverbalized understanding. All questions were answered to the best of my ability. This discharge took greater then 30 minutes in planning, reviewing documentation, counseling the patient, and discussing with other team members." ASSESSMENT ASSESSMENT Assessment cad Date of Service: Jun 17, 2025 Billing Provider: ALMA CRAIG MD Common Visit Codes: 62027-AYY/OBS DISCH DAY >30min ALMA CRAIG MD Jun 17, 2025 12:53
--- NOTE | 2025-06-17 13:09 | DVHDS ---
DATE OF DISCHARGE: 06/17/2025 HISTORY OF PRESENT ILLNESS: The patient is a 69-year-old gentleman who was admitted with a history of generalized weakness and loss of appetite and has history of diabetes, hypertension, peripheral vascular disease, and chronic kidney disease. HOSPITAL COURSE: The patient had elevated troponin levels up to 1043. Creatinine was 1.8 that improved to 1.56 at the time of discharge. The patient was anemic with a hemoglobin of 9.1. He was seen in Nephrology consult by Dr. Campuzano as well as Cardiology consult by Dr. Way. Echocardiogram done showed an ejection fraction of 40%. In view of the patient's overall medical condition and in view of recent GI bleed, it was decided to treat the patient conservatively. 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 FINAL DIAGNOSES: Therefore, * Acute myocardial infarction, likely a non-STEMI. * Diabetes mellitus. * Peripheral vascular disease. * Status post left BKA. * Anemia. * Acute on chronic renal failure, questionable vasomotor nephropathy. * Questionable UTI. * BPH. * Moderate protein malnutrition. * Acute diastolic heart failure. * History of nasopharyngeal cancer. Time spent in discharge planning and review of plan with the patient and nursing was 38 minutes. MD SILVIO Lucio/VIVI TID: [id number] RECEIPT: [id number]
--- NOTE | 2025-06-17 15:31 | DVHPN2 ---
Progress Note Date Seen: Jun 17, 2025 Medical Necessity Reason Pt with a Central, PICC or Fol: No Subjective Patient reports: No new complaints Review of Systems: Deferred Objective vital signs Vital Sign Date Time Temp Pulse Resp B/P (MAP) Pulse Ox O2 Delivery O2 Flow Rate FiO2 06/17/25 13:52 97.9 72 17 94 06/17/25 13:00 116/71 (86) 06/17/25 08:08 Room Air* 0 21 Total Intake and Output 06/16/25 06/16/25 06/17/25 15:00 23:00 07:00 Intake Total 698 ml 848 ml 450 ml Output Total 200 ml 200 ml Balance 698 ml 648 ml 250 ml medications Current Medications Medications Dose Ordered Sig/Donaldo Route Start Time Stop Time Status Last Admin Dose Admin Albuterol 2.5 mg Q4HPRN PRN NEB 06/13/25 00:00 Ipratropium [place] 0.5 mg Q4HPRN PRN NEB 06/13/25 00:00 Clopidogrel Bisulfate 75 mg DAILY PO 06/13/25 10:00 06/17/25 09:26 75 MG Nitroglycerin 0.4 mg Q5MINP PRN SL 06/13/25 00:00 Morphine Sulfate 2 mg Q30M PRN IV 06/13/25 00:00 Diagnostic Test (Pha) 1 strip ACHS 06/13/25 07:00 06/17/25 11:01 1 STRIP Insulin Human Regular ACHS SC 06/13/25 07:00 06/15/25 21:47 2 UNITS Dextrose 50 ml UD PRN IV 06/13/25 00:15 Acetaminophen/ Hydrocodone Bitart 1 tab Q4HP PRN PO 06/13/25 00:15 Ondansetron HCl 4 mg Q4HP PRN IV 06/13/25 00:15 Docusate Sodium 100 mg BIDPRN PRN PO 06/13/25 00:15 Multivitamins 1 tab DAILY PO 06/13/25 10:00 06/17/25 09:26 1 TAB Acetaminophen 650 mg Q6HP PRN PO 06/13/25 00:15 Ceftriaxone Sodium 50 ml @ 100 mls/hr DAILY@09 IV 06/14/25 09:00 06/17/25 09:24 100 MLS/HR Hydralazine HCl 10 mg Q6HP PRN IV 06/14/25 05:30 06/14/25 23:48 10 MG Atorvastatin Calcium 80 mg HS PO 06/15/25 03:15 06/16/25 21:20 80 MG Enoxaparin Sodium 40 mg Q12HR SC 06/15/25 22:00 UNV Metoprolol Succinate 25 mg DAILY PO 06/16/25 10:00 06/17/25 09:25 25 MG Empaglifozin 10 mg DAILY PO 06/16/25 10:00 06/17/25 09:26 10 MG Sacubitril/ Valsartan 0.5 tab BID PO 06/15/25 22:00 06/17/25 09:24 0.5 TAB Pantoprazole Sodium 40 mg DAILY@0600 PO 06/16/25 06:00 06/17/25 06:08 40 MG Tamsulosin HCl 0.4 mg QPM PO 06/15/25 18:00 06/16/25 17:47 0.4 MG laboratory and microbiology Laboratory Tests 06/16/25 09:52 Test 06/16/25 09:52 Range/Units Serum Glucose 92 74-106 mg/dL Microbiology Date/Time Source Procedure Growth Status 06/12/25 20:00 Blood Blood Culture - Preliminary NO GROWTH AFTER 72 HOURS OF INCUBATION. Resulted Problem List/Assessment/Plan Problem List/Assessment/Plan Acute kidney injury superimposed Chronic Kidney Disease secondary hemodynamic mediated ATN, FeNa > 2% Hyperkalemia due to dietary indiscretion, resolved hypernatremia Acute urinary retention Diabetes mellitus type 2 Peripheral arterial disease Left below-knee amputation Enlarged prostate Nephrolithiasis Urinary tract infection NSTEMI Anemia of chronic kidney disease Mild proteinuria due to underlying diabetic nephropathy Recommendations increase free water for Na correction outpt JEWELS f/u Plan discussed with: Patient My Orders My Orders Orders - MACKENZIE FRIEND MD Procedure Category Date Status Time Basic Metabolic Panel LAB 06/18/25 Verified 04:00 Dietary Evaluation Review Recommendations by RD: Increase Calorie Intake, Protein Supplementation Comments: Pt meets criteria for Severe Protein-Calorie Malnutrition in the setting of chronic illness based on PO intake < 75% EER >7 days and severe wt loss 7kg/13% in 5 months Nutrition Recommendation 1) Glucerna 240ml TID 2) Monitor PO intake, lab values, weight trend, and I/O Expected Outcomes/Goals: To maintain/gain weight To meet >75% estimated needs Lab values to improve Fu 3-5 days Food and Nutrition Intake (Mod: <75% est energy req 7days Interpretation of weight loss: >10% in 6 months Protein Calorie Malnutrition: Severe Is there a minimum of two crit: Yes MACKENZIE FRIEND MD Jun 17, 2025 15:31
--- NOTE | 2025-06-18 01:30 | DVHPN2 ---
Progress Note - Dictate Date Seen: Jun 17, 2025 Medical Necessity Reason Pt with a Central, PICC or Fol: No Subjective Patient was seen and evaluated in follow up. No overnight events. Patient appears comfortable in bed. BS are WNL. Patient is cardiac stable for discharge. Telemetry reviewed. vital signs Vital Sign Date Time Temp Pulse Resp B/P (MAP) Pulse Ox O2 Delivery O2 Flow Rate FiO2 06/17/25 13:52 97.9 72 17 94 06/17/25 13:00 116/71 (86) 06/17/25 08:08 Room Air* 0 21 Total Intake and Output 06/16/25 06/16/25 06/17/25 15:00 23:00 07:00 Intake Total 698 ml 848 ml 450 ml Output Total 200 ml 200 ml Balance 698 ml 648 ml 250 ml medications Current Medications Medications Dose Ordered Sig/Donaldo Route Start Time Stop Time Status Last Admin Dose Admin Albuterol 2.5 mg Q4HPRN PRN NEB 06/13/25 00:00 Ipratropium [place] 0.5 mg Q4HPRN PRN NEB 06/13/25 00:00 Clopidogrel Bisulfate 75 mg DAILY PO 06/13/25 10:00 06/17/25 09:26 75 MG Nitroglycerin 0.4 mg Q5MINP PRN SL 06/13/25 00:00 Morphine Sulfate 2 mg Q30M PRN IV 06/13/25 00:00 Diagnostic Test (Pha) 1 strip ACHS 06/13/25 07:00 06/17/25 11:01 1 STRIP Insulin Human Regular ACHS SC 06/13/25 07:00 06/15/25 21:47 2 UNITS Dextrose 50 ml UD PRN IV 06/13/25 00:15 Acetaminophen/ Hydrocodone Bitart 1 tab Q4HP PRN PO 06/13/25 00:15 Ondansetron HCl 4 mg Q4HP PRN IV 06/13/25 00:15 Docusate Sodium 100 mg BIDPRN PRN PO 06/13/25 00:15 Multivitamins 1 tab DAILY PO 06/13/25 10:00 06/17/25 09:26 1 TAB Acetaminophen 650 mg Q6HP PRN PO 06/13/25 00:15 Ceftriaxone Sodium 50 ml @ 100 mls/hr DAILY@09 IV 06/14/25 09:00 06/17/25 09:24 100 MLS/HR Hydralazine HCl 10 mg Q6HP PRN IV 06/14/25 05:30 06/14/25 23:48 10 MG Atorvastatin Calcium 80 mg HS PO 06/15/25 03:15 06/16/25 21:20 80 MG Enoxaparin Sodium 40 mg Q12HR SC 06/15/25 22:00 UNV Metoprolol Succinate 25 mg DAILY PO 06/16/25 10:00 06/17/25 09:25 25 MG Empaglifozin 10 mg DAILY PO 06/16/25 10:00 06/17/25 09:26 10 MG Sacubitril/ Valsartan 0.5 tab BID PO 06/15/25 22:00 06/17/25 09:24 0.5 TAB Pantoprazole Sodium 40 mg DAILY@0600 PO 06/16/25 06:00 06/17/25 06:08 40 MG Tamsulosin HCl 0.4 mg QPM PO 06/15/25 18:00 06/16/25 17:47 0.4 MG objective GENERAL: Alert and oriented x 3. No acute distress. Chronically ill. Cachectic. EYES: PERRL, EOMI. Anicteric. HENT: Moist mucous membranes. LUNGS: Clear to auscultation bilaterally. CARDIOVASCULAR: Regular rate and rhythm. ABDOMEN: Soft, non-tender and non-distended. EXTREMITIES: No edema. NEUROLOGIC: No focal neurological deficits. SKIN: Warm, dry. laboratory and microbiology Laboratory Tests 06/16/25 09:52 Test 06/16/25 09:52 Range/Units Serum Glucose 92 74-106 mg/dL Problem List NSTEMI, likely type 1. [place] decompensated HFrEF, NYHA Class III. Circumferential pericardial effusion, small. Frequent premature atrial contractions. PAD status TRANSITION LEAD and stenting of the RLE (11/08/2022). Nasopharyngeal carcinoma. History of anemia with blood transfusions. Left [id number] amputation. Hypertension. Dyslipidemia. [id number] diabetes mellitus. Cachexia/?Failure to thrive. Assessment/Plan Continued all current supportive medical care. Morphine and [place] for pain management. Plavix, Metoprolol. IV antibiotics as ordered. Nitro SL. GI prophylactics. Entresto. Additional plan as per the hospital course. Dietary Evaluation Review Recommendations by RD: Increase Calorie Intake, Protein Supplementation Comments: Pt meets criteria for Severe Protein-Calorie Malnutrition in the setting of chronic illness based on PO intake < 75% EER >7 days and severe wt loss 7kg/13% in 5 months Nutrition Recommendation 1) Glucerna 240ml TID 2) Monitor PO intake, lab values, weight trend, and I/O Expected Outcomes/Goals: To maintain/gain weight To meet >75% estimated needs Lab values to improve Fu 3-5 days Food and Nutrition Intake (Mod: <75% est energy req 7days Interpretation of weight loss: >10% in 6 months Protein Calorie Malnutrition: Severe Is there a minimum of two crit: Yes Plan discussed with: Patient SEBASTIÁN PLUNKETT MD Jun 17, 2025 15:04
== END 2025-06-17 18:00 | disposition home or self-care (01) | DRG 280 ==
LOC: ER 18:58 → OVERFLOW 23:54 → TELE-WESTW 06-14 22:45
PROVIDERS: ADMIT Internal Medicine; ATTEND Internal Medicine
DX: I13.0 Hypertensive heart and chronic kidney disease with heart failure and stage 1 through stage 4 chronic kidney disease, or unspecified chronic kidney disease (principal); I50.31 Acute diastolic (congestive) heart failure; I21.4 Non-ST elevation (NSTEMI) myocardial infarction; N17.0 Acute kidney failure with tubular necrosis; I31.39 Other pericardial effusion (noninflammatory); E87.0 Hyperosmolality and hypernatremia; N30.00 Acute cystitis without hematuria; Z68.1 Body mass index [BMI] 19.9 or less, adult; E44.0 Moderate protein-calorie malnutrition; N20.0 Calculus of kidney; Z20.822 Contact with and (suspected) exposure to COVID-19; D63.1 Anemia in chronic kidney disease; E88.09 Other disorders of plasma-protein metabolism, not elsewhere classified; C11.9 Malignant neoplasm of nasopharynx, unspecified; E11.22 Type 2 diabetes mellitus with diabetic chronic kidney disease; N18.9 Chronic kidney disease, unspecified; E11.51 Type 2 diabetes mellitus with diabetic peripheral angiopathy without gangrene; E87.5 Hyperkalemia; N40.0 Benign prostatic hyperplasia without lower urinary tract symptoms; E78.5 Hyperlipidemia, unspecified; I49.1 Atrial premature depolarization; R54 Age-related physical debility; I25.10 Atherosclerotic heart disease of native coronary artery without angina pectoris; F17.210 Nicotine dependence, cigarettes, uncomplicated; E87.6 Hypokalemia; Z99.3 Dependence on wheelchair; Z79.84 Long term (current) use of oral hypoglycemic drugs; Z89.512 Acquired absence of left leg below knee; Z85.818 Personal history of malignant neoplasm of other sites of lip, oral cavity, and pharynx; Z83.3 Family history of diabetes mellitus
CPT/HCPCS: 36415; 71045; 74176; 80048; 80053; 81001; 82306; 82570; 82962; 83036; 83605; 83690; 83735; 83880; 83970; 84100; 84132; 84156; 84300; 84484; 84550; 85025; 85610; 85730; 87040; 87426; 87804; 93005; 93306; 94640; G0378; J1815; J3490

== ENCOUNTER 2025-07-24 13:59 | Inpatient (IN) | payer MEDICARE, MEDICAID ==
[~2025-07-24] VITALS: Ht 177.8 cm; Wt 49.0 kg
--- NOTE | 2025-07-24 14:31 | ED.PDOC ---
SOB-HPI HPI Comments HPI: Portillo 69 y.o male presents to the ED via EMS for a chief complaint of generalized weakness associated with chest wall pain and a productive cough that started 3 days ago. Daughter who is present with patient reports his BP was low at home today, unknown reading and also states he had blood work done yesterday in which some levels came back abnormal today. Per nurse, HGB was at 8.8. EMS reports patient was hypoxic at 88% RA on scene and was placed on 21 LPM oxygen with SPO2 improvement (94%). Daughter reports patient's last BM was 2 days ago. Denies abdominal pain, fever, chills, nausea, vomiting. Patient does not use oxygen at home. Patient is not on blood thinners. Patient was seen on 06/12/25 at this ED for same complaint and admitted. Per discharge course: The patient had elevated troponin levels up to 1043. Creatinine was 1.8 that improved to 1.56 at the time of discharge. The patient was anemic with a hemoglobin of 9.1. He was seen in Nephrology consult by Dr. Campuzano as well as Cardiology consult by Dr. Way. Echocardiogram done showed an ejection fraction of 40%. In view of the patient's overall medical condition and in view of recent GI bleed, it was decided to treat the patient conservatively. 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 Past Medical History: DM, HTN, HLD, throat cancer, enlarged prostate, blood transfusion x 3 months ago per daughter Past Surgical History: left leg amputation Social History: Denies ETOH, smoking, and drug use. Allergies: None portillo, florencino: weak, cp, sob, cough, low hgb. HPI: Poor Historian. Past Medical History: Past Surgical History: REVIEW OF SYSTEMS: CONSTITUTIONAL: Denies acute: fever, diaphoresis, chills, HEAD: Denies acute: headache, photophobia Eyes: Denies acute: Double vision, vision loss, eye pain, eye discharge. EARS: Denies acute: tinnitus, hearing loss, ear discharge, ear pain, THROAT: Denies acute: sore throat, swelling, difficulty swallowing , pain with swallowing, change in voice. NECK: Denies acute: neck pain, neck swelling, stiff neck. HEART: Denies acute : palpitations, LUNGS: Denies acute: wheezing, hemoptysis ABDOMEN: Denies acute: abdominal pain, Nausea, Vomiting, diarrhea, melena , hematemesis, hematochezia SKIN: Denies acute: rash, redness, lesions, itchiness. EXTREMITIES: Denies acute: calf pain, numbness, tingling, weakness, denies pain in extremity. Denies acute: Low back pain. Neuro: Denies acute: focal neurological deficit, motor or sensory focal neurological deficit, tremors, seizure like activity, confusion, change in mental status, loss of bowel or bladder function, cauda equina like symptoms. : Denies acute: dysuria, hematuria, flank pain, increase in urinary frequency. PSYCH: Denies acute: hallucination, suicidal ideation, homicidal ideation. PHYSICAL EXAM: General: ---no-----acute distress, awake and alert. Head: normocephalic, atraumatic. Neck: supple, trachea is midline, no swelling. Throat: Normal phonation. Eyes:, no erythema, no purulent discharge, no proptosis, no icterus. Heart: regular rate, regular rhythm, no significant murmur appreciated. Lungs: no apparent respiratory distress, Able to speak in full sentences. No wheezing, no rhonchi, no crackles. No stridors Clear to auscultation bilaterally. Abdomen: non tender to palpation, non distended, soft, no guarding, no rebound, + bowel sounds. Neuro: Awake, Alert, oriented to name, self, situation, follows commands GCS=15. Speech is normal. Skin: no petechia, no purpura, no cyanosis, slightly-pale, not jaundice. Lower extremities: --no - Pitting edema no deformity, no focal swelling, no calf TTP. Left [id number] amputation. Makes eye contact. moves all four extremities. Face: no apparent facial droop. ED COURSE: DISCLAIMER: This medical document was created using an electronic medical record system with voice recognition software and computerized dictation system. Although this document has been carefully reviewed, there might still be some phonetic and typographical errors. Occasional wrong-word or "sound-alike" substitutions may have occurred due to the inherent limitations of voice recognition software. These areas are purely typographical due to imperfections of the software programs and do not reflect any compromise in the patient's medical care. Please read the chart carefully and recognize, using context, where these substitutions have occurred. Chief Complaint: Chest Pain Time Seen by MD: 14:05 Primary Care Provider: ? Reviewed notes: Allergies Information Source: Patient, Relative Mode of Arrival: EMS Past Medical History PAST MEDICAL HISTORY: Anemia, Cancer, DM Surgical History: BKA Family History Family History: Reviewed,noncontributory to illness Social History Smoker: Cigarettes Alcohol: Denies ETOH Use Drugs: Denies Drug Use Lives In: Home Was a procedure done? Was a procedure done?: No Differential Dx Differential Diagnosis: Bronchitis, CHF, COPD, Pneumonia, Respiratory Distress, URI, Other (Ddx include but not limitied to gastritis, musculoskeletal pain, radiculopathy, atypical chest pain, dissection, aneurysm, ACS, unstable angina, hiatal hernia, GERD, anxiety, costochondritis, PE, pneumothroax, neoplasm, cardiac ischemia, drug abuse, anemia.) X-Ray, Labs, Meds, VS Vital Signs Date Time Temp Pulse Resp B/P (MAP) Pulse Ox O2 Delivery O2 Flow Rate FiO2 07/24/25 18:42 63 11 134/58 (83) 96 07/24/25 17:12 68 07/24/25 17:00 61 13 128/56 (80) 98 07/24/25 17:00 126/58 07/24/25 15:36 93 Nasal Cannula* 2 28 07/24/25 15:11 69 07/24/25 14:40 67 12 93 Nasal Cannula* 2 28 07/24/25 14:40 97.4 67 12 139/72 (94) 93 97.4 07/24/25 14:08 97.4 77 15 136/85 94 97.4 07/24/25 13:59 70 Lab Test 07/24/25 18:29 07/24/25 18:07 07/24/25 16:38 07/24/25 15:11 Range/Units Urine Color Yellow Yellow Urine Clarity Clear Clear Urine pH 5.0 5.0-9.0 Urine Specific [place] 1.017 1.001-1.035 Urine Protein 1+ H Negative Urine Ketones Negative Negative Urine Blood Negative Negative /uL Urine Nitrite Negative Negative Urine Bilirubin Negative Negative Urine Urobilinogen Normal Negative mg/dL Urine Leukocyte Esterase Negative Negative /uL Urine RBC 5 0 - 3 /hpf Urine Microscopic WBC 3 0-3 /HPF Urine Squamous Epithelial Cells Few <5 /hpf Urine Amorphous Crystals Few None Seen /hpf Urine Bacteria Few H None Seen /hpf Urine Glucose Normal Normal mg/dL Troponin I High Sensitivity 138 *H 164 *H 150 *H </=54 ng/L White Blood Count 6.8 4.4-10.8 10^3/uL Red Blood Count 3.07 L 4.5-5.90 10^6/uL Hemoglobin 9.5 L 13.5-17.5 g/dL Hematocrit 29.6 L 41.0-53.0 % Mean Corpuscular Volume 96.4 80.0-100.0 fL Mean Corpuscular Hemoglobin 30.8 28.0-32.0 pg Mean Corpuscular Hemoglobin Concent 31.9 L 32.0-36.0 g/dL Red Cell Distribution Width 17.2 H 11.8-14.3 % Platelet Count 288 140-450 10^3/uL Mean Platelet Volume 7.5 6.9-10.8 fL Neutrophils (%) (Auto) 69.6 37.0-80.0 % Lymphocytes (%) (Auto) 25.5 10.0-50.0 % Monocytes (%) (Auto) 4.3 0.0-12.0 % Eosinophils (%) (Auto) 0.4 0.0-7.0 % Basophils (%) (Auto) 0.2 0.0-2.0 % Neutrophils # (Auto) 4.7 1.6-8.6 10 ^3/uL Lymphocytes # (Auto) 1.7 0.4-5.4 10 ^3/uL Monocytes # (Auto) 0.3 0-1.3 10 ^3/uL Eosinophils # (Auto) 0 0-0.8 10 ^3/uL Basophils # (Auto) 0 0-0.2 10 ^3/uL Nucleated Red Blood Cells 0.1 % Sodium Level 145 136-145 mmol/L Potassium Level 4.4 3.5-5.1 mmol/L Chloride Level 111 H 98-107 mmol/L Carbon Dioxide Level 26 20-31 mmol/L Anion Gap 8 5-15 Blood Urea Nitrogen 32 H 9-23 mg/dL Creatinine 1.39 H 0.700-1.30 mg/dL Glomerular Filtration Rate Calc 55 >90 mL/min BUN/Creatinine Ratio 23.0 H 10.0-20.0 Serum Glucose 100 74-106 mg/dL Calcium Level 8.3 L 8.7-10.4 mg/dL Total Bilirubin 0.5 0.2-1.0 mg/dL Aspartate Amino Transferase (AST) 15 13-40 U/L Alanine Aminotransferase (ALT) < 9 7-40 U/L Alkaline Phosphatase 116 46-116 U/L B-Type Natriuretic Peptide 571.68 0-100 pg/mL Total Protein 5.6 L 5.7-8.2 g/dL Albumin 2.5 L 3.2-4.8 g/dL Current Medications Medications (Trade) Dose Ordered Sig/Donaldo Route Start Time Stop Time Status Last Admin Piperacillin Sod/ Tazobactam Sod 100 ml @ 100 mls/hr ONCE ONCE IV 07/24/25 15:15 07/24/25 16:14 DC 07/24/25 16:08 Furosemide (Lasix Injection) 20 mg ONCE ONCE IV 07/24/25 16:30 07/24/25 16:31 DC 07/24/25 17:00 [place] [id number] Ph: [phone] DIAGNOSTIC IMAGING Diagnostic Imaging Report : [id number] Signed PATIENT: DAMARI PORTILLO ACCT: [id number] UNIT: [id number] : 1955 LOC: ER ROOM / BED: / AGE / SEX: 69 / M ADM STATUS: REG ER SERVICE 1417 ORDERING PHYSICIAN: ALFA COONEY DO PROCEDURE(s): CXRP - CHEST PORTABLE REASON: cp ORDER NUMBER(s): [id number], ACCESSION NUMBER(s): [id number] XY CHEST PORTABLE, HISTORY: cp COMPARISON: XY CHEST PORTABLE on DOS: 06/12/25, XY CHEST PORTABLE on DOS: 01/06/25, XY CHEST PORTABLE on DOS: 11/09/23 XY CHEST PORTABLE on DOS: 06/12/25, XY CHEST PORTABLE on DOS: 01/06/25, XY CHEST PORTABLE on DOS: 11/09/23 TECHNICAL DATA: 1 view of the chest was obtained. FINDINGS: Lines and tubes: None Cardiomediastinal silhouette: normal Pulmonary vasculature: normal Lung expansion: normal Lung airspace: Bilateral basilar consolidation could be seen with pneumonia. Probable 9 mm left mid lung zone pulmonary nodule. Lung interstitium: prominent Pleura: normal Pneumothorax: no Bones: Unremarkable Other: no IMPRESSION: Bilateral basilar consolidation could be seen with pneumonia. 9 mm left mid lung zone pulmonary nodule is suspected. ATED BY: STEWART PALOMINO MD DICTATED DATE/TIME: 07/24/251441 SIGNED BY: STEWART PALOMINO MD SIGNED DATE/TIME: 07/24/251441 CC: [place] [id number] Ph: [phone] DIAGNOSTIC IMAGING Diagnostic Imaging Report : [id number] Signed PATIENT: DAMARI PORTILLO ACCT: [id number] UNIT: [id number] : 1955 LOC: ER ROOM / BED: / AGE / SEX: 69 / M ADM STATUS: REG ER SERVICE 08 ORDERING PHYSICIAN: ALFA COONEY DO PROCEDURE(s): HWOCT - HEAD WITHOUT CONTRAST REASON: ALOC ORDER NUMBER(s): [id number], ACCESSION NUMBER(s): [id number] Procedure: CT HEAD WITHOUT CONTRAST Study Date and Requested Time: 07/24/2025 05:12 PM History: ALOC Comparison: CT HEAD WITHOUT CONTRAST on DOS: 01/07/25, CT HEAD WITHOUT CONTRAST on DOS: 11/08/23 Dose: CTDI: 32.9 mGy DLP: 596.12 mGycm Technique: Multiplanar images obtained through the brain without intravenous contrast. Findings: Moderate Diffuse brain atrophy. Mild to moderate chronic small vessel ischemic nonspecific Focus of calcification within the bilateral frontal lobes, left occipital lobe and right parietal lobe which represent sequela of prior neurocysticercosis. Right parietal lobe chronic infarct. No hemorrhages, masses, mass effect, midline shift, herniation or cytotoxic edema following a large vascular territory. No intra-axial or extra-axial fluid collections. No evidence of hydrocephalus. The basal cisterns are patent. The pituitary gland, sella and parasellar regions are unremarkable. The cerebellar tonsils are in normal position. The cerebellum is unremarkable. The orbits and globes are unremarkable. Pansinus disease with complete opacification of the right maxillary sinus and right ethmoid air cells and complete opacification of the right frontal sinus. Mucosal thickening of the lateral right nasal cavity. Decreased pneumatization of bilateral mastoids opacification of the pneumatized mastoid air cells and partial opacification of the middle ears. There are no worrisome calvarial lesions. Impression: No evidence of acute intracranial abnormality. Pansinus disease ; worsened from prior imaging. Decreased pneumatization of bilateral mastoids with bilateral otomastoiditis ATED BY: ESTRELLA PETER DO DICTATED DATE/TIME: 07/24/251750 SIGNED BY: ESTRELLA PETER DO SIGNED DATE/TIME: 07/24/251750 CC: Time of 1ST Reevaluation: 14:05 Reevaluation 1ST: Unchanged Patient Education/Counseling: Other Family Education/Counseling: Diagnosis, Treatment Comments MDM: patient presented with the above HPI.---generalized weakness/chest pain/shortness of breath---workup was initiated. patient was found with the abov e mentioned diagnosis. the following medications were ordered: please refer to order lists of meds and tests obtained by myself Dr. Cooney. Patient ED course and VS have been stabilized. Patient has been reassessed in the ED and remained in a stable condition. Pertinent incidental findings were discussed with the patient and/or family. Patient/family voices understanding and is agreeable with plan. Patient has been observed in the ED adequate length of time to insure improvement/stability. Escalation of care considered: Consideration of escalation to observation or admission Chest x-ray suggested pneumonia. Antibiotics initiated. BNP slightly elevated. Patient was given Lasix. Troponin is elevated. Patient was given aspirin. Patient is not on any other blood thinners at home according to family. Patient was ADMITTED to the medicine team for further evaluation and treatment of their presentation. All the reports of any imaging studies that were ordered by myself were reviewed by myself. Departure 1 Departure Time of Disposition: 15:03 Impression: Primary Impression: Chest pain Additional Impressions: Generalized weakness Anemia Elevated troponin level Hypoxemia Hypoalbuminemia Pneumonia Pansinusitis Disposition: 09 ADMITTED INPATIENT Admit to: Tele Condition: Guarded Discharged With: Self, Relative Critical Care Note Critical Care Time?: Yes (45 min-critical care time only) I personally scribed for ALFA COONEY DO ([email or web address]) on 07/24/25 at 14:31. Electronically submitted by Annmarie Hercules ([facility]). I personally scribed for ALFA COONEY DO ([email or web address]) on 07/24/25 at 15:23. Electronically submitted by Annmarie Hercules ([facility]). I personally scribed for ALFA COONEY DO ([email or web address]) on 07/24/25 at 16:26. Electronically submitted by Annmarie Hercules ([facility]). ALFA COONEY DO Jul 24, 2025 14:31
[2025-07-24 14:40] VITALS: PULSE 67; RESP 12; O2SAT 93
--- NOTE | 2025-07-24 14:44 | DVH ---
XY CHEST PORTABLE, HISTORY: cp COMPARISON: XY CHEST PORTABLE on DOS: 06/12/25, XY CHEST PORTABLE on DOS: 01/06/25, XY CHEST PORTABLE o n DOS: 11/09/23 XY CHEST PORTABLE on DOS: 06/12/25, XY CHEST PORTABLE on DOS: 01/06/25, XY CHEST PORTABLE on DOS: TECHNICAL DATA: 1 view of the chest was obtained. FINDINGS: Lines and tubes: None Cardiomediastinal silhouette: normal Pulmonary vasculature: normal Lung expansion: normal Lung airspace: Bilateral basilar consolidation could be seen with pneumonia. Probable 9 mm left mid l annamaria zone pulmonary nodule. Lung interstitium: prominent Pleura: normal Pneumothorax: no Bones: Unremarkable Other: no IMPRESSION: Bilateral basilar consolidation could be seen with pneumonia. 9 mm left mid lung zone pulmonary nodule is suspected.
[2025-07-24 15:36] LABS: Hematocrit 29.6 % (41.0-53.0); Hemoglobin 9.5 g/dL (13.5-17.5); Mean Corpuscular Hemoglobin 30.8 pg (28.0-32.0); Mean Corpuscular Volume 96.4 fL (80.0-100.0); Nucleated Red Blood Cells % 0.1 %
[2025-07-24 15:54] LABS: Anion Gap 8 (5-15); BUN/Creatinine Ratio 23.0 (10.0-20.0); Carbon Dioxide 26 mmol/L (20-31); Glucose 100 mg/dL (74-106); Potassium 4.4 mmol/L (3.5-5.1); Sodium 145 mmol/L (136-145)
[2025-07-24 15:55] LABS: Alanine Aminotransferase < 9 U/L (7-40); Albumin 2.5 g/dL (3.2-4.8); Alkaline Phosphatase 116 U/L (46-116); Bilirubin, Total 0.5 mg/dL (0.2-1.0); Blood Urea Nitrogen 32 mg/dL (9-23); Calcium 8.3 mg/dL (8.7-10.4); Chloride 111 mmol/L (98-107); Total Protein 5.6 g/dL (5.7-8.2)
[2025-07-24] MEDS: PIPERACILLIN-TAZOB 3.375GM 100 ML IV ONE (16:08)
[2025-07-24] MEDS: FUROSEMIDE 20 MG/2 ML VIAL IV ONE (17:00)
--- NOTE | 2025-07-24 17:53 | DVH ---
Procedure: CT HEAD WITHOUT CONTRAST Study Date and Requested Time: 07/24/2025 05:12 PM History: ALOC Comparison: CT HEAD WITHOUT CONTRAST on DOS: 01/07/25, CT HEAD WITHOUT CONTRAST on DOS: 11/08/23 Dose: CTDI: 32.9 mGy DLP: 596.12 mGycm Technique: Multiplanar images obtained through the brain without intravenous contrast. Findings: Moderate Diffuse brain atrophy. Mild to moderate chronic small vessel ischemic nonspecific Focus of c alcification within the bilateral frontal lobes, left occipital lobe and right parietal lobe which re present sequela of prior neurocysticercosis. Right parietal lobe chronic infarct. No hemorrhages, masses, mass effect, midline shift, herniation or cytotoxic edema following a large v ascular territory. No intra-axial or extra-axial fluid collections. No evidence of hydrocephalus. The basal cisterns are patent. The pituitary gland, sella and parasellar regions are unremarkable. The cerebellar tonsils are in nor mal position. The cerebellum is unremarkable. The orbits and globes are unremarkable. Pansinus disease with complete opacification of the right max illary sinus and right ethmoid air cells and complete opacification of the right frontal sinus. Muco desmond thickening of the lateral right nasal cavity. Decreased pneumatization of bilateral mastoids opac ification of the pneumatized mastoid air cells and partial opacification of the middle ears. There ar e no worrisome calvarial lesions. Impression: No evidence of acute intracranial abnormality. Pansinus disease ; worsened from prior imaging. Decreased pneumatization of bilateral mastoids with bilateral otomastoiditis
--- NOTE | 2025-07-24 18:11 | ECG ---
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
--- NOTE | 2025-07-24 18:11 | ECG ---
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
--- NOTE | 2025-07-24 18:11 | ECG ---
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
[2025-07-24 18:41] LABS: Urine Amorphous Crystal FEW /hpf (None Seen); Urine Protein, UAD 1+ (Negative)
[2025-07-24] MEDS ORDERED: DEXTROSE (50%) 50ML SYRG IV PRN (18:45)
[2025-07-24] MEDS ORDERED: ONDANSETRON HCL 4 MG/2 ML VIAL IV PRN (18:45)
[2025-07-24] MEDS ORDERED: ACETAMINOPHEN 325 MG TAB PO PRN (18:45)
[2025-07-24] MEDS ORDERED: DOCUSATE SOD 100 MG CAP PO PRN (18:45)
[2025-07-24] MEDS: HYDROcodone-ACET 5/325MG TAB PO PRN (19:26)
--- NOTE | 2025-07-24 19:35 | DVHHP2 ---
History of Present Illness Reason for Visit: Chest pain History of Present Illness The patient is a 69-year-old male with past medical history of anemia, DM, hypertension, hyperlipidemia, enlarged prostate, and throat cancer in remission who presented to [facility] ED with complaint of generalized weakness. Daughter reports symptoms progressively get worse with chest pain, productive cough for the past 3 days, hypoxic with O2 saturation at 88%, increased weakness, getting worse that prompted this visit. Patient was seen and evaluated in the ED and was placed on oxygen 2 L/min via nasal cannula, laboratory data shows WBC 6.8, hemoglobin 9.5, hematocrit 29.6, platelets 288, sodium 145, potassium 4.5, BUN 32, creatinine 1.39, glucose 100, calcium 8.3, protein 5.6, albumin 2.5, troponin 164, BNP 571.68, blood pressure 126/58, heart rate 68, temperature 97.6 F, O2 saturation 94% on oxygen. Chest x-ray revealing bilateral basilar consolidation could be seen with pneumonia; 9 mm left mid lung zone pulmonary nodules is suspected. Patient was started on IV antibiotic regimen azithromycin, please see medication orders section in the computer. On my assessment, daughter at bedside, patient denied chest pain, no headache, dizziness, no diaphoresis, currently on oxygen, no diarrhea, no nausea, no vomiting, no fever, no chills. Patient was admitted for further evaluation and medical management. Past Medical History CHF, DM, HTN, HLD, Throat cancer, Enlarged prostate, Anemia; blood transfusion x 3 months ago per daughter Past Surgical History Left leg BKA Family History Reviewed, noncontributory to the management of this case. Past Social History The patient lives at home, denies smoking, alcohol or illicit drugs abuse. Review of Systems Constitutional: Yes: Weakness; No: Fever, Chills, Sweats, Malaise, Other Eyes: No: Pain, Vision change, Conjunctivae inflammation, Eyelid inflammation, Other, Redness ENT: No: Ear pain, Ear discharge, Nose pain, Nose discharge, Nose congestion, Mouth pain, Mouth swelling, Throat pain, Throat swelling, Other Respiratory: Cough, Shortness of breath, Other (SOB at rest); No: Dry, SOB with excertion, Wheezing, Hemoptysis, Pleuritic Pain, Sputum, Wheezing Cardiovascular: Chest Pain; No: Palpitations, Orthopnea, Paroxysmal Noc. Dyspnea, Edema, Lt Headedness, Other Gastrointestinal: No: Nausea, Vomiting, Abdominal Pain, Diarrhea, Constipation, Melena, Hematochezia, Other Genitourinary: No Dysuria, No Frequency, No Incontinence, No Hematuria, No Retention, No Other Musculoskeletal: other (Right BKA); No: neck pain, shoulder pain, arm pain, back pain, hand pain, leg pain, foot pain Skin: No: Rash, Lesions, Jaundice, Bruising, Other Neurological: No: Weakness, Numbness, Incoordination, Change in speech, Confusion, Seizures, Other Allergies: Coded Allergies: NO KNOWN ALLERGIES (Unverified , 11/02/22) Medications Current Medications Medications Dose Ordered Sig/Donaldo Route Start Time Stop Time Status Last Admin Dose Admin Tamsulosin HCl 0.4 mg QPM PO 07/25/25 18:00 Atorvastatin Calcium 20 mg HS PO 07/24/25 22:00 Clopidogrel Bisulfate 75 mg DAILY PO 07/25/25 10:00 Azithromycin 250 ml @ 125 mls/hr DAILY IV 07/25/25 10:00 Famotidine 20 mg Q12HR IV 07/24/25 22:00 Furosemide 20 mg DAILY IV 07/25/25 10:00 Diagnostic Test (Pha) 1 strip ACHS 07/24/25 22:00 Insulin Human Regular ACHS SC 07/24/25 22:00 Dextrose 50 ml UD PRN IV 07/24/25 18:45 Acetaminophen/ Hydrocodone Bitart 1 tab Q4HP PRN PO 07/24/25 18:45 07/24/25 19:26 1 TAB Ondansetron HCl 4 mg Q4HP PRN IV 07/24/25 18:45 Docusate Sodium 100 mg BIDPRN PRN PO 07/24/25 18:45 Acetaminophen 650 mg Q6HP PRN PO 07/24/25 18:45 Exam Vital Signs Vital Signs Date Time Temp Pulse Resp B/P (MAP) Pulse Ox O2 Delivery O2 Flow Rate FiO2 07/24/25 18:42 63 11 134/58 (83) 96 07/24/25 15:36 Nasal Cannula* 2 28 07/24/25 14:40 97.4 97.4 General Appearance: Alert, Oriented X3, Cooperative, No acute distress HEENT: Atraumatic, PERRLA, EOMI, Mucous membr. moist/pink Respiratory: Normal air movement, Other (Diminished breath sounds) Cardiovascular: Regular rate, Normal S1, Normal S2, No murmurs Abdominal: Normal bowel sounds, Soft, No tenderness, No hepatospenomegaly, No masses Extremities: No clubbing, No cyanosis, No edema, Normal pulses, No tenderness/swelling Skin: No rashes, No breakdown, No significant lesion Neuro: Normal speech, Normal tone, Sensation intact, Cranial nerves 3-12 NL, Reflexes 2+, Other (Generalized weakness) Psych/Mental Status: Mental status NL, Mood NL Labs/Xrays Labs Test 07/24/25 19:19 07/24/25 18:29 07/24/25 18:07 07/24/25 15:11 Range/Units POC Glucose 134 H 70-106 mg/dl Urine Color Yellow Yellow Urine Clarity Clear Clear Urine pH 5.0 5.0-9.0 Urine Specific [place] 1.017 1.001-1.035 Urine Protein 1+ H Negative Urine Ketones Negative Negative Urine Blood Negative Negative /uL Urine Nitrite Negative Negative Urine Bilirubin Negative Negative Urine Urobilinogen Normal Negative mg/dL Urine Leukocyte Esterase Negative Negative /uL Urine RBC 5 0 - 3 /hpf Urine Microscopic WBC 3 0-3 /HPF Urine Squamous Epithelial Cells Few <5 /hpf Urine Amorphous Crystals Few None Seen /hpf Urine Bacteria Few H None Seen /hpf Urine Glucose Normal Normal mg/dL Troponin I High Sensitivity 138 *H </=54 ng/L White Blood Count 6.8 4.4-10.8 10^3/uL Red Blood Count 3.07 L 4.5-5.90 10^6/uL Hemoglobin 9.5 L 13.5-17.5 g/dL Hematocrit 29.6 L 41.0-53.0 % Mean Corpuscular Volume 96.4 80.0-100.0 fL Mean Corpuscular Hemoglobin 30.8 28.0-32.0 pg Mean Corpuscular Hemoglobin Concent 31.9 L 32.0-36.0 g/dL Red Cell Distribution Width 17.2 H 11.8-14.3 % Platelet Count 288 140-450 10^3/uL Mean Platelet Volume 7.5 6.9-10.8 fL Neutrophils (%) (Auto) 69.6 37.0-80.0 % Lymphocytes (%) (Auto) 25.5 10.0-50.0 % Monocytes (%) (Auto) 4.3 0.0-12.0 % Eosinophils (%) (Auto) 0.4 0.0-7.0 % Basophils (%) (Auto) 0.2 0.0-2.0 % Neutrophils # (Auto) 4.7 1.6-8.6 10 ^3/uL Lymphocytes # (Auto) 1.7 0.4-5.4 10 ^3/uL Monocytes # (Auto) 0.3 0-1.3 10 ^3/uL Eosinophils # (Auto) 0 0-0.8 10 ^3/uL Basophils # (Auto) 0 0-0.2 10 ^3/uL Nucleated Red Blood Cells 0.1 % Sodium Level 145 136-145 mmol/L Potassium Level 4.4 3.5-5.1 mmol/L Chloride Level 111 H 98-107 mmol/L Carbon Dioxide Level 26 20-31 mmol/L Anion Gap 8 5-15 Blood Urea Nitrogen 32 H 9-23 mg/dL Creatinine 1.39 H 0.700-1.30 mg/dL Glomerular Filtration Rate Calc 55 >90 mL/min BUN/Creatinine Ratio 23.0 H 10.0-20.0 Serum Glucose 100 74-106 mg/dL Calcium Level 8.3 L 8.7-10.4 mg/dL Total Bilirubin 0.5 0.2-1.0 mg/dL Aspartate Amino Transferase (AST) 15 13-40 U/L Alanine Aminotransferase (ALT) < 9 7-40 U/L Alkaline Phosphatase 116 46-116 U/L B-Type Natriuretic Peptide 571.68 0-100 pg/mL Total Protein 5.6 L 5.7-8.2 g/dL Albumin 2.5 L 3.2-4.8 g/dL PATIENT: DAMARI WADSWORTH ACCT: [id number] UNIT: [id number] : 1955 LOC: ER ROOM / BED: / AGE / SEX: 69 / M ADM STATUS: REG ER SERVICE [id number] ORDERING PHYSICIAN: ALFA COONEY DO PROCEDURE(s): HWOCT - HEAD WITHOUT CONTRAST REASON: ALOC ORDER NUMBER(s): [id number], ACCESSION NUMBER(s): [id number] Procedure: CT HEAD WITHOUT CONTRAST Study Date and Requested Time: 07/24/2025 05:12 PM History: ALOC Comparison: CT HEAD WITHOUT CONTRAST on DOS: 01/07/25, CT HEAD WITHOUT CONTRAST on DOS: 11/08/23 Dose: CTDI: 32.9 mGy DLP: 596.12 mGycm Technique: Multiplanar images obtained through the brain without intravenous contrast. Findings: Moderate Diffuse brain atrophy. Mild to moderate chronic small vessel ischemic nonspecific Focus of calcification within the bilateral frontal lobes, left occipital lobe and right parietal lobe which represent sequela of prior neurocysticercosis. Right parietal lobe chronic infarct. No hemorrhages, masses, mass effect, midline shift, herniation or cytotoxic edema following a large vascular territory. No intra-axial or extra-axial fluid collections. No evidence of hydrocephalus. The basal cisterns are patent. The pituitary gland, sella and parasellar regions are unremarkable. The cerebellar tonsils are in normal position. The cerebellum is unremarkable. The orbits and globes are unremarkable. Pansinus disease with complete opacification of the right maxillary sinus and right ethmoid air cells and complete opacification of the right frontal sinus. Mucosal thickening of the lateral right nasal cavity. Decreased pneumatization of bilateral mastoids opacification of the pneumatized mastoid air cells and partial opacification of the middle ears. There are no worrisome calvarial lesions. Impression: No evidence of acute intracranial abnormality. Pansinus disease; worsened from prior imaging. Decreased pneumatization of bilateral mastoids with bilateral otomastoiditis ORDERING PHYSICIAN: ALFA COONEY DO PROCEDURE(s): CXRP - CHEST PORTABLE REASON: cp ORDER NUMBER(s): [id number], ACCESSION NUMBER(s): [id number] XY CHEST PORTABLE, HISTORY: cp COMPARISON: XY CHEST PORTABLE on DOS: 06/12/25, XY CHEST PORTABLE on DOS: 01/06/25, XY CHEST PORTABLE on DOS: 11/09/23 XY CHEST PORTABLE on DOS: 06/12/25, XY CHEST PORTABLE on DOS: 01/06/25, XY CHEST PORTABLE on DOS: 11/09/23 TECHNICAL DATA: 1 view of the chest was obtained. FINDINGS: Lines and tubes: None Cardiomediastinal silhouette: normal Pulmonary vasculature: normal Lung expansion: normal Lung airspace: Bilateral basilar consolidation could be seen with pneumonia. Probable 9 mm left mid lung zone pulmonary nodule. Lung interstitium: prominent Pleura: normal Pneumothorax: no Bones: Unremarkable Other: no IMPRESSION: Bilateral basilar consolidation could be seen with pneumonia. 9 mm left mid lung zone pulmonary nodule is suspected. SEPSIS Sepsis Screen Date sepsis recognized/suspect: Jul 24, 2025 Time Sepsis recognized/suspect: 1440 Recent Procedure: No On Antibiotic Therapy: No Respiratory Rate >20: No Heart Rate >90: No Temp<36 C (96.8 F) or >38.3 C: No SBP <90 or MAP <65 mmHG: No New Acute Mental Status Change: No Is the patient on CPAP, BIPAP,: No Physician Orders Belting And Webbing Inspector (07/24/25 ) Chest Portable (07/24/25 14:17) Head Without Contrast (07/24/25 17:09) Tamsulosin Hydrochloride (Flomax) (07/25/25 18:00) Atorvastatin (Lipitor) (07/24/25 22:00) Clopidogrel Bisulfate (Plavix) (07/25/25 10:00) Azithromycin 500mg/ 250ml (Zithromax 50 (07/25/25 10:00) Famotidine Injection (Pepcid Injection) (07/24/25 22:00) Furosemide Injection (Lasix Injection) (07/25/25 10:00) * Cardiology Consult (07/24/25 18:45) Glucose Blood (Accu-Chek Comfort Curve T (07/24/25 22:00) Insulin R (Human) (Insulin R) (07/24/25 22:00) Dextrose 50% Syringe (07/24/25 18:45) Allergies (07/24/25 18:45) Code Status (07/24/25 18:45) Oxygen Per Hour (07/24/25 18:45) Hydrocodone-Acet 5/325mg Tab ([place] 5/32 (07/24/25 18:45) Ondansetron Hcl (Zofran) (07/24/25 18:45) Docusate Sodium Capsule (Colace Capsule) (07/24/25 18:45) Fall Risk Precautions In Place QSHIFT (07/24/25 18:45) Complete Blood Count (07/25/25 04:00) Comprehensive Metabolic Panel (07/25/25 04:00) Cardiac Diet-2gna,Lofat,Lochol (07/25/25 Breakfast) Condition: Serious (07/24/25 18:45) Acetaminophen Tablet (Tylenol Tablet) (07/24/25 18:45) Maintain Bed Rest (07/24/25 18:45) Sequential Compression Device (07/24/25 ) Vital Signs Date Time Temp Pulse Resp B/P (MAP) Pulse Ox O2 Delivery O2 Flow Rate FiO2 07/24/25 18:42 63 11 134/58 (83) 96 07/24/25 17:12 68 07/24/25 17:00 61 13 128/56 (80) 98 07/24/25 17:00 126/58 07/24/25 15:36 93 Nasal Cannula* 2 28 07/24/25 15:11 69 07/24/25 14:40 67 12 93 Nasal Cannula* 2 28 07/24/25 14:40 97.4 67 12 139/72 (94) 93 97.4 07/24/25 14:08 97.4 77 15 136/85 94 97.4 07/24/25 13:59 70 Laboratory Tests Test 07/24/25 15:11 White Blood Count 6.8 10^3/uL (4.4-10.8) Medications Medications Dose Ordered Sig/Donaldo Route Start Time Stop Time Status Last Admin Dose Admin Acetaminophen/ Hydrocodone Bitart 1 tab Q4HP PRN PO 07/24/25 18:45 07/24/25 19:26 1 TAB Aspirin 162 mg ONCE ONCE PO 07/24/25 18:45 07/24/25 18:56 DC 07/24/25 19:25 162 MG Furosemide 20 mg ONCE ONCE IV 07/24/25 16:30 07/24/25 16:31 DC 07/24/25 17:00 20 MG Piperacillin Sod/ Tazobactam Sod 100 ml @ 100 mls/hr ONCE ONCE IV 07/24/25 15:15 07/24/25 16:14 DC 07/24/25 16:08 100 MLS/HR Assessment/Plan Assessment/Plan Chest pain Pansinusitis Generalized weakness Anemia, unspecified Elevated troponin level Hypoxemia Acute renal injury Hypoalbuminemia Pneumonia, unspecified organism Acute exacerbation of congestive heart failure Plan 1. Admit to telemetry unit 2. Breathing treatment 3. Pain control management 4. IV antibiotic management 5. Management of fluids and electrolytes 6. Consultation for Cardiology 7. Diagnostic test chest x-ray 8. DVT prophylaxis-on aspirin 9. Repeat labs CBC, CMP in a.m. 10. Home medication reviewed and reconciled 11. Continue with current medical management 12. Treatment plan discussed with patient/daughter and RN. Patient/daughter verbalized understanding. Plan discussed with: Patient, Daughter (Daughter at bedside), Other (RN) My Orders Orders - HEMANTH PILLAI DNP Procedure Category Date Status Time Tamsulosin PHA 07/25/25 In Process Hydrochloride (Flomax) 18:00 Atorvastatin (Lipitor) PHA 07/24/25 In Process 22:00 Clopidogrel Bisulfate PHA 07/25/25 In Process (Plavix) 10:00 Azithromycin 500mg/ PHA 07/25/25 In Process 250ml (Zithromax 50 10:00 Famotidine Injection PHA 07/24/25 In Process (Pepcid Injection) 22:00 Furosemide Injection PHA 07/25/25 In Process (Lasix Injection) 10:00 * Cardiology Consult CONS 07/24/25 Transmitted 18:45 Glucose Blood PHA 07/24/25 In Process (Accu-Chek Comfort 22:00 Insulin R (Human) PHA 07/24/25 In Process (Insulin R) 22:00 Dextrose 50% Syringe PHA 07/24/25 In Process 18:45 Allergies MICHAEL 07/24/25 In Process 18:45 Code Status CODE 07/24/25 Transmitted 18:45 Oxygen Per Hour RT 07/24/25 Transmitted 18:45 Hydrocodone-Acet PHA 07/24/25 In Process 5/325mg Tab ([place] 18:45 Ondansetron Hcl PHA 07/24/25 In Process (Zofran) 18:45 Docusate Sodium PHA 07/24/25 In Process Capsule (Colace 18:45 Fall Risk Precautions MICHAEL 07/24/[address] 18:45 Complete Blood Count LAB 07/25/25 Verified 04:00 Comprehensive LAB 07/25/25 Verified Metabolic Panel 04:00 Cardiac DIET 07/25/25 Transmitted Diet-2gna,Lofat,Lochol Breakfast Condition: Serious MICHAEL 07/24/25 In Process 18:45 Acetaminophen Tablet PHA 07/24/25 In Process (Tylenol Tablet) 18:45 Maintain Bed Rest MICHAEL 07/24/25 In Process 18:45 Sequential MICHAEL 07/24/25 In Process Compression Device Problem List: (1) Chest pain (2) Pansinusitis (3) Anemia, unspecified (4) Elevated troponin level (5) Hypoxemia (6) Acute renal injury (7) Hypoalbuminemia (8) Generalized weakness (9) Pneumonia, unspecified organism (10) Acute exacerbation of congestive heart failure Date of Service: Jul 24, 2025 Billing Provider: HEMANTH PILLAI DNP Common Visit Codes: [id number] INP/OBS CARE (HIGH) HEMANTH PILLAI DNP Jul 24, 2025 19:35
[2025-07-24] MEDS ORDERED: MORPHINE SULFATE INJ 2 MG/ml SYRG IV PRN (19:45)
[2025-07-24] MEDS ORDERED: NITROGLYCERIN 0.4 MG SL TAB SL PRN (19:45)
[2025-07-24] MEDS: ACCU-CHEK COMFORT CURVE STRIP VI SCH (22:00)
[2025-07-24] MEDS: ATORVASTATIN 20 MG TAB PO SCH (22:40)
[2025-07-24] MEDS: FAMOTIDINE (10MG/ML) 2ML VL IV SCH (22:41)
[2025-07-24] MEDS: InsuLIN REG 1unit/0.01ml Soln (100units/ml) SC SCH (22:42)
[2025-07-24 23:27] VITALS: PULSE 66
[2025-07-24 23:35] VITALS: BP 148/81; PULSE 59; RESP 16; TEMP 97.6; O2SAT 98
[2025-07-25] VITALS (8 sets, daily range): BP systolic 126–148; BP diastolic 73–83; PULSE 59–75; RESP 14–18; TEMP 97.3–97.8; O2SAT 93–97
[2025-07-25] MEDS: CLOPIDOGREL BISULFATE 75 MG TAB PO SCH (09:07)
[2025-07-25] MEDS: AZITHROMYCIN 500MG/ 250ML 250 ML IV SCH (09:07)
[2025-07-25] MEDS: FUROSEMIDE 20 MG/2 ML VIAL IV SCH (09:07)
[2025-07-25 09:31] LABS: Hematocrit 25.4 % (41.0-53.0); Hemoglobin 8.5 g/dL (13.5-17.5); Mean Corpuscular Hemoglobin 31.1 pg (28.0-32.0); Mean Corpuscular Volume 92.9 fL (80.0-100.0); Nucleated Red Blood Cells % 0.0 %
[2025-07-25 09:49] LABS: Alkaline Phosphatase 108 U/L (46-116); Anion Gap 8 (5-15); BUN/Creatinine Ratio 21.5 (10.0-20.0); Bilirubin, Total 0.3 mg/dL (0.2-1.0); Carbon Dioxide 24 mmol/L (20-31); Glucose 79 mg/dL (74-106); Potassium 4.4 mmol/L (3.5-5.1); Sodium 144 mmol/L (136-145)
[2025-07-25 09:50] LABS: Alanine Aminotransferase < 9 U/L (7-40); Albumin 2.3 g/dL (3.2-4.8); Blood Urea Nitrogen 29 mg/dL (9-23); Calcium 7.9 mg/dL (8.7-10.4); Chloride 112 mmol/L (98-107); Total Protein 5.2 g/dL (5.7-8.2)
--- NOTE | 2025-07-25 11:13 | DVHPN2 ---
Reviewed: Care Plan, H&P, Labs, Medications, Previous Orders, Radiology Changes from previous H/P or p: No Changes Eyes: No Pain, No Vision change, No Conjunctivae inflammation, No Eyelid inflammation, No Other, No Redness ENT: No Ear pain, No Ear discharge, No Nose pain, No Nose discharge, No Nose congestion, No Mouth pain, No Mouth swelling, No Throat pain, No Throat swelling, No Other Cardiovascular: Chest Pain; No Palpitations, No Orthopnea, No Paroxysmal Noc. Dyspnea, No Edema, No Lt Headedness, No Other Respiratory: Cough; No Dry; Shortness of breath; No SOB with excertion, No Wheezing, No Hemoptysis, No Pleuritic Pain, No Sputum; Other (SOB at rest) Gastrointestinal: No Nausea, No Vomiting, No Abdominal Pain, No Diarrhea, No Constipation, No Melena, No Hematochezia, No Other Genitourinary: No Dysuria, No Frequency, No Incontinence, No Hematuria, No Retention, No Other Musculoskeletal: other (Right BKA); No neck pain, No shoulder pain, No arm pain, No back pain, No hand pain, No leg pain, No foot pain Skin: No Rash, No Lesions, No Jaundice, No Bruising, No Other Objective Vitals Vital Signs Date Time Temp Pulse Resp B/P (MAP) Pulse Ox O2 Delivery O2 Flow Rate FiO2 07/25/25 09:07 126/69 07/25/25 09:00 97.5 61 17 93 97.5 07/25/25 08:00 Room Air* 0 21 Intake/Output Intake and Output 07/25/25 07:00 Intake Total 100 ml Output Total 575 ml Balance -475 ml Intake Oral 0 ml IV Total 100 ml Output Urine Total 575 ml Medications Current Medications Medications Dose Ordered Sig/Donaldo Route Start Time Stop Time Status Last Admin Dose Admin Tamsulosin HCl 0.4 mg QPM PO 07/25/25 18:00 Atorvastatin Calcium 20 mg HS PO 07/24/25 22:00 07/24/25 22:40 20 MG Clopidogrel Bisulfate 75 mg DAILY PO 07/25/25 10:00 07/25/25 09:07 75 MG Azithromycin 250 ml @ 125 mls/hr DAILY IV 07/25/25 10:00 07/25/25 09:07 125 MLS/HR Famotidine 20 mg Q12HR IV 07/24/25 22:00 07/25/25 09:06 20 MG Furosemide 20 mg DAILY IV 07/25/25 10:00 07/25/25 09:07 20 MG Diagnostic Test (Pha) 1 strip ACHS 07/24/25 22:00 07/24/25 22:50 1 STRIP Insulin Human Regular ACHS SC 07/24/25 22:00 07/24/25 22:42 2 UNITS Dextrose 50 ml UD PRN IV 07/24/25 18:45 Acetaminophen/ Hydrocodone Bitart 1 tab Q4HP PRN PO 07/24/25 18:45 07/24/25 19:26 1 TAB Ondansetron HCl 4 mg Q4HP PRN IV 07/24/25 18:45 Docusate Sodium 100 mg BIDPRN PRN PO 07/24/25 18:45 Acetaminophen 650 mg Q6HP PRN PO 07/24/25 18:45 Nitroglycerin 0.4 mg Q5MINP PRN SL 07/24/25 19:45 Morphine Sulfate 2 mg Q30M PRN IV 07/24/25 19:45 Laboratory Results Laboratory Tests 07/25/25 09:22 Chemistry Test 07/24/25 15:11 07/25/25 09:22 Albumin 2.5 g/dL (3.2-4.8) L 2.3 g/dL (3.2-4.8) L Calcium Level 8.3 mg/dL (8.7-10.4) L 7.9 mg/dL (8.7-10.4) L Total Protein 5.6 g/dL (5.7-8.2) L 5.2 g/dL (5.7-8.2) L Cardiac Markers Test 07/24/25 15:11 B-Type Natriuretic Peptide 571.68 pg/mL (0-100) LFT Test 07/24/25 15:11 07/25/25 09:22 Alanine Aminotransferase (ALT) < 9 U/L (7-40) < 9 U/L (7-40) Alkaline Phosphatase 116 U/L (46-116) 108 U/L (46-116) Aspartate Amino Transferase (AST) 15 U/L (13-40) 14 U/L (13-40) Total Bilirubin 0.5 mg/dL (0.2-1.0) 0.3 mg/dL (0.2-1.0) Urinalysis Test 07/24/25 18:29 Urine Color Yellow (Yellow) Urine Clarity Clear (Clear) Urine pH 5.0 (5.0-9.0) Urine Specific [place] 1.017 (1.001-1.035) Urine Protein 1+ (Negative) H Urine Ketones Negative (Negative) Urine Blood Negative /uL (Negative) Urine Nitrite Negative (Negative) Urine Bilirubin Negative (Negative) Urine Urobilinogen Normal mg/dL (Negative) Urine Leukocyte Esterase Negative /uL (Negative) Urine RBC 5 /hpf (0 - 3) Urine Microscopic WBC 3 /HPF (0-3) Urine Squamous Epithelial Cells Few /hpf (<5) Urine Amorphous Crystals Few /hpf (None Seen) Urine Bacteria Few /hpf (None Seen) H Urine Glucose Normal mg/dL (Normal) Labs and/or images reviewed: Labs reviewed by me, Image(s) reviewed by me Assessment/Plan Assessment/Plan Acute generalized weakness Acute Bilateral community-acquired pneumonia Gram-positive versus Gram-negative: Rocephin azithromycin Elevated troponin possibly non ST-elevation [place]: Cardiology consult Diabetes: Insulin sliding scale Status post left BKA Chronic anemia Acute on chronic renal failure BPH Moderate protein calorie malnutrition Diastolic heart failure History of nasopharyngeal cancer Sandra Test pending Rapid flu test pending Time spent 70 minutes Advanced care planning time 20 minutes Patient is full code Plan discussed with: Patient Date of Service: Jul 25, 2025 Billing Provider: ERIN JULIAN MD Common Visit Codes: [id number] CARE 30-74 MIN ERIN JULIAN MD Jul 25, 2025 11:13
[2025-07-25] MEDS: TAMSULOSIN HYDROCHLORIDE 0.4 MG CAP PO SCH (17:19)
[2025-07-25 23:09] LABS: COVID19 ANTIGEN SOFIA FIA NEGATIVE (NEGATIVE)
[2025-07-26] VITALS (7 sets, daily range): BP systolic 98–115; BP diastolic 62–70; PULSE 62–80; RESP 12–20; TEMP 97.5–98.2; O2SAT 92–95
--- NOTE | 2025-07-26 11:42 | DVHPN2 ---
Reviewed: Care Plan, H&P, Labs, Medications, Previous Orders, Radiology Changes from previous H/P or p: No Changes Eyes: No Pain, No Vision change, No Conjunctivae inflammation, No Eyelid inflammation, No Other, No Redness ENT: No Ear pain, No Ear discharge, No Nose pain, No Nose discharge, No Nose congestion, No Mouth pain, No Mouth swelling, No Throat pain, No Throat swelling, No Other Cardiovascular: Chest Pain; No Palpitations, No Orthopnea, No Paroxysmal Noc. Dyspnea, No Edema, No Lt Headedness, No Other Respiratory: Cough; No Dry; Shortness of breath; No SOB with excertion, No Wheezing, No Hemoptysis, No Pleuritic Pain, No Sputum; Other (SOB at rest) Gastrointestinal: No Nausea, No Vomiting, No Abdominal Pain, No Diarrhea, No Constipation, No Melena, No Hematochezia, No Other Genitourinary: No Dysuria, No Frequency, No Incontinence, No Hematuria, No Retention, No Other Musculoskeletal: other (Right BKA); No neck pain, No shoulder pain, No arm pain, No back pain, No hand pain, No leg pain, No foot pain Skin: No Rash, No Lesions, No Jaundice, No Bruising, No Other Objective Vitals Vital Signs Date Time Temp Pulse Resp B/P (MAP) Pulse Ox O2 Delivery O2 Flow Rate FiO2 07/26/25 09:40 104/70 07/26/25 09:00 97.6 63 12 93 97.6 07/26/25 08:06 Room Air* 0 21 Intake/Output Intake and Output 07/26/25 07:00 Intake Total 1080 ml Output Total 600 ml Balance 480 ml Intake Oral 1080 ml Output Urine Total 600 ml Medications Current Medications Medications Dose Ordered Sig/Donaldo Route Start Time Stop Time Status Last Admin Dose Admin Tamsulosin HCl 0.4 mg QPM PO 07/25/25 18:00 07/25/25 17:19 0.4 MG Atorvastatin Calcium 20 mg HS PO 07/24/25 22:00 07/25/25 20:56 20 MG Clopidogrel Bisulfate 75 mg DAILY PO 07/25/25 10:00 07/26/25 09:41 75 MG Azithromycin 250 ml @ 125 mls/hr DAILY IV 07/25/25 10:07/26/25 09:27 125 MLS/HR Famotidine 20 mg Q12HR IV 07/24/25 22:00 07/26/25 09:41 20 MG Furosemide 20 mg DAILY IV 07/25/25 10:00 07/26/25 09:40 20 MG Diagnostic Test (Pha) 1 strip ACHS 07/24/25 22:00 07/26/25 06:07 1 STRIP Insulin Human Regular ACHS SC 07/24/25 22:00 07/24/25 22:42 2 UNITS Dextrose 50 ml UD PRN IV 07/24/25 18:45 Acetaminophen/ Hydrocodone Bitart 1 tab Q4HP PRN PO 07/24/25 18:45 07/24/25 19:26 1 TAB Ondansetron HCl 4 mg Q4HP PRN IV 07/24/25 18:45 Docusate Sodium 100 mg BIDPRN PRN PO 07/24/25 18:45 Acetaminophen 650 mg Q6HP PRN PO 07/24/25 18:45 Nitroglycerin 0.4 mg Q5MINP PRN SL 07/24/25 19:45 Morphine Sulfate 2 mg Q30M PRN IV 07/24/25 19:45 Ceftriaxone Sodium 50 ml @ 100 mls/hr DAILY@09 IV 07/26/25 09:00 07/26/25 09:27 100 MLS/HR Laboratory Results Laboratory Tests 07/25/25 09:22 Urinalysis Test 07/24/25 18:29 Urine Color Yellow (Yellow) Urine Clarity Clear (Clear) Urine pH 5.0 (5.0-9.0) Urine Specific [place] 1.017 (1.001-1.035) Urine Protein 1+ (Negative) H Urine Ketones Negative (Negative) Urine Blood Negative /uL (Negative) Urine Nitrite Negative (Negative) Urine Bilirubin Negative (Negative) Urine Urobilinogen Normal mg/dL (Negative) Urine Leukocyte Esterase Negative /uL (Negative) Urine RBC 5 /hpf (0 - 3) Urine Microscopic WBC 3 /HPF (0-3) Urine Squamous Epithelial Cells Few /hpf (<5) Urine Amorphous Crystals Few /hpf (None Seen) Urine Bacteria Few /hpf (None Seen) H Urine Glucose Normal mg/dL (Normal) Labs and/or images reviewed: Labs reviewed by me, Image(s) reviewed by me Assessment/Plan Assessment/Plan Acute generalized weakness Acute Bilateral community-acquired pneumonia Gram-positive versus Gram-negative: Rocephin azithromycin Elevated troponin possibly non ST-elevation [place]: Cardiology consult for Dr. [address] Diabetes: Insulin sliding scale Status post left BKA Chronic anemia Acute on chronic renal failure BPH Moderate protein calorie malnutrition Diastolic heart failure History of nasopharyngeal cancer Sandra Test negative Rapid flu test negative Time spent 50 minutes Advanced care planning time 20 minutes Patient is full code Plan discussed with: Patient My Orders Orders - ERIN JULIAN MD Procedure Category Date Status Time Cleanse Wound With MICHAEL 07/25/25 In Process Wound Clean 15:14 Date of Service: Jul 26, 2025 Billing Provider: ERIN JULIAN MD Common Visit Codes: [id number] INP/OBS CARE(HIGH) Secondary Visit Codes: [id number] CARE PLAN 30 MINUTES ERIN JULIAN MD Jul 26, 2025 11:42
--- NOTE | 2025-07-26 13:17 | DVH ---
CLINICAL INFORMATION: Pneumonia. TECHNIQUE: Single AP portable chest radiograph was obtained. COMPARISON: XY CHEST PORTABLE on DOS: 07/24/25, XY CHEST PORTABLE on DOS: 06/12/25, XY CHEST PORTABLE o n DOS: 01/06/25 FINDINGS: Improved consolidation in the right lung base compared to the prior exam with mild residual consolida tion visualized. Unchanged consolidation in the left lower lung. Mild prominence of the pulmonary vas culature. No pneumothorax. No other significant interval change. IMPRESSION: Consolidations in the lower lungs as described above, with improvement in the right lower lung consol idation.
[2025-07-26 13:36] LABS: Hematocrit 29.2 % (41.0-53.0); Hemoglobin 9.4 g/dL (13.5-17.5); Mean Corpuscular Hemoglobin 31.1 pg (28.0-32.0); Mean Corpuscular Volume 96.2 fL (80.0-100.0); Nucleated Red Blood Cells % 0.1 %
[2025-07-26 13:52] LABS: Alanine Aminotransferase < 9 U/L (7-40); Albumin 2.2 g/dL (3.2-4.8); Alkaline Phosphatase 110 U/L (46-116); Anion Gap 11 (5-15); BUN/Creatinine Ratio 29.7 (10.0-20.0); Bilirubin, Total 0.3 mg/dL (0.2-1.0); Blood Urea Nitrogen 41 mg/dL (9-23); Calcium 7.7 mg/dL (8.7-10.4); Carbon Dioxide 23 mmol/L (20-31); Chloride 110 mmol/L (98-107); Glucose 86 mg/dL (74-106); Potassium 4.3 mmol/L (3.5-5.1); Sodium 144 mmol/L (136-145); Total Protein 4.9 g/dL (5.7-8.2)
[2025-07-26 14:02] LABS: Triglycerides 136 mg/dL (< 150)
[2025-07-26 14:04] LABS: Cholesterol 104 mg/dL (< 200); HDL Cholesterol 28 mg/dL (40-59)
--- NOTE | 2025-07-26 14:29 | DVHINCON2 ---
Date Seen: Jul 26, 2025 Referring Physician MD Nico Reason for Consultation Chest pain with elevated troponin levels History of Present Illness This is a Greenlandic-speaking mostly 69-year-old man who presented to the emergency room via EMS with a chief complaint of generalized weakness. At time of assessment the patient was found A&O x 2, with daughter at bedside stating the patient developed generalized weakness associated with dysphagia, chest congestion, and a cough which will trigger chest pain. States the chest pain complains resolve once the cough resolves. He underwent multiple 12 lead electrocardiogram revealing a sinus rhythm with a associated ST segment changes to inferolateral leads which are similar from a 12 lead electrocardiogram from a previous admission. Troponin levels peaked at 164 ng/L. Upon arrival to the emergency room he was found with O2 saturations of 88% on room air for which he was provided supplemental oxygenation. Significant medical history includes peripheral arterial disease status post CUTTER AND EDGE TRIMMER and stenting of the RLE on 11/08/2022, hypertension, dyslipidemia, drj-gpvtsro-gtibkcoar diabetes mellitus, status post left dglod-jac-dmyqfswphn, right toe amputation, peripheral neuropathy, benign prostatic hyperplasia, nasopharyngeal carcinoma, microcytic anemia, and history of lower GI bleed status post blood transfusions with latest on 01/07/2025. Past Medical History Past medical history reviewed. No other significant than mentioned above. Past Surgical History Left BKA Right toe amputation Family History: Diabetes mellitus G8 MOTHER G8 FATHER Family History Family history reviewed. Social History Denies the use of illicit drugs, alcohol, or tobacco use. Allergies: Coded Allergies: NO KNOWN ALLERGIES (Unverified , 11/02/22) Home Meds Active Scripts Ergocalciferol (VITAMIN D 97130 UNIT) 50,[address] [place], [address] UNIT PO QWEEKLY for 90 Days, #12 CAP Prov:MICHELLE GALLEGO RESIDENT 01/08/25 Tamsulosin Hcl (Flomax) 0.4 Mg Cap, 0.4 MG PO QPM for 30 Days, #30 CAP 2 Refills Prov:MICHELLE GALLEGO RESIDENT 01/08/25 Nifedipine (Nifedipine Er) 30 Mg Tab, 60 MG PO DAILY for 30 Days, #60 TAB 2 Refills Prov:MICHELLE GALLEGO RESIDENT 01/08/25 Reported Medications Gabapentin (Gabapentin) 600 Mg Tab, 1 TAB PO 12/21/23 Melatonin (KP MELATONIN) 3 Mg Tab, 10 MG PO HS, TAB 01/09/23 Atorvastatin Calcium (ATORVASTATIN CALCIUM) 40 Mg Tab, 1 TAB PO QPM, #90 TAB 3 Refills 11/05/22 Metformin Hydrochloride (Metformin Hcl) 500 Mg Tab, 1000 MG PO IBID for 30 Days, MG 11/05/22 Pantoprazole Sodium Sesquihydr (Protonix) 40 Mg Tab, 40 MG PO DAILY, #30 TAB 11/05/22 Home Meds Home medications reviewed. Current Medications Current Medications Medications (Trade) Dose Ordered Sig/Donaldo Route PRN Reason Start Time Stop Time Status Last Admin Tamsulosin HCl (Flomax) 0.4 mg QPM PO 07/25/25 18:00 07/25/25 17:19 Ceftriaxone Sodium 50 ml @ 100 mls/hr DAILY@ IV 07/26/25 09:00 07/26/25 09:27 Aspirin 81 mg DAILY PO 07/27/25 10:00 Review of Systems Constitutional: Generalized weakness Ears, Nose, & Throat: No symptom reported Eyes: No symptom reported Neurological: No symptoms reported Pulmonary/Respiratory: Chest congestion, cough Cardiovascular: No symptom reported Gastrointestinal: Dysphagia Genitourinary: No symptom reported Musculoskeletal: Chest wall pain Skin: No symptom reported Psychiatric: No symptom reported Endocrine: No symptom reported Hemotologic/Lymphatic: No symptom reported Vital Signs Vital Signs Date Time Temp Pulse Resp B/P (MAP) Pulse Ox O2 Delivery O2 Flow Rate FiO2 07/26/25 13:00 97.5 62 12 106/62 (77) 92 97.5 07/26/25 08:06 Room Air* 0 21 Physical Exam General Appearance: Cooperative. Chronically ill. Cachectic. In no acute distress Head Exam: Normal inspection Neck Exam: Normal inspection. Non-tender. Normal alignment Pulmonary/Respiratory: Chest non-tender. Diminished bilateral breath sounds Cardiovascular/Chest: Regular rate and rhythm. S1, S2. Sinus rhythm with multiple PACs. No murmurs. No JVD. Peripheral Pulses: 2+ Radial (R). 2+ Radial (L). 2+ Pedal (R). 2+ Pedal (L) Abdominal Exam: Normal bowel sounds. Soft. Ankle Exam: Negative right ankle edema Lower extremities: Positive right lower extremity edema, 1+ Neuro/Mental Status: A&O x2. Very poor historian, incoherent Thoughts/Psych: Apathetic Appearance: In no acute distress Skin Exam: Normal inspection. Pale color. Warm. Dry Labs/Diagnostic Data Labs Test 07/26/25 13:11 07/26/25 11:48 07/25/25 22:31 07/24/25 18:29 Range/Units White Blood Count 7.3 4.4-10.8 10^3/uL Red Blood Count 3.03 L 4.5-5.90 10^6/uL Hemoglobin 9.4 L 13.5-17.5 g/dL Hematocrit 29.2 #L 41.0-53.0 % Mean Corpuscular Volume 96.2 80.0-100.0 fL Mean Corpuscular Hemoglobin 31.1 28.0-32.0 pg Mean Corpuscular Hemoglobin Concent 32.3 32.0-36.0 g/dL Red Cell Distribution Width 17.2 H 11.8-14.3 % Platelet Count 248 140-450 10^3/uL Mean Platelet Volume 7.7 6.9-10.8 fL Neutrophils (%) (Auto) 62.2 37.0-80.0 % Lymphocytes (%) (Auto) 32.6 10.0-50.0 % Monocytes (%) (Auto) 4.7 0.0-12.0 % Eosinophils (%) (Auto) 0.3 0.0-7.0 % Basophils (%) (Auto) 0.2 0.0-2.0 % Neutrophils # (Auto) 4.5 1.6-8.6 10 ^3/uL Lymphocytes # (Auto) 2.4 0.4-5.4 10 ^3/uL Monocytes # (Auto) 0.3 0-1.3 10 ^3/uL Eosinophils # (Auto) 0 0-0.8 10 ^3/uL Basophils # (Auto) 0 0-0.2 10 ^3/uL Nucleated Red Blood Cells 0.1 % Sodium Level 144 136-145 mmol/L Potassium Level 4.3 3.5-5.1 mmol/L Chloride Level 110 H 98-107 mmol/L Carbon Dioxide Level 23 20-31 mmol/L Anion Gap 11 5-15 Blood Urea Nitrogen 41 #H 9-23 mg/dL Creatinine 1.38 H 0.700-1.30 mg/dL Glomerular Filtration Rate Calc 56 >90 mL/min BUN/Creatinine Ratio 29.7 H 10.0-20.0 Serum Glucose 86 74-106 mg/dL Calcium Level 7.7 L 8.7-10.4 mg/dL Total Bilirubin 0.3 0.2-1.0 mg/dL Aspartate Amino Transferase (AST) 15 13-40 U/L Alanine Aminotransferase (ALT) < 9 7-40 U/L Alkaline Phosphatase 110 46-116 U/L Total Protein 4.9 L 5.7-8.2 g/dL Albumin 2.2 L 3.2-4.8 g/dL Triglycerides Level 136 < 150 mg/dL Cholesterol Level 104 < 200 mg/dL LDL Cholesterol 48 < 100 mg/dL HDL Cholesterol 28 L 40-59 mg/dL POC Glucose 98 70-106 mg/dl Influenza Type A Antigen Negative Negative Influenza Type B Antigen Negative Negative SARS-CoV-2 Antigen (Rapid) Negative NEGATIVE Urine Color Yellow Yellow Urine Clarity Clear Clear Urine pH 5.0 5.0-9.0 Urine Specific [place] 1.017 1.001-1.035 Urine Protein 1+ H Negative Urine Ketones Negative Negative Urine Blood Negative Negative /uL Urine Nitrite Negative Negative Urine Bilirubin Negative Negative Urine Urobilinogen Normal Negative mg/dL Urine Leukocyte Esterase Negative Negative /uL Urine RBC 5 0 - 3 /hpf Urine Microscopic WBC 3 0-3 /HPF Urine Squamous Epithelial Cells Few <5 /hpf Urine Amorphous Crystals Few None Seen /hpf Urine Bacteria Few H None Seen /hpf Urine Glucose Normal Normal mg/dL Test 07/24/25 18:07 07/24/25 15:11 Range/Units Troponin I High Sensitivity 138 *H </=54 ng/L B-Type Natriuretic Peptide 571.68 0-100 pg/mL Assessment Sepsis with pneumonia Acute hypoxic respiratory failure ?Dysphagia NSTEMI, likely type 2 secondary to above Chronic compensated HFmrEF, NYHA Class III PAD status CUTTER AND EDGE TRIMMER and stenting of the RLE (11/08/2022) Anemia with history of GI bleed and blood transfusions Status post left dkrsd-ryt-ddkf amputation Hypertension Pih-ufpabaz-wkrhaftqf diabetes mellitus Failure to thrive Plan/Recommendation (Dr. Way) Patient seen and examined at bedside with Dr. Way. A recent transthoracic echocardiogram revealed LVEF 40% with normal RV function. The patient presents with noncardiac chest pain secondary to cough and chest congestion in the setting of pneumonia. Continue single-antiplatelet therapy and lipid lowering agent. Initiate GDMT for HFrEF and titrate as tolerated. Hold mineralocorticoid given increased in BUN. Continue antibiotic therapy per primary care team. There is no further cardiac workup indicated at this time. Kindly call if you need to re-consult. Thank you for allowing us to participate in this patient's care. Please call if you have any questions or concerns. This medical document was created using an electronic medical record system with voice recognition software and computerized dictation system. Although this d ocument has been carefully reviewed, there might still be some phonetic and typographical errors. Occasional wrong-word or ``sound-alike substitutions may have occurred due to the inherent limitations of voice recognition software. These areas are purely typographical due to imperfections of the software programs and do not reflect any compromise in the patient's medical care. Please read the chart carefully and recognize, using context, where these substitutions have occurred. Plan discussed with: Patient, Daughter, Other NYHA Physical activity limitations: NA Date of Service: Jul 26, 2025 Billing Provider: CARLEEN EDWARD Cardiology Common Codes: [id number] INP/OBS CARE (High) CARLEEN EDWARD Jul 26, 2025 14:29
[2025-07-26] MEDS: SACUBITRIL-VALSARTAN 24mg/26mg TAB PO SCH (20:56)
[2025-07-26] MEDS: METOPROLOL TARTRATE 25 MG TAB PO SCH (20:57)
--- NOTE | 2025-07-26 23:39 | DVHINCON2 ---
Date Seen: Jul 26, 2025 Referring Physician MD Nico Reason for Consultation Chest pain with elevated troponin levels History of Present Illness This is a Maori-speaking mostly 69-year-old male with a medical history of peripheral arterial disease status post LIGHT OUT EXAMINER and stenting of the RLE on 10/22, hypertension, dyslipidemia, phi-xyyomuf-rqmkjsdel diabetes mellitus, status post left ubiic-ixe-iiuhwnnfwo, right toe amputation, peripheral neuropathy, benign prostatic hyperplasia, nasopharyngeal carcinoma, microcytic anemia, and history of lower GI bleed status post blood transfusions with latest on 01/07/2025 who presented to the emergency room via EMS with a complaint of generalized weakness. At time of assessment the patient was found A&O x 2, with daughter at bedside stating the patient developed generalized weakness associated with dysphagia, chest congestion, and a cough which will trigger chest pain. States the chest pain complains resolve once the cough resolves. He underwent multiple 12 lead electrocardiogram revealing a sinus rhythm with a associated ST segment changes to inferolateral leads which are similar from a 12 lead electrocardiogram from a previous admission. Troponin levels peaked at 164 ng/L. Upon arrival to the emergency room he was found with O2 saturations of 88% on room air for which he was provided supplemental oxygenation. Chest x-ray showed bilateral basilar consolidation could be seen with pneumonia. 9 mm left mid lung zone pulmonary nodule is suspected. Patient was admitted to the hospital. I am asked to consult on this patient. Past Medical History Past medical history reviewed. No other significant than mentioned above. Past Surgical History Left BKA Right toe amputation Family History: Diabetes mellitus G8 MOTHER G8 FATHER Allergies: Coded Allergies: NO KNOWN ALLERGIES (Unverified , 11/02/22) Home Meds Active Scripts Ergocalciferol (VITAMIN D 51022 UNIT) 50,[address] [place], [address] UNIT PO QWEEKLY for 90 Days, #12 CAP Prov:MICHELLE GALLEGO RESIDENT 01/08/25 Tamsulosin Hcl (Flomax) 0.4 Mg Cap, 0.4 MG PO QPM for 30 Days, #30 CAP 2 Refills Prov:MICHELLE GALLEGO RESIDENT 01/08/25 Nifedipine (Nifedipine Er) 30 Mg Tab, 60 MG PO DAILY for 30 Days, #60 TAB 2 Refills Prov:MICHELLE GALLEGO RESIDENT 01/08/25 Reported Medications Gabapentin (Gabapentin) 600 Mg Tab, 1 TAB PO 12/21/23 Melatonin (KP MELATONIN) 3 Mg Tab, 10 MG PO HS, TAB 01/09/23 Atorvastatin Calcium (ATORVASTATIN CALCIUM) 40 Mg Tab, 1 TAB PO QPM, #90 TAB 3 Refills 11/05/22 Metformin Hydrochloride (Metformin Hcl) 500 Mg Tab, 1000 MG PO IBID for 30 Days, MG 11/05/22 Pantoprazole Sodium Sesquihydr (Protonix) 40 Mg Tab, 40 MG PO DAILY, #30 TAB 11/05/22 Current Medications Current Medications Medications (Trade) Dose Ordered Sig/Donaldo Route PRN Reason Start Time Stop Time Status Last Admin Tamsulosin HCl (Flomax) 0.4 mg QPM PO 07/25/25 18:00 07/25/25 17:19 Ceftriaxone Sodium 50 ml @ 100 mls/hr DAILY@09 IV 07/26/25 09:00 07/26/25 09:27 Aspirin 81 mg DAILY PO 07/27/25 10:00 Metoprolol Tartrate (Lopressor Tablet) 12.5 mg BID PO 07/26/25 22:00 UNV Empaglifozin (Jardiance) 10 mg DAILY PO 07/27/25 10:00 UNV Sacubitril/ Valsartan (Entresto 24-26 Mg tab) 0.5 tab BID PO 07/26/25 22:00 UNV Review of Systems Constitutional: Generalized weakness Ears, Nose, & Throat: No symptom reported Eyes: No symptom reported Neurological: No symptoms reported Pulmonary/Respiratory: Chest congestion, cough Cardiovascular: No symptom reported Gastrointestinal: Dysphagia Genitourinary: No symptom reported Musculoskeletal: Chest wall pain Skin: No symptom reported Psychiatric: No symptom reported Endocrine: No symptom reported Hemotologic/Lymphatic: No symptom reported Vital Signs Vital Signs Date Time Temp Pulse Resp B/P (MAP) Pulse Ox O2 Delivery O2 Flow Rate FiO2 07/26/25 13:00 97.5 62 12 106/62 (77) 92 97.5 07/26/25 08:06 Room Air* 0 21 Physical Exam GENERAL: Alert and oriented x 2. Chronically ill appearing, cachectic, pale. EYES: PERRL, EOMI. Anicteric. HENT: Moist mucous membranes. LUNGS: Decreased breath sounds. CARDIOVASCULAR: Regular rate and rhythm. ABDOMEN: Soft, nontender and nondistended. EXTREMITIES: 1+ pitting edema. NEUROLOGIC: No focal neurological deficits. SKIN: Warm, dry. Labs/Diagnostic Data Labs Test 07/26/25 13:11 07/26/25 11:48 07/25/25 22:31 07/24/25 18:29 Range/Units White Blood Count 7.3 4.4-10.8 10^3/uL Red Blood Count 3.03 L 4.5-5.90 10^6/uL Hemoglobin 9.4 L 13.5-17.5 g/dL Hematocrit 29.2 #L 41.0-53.0 % Mean Corpuscular Volume 96.2 80.0-100.0 fL Mean Corpuscular Hemoglobin 31.1 28.0-32.0 pg Mean Corpuscular Hemoglobin Concent 32.3 32.0-36.0 g/dL Red Cell Distribution Width 17.2 H 11.8-14.3 % Platelet Count 248 140-450 10^3/uL Mean Platelet Volume 7.7 6.9-10.8 fL Neutrophils (%) (Auto) 62.2 37.0-80.0 % Lymphocytes (%) (Auto) 32.6 10.0-50.0 % Monocytes (%) (Auto) 4.7 0.0-12.0 % Eosinophils (%) (Auto) 0.3 0.0-7.0 % Basophils (%) (Auto) 0.2 0.0-2.0 % Neutrophils # (Auto) 4.5 1.6-8.6 10 ^3/uL Lymphocytes # (Auto) 2.4 0.4-5.4 10 ^3/uL Monocytes # (Auto) 0.3 0-1.3 10 ^3/uL Eosinophils # (Auto) 0 0-0.8 10 ^3/uL Basophils # (Auto) 0 0-0.2 10 ^3/uL Nucleated Red Blood Cells 0.1 % Sodium Level 144 136-145 mmol/L Potassium Level 4.3 3.5-5.1 mmol/L Chloride Level 110 H 98-107 mmol/L Carbon Dioxide Level 23 20-31 mmol/L Anion Gap 11 5-15 Blood Urea Nitrogen 41 #H 9-23 mg/dL Creatinine 1.38 H 0.700-1.30 mg/dL Glomerular Filtration Rate Calc 56 >90 mL/min BUN/Creatinine Ratio 29.7 H 10.0-20.0 Serum Glucose 86 74-106 mg/dL Calcium Level 7.7 L 8.7-10.4 mg/dL Total Bilirubin 0.3 0.2-1.0 mg/dL Aspartate Amino Transferase (AST) 15 13-40 U/L Alanine Aminotransferase (ALT) < 9 7-40 U/L Alkaline Phosphatase 110 46-116 U/L Total Protein 4.9 L 5.7-8.2 g/dL Albumin 2.2 L 3.2-4.8 g/dL Triglycerides Level 136 < 150 mg/dL Cholesterol Level 104 < 200 mg/dL LDL Cholesterol 48 < 100 mg/dL HDL Cholesterol 28 L 40-59 mg/dL POC Glucose 98 70-106 mg/dl Influenza Type A Antigen Negative Negative Influenza Type B Antigen Negative Negative SARS-CoV-2 Antigen (Rapid) Negative NEGATIVE Urine Color Yellow Yellow Urine Clarity Clear Clear Urine pH 5.0 5.0-9.0 Urine Specific [place] 1.017 1.001-1.035 Urine Protein 1+ H Negative Urine Ketones Negative Negative Urine Blood Negative Negative /uL Urine Nitrite Negative Negative Urine Bilirubin Negative Negative Urine Urobilinogen Normal Negative mg/dL Urine Leukocyte Esterase Negative Negative /uL Urine RBC 5 0 - 3 /hpf Urine Microscopic WBC 3 0-3 /HPF Urine Squamous Epithelial Cells Few <5 /hpf Urine Amorphous Crystals Few None Seen /hpf Urine Bacteria Few H None Seen /hpf Urine Glucose Normal Normal mg/dL Test 07/24/25 18:07 07/24/25 15:11 Range/Units Troponin I High Sensitivity 138 *H </=54 ng/L B-Type Natriuretic Peptide 571.68 0-100 pg/mL Assessment Sepsis with pneumonia. Acute hypoxic respiratory failure. ?Dysphagia. NSTEMI, likely type 2 secondary to above. Chronic compensated HFmrEF, NYHA Class III. PAD status LIGHT OUT EXAMINER and stenting of the RLE (11/08/2022). Anemia with history of GI bleed and blood transfusions. Status post left cvnfq-abv-fvbx amputation. Hypertension. Vjj-hblkjgj-yaeffddbr diabetes mellitus. Failure to thrive. Plan/Recommendation I agree with your ongoing assessment and care of plan. Patient has been seen by Karen Roberto NP on my behalf, her and I discussed the plan with the patient. A recent transthoracic echocardiogram revealed LVEF 40% with normal RV function. The patient presents with noncardiac chest pain secondary to cough and chest congestion in the setting of pneumonia. Continue single-antiplatelet therapy and lipid lowering agent. Initiate GDMT for HFrEF and titrate as tolerated. Hold mineralocorticoid given increased in BUN. Continue antibiotic therapy per primary care team. There is no further cardiac workup indicated at this time. Additional plan as per the hospital course. Plan discussed with: Patient NYHA Physical activity limitations: NA Date of Service: Jul 26, 2025 Billing Provider: SEBASTIÁN PLUNKETT MD Cardiology Common Codes: [id number] INP/OBS CARE (High) Cardiology Consultation Codes: [id number] CONSULT <45MIN SEBASTIÁN PLUNKETT MD Jul 26, 2025 14:46
[2025-07-27] VITALS (9 sets, daily range): BP systolic 104–130; BP diastolic 68–81; PULSE 68–75; RESP 15–18; TEMP 97.6–98.2; O2SAT 90–100
[2025-07-27] MEDS: EMPAGLIFLOZIN 10 MG TAB PO SCH (10:00)
--- NOTE | 2025-07-27 12:38 | DVHPN2 ---
Reviewed: Care Plan, H&P, Labs, Medications, Previous Orders, Radiology Changes from previous H/P or p: No Changes Eyes: No Pain, No Vision change, No Conjunctivae inflammation, No Eyelid inflammation, No Other, No Redness ENT: No Ear pain, No Ear discharge, No Nose pain, No Nose discharge, No Nose congestion, No Mouth pain, No Mouth swelling, No Throat pain, No Throat swelling, No Other Cardiovascular: Chest Pain; No Palpitations, No Orthopnea, No Paroxysmal Noc. Dyspnea, No Edema, No Lt Headedness, No Other Respiratory: Cough; No Dry; Shortness of breath; No SOB with excertion, No Wheezing, No Hemoptysis, No Pleuritic Pain, No Sputum; Other (SOB at rest) Gastrointestinal: No Nausea, No Vomiting, No Abdominal Pain, No Diarrhea, No Constipation, No Melena, No Hematochezia, No Other Genitourinary: No Dysuria, No Frequency, No Incontinence, No Hematuria, No Retention, No Other Musculoskeletal: other (Right BKA); No neck pain, No shoulder pain, No arm pain, No back pain, No hand pain, No leg pain, No foot pain Skin: No Rash, No Lesions, No Jaundice, No Bruising, No Other Objective Vitals Vital Signs Date Time Temp Pulse Resp B/P (MAP) Pulse Ox O2 Delivery O2 Flow Rate FiO2 07/27/25 08:02 96 Room Air* 0 21 07/27/25 08:00 75 07/27/25 05:00 98.0 16 117/81 (93) 98.0 Intake/Output Intake and Output 07/27/25 07:00 Intake Total 480 ml Output Total 150 ml Balance 330 ml Intake Oral 180 ml IV Total 300 ml Output Urine Total 150 ml Medications Current Medications Medications Dose Ordered Sig/Donaldo Route Start Time Stop Time Status Last Admin Dose Admin Tamsulosin HCl 0.4 mg QPM PO 07/25/25 18:00 07/25/25 17:19 0.4 MG Atorvastatin Calcium 20 mg HS PO 07/24/25 22:00 07/25/25 20:56 20 MG Azithromycin 250 ml @ 125 mls/hr DAILY IV 07/25/25 10:00 07/27/25 09:23 125 MLS/HR Famotidine 20 mg Q12HR IV 07/24/25 22:00 07/26/25 20:56 20 MG Furosemide 20 mg DAILY IV 07/25/25 10:00 07/26/25 09:40 20 MG Diagnostic Test (Pha) 1 strip ACHS 07/24/25 22:00 07/27/25 06:34 1 STRIP Insulin Human Regular ACHS SC 07/24/25 22:00 07/24/25 22:42 2 UNITS Dextrose 50 ml UD PRN IV 07/24/25 18:45 Acetaminophen/ Hydrocodone Bitart 1 tab Q4HP PRN PO 07/24/25 18:45 07/24/25 19:26 1 TAB Ondansetron HCl 4 mg Q4HP PRN IV 07/24/25 18:45 Docusate Sodium 100 mg BIDPRN PRN PO 07/24/25 18:45 Acetaminophen 650 mg Q6HP PRN PO 07/24/25 18:45 Nitroglycerin 0.4 mg Q5MINP PRN SL 07/24/25 19:45 Morphine Sulfate 2 mg Q30M PRN IV 07/24/25 19:45 Ceftriaxone Sodium 50 ml @ 100 mls/hr DAILY@09 IV 07/26/25 09:00 07/27/25 09:23 100 MLS/HR Aspirin 81 mg DAILY PO 07/27/25 10:00 Metoprolol Tartrate 12.5 mg BID PO 07/26/25 22:00 Empaglifozin 10 mg DAILY PO 07/27/25 10:00 Sacubitril/ Valsartan 0.5 tab BID PO 07/26/25 22:00 Laboratory Results Laboratory Tests 07/26/25 13:11 Chemistry Test 07/26/25 13:11 Albumin 2.2 g/dL (3.2-4.8) L Calcium Level 7.7 mg/dL (8.7-10.4) L Total Protein 4.9 g/dL (5.7-8.2) L Lipid panel Test 07/26/25 13:11 Cholesterol Level 104 mg/dL (< 200) HDL Cholesterol 28 mg/dL (40-59) L Triglycerides Level 136 mg/dL (< 150) LFT Test 07/26/25 13:11 Alanine Aminotransferase (ALT) < 9 U/L (7-40) Alkaline Phosphatase 110 U/L (46-116) Aspartate Amino Transferase (AST) 15 U/L (13-40) Total Bilirubin 0.3 mg/dL (0.2-1.0) Urinalysis Test 07/24/25 18:29 Urine Color Yellow (Yellow) Urine Clarity Clear (Clear) Urine pH 5.0 (5.0-9.0) Urine Specific [place] 1.017 (1.001-1.035) Urine Protein 1+ (Negative) H Urine Ketones Negative (Negative) Urine Blood Negative /uL (Negative) Urine Nitrite Negative (Negative) Urine Bilirubin Negative (Negative) Urine Urobilinogen Normal mg/dL (Negative) Urine Leukocyte Esterase Negative /uL (Negative) Urine RBC 5 /hpf (0 - 3) Urine Microscopic WBC 3 /HPF (0-3) Urine Squamous Epithelial Cells Few /hpf (<5) Urine Amorphous Crystals Few /hpf (None Seen) Urine Bacteria Few /hpf (None Seen) H Urine Glucose Normal mg/dL (Normal) Labs and/or images reviewed: Labs reviewed by me, Image(s) reviewed by me Assessment/Plan Assessment/Plan Acute generalized weakness Acute Bilateral community-acquired pneumonia Gram-positive versus Gram-negative: Rocephin azithromycin Elevated troponin possibly non ST-elevation NM: Cardiology consult for Dr. Gemini Way Diabetes: Insulin sliding scale Status post left BKA Chronic anemia Acute on chronic renal failure BPH Moderate protein calorie malnutrition Diastolic heart failure History of nasopharyngeal cancer Sandra Test negative Rapid flu test negative Time spent 50 minutes Advanced care planning time 20 minutes Patient is full code Daughter from [place] at the bedside and she does not want him to go on hospice Patient currently on [facility] home health Plan discussed with: Patient My Orders Orders - ERIN JULIAN MD Procedure Category Date Status Time * Swallow Request ST 07/26/25 Transmitted 13:08 Npo (Nothing By DIET 07/26/25 Transmitted Mouth) Diet Dinner Date of Service: Jul 27, 2025 Billing Provider: ERIN JULIAN MD Common Visit Codes: [id number] INP/OBS CARE(HIGH) Secondary Visit Codes: [id number] CARE PLAN 30 MINUTES ERIN JULIAN MD Jul 27, 2025 12:38
[2025-07-27] MEDS: D5W/SOD CHL 0.45% 1,000 ML IV SCH (13:00)
--- NOTE | 2025-07-27 14:55 | MEDREC ---
[facility] ASP Intervention Section I [facility] ASP Intervention: Review courses of therapy (Patient received minimum 3 doses of azithromycin. Consider d/c azythromycin if clinically appropriate) RHEA JACQUES [facility] RESIDENT Jul 27, 2025 14:55
--- NOTE | 2025-07-27 23:32 | DVHPN2 ---
Progress Note - Dictate Date Seen: Jul 27, 2025 Medical Necessity Reason Pt with a Central, PICC or Fol: No Subjective Patient was seen and evaluated in follow up. Patient is complaining of SOB. Patient resting in bed, stable on room air. Recent transthoracic echocardiogram revealed LVEF 40% with normal RV function. Telemetry reviewed. vital signs Vital Sign Date Time Temp Pulse Resp B/P (MAP) Pulse Ox O2 Delivery O2 Flow Rate FiO2 07/27/25 21:43 98.2 71 15 104/69 (81) 90 98.2 07/27/25 19:43 Room Air* 0 21 Total Intake and Output 07/26/25 07/26/25 07/27/25 15:00 23:00 07:00 Intake Total 480 ml 0 ml Output Total 50 ml 100 ml Balance 430 ml -100 ml medications Current Medications Medications Dose Ordered Sig/Donaldo Route Start Time Stop Time Status Last Admin Dose Admin Tamsulosin HCl 0.4 mg QPM PO 07/25/25 18:00 07/25/25 17:19 0.4 MG Atorvastatin Calcium 20 mg HS PO 07/24/25 22:00 07/25/25 20:56 20 MG Azithromycin 250 ml @ 125 mls/hr DAILY IV 07/25/25 10:00 07/27/25 09:23 125 MLS/HR Famotidine 20 mg Q12HR IV 07/24/25 22:00 07/27/25 21:40 20 MG Furosemide 20 mg DAILY IV 07/25/25 10:00 07/26/25 09:40 20 MG Diagnostic Test (Pha) 1 strip ACHS 07/24/25 22:00 07/27/25 21:05 1 STRIP Insulin Human Regular ACHS SC 07/24/25 22:00 07/24/25 22:42 2 UNITS Dextrose 50 ml UD PRN IV 07/24/25 18:45 Acetaminophen/ Hydrocodone Bitart 1 tab Q4HP PRN PO 07/24/25 18:45 07/24/25 19:26 1 TAB Ondansetron HCl 4 mg Q4HP PRN IV 07/24/25 18:45 Docusate Sodium 100 mg BIDPRN PRN PO 07/24/25 18:45 Acetaminophen 650 mg Q6HP PRN PO 07/24/25 18:45 Nitroglycerin 0.4 mg Q5MINP PRN SL 07/24/25 19:45 Morphine Sulfate 2 mg Q30M PRN IV 07/24/25 19:45 Ceftriaxone Sodium 50 ml @ 100 mls/hr DAILY@09 IV 07/26/25 09:00 07/27/25 09:23 100 MLS/HR Aspirin 81 mg DAILY PO 07/27/25 10:00 Metoprolol Tartrate 12.5 mg BID PO 07/26/25 22:00 Empaglifozin 10 mg DAILY PO 07/27/25 10:00 Sacubitril/ Valsartan 0.5 tab BID PO 07/26/25 22:00 Dextrose/Sodium Chloride 1,000 ml @ 75 mls/hr [id number] IV 07/27/25 13:00 07/27/25 13:00 75 MLS/HR objective GENERAL: Alert and oriented x 3. Chronically ill appearing, cachectic, pale. EYES: PERRL, EOMI. Anicteric. HENT: Moist mucous membranes. LUNGS: Decreased breath sounds. CARDIOVASCULAR: Regular rate and rhythm. ABDOMEN: Soft, nontender and nondistended. EXTREMITIES: 1+ pitting edema. SKIN: Warm, dry. laboratory and microbiology Laboratory Tests 07/26/25 13:11 Test 07/26/25 13:11 Range/Units Serum Glucose 86 74-106 mg/dL Problem List Sepsis with pneumonia. Acute hypoxic respiratory failure. ?Dysphagia. NSTEMI, likely type 2 secondary to above. Chronic compensated HFmrEF, NYHA Class III. 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 Anemia with history of GI bleed and blood transfusions. Status post left vrhsk-thx-tzjn amputation. Hypertension. Fkf-jiixthp-[id number] diabetes mellitus. Failure to thrive. Assessment/Plan Continued all current supportive medical care. Morphine and [place] for pain management. Aspirin, Lipitor, Metoprolol. IV antibiotics as ordered. Diuretics with Lasix. Nitro SL. Entresto. Additional plan as per the hospital course. Dietary Evaluation Review Recommendations by RD: Dietary education by RD, Increase Calorie Intake Comments: 1) Initiate Glucerna tid 2) Add NCS restriction to cardiac diet - Encourage optimal PO intake 3) Refer to outpatient RD for weight management 4) Follow-up with cardiology and nephrology 5) Continue to monitor I&O, labs, and skin integrity Expected Outcomes/Goals: 1) appetite and labs to improve 2) gradual wt gain 3) f/u in 3-5 days Plan discussed with: Patient SEBASTIÁN PLUNKETT MD Jul 27, 2025 23:27
[2025-07-28] VITALS (7 sets, daily range): BP systolic 110–122; BP diastolic 64–80; PULSE 16–83; RESP 16–18; TEMP 97.4–98.6; O2SAT 91–99
--- NOTE | 2025-07-28 11:56 | DVHPN2 ---
Reviewed: Care Plan, H&P, Labs, Medications, Previous Orders, Radiology Changes from previous H/P or p: No Changes Eyes: No Pain, No Vision change, No Conjunctivae inflammation, No Eyelid inflammation, No Other, No Redness ENT: No Ear pain, No Ear discharge, No Nose pain, No Nose discharge, No Nose congestion, No Mouth pain, No Mouth swelling, No Throat pain, No Throat swelling, No Other Cardiovascular: Chest Pain; No Palpitations, No Orthopnea, No Paroxysmal Noc. Dyspnea, No Edema, No Lt Headedness, No Other Respiratory: Cough; No Dry; Shortness of breath; No SOB with excertion, No Wheezing, No Hemoptysis, No Pleuritic Pain, No Sputum; Other (SOB at rest) Gastrointestinal: No Nausea, No Vomiting, No Abdominal Pain, No Diarrhea, No Constipation, No Melena, No Hematochezia, No Other Genitourinary: No Dysuria, No Frequency, No Incontinence, No Hematuria, No Retention, No Other Musculoskeletal: other (Right BKA); No neck pain, No shoulder pain, No arm pain, No back pain, No hand pain, No leg pain, No foot pain Skin: No Rash, No Lesions, No Jaundice, No Bruising, No Other Objective Vitals Vital Signs Date Time Temp Pulse Resp B/P (MAP) Pulse Ox O2 Delivery O2 Flow Rate FiO2 07/28/25 09:26 60 116/69 07/28/25 09:00 97.4 16 99 97.4 07/27/25 19:43 Room Air* 0 21 Intake/Output Intake and Output 07/28/25 07:00 Intake Total 0 ml Output Total 450 ml Balance -450 ml Intake Oral 0 ml Tube Feeding 0 ml Output Urine Total 450 ml Medications Current Medications Medications Dose Ordered Sig/Donaldo Route Start Time Stop Time Status Last Admin Dose Admin Tamsulosin HCl 0.4 mg QPM PO 07/25/25 18:00 07/25/25 17:19 0.4 MG Atorvastatin Calcium 20 mg HS PO 07/24/25 22:00 07/25/25 20:56 20 MG Azithromycin 250 ml @ 125 mls/hr DAILY IV 07/25/25 10:00 07/28/25 10:14 125 MLS/HR Famotidine 20 mg Q12HR IV 07/24/25 22:00 07/28/25 09:14 20 MG Furosemide 20 mg DAILY IV 07/25/25 10:00 07/28/25 09:16 20 MG Diagnostic Test (Pha) 1 strip ACHS 07/24/25 22:00 07/27/25 21:05 1 STRIP Insulin Human Regular ACHS SC 07/24/25 22:00 07/24/25 22:42 2 UNITS Dextrose 50 ml UD PRN IV 07/24/25 18:45 Acetaminophen/ Hydrocodone Bitart 1 tab Q4HP PRN PO 07/24/25 18:45 07/24/25 19:26 1 TAB Ondansetron HCl 4 mg Q4HP PRN IV 07/24/25 18:45 Docusate Sodium 100 mg BIDPRN PRN PO 07/24/25 18:45 Acetaminophen 650 mg Q6HP PRN PO 07/24/25 18:45 Nitroglycerin 0.4 mg Q5MINP PRN SL 07/24/25 19:45 Morphine Sulfate 2 mg Q30M PRN IV 07/24/25 19:45 Ceftriaxone Sodium 50 ml @ 100 mls/hr DAILY@09 IV 07/26/25 09:00 07/28/25 09:14 100 MLS/HR Aspirin 81 mg DAILY PO 07/27/25 10:00 Metoprolol Tartrate 12.5 mg BID PO 07/26/25 22:00 Empaglifozin 10 mg DAILY PO 07/27/25 10:00 Sacubitril/ Valsartan 0.5 tab BID PO 07/26/25 22:00 Dextrose/Sodium Chloride 1,000 ml @ 75 mls/hr [id number] IV 07/27/25 13:00 07/27/25 13:00 75 MLS/HR Laboratory Results Laboratory Tests 07/26/25 13:11 Urinalysis Test 07/24/25 18:29 Urine Color Yellow (Yellow) Urine Clarity Clear (Clear) Urine pH 5.0 (5.0-9.0) Urine Specific [place] 1.017 (1.001-1.035) Urine Protein 1+ (Negative) H Urine Ketones Negative (Negative) Urine Blood Negative /uL (Negative) Urine Nitrite Negative (Negative) Urine Bilirubin Negative (Negative) Urine Urobilinogen Normal mg/dL (Negative) Urine Leukocyte Esterase Negative /uL (Negative) Urine RBC 5 /hpf (0 - 3) Urine Microscopic WBC 3 /HPF (0-3) Urine Squamous Epithelial Cells Few /hpf (<5) Urine Amorphous Crystals Few /hpf (None Seen) Urine Bacteria Few /hpf (None Seen) H Urine Glucose Normal mg/dL (Normal) Labs and/or images reviewed: Labs reviewed by me, Image(s) reviewed by me Assessment/Plan Assessment/Plan Acute generalized weakness Acute Bilateral community-acquired pneumonia Gram-positive versus Gram-negative: Rocephin azithromycin Elevated troponin possibly non ST-elevation [place]: Cardiology consult for Dr. 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, swallow evaluation ordered Nutrition D5 NS Moderate protein calorie malnutrition Diastolic heart failure History of nasopharyngeal cancer Sandra Test negative Rapid flu test negative Time spent 50 minutes Advanced care planning time 20 minutes Patient is full code Daughter from [place] at the bedside and she does not want him to go on hospice Patient currently on [facility] home health Family not willing for the patient to go on hospice Will DC home on home health Sunday Plan discussed with: Patient My Orders Orders - ERIN JULIAN MD Procedure Category Date Status Time D5w/Sod Chl 0.45% PHA 07/27/25 In Process (D5w 1/2ns) 13:00 Date of Service: Jul 28, 2025 Billing Provider: ERIN JULIAN MD Common Visit Codes: [id number] INP/OBS CARE(HIGH) ERIN JULIAN MD Jul 28, 2025 11:56
--- NOTE | 2025-07-28 23:54 | DVHPN2 ---
Progress Note - Dictate Date Seen: Jul 28, 2025 Medical Necessity Reason Pt with a Central, PICC or Fol: No Subjective Patient was seen and evaluated in follow up. No overnight events. Patent passed nursing swallow evaluation this evening. BS are WNL. Telemetry reviewed. vital signs Vital Sign Date Time Temp Pulse Resp B/P (MAP) Pulse Ox O2 Delivery O2 Flow Rate FiO2 07/28/25 21:39 65 142/54 07/28/25 13:00 18 94 07/28/25 09:00 97.4 97.4 07/28/25 08:00 Room Air* 0 21 Total Intake and Output 07/27/25 07/27/25 07/28/25 15:00 23:00 07:00 Intake Total 0 ml 0 ml Output Total 200 ml 250 ml Balance -200 ml -250 ml medications Current Medications Medications Dose Ordered Sig/Donaldo Route Start Time Stop Time Status Last Admin Dose Admin Tamsulosin HCl 0.4 mg QPM PO 07/25/25 18:00 07/25/25 17:19 0.4 MG Atorvastatin Calcium 20 mg HS PO 07/24/25 22:00 07/28/25 21:37 20 MG Azithromycin 250 ml @ 125 mls/hr DAILY IV 07/25/25 10:00 07/28/25 10:14 125 MLS/HR Famotidine 20 mg Q12HR IV 07/24/25 22:00 07/28/25 21:37 20 MG Furosemide 20 mg DAILY IV 07/25/25 10:00 07/28/25 09:16 20 MG Diagnostic Test (Pha) 1 strip ACHS 07/24/25 22:00 07/28/25 21:39 1 STRIP Insulin Human Regular ACHS SC 07/24/25 22:00 07/24/25 22:42 2 UNITS Dextrose 50 ml UD PRN IV 07/24/25 18:45 Acetaminophen/ Hydrocodone Bitart 1 tab Q4HP PRN PO 07/24/25 18:45 07/24/25 19:26 1 TAB Ondansetron HCl 4 mg Q4HP PRN IV 07/24/25 18:45 Docusate Sodium 100 mg BIDPRN PRN PO 07/24/25 18:45 Acetaminophen 650 mg Q6HP PRN PO 07/24/25 18:45 Nitroglycerin 0.4 mg Q5MINP PRN SL 07/24/25 19:45 Morphine Sulfate 2 mg Q30M PRN IV 07/24/25 19:45 Ceftriaxone Sodium 50 ml @ 100 mls/hr DAILY@09 IV 07/26/25 09:00 07/28/25 09:14 100 MLS/HR Aspirin 81 mg DAILY PO 07/27/25 10:00 Metoprolol Tartrate 12.5 mg BID PO 07/26/25 22:00 07/28/25 21:39 12.5 MG Empaglifozin 10 mg DAILY PO 07/27/25 10:00 Sacubitril/ Valsartan 0.5 tab BID PO 07/26/25 22:00 07/28/25 21:39 0.5 TAB Dextrose/Sodium Chloride 1,000 ml @ 75 mls/hr [id number] IV 07/27/25 13:00 07/28/25 18:39 75 MLS/HR objective GENERAL: Alert and oriented x 3. Chronically ill appearing, cachectic, pale. EYES: PERRL, EOMI. Anicteric. HENT: Moist mucous membranes. LUNGS: Decreased breath sounds. CARDIOVASCULAR: Regular rate and rhythm. ABDOMEN: Soft, nontender and nondistended. EXTREMITIES: 1+ pitting edema. SKIN: Warm, dry. laboratory and microbiology Laboratory Tests 07/26/25 13:11 Test 07/26/25 13:11 Range/Units Serum Glucose 86 74-106 mg/dL Problem List Sepsis with pneumonia. Acute hypoxic respiratory failure. ?Dysphagia. NSTEMI, likely type 2 secondary to above. Chronic compensated HFmrEF, NYHA Class III. 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 Anemia with history of GI bleed and blood transfusions. Status post left snjsr-ork-bqro amputation. Hypertension. Bue-wcemfwt-dxmiiefgb diabetes mellitus. Failure to thrive. Assessment/Plan Continued all current supportive medical care. Morphine and [place] for pain management. Aspirin, Lipitor, Metoprolol. IV antibiotics as ordered. Diuretics with Lasix. Nitro SL. Entresto. Additional plan as per the hospital course. Dietary Evaluation Review Recommendations by RD: Dietary education by RD, Increase Calorie Intake Comments: 1) Initiate Glucerna tid 2) Add NCS restriction to cardiac diet - Encourage optimal PO intake 3) Refer to outpatient RD for weight management 4) Follow-up with cardiology and nephrology 5) Continue to monitor I&O, labs, and skin integrity Expected Outcomes/Goals: 1) appetite and labs to improve 2) gradual wt gain 3) f/u in 3-5 days Plan discussed with: Patient SEBASTIÁN PLUNKETT MD Jul 28, 2025 23:54
[2025-07-29 08:00] VITALS: PULSE 60; PULSE 64; RESP 18; O2SAT 97
[2025-07-29 09:00] VITALS: BP 114/79; PULSE 64; RESP 18; TEMP 96.9; O2SAT 97
--- NOTE | 2025-07-29 09:53 | DVHPN2 ---
Reviewed: Care Plan, H&P, Labs, Medications, Previous Orders, Radiology Changes from previous H/P or p: No Changes Eyes: No Pain, No Vision change, No Conjunctivae inflammation, No Eyelid inflammation, No Other, No Redness ENT: No Ear pain, No Ear discharge, No Nose pain, No Nose discharge, No Nose congestion, No Mouth pain, No Mouth swelling, No Throat pain, No Throat swelling, No Other Cardiovascular: Chest Pain; No Palpitations, No Orthopnea, No Paroxysmal Noc. Dyspnea, No Edema, No Lt Headedness, No Other Respiratory: Cough; No Dry; Shortness of breath; No SOB with excertion, No Wheezing, No Hemoptysis, No Pleuritic Pain, No Sputum; Other (SOB at rest) Gastrointestinal: No Nausea, No Vomiting, No Abdominal Pain, No Diarrhea, No Constipation, No Melena, No Hematochezia, No Other Genitourinary: No Dysuria, No Frequency, No Incontinence, No Hematuria, No Retention, No Other Musculoskeletal: other (Right BKA); No neck pain, No shoulder pain, No arm pain, No back pain, No hand pain, No leg pain, No foot pain Skin: No Rash, No Lesions, No Jaundice, No Bruising, No Other Objective Vitals Vital Signs Date Time Temp Pulse Resp B/P (MAP) Pulse Ox O2 Delivery O2 Flow Rate FiO2 07/29/25 09:28 64 114/79 07/28/25 20:00 17 98 Room Air* 0 21 07/28/25 09:00 97.4 97.4 Intake/Output Intake and Output 07/29/25 07:00 Intake Total 300 ml Output Total 751 ml Balance -451 ml Intake Oral 0 ml IV Total 300 ml Output Urine Total 750 ml Stool Total 1 ml Medications Current Medications Medications Dose Ordered Sig/Donaldo Route Start Time Stop Time Status Last Admin Dose Admin Tamsulosin HCl 0.4 mg QPM PO 07/25/25 18:00 07/25/25 17:19 0.4 MG Atorvastatin Calcium 20 mg HS PO 07/24/25 22:00 07/28/25 21:37 20 MG Azithromycin 250 ml @ 125 mls/hr DAILY IV 07/25/25 10:00 07/28/25 10:14 125 MLS/HR Famotidine 20 mg Q12HR IV 07/24/25 22:00 07/29/25 09:26 20 MG Furosemide 20 mg DAILY IV 07/25/25 10:00 07/29/25 09:27 20 MG Diagnostic Test (Pha) 1 strip ACHS 07/24/25 22:00 07/29/25 06:18 1 STRIP Insulin Human Regular ACHS SC 07/24/25 22:00 07/24/25 22:42 2 UNITS Dextrose 50 ml UD PRN IV 07/24/25 18:45 Acetaminophen/ Hydrocodone Bitart 1 tab Q4HP PRN PO 07/24/25 18:45 07/24/25 19:26 1 TAB Ondansetron HCl 4 mg Q4HP PRN IV 07/24/25 18:45 Docusate Sodium 100 mg BIDPRN PRN PO 07/24/25 18:45 Acetaminophen 650 mg Q6HP PRN PO 07/24/25 18:45 Nitroglycerin 0.4 mg Q5MINP PRN SL 07/24/25 19:45 Morphine Sulfate 2 mg Q30M PRN IV 07/24/25 19:45 Ceftriaxone Sodium 50 ml @ 100 mls/hr DAILY@09 IV 07/26/25 09:00 07/29/25 09:28 100 MLS/HR Aspirin 81 mg DAILY PO 07/27/25 10:00 07/29/25 09:28 81 MG Metoprolol Tartrate 12.5 mg BID PO 07/26/25 22:00 07/29/25 09:28 12.5 MG Empaglifozin 10 mg DAILY PO 07/27/25 10:00 07/29/25 09:28 10 MG Sacubitril/ Valsartan 0.5 tab BID PO 07/26/25 22:00 07/29/25 09:27 0.5 TAB Dextrose/Sodium Chloride 1,000 ml @ 75 mls/hr [id number] IV 07/27/25 13:00 07/29/25 09:32 75 MLS/HR Laboratory Results Laboratory Tests 07/26/25 13:11 Urinalysis Test 07/24/25 18:29 Urine Color Yellow (Yellow) Urine Clarity Clear (Clear) Urine pH 5.0 (5.0-9.0) Urine Specific [place] 1.017 (1.001-1.035) Urine Protein 1+ (Negative) H Urine Ketones Negative (Negative) Urine Blood Negative /uL (Negative) Urine Nitrite Negative (Negative) Urine Bilirubin Negative (Negative) Urine Urobilinogen Normal mg/dL (Negative) Urine Leukocyte Esterase Negative /uL (Negative) Urine RBC 5 /hpf (0 - 3) Urine Microscopic WBC 3 /HPF (0-3) Urine Squamous Epithelial Cells Few /hpf (<5) Urine Amorphous Crystals Few /hpf (None Seen) Urine Bacteria Few /hpf (None Seen) H Urine Glucose Normal mg/dL (Normal) Labs and/or images reviewed: Labs reviewed by me, Image(s) reviewed by me Assessment/Plan Assessment/Plan Acute generalized weakness Acute Bilateral community-acquired pneumonia Gram-positive versus Gram-negative: Rocephin azithromycin Elevated troponin possibly non ST-elevation [place]: Cardiology consult for Dr. 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
[2025-07-29] MEDS: MEGESTROL ACET 400MG/10ML ORAL SUSP PO ONE (11:20)
[2025-07-29 13:00] VITALS: BP 90/56; PULSE 59; RESP 16; TEMP 97; O2SAT 95
[2025-07-29 17:00] VITALS: BP 131/62; PULSE 64; RESP 18; TEMP 96.6; O2SAT 94
[2025-07-29 20:00] VITALS: PULSE 60; RESP 16; O2SAT 95
[2025-07-29 21:00] VITALS: BP 107/72; PULSE 65; RESP 16; TEMP 98.3; O2SAT 95
--- NOTE | 2025-07-29 23:18 | DVHPN2 ---
Progress Note - Dictate Date Seen: Jul 29, 2025 Medical Necessity Reason Pt with a Central, PICC or Fol: No Subjective Patient was seen and evaluated in follow up. Patient appears comfortable in bed. Patient's diet is being advanced as tolerated. BS are WNL. Telemetry reviewed. vital signs Vital Sign Date Time Temp Pulse Resp B/P (MAP) Pulse Ox O2 Delivery O2 Flow Rate FiO2 07/29/25 09:28 64 114/79 07/29/25 09:00 96.9 18 97 96.9 07/29/25 08:00 Room Air* 0 21 Total Intake and Output 07/28/25 07/28/25 07/29/25 15:00 23:00 07:00 Intake Total 300 ml 0 ml 0 ml Output Total 351 ml 400 ml Balance 300 ml -351 ml -400 ml medications Current Medications Medications Dose Ordered Sig/Donaldo Route Start Time Stop Time Status Last Admin Dose Admin Tamsulosin HCl 0.4 mg QPM PO 07/25/25 18:00 07/25/25 17:19 0.4 MG Atorvastatin Calcium 20 mg HS PO 07/24/25 22:00 07/28/25 21:37 20 MG Azithromycin 250 ml @ 125 mls/hr DAILY IV 07/25/25 10:00 07/29/25 11:20 125 MLS/HR Famotidine 20 mg Q12HR IV 07/24/25 22:00 07/29/25 09:26 20 MG Furosemide 20 mg DAILY IV 07/25/25 10:00 07/29/25 09:27 20 MG Diagnostic Test (Pha) 1 strip ACHS 07/24/25 22:00 07/29/25 11:28 1 STRIP Insulin Human Regular ACHS SC 07/24/25 22:00 07/24/25 22:42 2 UNITS Dextrose 50 ml UD PRN IV 07/24/25 18:45 Acetaminophen/ Hydrocodone Bitart 1 tab Q4HP PRN PO 07/24/25 18:45 07/24/25 19:26 1 TAB Ondansetron HCl 4 mg Q4HP PRN IV 07/24/25 18:45 Docusate Sodium 100 mg BIDPRN PRN PO 07/24/25 18:45 Acetaminophen 650 mg Q6HP PRN PO 07/24/25 18:45 Nitroglycerin 0.4 mg Q5MINP PRN SL 07/24/25 19:45 Morphine Sulfate 2 mg Q30M PRN IV 07/24/25 19:45 Ceftriaxone Sodium 50 ml @ 100 mls/hr DAILY@09 IV 07/26/25 09:00 07/29/25 09:28 100 MLS/HR Aspirin 81 mg DAILY PO 07/27/25 10:00 07/29/25 09:28 81 MG Metoprolol Tartrate 12.5 mg BID PO 07/26/25 22:00 07/29/25 09:28 12.5 MG Empaglifozin 10 mg DAILY PO 07/27/25 10:00 07/29/25 09:28 10 MG Sacubitril/ Valsartan 0.5 tab BID PO 07/26/25 22:00 07/29/25 09:27 0.5 TAB Dextrose/Sodium Chloride 1,000 ml @ 75 mls/hr [id number] IV 07/27/25 13:00 07/29/25 09:32 75 MLS/HR Megestrol Acetate 400 mg DAILY PO 07/30/25 10:00 objective GENERAL: Alert and oriented x 3. Chronically ill appearing, cachectic, pale. EYES: PERRL, EOMI. Anicteric. HENT: Moist mucous membranes. LUNGS: Decreased breath sounds. CARDIOVASCULAR: Regular rate and rhythm. ABDOMEN: Soft, nontender and nondistended. EXTREMITIES: 1+ pitting edema. SKIN: Warm, dry. laboratory and microbiology Laboratory Tests 07/26/25 13:11 Test 07/26/25 13:11 Range/Units Serum Glucose 86 74-106 mg/dL Problem List Sepsis with pneumonia. Acute hypoxic respiratory failure. ?Dysphagia. NSTEMI, likely type 2 secondary to above. Chronic compensated HFmrEF, NYHA Class III. 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 Anemia with history of GI bleed and blood transfusions. Status post left matax-lrw-nxrh amputation. Hypertension. Yvx-cvpafyt-jsjieglgo diabetes mellitus. Failure to thrive. Assessment/Plan Continued all current supportive medical care. Nitro SL. Entresto. Aspirin,Metoprolol. Diuretics with Lasix. IV antibiotics as ordered. Morphine and Tylenol for pain management. Additional plan as per the hospital course. Dietary Evaluation Review Recommendations by RD: Dietary education by RD, Increase Calorie Intake Comments: 1) Initiate Glucerna tid 2) Add NCS restriction to cardiac diet - Encourage optimal PO intake 3) Refer to outpatient RD for weight management 4) Follow-up with cardiology and nephrology 5) Continue to monitor I&O, labs, and skin integrity Expected Outcomes/Goals: 1) appetite and labs to improve 2) gradual wt gain 3) f/u in 3-5 days Plan discussed with: Patient SEBASTIÁN PLUNKETT MD Jul 29, 2025 14:28
[2025-07-30 01:00] VITALS: BP 126/79; PULSE 61; RESP 16; TEMP 97.9; O2SAT 97
[2025-07-30 05:00] VITALS: BP 86/60; PULSE 59; RESP 16; TEMP 97.7; O2SAT 96
[2025-07-30] MEDS: SODIUM CHLORIDE 0.9% 500 ML IV ONE (06:33)
[2025-07-30 08:00] VITALS: PULSE 61; PULSE 66; RESP 16; O2SAT 97
[2025-07-30 09:00] VITALS: BP 109/59; PULSE 66; RESP 16; TEMP 97; O2SAT 99
--- NOTE | 2025-07-30 11:49 | DVHPN2 ---
Reviewed: Care Plan, H&P, Labs, Medications, Previous Orders, Radiology Changes from previous H/P or p: No Changes Eyes: No Pain, No Vision change, No Conjunctivae inflammation, No Eyelid inflammation, No Other, No Redness ENT: No Ear pain, No Ear discharge, No Nose pain, No Nose discharge, No Nose congestion, No Mouth pain, No Mouth swelling, No Throat pain, No Throat swelling, No Other Cardiovascular: Chest Pain; No Palpitations, No Orthopnea, No Paroxysmal Noc. Dyspnea, No Edema, No Lt Headedness, No Other Respiratory: Cough; No Dry; Shortness of breath; No SOB with excertion, No Wheezing, No Hemoptysis, No Pleuritic Pain, No Sputum; Other (SOB at rest) Gastrointestinal: No Nausea, No Vomiting, No Abdominal Pain, No Diarrhea, No Constipation, No Melena, No Hematochezia, No Other Genitourinary: No Dysuria, No Frequency, No Incontinence, No Hematuria, No Retention, No Other Musculoskeletal: other (Right BKA); No neck pain, No shoulder pain, No arm pain, No back pain, No hand pain, No leg pain, No foot pain Skin: No Rash, No Lesions, No Jaundice, No Bruising, No Other Objective Vitals Vital Signs Date Time Temp Pulse Resp B/P (MAP) Pulse Ox O2 Delivery O2 Flow Rate FiO2 07/30/25 09:31 66 109/59 07/30/25 09:00 97.0 16 99 97.0 07/30/25 08:00 Room Air* 0 21 Intake/Output Intake and Output 07/30/25 07:00 Intake Total 720 ml Output Total 595 ml Balance 125 ml Intake Oral 420 ml IV Total 300 ml Output Urine Total 595 ml # Bowel Movements 1 Medications Current Medications Medications Dose Ordered Sig/Donaldo Route Start Time Stop Time Status Last Admin Dose Admin Tamsulosin HCl 0.4 mg QPM PO 07/25/25 18:00 07/29/25 18:22 0.4 MG Atorvastatin Calcium 20 mg HS PO 07/24/25 22:00 07/29/25 21:59 20 MG Azithromycin 250 ml @ 125 mls/hr DAILY IV 07/25/25 10:00 07/29/25 11:20 125 MLS/HR Famotidine 20 mg Q12HR IV 07/24/25 22:00 07/29/25 22:00 20 MG Furosemide 20 mg DAILY IV 07/25/25 10:00 07/29/25 09:27 20 MG Diagnostic Test (Pha) 1 strip ACHS 07/24/25 22:00 07/30/25 11:13 1 STRIP Insulin Human Regular ACHS SC 07/24/25 22:00 07/24/25 22:42 2 UNITS Dextrose 50 ml UD PRN IV 07/24/25 18:45 Acetaminophen/ Hydrocodone Bitart 1 tab Q4HP PRN PO 07/24/25 18:45 07/24/25 19:26 1 TAB Ondansetron HCl 4 mg Q4HP PRN IV 07/24/25 18:45 Docusate Sodium 100 mg BIDPRN PRN PO 07/24/25 18:45 Acetaminophen 650 mg Q6HP PRN PO 07/24/25 18:45 Nitroglycerin 0.4 mg Q5MINP PRN SL 07/24/25 19:45 Morphine Sulfate 2 mg Q30M PRN IV 07/24/25 19:45 Ceftriaxone Sodium 50 ml @ 100 mls/hr DAILY@09 IV 07/26/25 09:00 07/29/25 09:28 100 MLS/HR Aspirin 81 mg DAILY PO 07/27/25 10:00 07/30/25 09:24 81 MG Metoprolol Tartrate 12.5 mg BID PO 07/26/25 22:00 07/29/25 22:00 12.5 MG Empaglifozin 10 mg DAILY PO 07/27/25 10:00 07/30/25 09:24 10 MG Sacubitril/ Valsartan 0.5 tab BID PO 07/26/25 22:00 07/29/25 22:00 0.5 TAB Dextrose/Sodium Chloride 1,000 ml @ 75 mls/hr [id number] IV 07/27/25 13:00 07/29/25 09:32 75 MLS/HR Megestrol Acetate 400 mg DAILY PO 07/30/25 10:00 Laboratory Results Laboratory Tests 07/26/25 13:11 Urinalysis Test 07/24/25 18:29 Urine Color Yellow (Yellow) Urine Clarity Clear (Clear) Urine pH 5.0 (5.0-9.0) Urine Specific [place] 1.017 (1.001-1.035) Urine Protein 1+ (Negative) H Urine Ketones Negative (Negative) Urine Blood Negative /uL (Negative) Urine Nitrite Negative (Negative) Urine Bilirubin Negative (Negative) Urine Urobilinogen Normal mg/dL (Negative) Urine Leukocyte Esterase Negative /uL (Negative) Urine RBC 5 /hpf (0 - 3) Urine Microscopic WBC 3 /HPF (0-3) Urine Squamous Epithelial Cells Few /hpf (<5) Urine Amorphous Crystals Few /hpf (None Seen) Urine Bacteria Few /hpf (None Seen) H Urine Glucose Normal mg/dL (Normal) Labs and/or images reviewed: Labs reviewed by me, Image(s) reviewed by me Assessment/Plan Assessment/Plan Acute generalized weakness Acute Bilateral community-acquired pneumonia Gram-positive versus Gram-negative: Rocephin azithromycin Elevated troponin possibly non ST-elevation [place]: Cardiology consult for Dr. 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
--- NOTE | 2025-07-30 11:55 | DVHDS2 ---
Discharge Summary Date of Admission Jul 24, 2025 at 19:33 Date of Discharge: Jul 30, 2025 Admitting Diagnosis Failure to thrive Wounds: None Labs/Diagnostic Data: Laboratory Results Test 07/30/25 11:32 07/26/25 13:11 07/25/25 22:31 07/24/25 18:29 POC Glucose 63 mg/dl (70-106) White Blood Count 7.3 10^3/uL (4.4-10.8) Red Blood Count 3.03 10^6/uL (4.5-5.90) Hemoglobin 9.4 g/dL (13.5-17.5) Hematocrit 29.2 % (41.0-53.0) Mean Corpuscular Volume 96.2 fL (80.0-100.0) Mean Corpuscular Hemoglobin 31.1 pg (28.0-32.0) Mean Corpuscular Hemoglobin Concent 32.3 g/dL (32.0-36.0) Red Cell Distribution Width 17.2 % (11.8-14.3) Platelet Count 248 10^3/uL (140-450) Mean Platelet Volume 7.7 fL (6.9-10.8) Neutrophils (%) (Auto) 62.2 % (37.0-80.0) Lymphocytes (%) (Auto) 32.6 % (10.0-50.0) Monocytes (%) (Auto) 4.7 % (0.0-12.0) Eosinophils (%) (Auto) 0.3 % (0.0-7.0) Basophils (%) (Auto) 0.2 % (0.0-2.0) Neutrophils # (Auto) 4.5 10 ^3/uL (1.6-8.6) Lymphocytes # (Auto) 2.4 10 ^3/uL (0.4-5.4) Monocytes # (Auto) 0.3 10 ^3/uL (0-1.3) Eosinophils # (Auto) 0 10 ^3/uL (0-0.8) Basophils # (Auto) 0 10 ^3/uL (0-0.2) Nucleated Red Blood Cells 0.1 % Sodium Level 144 mmol/L (136-145) Potassium Level 4.3 mmol/L (3.5-5.1) Chloride Level 110 mmol/L (98-107) Carbon Dioxide Level 23 mmol/L (20-31) Anion Gap 11 (5-15) Blood Urea Nitrogen 41 mg/dL (9-23) Creatinine 1.38 mg/dL (0.700-1.30) Glomerular Filtration Rate Calc 56 mL/min (>90) BUN/Creatinine Ratio 29.7 (10.0-20.0) Serum Glucose 86 mg/dL (74-106) Calcium Level 7.7 mg/dL (8.7-10.4) Total Bilirubin 0.3 mg/dL (0.2-1.0) Aspartate Amino Transferase (AST) 15 U/L (13-40) Alanine Aminotransferase (ALT) < 9 U/L (7-40) Alkaline Phosphatase 110 U/L (46-116) Total Protein 4.9 g/dL (5.7-8.2) Albumin 2.2 g/dL (3.2-4.8) Triglycerides Level 136 mg/dL (< 150) Cholesterol Level 104 mg/dL (< 200) LDL Cholesterol 48 mg/dL (< 100) HDL Cholesterol 28 mg/dL (40-59) Influenza Type A Antigen Negative (Negative) Influenza Type B Antigen Negative (Negative) SARS-CoV-2 Antigen (Rapid) Negative (NEGATIVE) Urine Color Yellow (Yellow) Urine Clarity Clear (Clear) Urine pH 5.0 (5.0-9.0) Urine Specific [place] 1.017 (1.001-1.035) Urine Protein 1+ (Negative) Urine Ketones Negative (Negative) Urine Blood Negative /uL (Negative) Urine Nitrite Negative (Negative) Urine Bilirubin Negative (Negative) Urine Urobilinogen Normal mg/dL (Negative) Urine Leukocyte Esterase Negative /uL (Negative) Urine RBC 5 /hpf (0 - 3) Urine Microscopic WBC 3 /HPF (0-3) Urine Squamous Epithelial Cells Few /hpf (<5) Urine Amorphous Crystals Few /hpf (None Seen) Urine Bacteria Few /hpf (None Seen) Urine Glucose Normal mg/dL (Normal) Test 07/24/25 18:07 07/24/25 15:11 Troponin I High Sensitivity 138 ng/L (</=54) B-Type Natriuretic Peptide 571.68 pg/mL (0-100) Other Laboratory Tests 07/26/25 13:11 Brief Hx & Hospital Course: 69-year-old male with a history of dysphagia secondary to nasopharyngeal cancer BPH acute on chronic renal failure chronic anemia status post left BKA diabetes diastolic heart failure came in for generalized weakness and failure to thrive not eating. Afebrile patient has had found to have community-acquired pneumonia treated with Rocephin and azithromycin possible non ST-elevation [place] cardiology consult by Dr. Way no further cardiac workup. The patient continued to be altered confused, failed swallow evaluation given IV fluids for dehydration being discharged home on hospice.Daughter Tiara agreeable with the plan. Condition very poor Consults/Reason for consult None Operations or Procedures none Condition at Discharge: Poor Final Diagnosis/Problems List Acute generalized weakness Acute Bilateral community-acquired pneumonia Gram-positive versus Gram-negative: Rocephin azithromycin Elevated troponin possibly non ST-elevation [place]: Cardiology consult for Dr. 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, swallow evaluation ordered Nutrition D5 NS Moderate protein calorie malnutrition Diastolic heart failure History of nasopharyngeal cancer Sandra Test negative Rapid flu test negative Discharge Disposition: Hospice - Home Discharge Instruct/Medications Diet: Cardiac 2g Na,low cholest Activity: Light activity Follow Up/Referral: Follow up with the hospice Medications: Azithromycin Sent to the pharmacy Scheduled Atorvastatin Calcium (Atorvastatin Calcium), 1 TAB PO QPM, (Reported) Ergocalciferol (Vitamin D 71063 Unit), 50,000 UNIT PO QWEEKLY Melatonin (Kp Melatonin), 10 MG PO HS, (Reported) Metformin Hydrochloride (Metformin Hcl), 1,000 MG PO IBID, (Reported) Nifedipine (Nifedipine Er), 60 MG PO DAILY Pantoprazole Sodium Sesquihydr (Protonix), 40 MG PO DAILY, (Reported) Tamsulosin Hcl (Flomax), 0.4 MG PO QPM Miscellaneous Medications Gabapentin (Gabapentin), 1 TAB PO, (Reported) 39 (Time taken for discharge summary 39 minutes) Discharge Statement: "Patient was advised to return to the ER or call 911 if any headaches, dizziness, shortness of breath, chest pain, abdominal pain, bleeding, fevers, or worsening of medical condition. Patient was counseled about treatment plan, medications, possible side effects, patientverbalized understanding. All questions were answered to the best of my ability. This discharge took greater then 30 minutes in planning, reviewing documentation, counseling the patient, and discussing with other team members." ASSESSMENT ASSESSMENT Hospital Course No significant improvement Assessment Acute generalized weakness Acute Bilateral community-acquired pneumonia Gram-positive versus Gram-negative: Rocephin azithromycin Elevated troponin possibly non ST-elevation [place]: Cardiology consult for Dr. 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
[2025-07-30] MEDS ORDERED: AZIT500T66 PO (11:56)
[2025-07-30 13:00] VITALS: BP 113/96; PULSE 70; RESP 16; TEMP 97.7; O2SAT 100
[2025-07-30] MEDS: MEGESTROL ACET 400MG/10ML ORAL SUSP PO SCH (13:12)
[2025-07-30 15:06] VITALS: BP 113/96; PULSE 70; RESP 16; TEMP 97.7; O2SAT 100
--- NOTE | 2025-07-30 23:57 | DVHPN2 ---
Progress Note - Dictate Date Seen: Jul 30, 2025 Medical Necessity Reason Pt with a Central, PICC or Fol: No Subjective Patient was seen and evaluated in follow up. Patient has no new complaints at this time. Patient denies any cardiac symptoms. Patient is cardiac stable for discharge. Telemetry reviewed. vital signs Vital Sign Date Time Temp Pulse Resp B/P (MAP) Pulse Ox O2 Delivery O2 Flow Rate FiO2 07/30/25 15:06 97.7 70 16 100 07/30/25 13:00 113/96 (102) 07/30/25 08:00 Room Air* 0 21 Total Intake and Output 07/29/25 07/29/25 07/30/25 15:00 23:00 07:00 Intake Total 300 ml 300 ml 120 ml Output Total 320 ml 275 ml Balance 300 ml -20 ml -155 ml medications Current Medications Medications Dose Ordered Sig/Donaldo Route Start Time Stop Time Status Last Admin Dose Admin Tamsulosin HCl 0.4 mg QPM PO 07/25/25 18:00 07/29/25 18:22 0.4 MG Atorvastatin Calcium 20 mg HS PO 07/24/25 22:00 07/29/25 21:59 20 MG Azithromycin 250 ml @ 125 mls/hr DAILY IV 07/25/25 10:00 07/29/25 11:20 125 MLS/HR Famotidine 20 mg Q12HR IV 07/24/25 22:00 07/29/25 22:00 20 MG Furosemide 20 mg DAILY IV 07/25/25 10:00 07/29/25 09:27 20 MG Diagnostic Test (Pha) 1 strip ACHS 07/24/25 22:00 07/30/25 11:13 1 STRIP Insulin Human Regular ACHS SC 07/24/25 22:00 07/24/25 22:42 2 UNITS Dextrose 50 ml UD PRN IV 07/24/25 18:45 Acetaminophen/ Hydrocodone Bitart 1 tab Q4HP PRN PO 07/24/25 18:45 07/24/25 19:26 1 TAB Ondansetron HCl 4 mg Q4HP PRN IV 07/24/25 18:45 Docusate Sodium 100 mg BIDPRN PRN PO 07/24/25 18:45 Acetaminophen 650 mg Q6HP PRN PO 07/24/25 18:45 Nitroglycerin 0.4 mg Q5MINP PRN SL 07/24/25 19:45 Morphine Sulfate 2 mg Q30M PRN IV 07/24/25 19:45 Ceftriaxone Sodium 50 ml @ 100 mls/hr DAILY@09 IV 07/26/25 09:00 07/29/25 09:28 100 MLS/HR Aspirin 81 mg DAILY PO 07/27/25 10:00 07/30/25 09:24 81 MG Metoprolol Tartrate 12.5 mg BID PO 07/26/25 22:00 07/29/25 22:00 12.5 MG Empaglifozin 10 mg DAILY PO 07/27/25 10:00 07/30/25 09:24 10 MG Sacubitril/ Valsartan 0.5 tab BID PO 07/26/25 22:00 07/29/25 22:00 0.5 TAB Dextrose/Sodium Chloride 1,000 ml @ 75 mls/hr [id number] IV 07/27/25 13:00 07/29/25 09:32 75 MLS/HR Megestrol Acetate 400 mg DAILY PO 07/30/25 10:00 objective GENERAL: Alert and oriented x 3. Chronically ill appearing, cachectic, pale. EYES: PERRL, EOMI. Anicteric. HENT: Moist mucous membranes. LUNGS: Decreased breath sounds. CARDIOVASCULAR: Regular rate and rhythm. ABDOMEN: Soft, nontender and nondistended. EXTREMITIES: 1+ pitting edema. SKIN: Warm, dry. laboratory and microbiology Laboratory Tests 07/26/25 13:11 Test 07/26/25 13:11 Range/Units Serum Glucose 86 74-106 mg/dL Problem List Sepsis with pneumonia. Acute hypoxic respiratory failure. ?Dysphagia. NSTEMI, likely type 2 secondary to above. Chronic compensated HFmrEF, NYHA Class III. PAD status [employer] and stenting of the RLE (11/08/2022). Anemia with history of GI bleed and blood transfusions. Status post left [id number] amputation. Hypertension. [id number] diabetes mellitus. Failure to thrive. Assessment/Plan Continued all current supportive medical care. Nitro SL. Aspirin. Morphine and Tylenol for pain management. Additional plan as per the hospital course. Dietary Evaluation Review Recommendations by RD: Dietary education by RD, Increase Calorie Intake Comments: 1) Initiate Glucerna tid 2) Add NCS restriction to cardiac diet - Encourage optimal PO intake 3) Refer to outpatient RD for weight management 4) Follow-up with cardiology and nephrology 5) Continue to monitor I&O, labs, and skin integrity Expected Outcomes/Goals: 1) appetite and labs to improve 2) gradual wt gain 3) f/u in 3-5 days Plan discussed with: Patient SEBASTIÁN PLUNKETT MD Jul 30, 2025 15:20
== END 2025-07-30 16:19 | disposition hospice, home (50) | DRG 871 ==
LOC: EDBD 13:59 → ER 13:59 → EDUNIT# 13:59 → OVERFLOW 19:33 → TELE-WESTW 23:25
PROVIDERS: ADMIT Family Medicine; ATTEND Family Medicine
DX: A41.59 Other Gram-negative sepsis (principal); I21.4 Non-ST elevation (NSTEMI) myocardial infarction; J15.69 Pneumonia due to other Gram-negative bacteria; J96.01 Acute respiratory failure with hypoxia; J15.9 Unspecified bacterial pneumonia; E44.0 Moderate protein-calorie malnutrition; N17.9 Acute kidney failure, unspecified; I13.0 Hypertensive heart and chronic kidney disease with heart failure and stage 1 through stage 4 chronic kidney disease, or unspecified chronic kidney disease; I50.42 Chronic combined systolic (congestive) and diastolic (congestive) heart failure; Z68.1 Body mass index [BMI] 19.9 or less, adult; Z20.822 Contact with and (suspected) exposure to COVID-19; J32.4 Chronic pansinusitis; N18.9 Chronic kidney disease, unspecified; N40.0 Benign prostatic hyperplasia without lower urinary tract symptoms; E88.09 Other disorders of plasma-protein metabolism, not elsewhere classified; R13.10 Dysphagia, unspecified; E11.22 Type 2 diabetes mellitus with diabetic chronic kidney disease; D63.1 Anemia in chronic kidney disease; E11.51 Type 2 diabetes mellitus with diabetic peripheral angiopathy without gangrene; E78.5 Hyperlipidemia, unspecified; E86.0 Dehydration; F17.210 Nicotine dependence, cigarettes, uncomplicated; R62.7 Adult failure to thrive; Z79.84 Long term (current) use of oral hypoglycemic drugs; Z83.3 Family history of diabetes mellitus; Z85.818 Personal history of malignant neoplasm of other sites of lip, oral cavity, and pharynx; Z89.512 Acquired absence of left leg below knee; Z79.899 Other long term (current) drug therapy
CPT/HCPCS: 36415; 70450; 71045; 80053; 80061; 81001; 82962; 83880; 84484; 85025; 86850; 86900; 86901; 87426; 87804; 92610; 93005; 99291; G0378; J1815; J2543; J3490